=== PATIENT | female | born 1980 | race Caucasian/White ===

== ENCOUNTER 2017-04-12 14:32 | Emergency (ER) | payer OTHER ==
[~2017-04-12] VITALS: Ht 160 cm; Wt 74.8 kg
[~2017-04-12 14:32] MED LIST: GLIP10TA11 PO; Gemfibrozil PO; OMEP20CA10 PO
--- NOTE | 2017-04-12 14:55 | NUR ---
Pt states she lost her glucometer about a week ago and has not checked her blood sugar since then. Accucheck =194, reported to .
[2017-04-12] MEDS ORDERED: HYDROMORPHONE 1 MG/1 ML DISP.SYRIN IV ONE (15:00)
[2017-04-12] MEDS ORDERED: ONDANSETRON 4 MG/2 ML VIAL IV ONE (15:00)
[2017-04-12] MEDS ORDERED: IV NORMAL SALINE 1000 ML BAG IV ONE (15:00)
[2017-04-12] MEDS ORDERED: PANTOPRAZOLE SODIUM 40 MG VIAL IV ONE (15:00)
[2017-04-12] MEDS ORDERED: HYDROMORPHONE 1 MG/1 ML DISP.SYRIN ONE (15:04)
[2017-04-12] MEDS ORDERED: ONDANSETRON 4 MG/2 ML VIAL ONE (15:04)
[2017-04-12] MEDS ORDERED: PANTOPRAZOLE SODIUM 40 MG VIAL ONE (15:05)
[2017-04-12 15:12] LABS: BASOPHILS % (AUTO) 0.5 % (0.0-2.0); EOSINOPHILS # (AUTO) 0.2 K/uL (0.0-0.7); EOSINOPHILS % (AUTO) 1.6 % (0.0-7.0); HEMATOCRIT 41.1 % (37-47); HEMOGLOBIN 13.5 G/DL (12.0-16.0); LYMPHOCYTES # (AUTO) 2.4 K/UL (0.8-4.8); LYMPHOCYTES % (AUTO) 24.8 % (20.5-51.5); MEAN CORPUSCULAR HEMOGLOBIN 30.9 UUG (27.0-31.0); MEAN CORPUSCULAR HGB CONC 33 g/dL (32.0-37.0); MEAN CORPUSCULAR VOLUME 94.4 FL (81.0-99.0); MONOCYTES # (AUTO) 0.3 K/UL (0.1-1.30); MONOCYTES % (AUTO) 3.2 % (0.0-11.0); NEUTROPHILS % (AUTO) 69.9 % (38.5-71.5); PLATELET COUNT (AUTO) 300 K/UL (150-450); RED BLOOD CELL COUNT(AUTO) 4.36 MIL/UL (4.2-5.4); WHITE BLOOD COUNT (AUTO) 9.9 K/UL (4.0-11.2)
[2017-04-12 15:20] LABS: CREATININE 0.7 mg/dL (0.6-1.3); POTASSIUM 3.6 mmol/L (3.5-5.1)
[2017-04-12 15:26] LABS: BILIRUBIN,DIRECT 0.1 mg/dL (0.0-0.2); BILIRUBIN,TOTAL 0.2 mg/dL (0.2-1.0); TOTAL PROTEIN, SERUM 7.2 g/dL (6.4-8.2)
--- NOTE | 2017-04-12 15:35 | NUR ---
Patient is resting comfortably on gurney while using her personal electronic device, NAD, decreased abdominal pains expressed by patient.
[2017-04-12] MEDS ORDERED: MAG HYDROX/AL HYDROX/SIMETH 30 ML LIQUID UDC PO ONE (15:45)
[2017-04-12] MEDS ORDERED: DICYCLOMINE HCL 10 MG/5 ML UDC LIQ PO ONE (15:45)
[2017-04-12] MEDS ORDERED: DICYCLOMINE HCL 10 MG/5 ML UDC LIQ ONE (16:01)
[2017-04-12] MEDS ORDERED: MAG HYDROX/AL HYDROX/SIMETH 30 ML LIQUID UDC ONE (16:01)
--- NOTE | 2017-04-12 16:01 | NUR ---
IV removed. Catheter intact and site benign. Pressure and 4x4 gauze applied to site. No bleeding noted. Patient discharged to home in stable conditon. Written and verbal after care instructions given to patient. Patient verbalizes understanding of instructions.
== END 2017-04-12 16:03 | disposition home or self-care (01) ==
LOC: ER 14:32
DX: K52.9 Noninfective gastroenteritis and colitis, unspecified (principal); E11.9 Type 2 diabetes mellitus without complications; F10.20 Alcohol dependence, uncomplicated
CPT/HCPCS: 36415; 83690; 84703; 85025; A4663; C9113; J1170; J2405; J7030

== ENCOUNTER 2017-07-08 19:46 | Emergency (ER) | payer OTHER ==
[~2017-07-08] VITALS: Ht 160 cm; Wt 74.8 kg
--- NOTE | 2017-07-08 20:00 | NUR ---
PATIENT WALKED INTO ER C/O CP THAT STARTED ABOUT 30 MINS PRIOR TO ARRIVAL AND ABDOMINAL BLOATING FOR SEVERAL . PATIENT UPON ARRIVAL DENIES CP AND ABDOMINAL BLOATING 11/08
[2017-07-08 20:55] LABS: *BILIRUBIN,URIN NEGATIVE (NEGATIVE); *BLOOD, URINE NEGATIVE (NEGATIVE); *CLARITY,URINE CLEAR (CLEAR); *COLOR,URINE YELLOW (YELLOW); *KETONES,URINE 1+ (NEGATIVE); *PROTEIN,URINE NEGATIVE (NEGATIVE); LEUKOCYTE ESTERASE ,URINE NEGATIVE (NEGATIVE); NITRITE, URINE NEGATIVE (NEGATIVE); PH,URINE 6.5 (5.0-8.0)
[2017-07-08 20:55] LABS: BASOPHILS # (AUTO) 0.1 K/uL (0.0-8.0); BASOPHILS % (AUTO) 1.1 % (0.0-2.0); EOSINOPHILS # (AUTO) 0.2 K/uL (0.0-0.7); HEMATOCRIT 42.3 % (37-47); HEMOGLOBIN 14.3 G/DL (12.0-16.0); LYMPHOCYTES # (AUTO) 2.7 K/UL (0.8-4.8); LYMPHOCYTES % (AUTO) 34.5 % (20.5-51.5); MEAN CORPUSCULAR HEMOGLOBIN 32.2 UUG (27.0-31.0); MEAN CORPUSCULAR HGB CONC 34 g/dL (32.0-37.0); MEAN CORPUSCULAR VOLUME 94.9 FL (81.0-99.0); MONOCYTES # (AUTO) 0.6 K/UL (0.1-1.30); MONOCYTES % (AUTO) 7.1 % (0.0-11.0); NEUTROPHILS # (AUTO) 4.2 K/UL (1.8-8.9); NEUTROPHILS % (AUTO) 54.3 % (38.5-71.5); PLATELET COUNT (AUTO) 299 K/UL (150-450); RED BLOOD CELL COUNT(AUTO) 4.45 MIL/UL (4.2-5.4); WHITE BLOOD COUNT (AUTO) 7.8 K/UL (4.0-11.2)
[2017-07-08 20:59] LABS: UGLUCOSE 2+ (NEGATIVE)
[2017-07-08 21:02] LABS: CREATININE 0.7 mg/dL (0.6-1.3); POTASSIUM 3.6 mmol/L (3.5-5.1)
[2017-07-08 21:14] LABS: BILIRUBIN,DIRECT 0.1 mg/dL (0.0-0.2); BILIRUBIN,TOTAL 0.4 mg/dL (0.2-1.0); TOTAL PROTEIN, SERUM 6.9 g/dL (6.4-8.2)
[2017-07-08 21:33] LABS: BACTERIA,URINE FEW /HPF (NONE SEEN); RBC,URINE 0-3 /HPF (0-3); SQUAMOUS EPITHELIAL CELL,UR FEW /HPF (NONE SEEN); WBC,URINE 0-3 /HPF (0-3)
--- NOTE | 2017-07-08 22:00 | NUR ---
PATIENT STATES "I FELL BETTER. MY STOMACH PAIN ARE GONE."
--- NOTE | 2017-07-09 00:12 | NUR ---
Patient discharged to home in stable conditon. Written and verbal after care instructions given. Patient verbalizes understanding of instructions.
[2017-07-09 00:13] VITALS: BP 138/89
== END 2017-07-09 00:13 | disposition home or self-care (01) ==
LOC: ER 19:48
DX: R07.9 Chest pain, unspecified (principal)
CPT/HCPCS: 36415; 70030-TC; 71010; 84703; 85025; 85730; 93005; A4663

== ENCOUNTER 2017-08-25 15:38 | Emergency (ER) | payer OTHER ==
[~2017-08-25] VITALS: Ht 160 cm; Wt 74.8 kg
[2017-08-25 16:30] VITALS: BP 113/87
--- NOTE | 2017-08-25 16:30 | NUR ---
Patient discharged to home in stable conditon. Written and verbal after care instructions given. Patient verbalizes understanding of instructions.
== END 2017-08-25 16:31 | disposition home or self-care (01) ==
LOC: ER 15:42
DX: L60.0 Ingrowing nail (principal); E11.9 Type 2 diabetes mellitus without complications
CPT/HCPCS: 99283; A4663

== ENCOUNTER 2017-11-26 16:32 | Emergency (ER) | payer OTHER ==
--- NOTE | 2017-11-26 16:40 | NUR ---
PT WAS CALLED TO TRIAGE AREA, NO ANSWER.
--- NOTE | 2017-11-26 17:01 | NUR ---
PT WAS CALLED TO TRIAGE AREA, NO RESPONSE.
[2018-02-21] MEDS ORDERED: MULT-1045 PO (17:39)
[2018-02-21] MEDS ORDERED: CHLO25CA22 PO (17:39)
== END 2017-11-26 17:02 | disposition left against medical advice (07) ==
LOC: ER 16:34
DX: Z53.21 Procedure and treatment not carried out due to patient leaving prior to being seen by health care provider (principal)

== ENCOUNTER 2018-02-18 19:06 | Inpatient (IN) | payer OTHER ==
[~2018-02-18] VITALS: Ht 160 cm; Wt 67.4 kg
--- NOTE | 2018-02-18 19:28 | NUR ---
PT C/O "BURNING" BACK PAIN AND ABD PAIN X2 DAYS, W/ ASSOCIATED N/V. PER PT, SHE HASNT EATEN IN 2 DAYS, AND HASN'T BEEEN ABLE TO "KEEP ANYTHING DOWN." NO ACTIVE EMESIS SINCE PT ARRIVED IN ER. DENIES SOB. PT AMBULATORY, A&OX4.
--- NOTE | 2018-02-18 19:55 | NUR ---
DR TRUMAN WESTFALL MD AT BEDSIDE FOR MSE.
[2018-02-18] MEDS ORDERED: IV NORMAL SALINE 1000 ML BAG IV ONE (20:00)
[2018-02-18 20:20] LABS: *BILIRUBIN,URIN NEGATIVE (NEGATIVE); *BLOOD, URINE 1+ (NEGATIVE); *COLOR,URINE YELLOW (YELLOW); *KETONES,URINE 4+ (NEGATIVE); *PROTEIN,URINE 2+ (NEGATIVE); *UROBILINOGEN,URINE 0.2 E.U./dl (NORMAL); BASOPHILS % (AUTO) 0.4 % (0.0-2.0); EOSINOPHILS # (AUTO) 0.1 K/uL (0.0-0.7); EOSINOPHILS % (AUTO) 1.4 % (0.0-7.0); HEMATOCRIT 44.1 % (31.2-41.9); HEMOGLOBIN 15.4 g/dL (10.9-14.3); LEUKOCYTE ESTERASE ,URINE NEGATIVE (NEGATIVE); LYMPHOCYTES # (AUTO) 1.3 K/uL (20.0-40.0); LYMPHOCYTES % (AUTO) 19.6 % (20.5-51.5); MEAN CORPUSCULAR HEMOGLOBIN 34.3 uug (24.7-32.8); MEAN CORPUSCULAR HGB CONC 35 g/dL (32.3-35.6); MEAN CORPUSCULAR VOLUME 98.5 fL (75.5-95.3); MONOCYTES # (AUTO) 0.7 K/uL (2.0-10.0); MONOCYTES % (AUTO) 9.8 % (0.0-11.0); NEUTROPHILS # (AUTO) 4.6 K/uL (1.8-8.9); NEUTROPHILS % (AUTO) 68.8 % (38.5-71.5); NITRITE, URINE NEGATIVE (NEGATIVE); PH,URINE 6.5 (5.0-8.0); PLATELET COUNT (AUTO) 294 K/uL (179-408); RED BLOOD CELL COUNT(AUTO) 4.48 MIL/uL (3.63-4.92); WHITE BLOOD COUNT (AUTO) 6.7 K/uL (3.8-11.8)
--- NOTE | 2018-02-18 20:23 | NUR ---
RADIOLOGY AT PT BEDSIDE FOR XRAY.
[2018-02-18 20:30] LABS: CREATININE 0.8 mg/dL (0.6-1.3); POTASSIUM 3.1 mmol/L (3.5-5.1)
[2018-02-18 20:35] LABS: BILIRUBIN,DIRECT 0.3 mg/dL (0.0-0.2); BILIRUBIN,TOTAL 0.8 mg/dL (0.2-1.0); TOTAL PROTEIN, SERUM 8.5 g/dL (6.4-8.2)
[2018-02-18 20:45] LABS: LIPASE 1739 U/L (73-393)
[2018-02-18] MEDS ORDERED: KETOROLAC TROMETHAMINE 30 MG INJ IVP ONE (20:45)
[2018-02-18] MEDS ORDERED: METOCLOPRAMIDE HCL 10 MG/2 ML VIAL IV ONE (20:45)
[2018-02-18 20:52] LABS: *CLARITY,URINE HAZY (CLEAR); UGLUCOSE 2+ (NEGATIVE)
[2018-02-18] MEDS ORDERED: METF10004 PO (20:55)
[2018-02-18] MEDS ORDERED: KETOROLAC TROMETHAMINE 30 MG INJ ONE (20:56)
[2018-02-18] MEDS ORDERED: METOCLOPRAMIDE HCL 10 MG/2 ML VIAL ONE (20:56)
[2018-02-18 21:02] LABS: BACTERIA,URINE FEW /HPF (NONE SEEN); SQUAMOUS EPITHELIAL CELL,UR MANY /HPF (NONE SEEN)
--- NOTE | 2018-02-18 21:27 | NUR ---
PT TAKEN TO RADIOLOGY FOR CT. NO ACUTE DISTRESS NOTED AT THIS TIME.
--- NOTE | 2018-02-18 22:10 | NUR ---
DR LAUGHLIN SPEAKING WITH DR BALBUENA FOR PT ADMISSION.
--- NOTE | 2018-02-18 22:31 | NUR ---
REPORT GIVEN TO CONNER ROBERTS.
--- NOTE | 2018-02-18 22:32 | NUR ---
Received admission report from ER Nurse.
--- NOTE | 2018-02-18 22:35 | NUR ---
Pt. admitted to TELE, under care of Dr. HANDLEY Belongs List completed
[2018-02-18 23:07] VITALS: BP 144/87
[2018-02-18] MEDS ORDERED: BISACODYL 10 MG SUPP.RECT RC PRN (23:15)
[2018-02-18] MEDS ORDERED: ACETAMINOPHEN 650 MG SUPP.RECT RC PRN (23:15)
[2018-02-18] MEDS ORDERED: ENALAPRILAT DIHYDRATE INJ 2.5 MG in IV NORMAL SALINE 50 ML IV PRN (23:15)
[2018-02-18] MEDS ORDERED: LORAZEPAM 2 MG/1 ML VIAL IV PRN (23:15)
[2018-02-18] MEDS ORDERED: DEXTROSE 50% 50 ML DISP.SYRIN IV PRN (23:15)
--- NOTE | 2018-02-18 23:25 | NUR ---
Admitted patient with admitting DX: DKA, Pancreatitis. Routine admission care done. Plan of care initiated.
[2018-02-19] MEDS: BLOOD SUGAR DIAGNOSTIC 1 EACH STRIP VI SCH ×5 (00:18→23:03)
[2018-02-19] MEDS: INSULIN REGULAR, HUMAN 300 UNIT/3 ML VIAL SQ PRN ×5 (00:21→23:05)
[2018-02-19] MEDS: MORPHINE SULFATE 2 MG/1 ML DISP.SYRIN IV PRN ×5 (00:22→20:14)
[2018-02-19] MEDS: POTASSIUM CHLORIDE 20 MEQ in IV 1/2NS 1000 ML 1,000 ML IV PRN ×2 (00:37→11:46)
--- NOTE | 2018-02-19 03:32 | NUR ---
In the bathroom throwing up claiming feeling nauseous after Morphine administration. Notified
[2018-02-19 04:00] VITALS: BP 119/77
--- NOTE | 2018-02-19 04:11 | NUR ---
Obtained Elodia order from . Pt sleeping at th time. Will continue to monitor.
[2018-02-19] MEDS: ONDANSETRON 4 MG/2 ML VIAL IV PRN ×4 (04:38→20:13)
[2018-02-19] MEDS: PANTOPRAZOLE SODIUM 40 MG VIAL IV SCH (05:49)
--- NOTE | 2018-02-19 06:01 | NUR ---
Shift end report: Slept in between care. Medicated twice for pain with relief. No further complaint presented. BS checked with sliding scale coverage given. Denies any s/s of hyperglycemia. No significant event reported all night. Continue current plan of care.
[2018-02-19 06:53] LABS: CREATININE 0.6 mg/dL (0.6-1.3); MAGNESIUM 1.6 mg/dL (1.8-2.4); PHOSPHOROUS 1.4 mg/dL (2.5-4.9); TOTAL PROTEIN, SERUM 6.6 g/dL (6.4-8.2)
--- NOTE | 2018-02-19 07:35 | NUR ---
Sleeping, appears comfortable. IVF infusing. NPO maintained
[2018-02-19 08:08] LABS: BASOPHILS % (AUTO) 0.4 % (0.0-2.0); EOSINOPHILS # (AUTO) 0.2 K/uL (0.0-0.7); EOSINOPHILS % (AUTO) 2.4 % (0.0-7.0); LYMPHOCYTES # (AUTO) 1.2 K/uL (20.0-40.0); LYMPHOCYTES % (AUTO) 15.7 % (20.5-51.5); MEAN CORPUSCULAR HEMOGLOBIN 33.9 uug (24.7-32.8); MEAN CORPUSCULAR HGB CONC 34 g/dL (32.3-35.6); MEAN CORPUSCULAR VOLUME 99.7 fL (75.5-95.3); MONOCYTES % (AUTO) 13.2 % (0.0-11.0); NEUTROPHILS # (AUTO) 5.2 K/uL (1.8-8.9); NEUTROPHILS % (AUTO) 68.3 % (38.5-71.5); PLATELET COUNT (AUTO) 237 K/uL (179-408); RED BLOOD CELL COUNT(AUTO) 3.77 MIL/uL (3.63-4.92); WHITE BLOOD COUNT (AUTO) 7.7 K/uL (3.8-11.8)
[2018-02-19 08:12] LABS: HEMOGLOBIN 12.8 g/dL (10.9-14.3)
[2018-02-19 08:13] LABS: HEMATOCRIT 37.6 % (31.2-41.9)
[2018-02-19] MEDS: THIAMINE HCL INJ 100 MG in IV DEXTROSE 5% 50 ML IV SCH (08:30)
[2018-02-19] MEDS: FOLIC ACID 1 MG in IV DEXTROSE 5% 50 ML IV SCH (09:06)
--- NOTE | 2018-02-19 09:11 | NUR ---
Complaining of abdominal pain with nausea. Morphine and Zofran IV given as ordered. Resting after
[2018-02-19 11:36] VITALS: BP 116/74
--- NOTE | 2018-02-19 13:15 | NUR ---
With low magnesium, potassium, Phos. Magnesium, KPhos given as ordered
[2018-02-19] MEDS: MAGNESIUM SULFATE/D5W 100 ML IV SCH ×2 (13:18→14:56)
--- NOTE | 2018-02-19 13:20 | NUR ---
Vomiting. Zofran IV given
[2018-02-19 15:40] VITALS: BP 141/85
[2018-02-19] MEDS: POTASSIUM PHOSPHATE MM 5 MMOL in IV DEXTROSE 5% 100 ML IV SCH ×4 (16:13→22:06)
--- NOTE | 2018-02-19 16:20 | NUR ---
Complaining of abdominal pain. Morphine IV given as ordered
--- NOTE | 2018-02-19 18:44 | NUR ---
Resting. KPhos infusing, still for infusion of 2 bags of KPhos. Endorsed for further care
[2018-02-19 20:00] VITALS: BP 144/87
--- NOTE | 2018-02-19 20:00 | NUR ---
PT IN ROOM SITTING UP IN BED IN NO ACUTE DISTRESS. STATES GENERALIZED PAIN TO HER BACK 03/08. ONE EPISODE OF VOMITTING PRESENT. PT ABLE TO TAKE NEXT DOSE OF MORPHINE AND ZOFRAN. MAINTAINING IV K PHOS 2ND BAG AT THIS TIME. PT REMINDED OF NPO STATUS. CLINICAL NURSE LEADER SINUS RHYTHM AT THIS TIME. ABLE TO MAKE NEEDS KNOWN. WILL CONTINUE TO MONITOR. CALL LIGHT IS WITHIN REACH.
[2018-02-20] VITALS: BP 101/67
--- NOTE | 2018-02-20 01:00 | NUR ---
NO EPISODES OF HYPER/HYPOGLYCEMIA. MAINTAINING IV FLUIDS 1/2 NS WITH 20 KCL. PT ASLEEP. WILL CONTINUE TO MONITOR. SINUS RHYTHM NOTED ON HOSPITALITY AIDE. NO ACTIVE PAIN AT THIS TIME.
[2018-02-20] MEDS: POTASSIUM CHLORIDE 20 MEQ in IV 1/2NS 1000 ML 1,000 ML IV PRN ×2 (01:03→12:19)
[2018-02-20] MEDS: MORPHINE SULFATE 2 MG/1 ML DISP.SYRIN IV PRN ×4 (02:06→23:43)
[2018-02-20] MEDS: ONDANSETRON 4 MG/2 ML VIAL IV PRN ×2 (02:11→07:35)
[2018-02-20 04:00] VITALS: BP 100/67
--- NOTE | 2018-02-20 06:00 | NUR ---
PT IN ROOM ALERT AWAKE IN NO ACUTE DISTRESS. STATES HAVING UP TO 2 EPISODES OF VOMITTING OVERNIGHT. REPORTED MORPHINE AND ZOFRAN ABLE TO CONTROL PAIN AND NAUSEA. MAINTAINING IV FLUIDS OF 20 KCL WITH 1/2 NS. NO S/S OF HYPER/HYPOGLYCEMIA. REMINDED PT TO MAINTAIN NPO STATUS. WILL CONTINUE TO MONITOR. CALL LIGHT IS WITHIN REACH.
[2018-02-20] MEDS: PANTOPRAZOLE SODIUM 40 MG VIAL IV SCH (06:12)
[2018-02-20] MEDS: INSULIN REGULAR, HUMAN 300 UNIT/3 ML VIAL SQ PRN ×3 (06:15→17:36)
[2018-02-20] MEDS: BLOOD SUGAR DIAGNOSTIC 1 EACH STRIP VI SCH ×4 (06:16→23:55)
[2018-02-20 06:48] LABS: BASOPHILS % (AUTO) 0.6 % (0.0-2.0); EOSINOPHILS # (AUTO) 0.3 K/uL (0.0-0.7); EOSINOPHILS % (AUTO) 4.1 % (0.0-7.0); HEMATOCRIT 38.3 % (31.2-41.9); HEMOGLOBIN 13.1 g/dL (10.9-14.3); LYMPHOCYTES # (AUTO) 1.6 K/uL (20.0-40.0); LYMPHOCYTES % (AUTO) 23.3 % (20.5-51.5); MEAN CORPUSCULAR HEMOGLOBIN 34.2 uug (24.7-32.8); MEAN CORPUSCULAR HGB CONC 34 g/dL (32.3-35.6); MEAN CORPUSCULAR VOLUME 99.9 fL (75.5-95.3); MONOCYTES # (AUTO) 0.5 K/uL (2.0-10.0); MONOCYTES % (AUTO) 7.7 % (0.0-11.0); NEUTROPHILS # (AUTO) 4.5 K/uL (1.8-8.9); NEUTROPHILS % (AUTO) 64.3 % (38.5-71.5); PLATELET COUNT (AUTO) 235 K/uL (179-408); RED BLOOD CELL COUNT(AUTO) 3.83 MIL/uL (3.63-4.92)
[2018-02-20 07:02] LABS: BILIRUBIN,TOTAL 0.8 mg/dL (0.2-1.0); CREATININE 0.6 mg/dL (0.6-1.3); PHOSPHOROUS 1.7 mg/dL (2.5-4.9); TOTAL PROTEIN, SERUM 6.8 g/dL (6.4-8.2)
[2018-02-20] MEDS: THIAMINE HCL INJ 100 MG in IV DEXTROSE 5% 50 ML IV SCH (08:40)
[2018-02-20] MEDS: FOLIC ACID 1 MG in IV DEXTROSE 5% 50 ML IV SCH (09:24)
--- NOTE | 2018-02-20 10:40 | NUR ---
Dr. Luz Spence. into examine and speak to patient; full review of recent lab work and imaging with patient orders received see orders Hx.
[2018-02-20] MEDS ORDERED: POTASSIUM CHLORIDE 20 MEQ TAB.PRT.SR PO ONE (10:45)
[2018-02-20] MEDS ORDERED: MAGNESIUM HYDROXIDE 30 ML LIQUID UDC PO PRN ×2 (11:00→12:15)
[2018-02-20 11:31] VITALS: BP 124/78
[2018-02-20] MEDS: POTASSIUM PHOSPHATE MM 5 MMOL in IV DEXTROSE 5% 100 ML IV SCH ×6 (11:45→22:00)
[2018-02-20 15:34] VITALS: BP 124/93
[2018-02-20 21:09] VITALS: BP 126/84
[2018-02-21] MEDS: POTASSIUM PHOSPHATE MM 5 MMOL in IV DEXTROSE 5% 100 ML IV SCH (01:53)
[2018-02-21] MEDS: POTASSIUM CHLORIDE 20 MEQ in IV 1/2NS 1000 ML 1,000 ML IV PRN (04:54)
[2018-02-21] MEDS: MORPHINE SULFATE 2 MG/1 ML DISP.SYRIN IV PRN (04:54)
[2018-02-21] MEDS: PANTOPRAZOLE SODIUM 40 MG VIAL IV SCH (04:55)
[2018-02-21] MEDS: BLOOD SUGAR DIAGNOSTIC 1 EACH STRIP VI SCH ×3 (06:07→17:00)
[2018-02-21 06:10] LABS: BASOPHILS % (AUTO) 1.1 % (0.0-2.0); EOSINOPHILS # (AUTO) 0.2 K/uL (0.0-0.7); EOSINOPHILS % (AUTO) 5.7 % (0.0-7.0); HEMATOCRIT 40.3 % (31.2-41.9); HEMOGLOBIN 13.8 g/dL (10.9-14.3); LYMPHOCYTES # (AUTO) 1.7 K/uL (20.0-40.0); LYMPHOCYTES % (AUTO) 37.7 % (20.5-51.5); MEAN CORPUSCULAR HEMOGLOBIN 34.1 uug (24.7-32.8); MEAN CORPUSCULAR HGB CONC 34 g/dL (32.3-35.6); MEAN CORPUSCULAR VOLUME 99.4 fL (75.5-95.3); MONOCYTES # (AUTO) 0.3 K/uL (2.0-10.0); MONOCYTES % (AUTO) 7.6 % (0.0-11.0); NEUTROPHILS # (AUTO) 2.1 K/uL (1.8-8.9); NEUTROPHILS % (AUTO) 47.9 % (38.5-71.5); PLATELET COUNT (AUTO) 258 K/uL (179-408); RED BLOOD CELL COUNT(AUTO) 4.05 MIL/uL (3.63-4.92); WHITE BLOOD COUNT (AUTO) 4.4 K/uL (3.8-11.8)
[2018-02-21 06:18] LABS: BILIRUBIN,TOTAL 0.8 mg/dL (0.2-1.0); CREATININE 0.7 mg/dL (0.6-1.3); PHOSPHOROUS 1.9 mg/dL (2.5-4.9); POTASSIUM 3.2 mmol/L (3.5-5.1)
[2018-02-21 06:20] VITALS: BP 122/82
--- NOTE | 2018-02-21 08:00 | NUR ---
AWAKE ALERT COOPERATE WELL NO PAIN OR N/V EAT CLEAR LIQ KATHIE MOD AMT CONTINUE IVF RESTING QUIET IN BED WITH CALL LIGHT IN REACH
[2018-02-21] MEDS: INSULIN REGULAR, HUMAN 300 UNIT/3 ML VIAL SQ PRN ×3 (08:18→17:02)
[2018-02-21] MEDS: THIAMINE HCL INJ 100 MG in IV DEXTROSE 5% 50 ML IV SCH (08:21)
[2018-02-21] MEDS: FOLIC ACID 1 MG in IV DEXTROSE 5% 50 ML IV SCH (08:21)
[2018-02-21 11:33] VITALS: BP 121/83
--- NOTE | 2018-02-21 12:00 | NUR ---
ADVANCE DIET TO DM DIET /CONSIST CARBOHYDRATE CONTROL DIET KATHIE WELL NO N/V OR ABD PAIN AT THIS TIME
[2018-02-21] MEDS ORDERED: POTASSIUM CHLORIDE 20 MEQ TAB.PRT.SR PO ONE (14:45)
--- NOTE | 2018-02-21 15:00 | NUR ---
DR HANDLEY SEE PATIENT AND LAB RESULT AND ORDER TO GIVE K DUR AND NEUTRAL PO4 PO GIVEN ORDER D/C INSTRUCTION REGARDING NEED TO F/U WITH OWN PMD CONTINUE HOME MEDICINE AND EDUCATION PK GAVE ,VERBALIZES UNDERSTAND HL WAS D/C PRIOR D/C HOME TODAY
[2018-02-21] MEDS ORDERED: NEUTRA PHOS PACKET PO ONE (15:45)
[2018-02-21 16:03] VITALS: BP 125/84
[2018-02-21] MEDS ORDERED: MULT-1045 PO (17:39)
[2018-02-21] MEDS ORDERED: CHLO25CA22 PO (17:39)
--- NOTE | 2018-02-21 18:20 | NUR ---
D/C HOME WITH HER BELONGING CONDITION STABLE HOME MED VINSTRUCTION PRIOR D/C HOME TODAY ,UNDERSTAND AND SIGNS D/C SHEET
[2018-02-22] MEDS ORDERED: PANTOPRAZOLE SODIUM 40 MG TABLET.DR PO SCH (07:00)
[2018-02-22] MEDS ORDERED: THIAMINE HCL 100 MG TABLET PO SCH (09:00)
[2018-02-22] MEDS ORDERED: FOLIC ACID 1 MG TABLET PO SCH (09:00)
== END 2018-02-21 18:20 | disposition home or self-care (01) | DRG 282 ==
LOC: ER 19:08 → TELE 22:29 → MED 02-20 11:07
PROVIDERS: ADMIT Internal Medicine; ATTEND Internal Medicine
DX: K85.20 Alcohol induced acute pancreatitis without necrosis or infection (principal); E11.10 Type 2 diabetes mellitus with ketoacidosis without coma; E11.21 Type 2 diabetes mellitus with diabetic nephropathy; K70.10 Alcoholic hepatitis without ascites; N20.0 Calculus of kidney; E78.5 Hyperlipidemia, unspecified; K42.9 Umbilical hernia without obstruction or gangrene; Z91.19 Patient's noncompliance with other medical treatment and regimen; K59.00 Constipation, unspecified; D75.89 Other specified diseases of blood and blood-forming organs; E11.65 Type 2 diabetes mellitus with hyperglycemia; K76.0 Fatty (change of) liver, not elsewhere classified; Y90.3 Blood alcohol level of 60-79 mg/100 ml; Z79.84 Long term (current) use of oral hypoglycemic drugs; Z82.49 Family history of ischemic heart disease and other diseases of the circulatory system; Z81.1 Family history of alcohol abuse and dependence; Z83.3 Family history of diabetes mellitus; F10.239 Alcohol dependence with withdrawal, unspecified
CPT/HCPCS: 36415; 70030-TC; 71045; 83605; 83690; 83735; 84100; 84703; 85025; 85730; 87040; 87086; 93005; A4663; C9113; G0480; J1815; J1885; J2270; J2405; J2765; J3411; J3475; J3480; J3490; J7030; J7040; J7060

== ENCOUNTER 2018-02-22 13:50 | Emergency (ER) | payer OTHER ==
[~2018-02-22] VITALS: Ht 160 cm; Wt 68.0 kg
[~2018-02-22 13:50] MED LIST changes: +CHLO25CA22 PO; -Gemfibrozil PO; +METF10004 PO; +MULT-1045 PO
--- NOTE | 2018-02-22 14:02 | NUR ---
Patient eloped from facility. ER physician notified.
== END 2018-02-22 14:03 | disposition left against medical advice (07) ==
LOC: ER 13:50
DX: Z53.21 Procedure and treatment not carried out due to patient leaving prior to being seen by health care provider (principal)
CPT/HCPCS: A4663

== ENCOUNTER 2018-06-05 09:40 | Emergency (ER) | payer OTHER ==
[~2018-06-05] VITALS: Ht 160 cm; Wt 63.5 kg
--- NOTE | 2018-06-05 09:45 | NUR ---
at bedside to see and examine patient. blood sugar checked at this time and a reading of 75mmhg. obtained. at bedside and aware. Pt's boyfriend at bedside .
--- NOTE | 2018-06-05 09:48 | NUR ---
pt. moaning crying.
[2018-06-05] MEDS ORDERED: IV NORMAL SALINE 1000 ML BAG IV ONE (10:00)
--- NOTE | 2018-06-05 10:02 | NUR ---
pt. taken down for ct of the head.
[2018-06-05 10:09] LABS: BASOPHILS % (AUTO) 0.6 % (0.0-2.0); EOSINOPHILS % (AUTO) 1.1 % (0.0-7.0); HEMATOCRIT 39.9 % (31.2-41.9); HEMOGLOBIN 13.8 g/dL (10.9-14.3); LYMPHOCYTES # (AUTO) 1.3 K/uL (20.0-40.0); LYMPHOCYTES % (AUTO) 33.3 % (20.5-51.5); MEAN CORPUSCULAR HEMOGLOBIN 34.3 uug (24.7-32.8); MEAN CORPUSCULAR HGB CONC 35 g/dL (32.3-35.6); MEAN CORPUSCULAR VOLUME 99.3 fL (75.5-95.3); MONOCYTES # (AUTO) 0.3 K/uL (2.0-10.0); MONOCYTES % (AUTO) 8.5 % (0.0-11.0); NEUTROPHILS # (AUTO) 2.2 K/uL (1.8-8.9); NEUTROPHILS % (AUTO) 56.5 % (38.5-71.5); PLATELET COUNT (AUTO) 299 K/uL (179-408); RED BLOOD CELL COUNT(AUTO) 4.02 MIL/uL (3.63-4.92); WHITE BLOOD COUNT (AUTO) 3.9 K/uL (3.8-11.8)
[2018-06-05 10:14] LABS: CREATININE 0.6 mg/dL (0.6-1.3)
--- NOTE | 2018-06-05 10:16 | NUR ---
Patient back from Ct.
[2018-06-05 10:19] LABS: BILIRUBIN,DIRECT 0.3 mg/dL (0.0-0.2); BILIRUBIN,TOTAL 0.8 mg/dL (0.2-1.0); TOTAL PROTEIN, SERUM 7.5 g/dL (6.4-8.2)
--- NOTE | 2018-06-05 10:59 | NUR ---
at bedside updating pt. of test results.
--- NOTE | 2018-06-05 11:10 | NUR ---
DCD instructions and prescription given to pt. who verbalized understanding, boyfriend at bedside. Pt. left room ambulatory AAOX4.
== END 2018-06-05 11:20 | disposition home or self-care (01) ==
LOC: ER 09:40
DX: R42 Dizziness and giddiness (principal); E11.9 Type 2 diabetes mellitus without complications
CPT/HCPCS: 36415; 70450; 80048; 80076; 82962; 84484; 85025; 85730; 93005; 99285; A4663; J7030; 70030-TC

== ENCOUNTER 2018-07-05 19:46 | Emergency (ER) | payer OTHER ==
[~2018-07-05] VITALS: Ht 160 cm; Wt 64.9 kg
[~2018-07-05 19:46] MED LIST changes: +METF-442 PO; -METF10004 PO
[2018-07-05] MEDS ORDERED: IV NORMAL SALINE 1000 ML BAG IV ONE (20:30)
[2018-07-05] MEDS ORDERED: ONDANSETRON 4 MG/2 ML VIAL IV ONE (20:30)
[2018-07-05 20:32] LABS: EOSINOPHILS % (AUTO) 1.1 % (0.0-7.0); HEMATOCRIT 43.2 % (31.2-41.9); LYMPHOCYTES % (AUTO) 32.9 % (20.5-51.5); MEAN CORPUSCULAR HEMOGLOBIN 35.1 uug (24.7-32.8); MEAN CORPUSCULAR HGB CONC 35 g/dL (32.3-35.6); MEAN CORPUSCULAR VOLUME 100.9 fL (75.5-95.3); MONOCYTES % (AUTO) 7.1 % (0.0-11.0); NEUTROPHILS % (AUTO) 57.9 % (38.5-71.5); PLATELET COUNT (AUTO) 300 K/uL (179-408); RED BLOOD CELL COUNT(AUTO) 4.28 MIL/uL (3.63-4.92); WHITE BLOOD COUNT (AUTO) 5.9 K/uL (3.8-11.8)
[2018-07-05 20:33] LABS: BASOPHILS # (AUTO) 0.1 K/uL (0.0-8.0); EOSINOPHILS # (AUTO) 0.1 K/uL (0.0-0.7); MONOCYTES # (AUTO) 0.4 K/uL (2.0-10.0); NEUTROPHILS # (AUTO) 3.4 K/uL (1.8-8.9)
[2018-07-05 20:38] LABS: *URINE HCG, QUAL NEGATIVE (NEGATIVE)
[2018-07-05 20:46] LABS: CREATININE 0.8 mg/dL (0.6-1.3); POTASSIUM 3.3 mmol/L (3.5-5.1)
[2018-07-05 20:52] LABS: BILIRUBIN,DIRECT 0.2 mg/dL (0.0-0.2); BILIRUBIN,TOTAL 0.5 mg/dL (0.2-1.0); TOTAL PROTEIN, SERUM 8.1 g/dL (6.4-8.2)
--- NOTE | 2018-07-05 21:00 | NUR ---
PT SEEN BY FOR EVCARLOS
[2018-07-05] MEDS ORDERED: IV D5 1/2 NS 1000 ML 1,000 ML IV ONE (21:02)
[2018-07-05] MEDS ORDERED: ONDANSETRON 4 MG/2 ML VIAL ONE (21:06)
[2018-07-05] MEDS ORDERED: KETOROLAC TROMETHAMINE 30 MG INJ IVP ONE (21:15)
[2018-07-05] MEDS ORDERED: KETOROLAC TROMETHAMINE 30 MG INJ ONE (21:18)
--- NOTE | 2018-07-05 22:00 | NUR ---
PATIENT HAS NO C/O N/V. IV FLUIDS D5 1/2NS AT 200CC AT THIS TIME.
--- NOTE | 2018-07-05 22:55 | NUR ---
PT C/O ANXIETY. DR ENCARNACION NOTIFIED. NO INCREASED PAIN NOTED AT THIS TIME.
[2018-07-05] MEDS ORDERED: LORAZEPAM 2 MG/1 ML VIAL IV ONE (23:00)
[2018-07-05] MEDS ORDERED: LORAZEPAM 2 MG/1 ML VIAL ONE (23:00)
--- NOTE | 2018-07-06 00:40 | NUR ---
Patient discharged to home in stable conditon. Written and verbal after care instructions given. Patient verbalizes understanding of instructions. Pt's ex boyfriend will drive her home.
[2018-07-06 00:57] VITALS: BP 141/87
== END 2018-07-06 01:05 | disposition home or self-care (01) ==
LOC: ER 19:47
DX: K85.90 Acute pancreatitis without necrosis or infection, unspecified (principal); R11.10 Vomiting, unspecified; E11.9 Type 2 diabetes mellitus without complications; Z59.0 Homelessness
CPT/HCPCS: 36415; 83690; 84703; 85025; A4663; J1885; J2060; J2405; J3490; J7030

== ENCOUNTER 2018-11-02 17:33 | Inpatient (IN) | payer OTHER ==
[~2018-11-02] VITALS: Ht 160 cm; Wt 63.5 kg
[2018-11-02] MEDS ORDERED: PANTOPRAZOLE SODIUM 40 MG VIAL IV ONE (18:45)
[2018-11-02] MEDS ORDERED: HYDROMORPHONE 1 MG/1 ML DISP.SYRIN IV ONE (18:45)
[2018-11-02] MEDS ORDERED: IV NORMAL SALINE 1000 ML BAG IV ONE (18:45)
[2018-11-02] MEDS ORDERED: ONDANSETRON 4 MG/2 ML VIAL IV ONE ×2 (18:45→19:45)
[2018-11-02] MEDS ORDERED: ONDANSETRON 4 MG/2 ML VIAL ONE ×2 (18:56→20:01)
[2018-11-02] MEDS ORDERED: HYDROMORPHONE 1 MG/1 ML DISP.SYRIN ONE (18:56)
[2018-11-02] MEDS ORDERED: PANTOPRAZOLE SODIUM 40 MG VIAL ONE (18:56)
[2018-11-02 18:58] LABS: BASOPHILS % (AUTO) 0.4 % (0.0-2.0); EOSINOPHILS % (AUTO) 0.5 % (0.0-7.0); HEMATOCRIT 43.2 % (31.2-41.9); HEMOGLOBIN 14.4 g/dL (10.9-14.3); LYMPHOCYTES # (AUTO) 1.1 K/uL (20.0-40.0); LYMPHOCYTES % (AUTO) 14.2 % (20.5-51.5); MEAN CORPUSCULAR HEMOGLOBIN 32.8 uug (24.7-32.8); MEAN CORPUSCULAR HGB CONC 33 g/dL (32.3-35.6); MEAN CORPUSCULAR VOLUME 98.6 fL (75.5-95.3); MONOCYTES # (AUTO) 0.4 K/uL (2.0-10.0); MONOCYTES % (AUTO) 5.5 % (0.0-11.0); NEUTROPHILS % (AUTO) 79.4 % (38.5-71.5); PLATELET COUNT (AUTO) 257 K/uL (179-408); RED BLOOD CELL COUNT(AUTO) 4.38 MIL/uL (3.63-4.92); WHITE BLOOD COUNT (AUTO) 7.5 K/uL (3.8-11.8)
[2018-11-02 19:08] LABS: CARBON DIOXIDE 11 mmol/L (21-32); CHLORIDE 94 mmol/L (98-107); CREATININE 0.7 mg/dL (0.6-1.3); GLUCOSE 285 mg/dL (74-106); UREA NITROGEN, BLOOD 5 mg/dL (7-18)
[2018-11-02 19:10] LABS: POTASSIUM 2.7 mmol/L (3.5-5.1)
[2018-11-02 19:14] LABS: ALANINE AMINOTRANSFERASE 91 U/L (14-59); ALKALINE PHOSPHATASE 131 U/L (50-136); BILIRUBIN,DIRECT 0.3 mg/dL (0.0-0.2); BILIRUBIN,TOTAL 0.6 mg/dL (0.2-1.0); LIPASE 1189 U/L (73-393); TOTAL PROTEIN, SERUM 8.7 g/dL (6.4-8.2)
[2018-11-02] MEDS ORDERED: POTASSIUM CHLORIDE 20 MEQ TAB.PRT.SR PO ONE (19:15)
[2018-11-02] MEDS ORDERED: POTASSIUM CHLORIDE 20 MEQ TAB.PRT.SR ONE (19:23)
[2018-11-02 19:26] LABS: ASPARTATE AMINOTRANSFERASE 72 U/L (15-37)
[2018-11-02] MEDS ORDERED: DEXTROSE 50% 50 ML DISP.SYRIN IV PRN (20:45)
[2018-11-02] MEDS ORDERED: MORPHINE SULFATE 4 MG/1 ML DISP.SYRIN IV PRN (20:45)
[2018-11-02] MEDS ORDERED: ACETAMINOPHEN 650 MG SUPP.RECT RC PRN (20:45)
[2018-11-02 21:42] LABS: *BLOOD, URINE 2+ (NEGATIVE); *CLARITY,URINE SLIGHTLY CLOUDY (CLEAR); *COLOR,URINE YELLOW (YELLOW); *KETONES,URINE 4+ (NEGATIVE); *UROBILINOGEN,URINE 0.2 E.U./dl (NORMAL); LEUKOCYTE ESTERASE ,URINE NEGATIVE (NEGATIVE); NITRITE, URINE NEGATIVE (NEGATIVE); PH,URINE 5.5 (5.0-8.0)
[2018-11-02 21:43] LABS: *BILIRUBIN,URIN 1+ (NEGATIVE); UGLUCOSE 1+ (NEGATIVE)
[2018-11-02 21:56] LABS: BACTERIA,URINE FEW /HPF (NONE SEEN); SQUAMOUS EPITHELIAL CELL,UR FEW /HPF (NONE SEEN); WBC,URINE 0-3 /HPF (0-3)
[2018-11-02 21:59] LABS: YEAST,URINE RARE /HPF (NONE SEEN)
[2018-11-02 22:00] VITALS: BP 130/82
[2018-11-02] MEDS ORDERED: POTASSIUM CHLORIDE 20 MEQ in IV NS 1000 ML 1,000 ML IV PRN (22:00)
[2018-11-02] MEDS: ONDANSETRON 4 MG/2 ML VIAL IV PRN (22:56)
[2018-11-02] MEDS: BLOOD SUGAR DIAGNOSTIC 1 EACH STRIP VI SCH (23:11)
[2018-11-02] MEDS: LORAZEPAM 2 MG/1 ML VIAL IV SCH (23:12)
[2018-11-02] MEDS: INSULIN REGULAR, HUMAN 300 UNIT/3 ML VIAL SQ PRN (23:20)
[2018-11-03] MEDS: LORAZEPAM 2 MG/1 ML VIAL IV SCH ×6 (03:13→23:21)
[2018-11-03 04:00] VITALS: BP 119/80
[2018-11-03] MEDS: BLOOD SUGAR DIAGNOSTIC 1 EACH STRIP VI SCH ×4 (05:56→23:28)
[2018-11-03] MEDS: INSULIN REGULAR, HUMAN 300 UNIT/3 ML VIAL SQ PRN ×3 (05:57→23:29)
[2018-11-03] MEDS: ONDANSETRON 4 MG/2 ML VIAL IV PRN (05:58)
[2018-11-03 07:40] LABS: BASOPHILS % (AUTO) 0.3 % (0.0-2.0); EOSINOPHILS % (AUTO) 0.7 % (0.0-7.0); HEMATOCRIT 38.1 % (31.2-41.9); HEMOGLOBIN 12.7 g/dL (10.9-14.3); LYMPHOCYTES # (AUTO) 1.5 K/uL (20.0-40.0); MEAN CORPUSCULAR HEMOGLOBIN 32.8 uug (24.7-32.8); MEAN CORPUSCULAR HGB CONC 33 g/dL (32.3-35.6); MEAN CORPUSCULAR VOLUME 98.6 fL (75.5-95.3); MONOCYTES # (AUTO) 0.6 K/uL (2.0-10.0); MONOCYTES % (AUTO) 10.6 % (0.0-11.0); NEUTROPHILS # (AUTO) 3.7 K/uL (1.8-8.9); NEUTROPHILS % (AUTO) 62.4 % (38.5-71.5); PLATELET COUNT (AUTO) 210 K/uL (179-408); RED BLOOD CELL COUNT(AUTO) 3.87 MIL/uL (3.63-4.92); WHITE BLOOD COUNT (AUTO) 5.9 K/uL (3.8-11.8)
[2018-11-03 08:28] LABS: BILIRUBIN,TOTAL 0.8 mg/dL (0.2-1.0); CREATININE 0.8 mg/dL (0.6-1.3); MAGNESIUM 2.1 mg/dL (1.8-2.4); PHOSPHOROUS 1.4 mg/dL (2.5-4.9); TOTAL PROTEIN, SERUM 7.2 g/dL (6.4-8.2)
[2018-11-03 08:43] LABS: POTASSIUM 2.8 mmol/L (3.5-5.1)
[2018-11-03] MEDS: MULTIVITAMINS,THERAPEUTIC TABLET PO SCH (09:13)
[2018-11-03] MEDS: FOLIC ACID 1 MG TABLET PO SCH (09:13)
[2018-11-03] MEDS: PANTOPRAZOLE SODIUM 40 MG VIAL IV SCH (09:13)
[2018-11-03] MEDS: THIAMINE HCL 100 MG TABLET PO SCH (09:13)
[2018-11-03] MEDS: SODIUM BICARBONATE 8.4% 50 MEQ in IV D5 1/2 NS 1000 ML 1,000 ML IV PRN ×2 (11:43→21:57)
[2018-11-03] MEDS: POTASSIUM CHLORIDE 50 ML IV SCH ×4 (11:43→16:20)
[2018-11-03 11:48] VITALS: BP 116/74
[2018-11-03] MEDS ORDERED: NEUTRA PHOS PACKET PO ONE (15:30)
[2018-11-03 15:45] VITALS: BP 121/80
[2018-11-03 19:34] VITALS: BP 124/82
[2018-11-04 03:35] VITALS: BP 98/61
[2018-11-04] MEDS: LORAZEPAM 2 MG/1 ML VIAL IV SCH ×5 (04:00→20:12)
[2018-11-04] MEDS: BLOOD SUGAR DIAGNOSTIC 1 EACH STRIP VI SCH ×4 (05:24→20:20)
[2018-11-04] MEDS: INSULIN REGULAR, HUMAN 300 UNIT/3 ML VIAL SQ PRN ×3 (05:25→20:19)
[2018-11-04] MEDS: SODIUM BICARBONATE 8.4% 50 MEQ in IV D5 1/2 NS 1000 ML 1,000 ML IV PRN (06:48)
[2018-11-04 07:10] LABS: CREATININE 0.7 mg/dL (0.6-1.3)
[2018-11-04 07:25] LABS: PHOSPHOROUS 0.5 mg/dL (2.5-4.9); POTASSIUM 2.4 mmol/L (3.5-5.1)
[2018-11-04] MEDS: THIAMINE HCL 100 MG TABLET PO SCH (08:15)
[2018-11-04] MEDS: FOLIC ACID 1 MG TABLET PO SCH (08:15)
[2018-11-04] MEDS: MULTIVITAMINS,THERAPEUTIC TABLET PO SCH (08:15)
[2018-11-04] MEDS: PANTOPRAZOLE SODIUM 40 MG VIAL IV SCH (08:15)
[2018-11-04] MEDS: POTASSIUM PHOSPHATE MM 7.5 MMOL in IV DEXTROSE 5% 100 ML IV SCH ×2 (08:46→11:27)
[2018-11-04] MEDS ORDERED: POTASSIUM CHLORIDE 20 MEQ TAB.PRT.SR PO ONE (10:45)
[2018-11-04 11:27] VITALS: BP 102/69
[2018-11-04 15:31] VITALS: BP 100/60
[2018-11-04 19:30] VITALS: BP 113/80
[2018-11-04] MEDS ORDERED: DEXTROSE 50% 50 ML DISP.SYRIN IV PRN (20:00)
[2018-11-05] MEDS: LORAZEPAM 2 MG/1 ML VIAL IV SCH ×4 (00:12→13:06)
[2018-11-05] MEDS: SODIUM BICARBONATE 8.4% 50 MEQ in IV D5 1/2 NS 1000 ML 1,000 ML IV PRN ×2 (01:30→10:39)
[2018-11-05 03:50] VITALS: BP 93/59
[2018-11-05] MEDS: BLOOD SUGAR DIAGNOSTIC 1 EACH STRIP VI SCH ×2 (06:33→11:49)
[2018-11-05] MEDS ORDERED: PANTOPRAZOLE SODIUM 40 MG TABLET.DR PO SCH (07:00)
[2018-11-05] MEDS: INSULIN REGULAR, HUMAN 300 UNIT/3 ML VIAL SQ PRN ×2 (08:04→11:56)
[2018-11-05] MEDS: THIAMINE HCL 100 MG TABLET PO SCH (08:05)
[2018-11-05] MEDS: FOLIC ACID 1 MG TABLET PO SCH (08:05)
[2018-11-05] MEDS: MULTIVITAMINS,THERAPEUTIC TABLET PO SCH (08:05)
[2018-11-05] MEDS ORDERED: glipiZIDE 10 MG TABLET PO SCH (08:15)
[2018-11-05] MEDS ORDERED: METFORMIN HCL 500 MG TABLET PO SCH (08:15)
[2018-11-05 10:56] LABS: BASOPHILS % (AUTO) 0.5 % (0.0-2.0); EOSINOPHILS # (AUTO) 0.2 K/uL (0.0-0.7); EOSINOPHILS % (AUTO) 3.9 % (0.0-7.0); HEMATOCRIT 32.9 % (31.2-41.9); HEMOGLOBIN 11.2 g/dL (10.9-14.3); MEAN CORPUSCULAR HEMOGLOBIN 32.4 uug (24.7-32.8); MEAN CORPUSCULAR HGB CONC 34 g/dL (32.3-35.6); MEAN CORPUSCULAR VOLUME 95.1 fL (75.5-95.3); MONOCYTES # (AUTO) 0.4 K/uL (2.0-10.0); NEUTROPHILS # (AUTO) 2.4 K/uL (1.8-8.9); NEUTROPHILS % (AUTO) 61.6 % (38.5-71.5); PLATELET COUNT (AUTO) 193 K/uL (179-408); RED BLOOD CELL COUNT(AUTO) 3.46 MIL/uL (3.63-4.92); WHITE BLOOD COUNT (AUTO) 3.9 K/uL (3.8-11.8)
[2018-11-05 11:11] VITALS: BP 110/75
[2018-11-05 11:11] LABS: BILIRUBIN,TOTAL 0.4 mg/dL (0.2-1.0); CREATININE 0.6 mg/dL (0.6-1.3); TOTAL PROTEIN, SERUM 6.1 g/dL (6.4-8.2)
[2018-11-05 11:14] LABS: PHOSPHOROUS 0.9 mg/dL (2.5-4.9); POTASSIUM 2.1 mmol/L (3.5-5.1)
[2018-11-05] MEDS ORDERED: POTASSIUM CHLORIDE 20 MEQ TAB.PRT.SR PO ONE (11:45)
[2018-11-05] MEDS: POTASSIUM CHLORIDE 20 MEQ TAB.PRT.SR PO SCH ×2 (13:04→15:28)
[2018-11-05] MEDS: POTASSIUM PHOSPHATE MM 7.5 MMOL in IV DEXTROSE 5% 100 ML IV SCH ×2 (13:06→15:26)
[2018-11-05 15:19] VITALS: BP 95/60
== END 2018-11-05 17:00 | disposition left against medical advice (07) | DRG 280 ==
LOC: ER 17:33 → TELE 21:29 → MED 11-03 12:08
PROVIDERS: ADMIT Internal Medicine; ATTEND Internal Medicine
DX: K70.10 Alcoholic hepatitis without ascites (principal); K85.20 Alcohol induced acute pancreatitis without necrosis or infection; E11.21 Type 2 diabetes mellitus with diabetic nephropathy; E87.2 Acidosis; E11.65 Type 2 diabetes mellitus with hyperglycemia; K86.0 Alcohol-induced chronic pancreatitis; Z79.84 Long term (current) use of oral hypoglycemic drugs; F10.220 Alcohol dependence with intoxication, uncomplicated; F10.230 Alcohol dependence with withdrawal, uncomplicated; Y90.9 Presence of alcohol in blood, level not specified; E87.6 Hypokalemia; N20.0 Calculus of kidney; K76.0 Fatty (change of) liver, not elsewhere classified; K59.00 Constipation, unspecified; Z91.19 Patient's noncompliance with other medical treatment and regimen; D75.89 Other specified diseases of blood and blood-forming organs; Z59.0 Homelessness; E87.8 Other disorders of electrolyte and fluid balance, not elsewhere classified
CPT/HCPCS: 36415; 70030-TC; 71045; 83690; 83735; 84100; 85025; 85730; 87086; 93005; A4663; C9113; G0378; G0480; J1170; J1815; J2060; J2270; J2405; J3480; J3490; J7030; J7060

== ENCOUNTER 2018-11-16 17:39 | Inpatient (IN) | payer OTHER ==
[~2018-11-16] VITALS: Ht 160 cm; Wt 59.0 kg
[2018-11-16] MEDS ORDERED: ONDANSETRON 4 MG/2 ML VIAL ONE ×4 (17:56→21:18)
[2018-11-16] MEDS ORDERED: PANTOPRAZOLE SODIUM 40 MG VIAL ONE (17:56)
[2018-11-16] MEDS ORDERED: ONDANSETRON 4 MG/2 ML VIAL IV ONE ×2 (18:15→18:45)
[2018-11-16] MEDS ORDERED: PANTOPRAZOLE SODIUM 40 MG VIAL IV ONE (18:15)
[2018-11-16] MEDS ORDERED: IV NORMAL SALINE 1000 ML BAG IV ONE ×2 (18:15→18:45)
[2018-11-16 18:45] LABS: BASOPHILS # (AUTO) 0.1 K/uL (0.0-8.0); BASOPHILS % (AUTO) 0.6 % (0.0-2.0); EOSINOPHILS % (AUTO) 0.1 % (0.0-7.0); HEMATOCRIT 43.1 % (31.2-41.9); HEMOGLOBIN 14.3 g/dL (10.9-14.3); LYMPHOCYTES # (AUTO) 1.5 K/uL (20.0-40.0); LYMPHOCYTES % (AUTO) 9.1 % (20.5-51.5); MEAN CORPUSCULAR HGB CONC 33 g/dL (32.3-35.6); MEAN CORPUSCULAR VOLUME 99.2 fL (75.5-95.3); MONOCYTES # (AUTO) 0.6 K/uL (2.0-10.0); MONOCYTES % (AUTO) 3.8 % (0.0-11.0); NEUTROPHILS # (AUTO) 13.9 K/uL (1.8-8.9); NEUTROPHILS % (AUTO) 86.4 % (38.5-71.5); PLATELET COUNT (AUTO) 340 K/uL (179-408); RED BLOOD CELL COUNT(AUTO) 4.34 MIL/uL (3.63-4.92)
[2018-11-16] MEDS ORDERED: HYDROMORPHONE 1 MG/1 ML DISP.SYRIN IV ONE ×2 (18:45→21:15)
[2018-11-16] MEDS ORDERED: HYDROMORPHONE 2 MG/1 ML DISP.SYRIN ONE (18:47)
[2018-11-16 19:23] LABS: CHLORIDE 98 mmol/L (98-107); CREATININE 0.6 mg/dL (0.6-1.3); GLUCOSE 297 mg/dL (74-106); UREA NITROGEN, BLOOD 2 mg/dL (7-18)
[2018-11-16 19:25] LABS: CARBON DIOXIDE 9 mmol/L (21-32); POTASSIUM 2.5 mmol/L (3.5-5.1)
[2018-11-16 19:30] LABS: ALKALINE PHOSPHATASE 105 U/L (50-136); BILIRUBIN,DIRECT 0.1 mg/dL (0.0-0.2); BILIRUBIN,TOTAL 0.4 mg/dL (0.2-1.0); TOTAL PROTEIN, SERUM 7.6 g/dL (6.4-8.2)
[2018-11-16] MEDS ORDERED: POTASSIUM CHLORIDE 20 MEQ TAB.PRT.SR PO ONE (19:45)
[2018-11-16] MEDS ORDERED: METOCLOPRAMIDE HCL 10 MG/2 ML VIAL IV ONE (19:45)
[2018-11-16] MEDS ORDERED: METOCLOPRAMIDE HCL 10 MG/2 ML VIAL ONE (19:50)
[2018-11-16] MEDS ORDERED: POTASSIUM CHLORIDE 20 MEQ TAB.PRT.SR ONE (19:51)
[2018-11-16 19:55] LABS: LIPASE 7774 U/L (73-393)
--- NOTE | 2018-11-16 19:56 | NUR ---
Pt out of ER for CT.
--- NOTE | 2018-11-16 20:09 | NUR ---
Dr. Dumont on panel call with Dr. Zeb Hoffman. Patient accepted for admission to [facility] for diagnosis pancreatitis.
--- NOTE | 2018-11-16 20:09 | NUR ---
Patient back to ER from CT.
[2018-11-16 20:21] LABS: ALANINE AMINOTRANSFERASE 76 U/L (14-59)
--- NOTE | 2018-11-16 20:22 | NUR ---
Pt provided urine sample, sent to lab.
[2018-11-16 20:30] LABS: *BILIRUBIN,URIN NEGATIVE (NEGATIVE); *BLOOD, URINE 1+ (NEGATIVE); *CLARITY,URINE CLOUDY (CLEAR); *COLOR,URINE LIGHT YELLOW (YELLOW); *KETONES,URINE 4+ (NEGATIVE); *UROBILINOGEN,URINE 0.2 E.U./dl (NORMAL); LEUKOCYTE ESTERASE ,URINE TRACE (NEGATIVE); NITRITE, URINE NEGATIVE (NEGATIVE); PH,URINE 5.5 (5.0-8.0); UGLUCOSE 1+ (NEGATIVE)
[2018-11-16 20:31] LABS: ASPARTATE AMINOTRANSFERASE 42 U/L (15-37)
[2018-11-16 20:42] LABS: BACTERIA,URINE FEW /HPF (NONE SEEN); SQUAMOUS EPITHELIAL CELL,UR MANY /HPF (NONE SEEN); YEAST,URINE FEW /HPF (NONE SEEN)
[2018-11-16] MEDS ORDERED: ONDANSETRON IV *ER 4 MG/2 ML VIAL IV ONE (21:15)
[2018-11-16] MEDS ORDERED: HYDROMORPHONE 1 MG/1 ML DISP.SYRIN ONE (21:18)
--- NOTE | 2018-11-16 21:33 | NUR ---
Report given to Rebecca PRIETO Tele.
[2018-11-16 22:00] VITALS: BP 126/83
[2018-11-16] MEDS ORDERED: ACETAMINOPHEN 650 MG SUPP.RECT RC PRN (22:30)
[2018-11-16] MEDS ORDERED: ACETAMINOPHEN 325 MG TABLET PO PRN (22:30)
[2018-11-16] MEDS ORDERED: POTASSIUM CHLORIDE 20 MEQ in IV NS 1000 ML 1,000 ML IV PRN (23:00)
[2018-11-17] VITALS: BP 124/74
[2018-11-17] MEDS: MORPHINE SULFATE 4 MG/1 ML DISP.SYRIN IV PRN ×4 (01:02→17:04)
--- NOTE | 2018-11-17 03:25 | NUR ---
PT COMPLAINED OF RETURN OF PAIN, AND FEELING "ANXTY " , PT ALSO HAS BEEN HAVING ELEVATED HR, NOW SUSTAINING IN THE 130, DR ANDRADE WAS CALLED AND NOTIFIED, ATIVAN WAS ORDERED. WILL CONTINUE TO MONITOR.
[2018-11-17] MEDS: LORAZEPAM 2 MG/1 ML VIAL IV PRN ×3 (03:37→13:18)
[2018-11-17 04:00] VITALS: BP 126/79
--- NOTE | 2018-11-17 05:28 | NUR ---
PT SLEPT INTERMITTENTLY THROUGH THE NIGHT AND WAS EASILY AWOKEN, PT COMPLAINED OF PAIN, PAIN MEDICATION WAS GIVEN AND WAS EFFECTIVE, BUT DOES NOT LAST LONG. PT ALSO COMPLAINED OF FEELING "LIKE IM HAVING A PANIC ATTACK" PT WAS GIVEN ATIVAN AND WAS EFFECTIVE, PT ALSO HAD ELEVATED HEART RATE IN THE 130 FOR SOME TIME, AFTER THE ATIVAN HER HEART RATE IMPROVED BUT STILL GOES UP TO 120 NON SUSTAINING. ALL NEEDS MET, SAFETY MEASURES ARE IN PLACE, CALL LIGHT WITHIN REACH, BED ALARM IS ON.
--- NOTE | 2018-11-17 06:11 | NUR ---
pt stated that she drank some water from the sink, pt was educated that she she should not drink anything it would increase her pain, pt still refused to follow orders. will continue to monitor. Addendum: 11/17/18 at 0613 by MORENA CARDOZA RN Amended: Links added.
[2018-11-17 06:36] LABS: BASOPHILS % (AUTO) 0.3 % (0.0-2.0); HEMATOCRIT 45.9 % (31.2-41.9); HEMOGLOBIN 14.8 g/dL (10.9-14.3); LYMPHOCYTES % (AUTO) 5.6 % (20.5-51.5); MEAN CORPUSCULAR HEMOGLOBIN 32.6 uug (24.7-32.8); MEAN CORPUSCULAR HGB CONC 32 g/dL (32.3-35.6); MEAN CORPUSCULAR VOLUME 101.1 fL (75.5-95.3); MONOCYTES # (AUTO) 1.1 K/uL (2.0-10.0); MONOCYTES % (AUTO) 5.9 % (0.0-11.0); NEUTROPHILS % (AUTO) 88.2 % (38.5-71.5); PLATELET COUNT (AUTO) 320 K/uL (179-408); RED BLOOD CELL COUNT(AUTO) 4.54 MIL/uL (3.63-4.92); WHITE BLOOD COUNT (AUTO) 18.1 K/uL (3.8-11.8)
[2018-11-17 06:46] LABS: BILIRUBIN,TOTAL 0.6 mg/dL (0.2-1.0); CREATININE 0.8 mg/dL (0.6-1.3); MAGNESIUM 2.2 mg/dL (1.8-2.4); PHOSPHOROUS 1.4 mg/dL (2.5-4.9); TOTAL PROTEIN, SERUM 7.9 g/dL (6.4-8.2)
[2018-11-17] MEDS: ONDANSETRON 4 MG/2 ML VIAL IV PRN ×2 (07:06→14:38)
[2018-11-17] MEDS ORDERED: INSULIN REGULAR, HUMAN 300 UNIT/3 ML VIAL SQ PRN (07:30)
[2018-11-17] MEDS ORDERED: BLOOD SUGAR DIAGNOSTIC 1 EACH STRIP VI SCH (07:30)
[2018-11-17] MEDS ORDERED: DEXTROSE 50% 50 ML DISP.SYRIN IV PRN ×2 (07:30→08:30)
--- NOTE | 2018-11-17 07:35 | NUR ---
PT IN THE MORNING BECAME VERY ANXIOUS AND RESTLESS, DISORIENTED MOVING SIDE TO SIDE. PT WAS GIVEN ATIVAN WHICH WAS NOT VERY HELPFULL AT THIS TIME AND ZOFRAN WAS GIVEN FOR HER NAUSEA. SAFETY MEASURES ARE IN PLACE, PLAN OF CARE REPORTED TO HOMER RN
[2018-11-17 07:47] LABS: POTASSIUM 2.6 mmol/L (3.5-5.1)
[2018-11-17] MEDS ORDERED: FLUCONAZOLE 200 MG/NS 100ML IV 100 MG in PREMIXED 1 EACH IV SCH (08:00)
[2018-11-17] MEDS ORDERED: MULTIVITAMINS,THERAPEUTIC TABLET PO SCH (09:00)
[2018-11-17] MEDS ORDERED: FOLIC ACID 1 MG TABLET PO SCH (09:00)
[2018-11-17] MEDS ORDERED: PIPERACILLIN/TAZOBACTAM/D5W 3.375 G in PREMIXED 1 EACH IV SCH (09:00)
[2018-11-17] MEDS ORDERED: THIAMINE HCL 100 MG TABLET PO SCH (09:00)
[2018-11-17] MEDS: PANTOPRAZOLE SODIUM 40 MG VIAL IV SCH (09:03)
[2018-11-17] MEDS: IV NS 1000 ML 1,000 ML IV PRN ×2 (09:19→22:00)
[2018-11-17] MEDS: BLOOD SUGAR DIAGNOSTIC 1 EACH STRIP VI SCH ×4 (09:27→23:14)
[2018-11-17] MEDS: POTASSIUM CHLORIDE 50 ML IV SCH ×2 (09:29→10:03)
[2018-11-17] MEDS: INSULIN REGULAR, HUMAN 300 UNIT/3 ML VIAL SQ PRN ×4 (09:29→23:16)
[2018-11-17] MEDS: NEUTRA PHOS PACKET PO ONE ×2 (09:33→09:37)
[2018-11-17] MEDS: POTASSIUM PHOSPHATE MM 7.5 MMOL in IV DEXTROSE 5% 100 ML IV SCH ×2 (10:29→13:44)
[2018-11-17] MEDS ORDERED: FOLIC ACID 1 MG in IV DEXTROSE 5% 50 ML IV SCH ×2 (11:00→18:00)
[2018-11-17] MEDS ORDERED: MVI ADULT 10 ML VIAL=1 AMP 10 ML in IV NS 1000 ML 1,000 ML IV PRN (11:00)
[2018-11-17 12:00] VITALS: BP 146/69
[2018-11-17] MEDS ORDERED: THIAMINE HCL INJ 100 MG in IV DEXTROSE 5% 50 ML IV SCH (12:00)
[2018-11-17] MEDS: CHLORDIAZEPOXIDE HCL 25 MG CAPSULE PO SCH ×2 (12:30→17:19)
[2018-11-17 15:40] VITALS: BP 114/89
--- NOTE | 2018-11-17 18:40 | NUR ---
PATIENT RESTING AND CALM, WITH IV IN THE LEFT AC AND IV IN THE LEFT WITH BANANA BAG RUNNING AT 120ML/HR . BOTH SITE ARE INTACT AND PATENT. NO SOB NOTED. ON 1:1 SITTER , ON FALL NOTED AT THIS SHIFT.
--- NOTE | 2018-11-17 19:20 | NUR ---
Received patient sitting in the reclining chair. Asleep, arouse to verbal and tactile stimuli. Non-verbal, lethargic. In no acute distress. No sign or symptoms of pain or SOB noted. Sinus tach on tele at 120/min. IV site on left wrist and left AC intact and patent. 1:1 sitter on site. Hand mittens in place. Continue to monitor.
[2018-11-17 20:10] VITALS: BP 104/80
[2018-11-18] VITALS: BP 129/88
[2018-11-18] MEDS: LORAZEPAM 2 MG/1 ML VIAL IV PRN (03:24)
[2018-11-18] MEDS: BLOOD SUGAR DIAGNOSTIC 1 EACH STRIP VI SCH ×4 (05:49→20:33)
[2018-11-18] MEDS: INSULIN REGULAR, HUMAN 300 UNIT/3 ML VIAL SQ PRN ×4 (05:49→20:34)
--- NOTE | 2018-11-18 05:59 | NUR ---
No further anxiety/restlessness noted after given Lorazepam 0.5mg IV x1. Non-verbal, confused. In no acute distress. No sign or symptoms of pain or SOB noted. Sinus tach on tele at 119/min. 02 at 2LPM via NC in place. O2 sat at 99%. IV site on left wrist and left AC intact and patent. IVF infusing. 1:1 sitter on site. Hand mittens in place. Safety measure maintained.
[2018-11-18] MEDS: IV NS 1000 ML 1,000 ML IV PRN ×2 (06:20→22:42)
[2018-11-18] MEDS: MORPHINE SULFATE 4 MG/1 ML DISP.SYRIN IV PRN (06:24)
[2018-11-18 06:27] LABS: BASOPHILS % (AUTO) 0.4 % (0.0-2.0); EOSINOPHILS % (AUTO) 0.3 % (0.0-7.0); HEMATOCRIT 35.3 % (31.2-41.9); HEMOGLOBIN 12.1 g/dL (10.9-14.3); LYMPHOCYTES # (AUTO) 0.4 K/uL (20.0-40.0); LYMPHOCYTES % (AUTO) 4.5 % (20.5-51.5); MEAN CORPUSCULAR HEMOGLOBIN 33.4 uug (24.7-32.8); MEAN CORPUSCULAR HGB CONC 34 g/dL (32.3-35.6); MEAN CORPUSCULAR VOLUME 97.4 fL (75.5-95.3); MONOCYTES # (AUTO) 0.9 K/uL (2.0-10.0); MONOCYTES % (AUTO) 9.2 % (0.0-11.0); NEUTROPHILS # (AUTO) 8.6 K/uL (1.8-8.9); NEUTROPHILS % (AUTO) 85.6 % (38.5-71.5); PLATELET COUNT (AUTO) 195 K/uL (179-408); RED BLOOD CELL COUNT(AUTO) 3.62 MIL/uL (3.63-4.92)
[2018-11-18 06:57] LABS: CREATININE 2.1 mg/dL (0.6-1.3); MAGNESIUM 1.5 mg/dL (1.8-2.4)
[2018-11-18 06:59] LABS: PHOSPHOROUS 0.7 mg/dL (2.5-4.9); POTASSIUM 2.5 mmol/L (3.5-5.1)
[2018-11-18] MEDS ORDERED: NEUTRA PHOS PACKET PO ONE (07:45)
[2018-11-18] MEDS ORDERED: MAGNESIUM SULFATE 1 GM in IV DEXTROSE 5% 50 ML IV ONE (07:45)
[2018-11-18] MEDS: POTASSIUM CHLORIDE 50 ML IV SCH ×6 (08:22→13:57)
[2018-11-18] MEDS: PANTOPRAZOLE SODIUM 40 MG VIAL IV SCH (08:23)
[2018-11-18] MEDS: CHLORDIAZEPOXIDE HCL 25 MG CAPSULE PO SCH ×2 (08:23→17:17)
[2018-11-18] MEDS: FOLIC ACID 1 MG TABLET PO SCH (08:28)
[2018-11-18] MEDS: THIAMINE HCL 100 MG TABLET PO SCH (08:28)
[2018-11-18] MEDS: MULTIVITAMINS,THERAPEUTIC TABLET PO SCH (08:28)
[2018-11-18] MEDS: MAGNESIUM SULFATE/D5W 100 ML IV SCH ×2 (08:59→10:47)
--- NOTE | 2018-11-18 09:22 | NUR ---
replaced patients IV due to leakage.
[2018-11-18 11:05] VITALS: BP 140/93
[2018-11-18 15:48] VITALS: BP 139/74
--- NOTE | 2018-11-18 15:53 | NUR ---
patient cooperative with care and tolerating clear liquid diet. patient is ambulating to bathroom with staff as needed but gait is unsteady. sitter continues to be at bedside.
--- NOTE | 2018-11-18 18:59 | NUR ---
patient cooperative with care, mittens because the patient becomes confused and just pulls at lines without paying attention. sitter at bedside, circulation in arms checked frequently, patient tolerating clear liquids well.
--- NOTE | 2018-11-18 19:20 | NUR ---
Received patient lying in bed. Asleep, arouse to verbal and tactile stimuli. Alert to name only. In no acute distress. No signs or symptoms of pain or SOB. Sinus tach on tele at 113/min. IV site on left wrist and right AC intact and patent. IVF infusing. 1:1 sitter on site. Hand mittens in place. No anxiety noted at this time. Checked for circulation on both hands/wrist. Continue to monitor.
[2018-11-18 20:00] VITALS: BP 122/84
[2018-11-18] MEDS ORDERED: DEXTROSE 50% 50 ML DISP.SYRIN IV PRN (20:15)
[2018-11-19 00:28] VITALS: BP 100/76
[2018-11-19] MEDS: LORAZEPAM 2 MG/1 ML VIAL IV PRN ×2 (04:34→14:59)
[2018-11-19 04:40] VITALS: BP 105/67
[2018-11-19] MEDS: PANTOPRAZOLE SODIUM 40 MG TABLET.DR PO SCH (06:03)
--- NOTE | 2018-11-19 06:11 | NUR ---
AOx1, able to make some needs known. Sinus tach on tele at 106/min. IV site on left wrist and right AC intact and patent. IVF infusing. 1:1 sitter on site. Lorazepam 1mg iv given for anxiety/restlessness and effective. Needs assessed and attended to. Safety measure maintained.
[2018-11-19] MEDS: BLOOD SUGAR DIAGNOSTIC 1 EACH STRIP VI SCH ×4 (06:30→20:20)
[2018-11-19 06:40] LABS: BASOPHILS % (AUTO) 0.2 % (0.0-2.0); EOSINOPHILS # (AUTO) 0.3 K/uL (0.0-0.7); EOSINOPHILS % (AUTO) 2.7 % (0.0-7.0); HEMATOCRIT 30.2 % (31.2-41.9); HEMOGLOBIN 10.3 g/dL (10.9-14.3); LYMPHOCYTES % (AUTO) 9.5 % (20.5-51.5); MEAN CORPUSCULAR HEMOGLOBIN 33.3 uug (24.7-32.8); MEAN CORPUSCULAR HGB CONC 34 g/dL (32.3-35.6); MEAN CORPUSCULAR VOLUME 97.1 fL (75.5-95.3); MONOCYTES # (AUTO) 0.6 K/uL (2.0-10.0); MONOCYTES % (AUTO) 6.2 % (0.0-11.0); NEUTROPHILS # (AUTO) 8.3 K/uL (1.8-8.9); NEUTROPHILS % (AUTO) 81.4 % (38.5-71.5); PLATELET COUNT (AUTO) 147 K/uL (179-408); RED BLOOD CELL COUNT(AUTO) 3.11 MIL/uL (3.63-4.92); WHITE BLOOD COUNT (AUTO) 10.2 K/uL (3.8-11.8)
[2018-11-19 06:55] LABS: BILIRUBIN,TOTAL 0.4 mg/dL (0.2-1.0); CREATININE 2.8 mg/dL (0.6-1.3); PHOSPHOROUS 1.1 mg/dL (2.5-4.9); TOTAL PROTEIN, SERUM 5.4 g/dL (6.4-8.2)
[2018-11-19 06:58] LABS: POTASSIUM 2.8 mmol/L (3.5-5.1)
--- NOTE | 2018-11-19 06:58 | NUR ---
Call from Jameson/Joseluis with critical value for Potassium of 2.8 and CO2 of 2.9. Will inform day shift nurse to follow up with MD. Addendum: 11/19/18 at 0715 by CONSTANTINO BROWN RN CO2 of 9
[2018-11-19] MEDS ORDERED: NEUTRA PHOS PACKET PO ONE (07:45)
[2018-11-19 08:00] VITALS: BP 121/70
[2018-11-19] MEDS: POTASSIUM CHLORIDE 50 ML IV SCH ×4 (08:39→12:09)
[2018-11-19] MEDS: CHLORDIAZEPOXIDE HCL 25 MG CAPSULE PO SCH ×2 (08:40→16:25)
[2018-11-19] MEDS: FOLIC ACID 1 MG TABLET PO SCH (08:40)
[2018-11-19] MEDS: MULTIVITAMINS,THERAPEUTIC TABLET PO SCH (08:40)
[2018-11-19] MEDS: THIAMINE HCL 100 MG TABLET PO SCH (08:40)
[2018-11-19] MEDS: INSULIN REGULAR, HUMAN 300 UNIT/3 ML VIAL SQ PRN ×3 (08:49→16:41)
[2018-11-19] MEDS: IV NS 1000 ML 1,000 ML IV PRN (09:06)
[2018-11-19] MEDS: MORPHINE SULFATE 4 MG/1 ML DISP.SYRIN IV PRN (09:19)
[2018-11-19 10:54] VITALS: BP 116/72
[2018-11-19] MEDS ORDERED: DEXTROSE 50% 50 ML DISP.SYRIN IV PRN (12:00)
[2018-11-19 16:17] VITALS: BP 102/73
[2018-11-19 17:47] LABS: *BILIRUBIN,URIN NEGATIVE (NEGATIVE); *BLOOD, URINE Trace-lysed (NEGATIVE); *COLOR,URINE LIGHT YELLOW (YELLOW); *KETONES,URINE NEGATIVE (NEGATIVE); *UROBILINOGEN,URINE 0.2 E.U./dl (NORMAL); LEUKOCYTE ESTERASE ,URINE 2+ (NEGATIVE); NITRITE, URINE NEGATIVE (NEGATIVE); PH,URINE 5.5 (5.0-8.0); UGLUCOSE TRACE (NEGATIVE)
[2018-11-19 17:50] LABS: *CREATININE,URINE 18.8 mg/dL (30-125); *URINE TOTAL PROTEIN RANDOM 43.3 mg/dL (<150/24HR)
[2018-11-19 18:16] LABS: *CLARITY,URINE CLOUDY (CLEAR)
[2018-11-19 18:18] LABS: BACTERIA,URINE FEW /HPF (NONE SEEN); SQUAMOUS EPITHELIAL CELL,UR MANY /HPF (NONE SEEN); WBC,URINE 20-50 /HPF (0-3); YEAST,URINE MODERATE /HPF (NONE SEEN)
[2018-11-19 18:20] LABS: MUCUS,URINE FEW /LPF (0-FEW)
[2018-11-19] MEDS: CITRIC ACID/SODIUM CITRATE 30 ML SOLUTION PO SCH ×2 (18:50→20:16)
--- NOTE | 2018-11-19 18:58 | NUR ---
Patient has been tolerating meals, occasionally agitated and wanting to leave. Encouraged patient to wait and feel better before she left the hospital, patient agreed. patient currently in bed, sleeping, no distress noted at this time, sitter at bedside.
[2018-11-19] MEDS: SODIUM ACETATE IV PRN (19:20)
[2018-11-19] MEDS: D5W IV PRN (19:20)
--- NOTE | 2018-11-19 19:20 | NUR ---
Received patient lying in bed. Asleep, easily arouse to verbal and tactile stimuli. Alert to self only. In no acute distress. No signs or symptoms of pain or SOB. IV site on left wrist and right AC intact and patent. 1:1 sitter on site. No anxiety noted at this time. Continue to monitor.
[2018-11-19 19:30] VITALS: BP 113/77
[2018-11-19] MEDS: INSULIN REGULAR, HUMAN 300 UNITS/3 ML VIAL SQ PRN (20:21)
[2018-11-20 04:00] VITALS: BP 109/73
--- NOTE | 2018-11-20 04:30 | NUR ---
Noted right AC IV line pulled out and left wrist IV line leaking. Discontinue both and start new IV line on left wrist #22gauge.
[2018-11-20] MEDS: LORAZEPAM 2 MG/1 ML VIAL IV PRN ×2 (04:36→10:53)
[2018-11-20] MEDS: D5W IV PRN ×2 (05:38→22:31)
[2018-11-20] MEDS: SODIUM ACETATE IV PRN ×2 (05:38→22:31)
[2018-11-20] MEDS: PANTOPRAZOLE SODIUM 40 MG TABLET.DR PO SCH (06:12)
--- NOTE | 2018-11-20 06:29 | NUR ---
AOx1-2. In no acute distress. IV site on left wrist intact and patent. IVF infusing. 1:1 sitter on site. Lorazepam 1mg IV given for anxiety/restlessness and effective. Needs assessed and attended to. Safety measure maintained.
[2018-11-20] MEDS: BLOOD SUGAR DIAGNOSTIC 1 EACH STRIP VI SCH ×4 (06:30→21:13)
[2018-11-20 06:43] LABS: BASOPHILS % (AUTO) 0.3 % (0.0-2.0); EOSINOPHILS # (AUTO) 0.1 K/uL (0.0-0.7); EOSINOPHILS % (AUTO) 1.5 % (0.0-7.0); HEMOGLOBIN 10.6 g/dL (10.9-14.3); LYMPHOCYTES # (AUTO) 1.2 K/uL (20.0-40.0); LYMPHOCYTES % (AUTO) 12.2 % (20.5-51.5); MEAN CORPUSCULAR HEMOGLOBIN 33.4 uug (24.7-32.8); MEAN CORPUSCULAR HGB CONC 34 g/dL (32.3-35.6); MEAN CORPUSCULAR VOLUME 97.1 fL (75.5-95.3); MONOCYTES # (AUTO) 0.5 K/uL (2.0-10.0); MONOCYTES % (AUTO) 5.5 % (0.0-11.0); NEUTROPHILS % (AUTO) 80.5 % (38.5-71.5); PLATELET COUNT (AUTO) 158 K/uL (179-408); RED BLOOD CELL COUNT(AUTO) 3.19 MIL/uL (3.63-4.92); WHITE BLOOD COUNT (AUTO) 9.9 K/uL (3.8-11.8)
[2018-11-20 06:56] LABS: CREATININE 3.1 mg/dL (0.6-1.3); MAGNESIUM 1.6 mg/dL (1.8-2.4); PHOSPHOROUS 1.5 mg/dL (2.5-4.9); POTASSIUM 2.9 mmol/L (3.5-5.1)
--- NOTE | 2018-11-20 07:10 | NUR ---
TELEPHONE CALL FROM LAB/REIGN WITH CRITICAL LAB VALUE FOR BLOOD GLUCOSE OF 431. DAY SHIFT NURSE LESLEE MADE AWARE AND WILL FOLLOW UP WITH .
--- NOTE | 2018-11-20 07:20 | NUR ---
received report from machinist 2nd shift nurse, patient in bed asleep, no distress noted at this time, bed in low position, side rails up x2, bed alarm on, sitter at bedside.
[2018-11-20] MEDS: INSULIN REGULAR, HUMAN 300 UNIT/3 ML VIAL SQ PRN ×3 (08:06→17:25)
[2018-11-20] MEDS: THIAMINE HCL 100 MG TABLET PO SCH (08:07)
[2018-11-20] MEDS: CHLORDIAZEPOXIDE HCL 25 MG CAPSULE PO SCH (08:08)
[2018-11-20] MEDS: FOLIC ACID 1 MG TABLET PO SCH (08:08)
[2018-11-20] MEDS: MULTIVITAMINS,THERAPEUTIC TABLET PO SCH (08:08)
[2018-11-20] MEDS: CITRIC ACID/SODIUM CITRATE 30 ML SOLUTION PO SCH ×4 (08:20→21:09)
[2018-11-20] MEDS: MAGNESIUM SULFATE/D5W 100 ML IV SCH ×2 (08:21→09:52)
[2018-11-20] MEDS: POTASSIUM CHLORIDE 20 MEQ TAB.PRT.SR PO SCH ×2 (08:21→12:15)
[2018-11-20] MEDS ORDERED: FLUCONAZOLE 200 MG TABLET PO SCH (09:00)
[2018-11-20] MEDS ORDERED: CEFTRIAXONE 1 G in IV DEXTROSE 5% 50 ML IV SCH (09:00)
--- NOTE | 2018-11-20 09:10 | NUR ---
Patient persistently calling people telling them that she is discharged and wanting them to pick her up. Patient becoming agitated and trying to pull lines.
[2018-11-20] MEDS: NEUTRA PHOS PACKET PO SCH ×2 (09:14→17:20)
[2018-11-20] MEDS: GUAIFENESIN/DEXTROMETHORPHAN 5 ML UDC PO PRN (10:53)
[2018-11-20 11:08] VITALS: BP 110/82
[2018-11-20 11:11] LABS: A/G RATIO 1.1 (0.7-1.7); ALBUMIN 2.5 g/dL (2.9-4.4); ALPHA-1-GLOBULIN 0.3 g/dL (0.0-0.4); ALPHA-2-GLOBULIN 0.7 g/dL (0.4-1.0); BETA GLOBULIN 0.8 g/dL (0.7-1.3); GAMMA GLOBULIN 0.5 g/dL (0.4-1.8); GLOBULIN, TOTAL 2.3 g/dL (2.2-3.9); M-SPIKE 0.1 g/dL (Not Observed)
[2018-11-20] MEDS ORDERED: MAGNESIUM SULFATE/D5W 100 ML IV SCH (13:00)
[2018-11-20] MEDS: POTASSIUM PHOSPHATE MM 7.5 MMOL in IV DEXTROSE 5% 100 ML IV SCH ×2 (13:42→16:04)
[2018-11-20 15:14] VITALS: BP 108/79
--- NOTE | 2018-11-20 17:49 | NUR ---
Family has been visiting with patient throughout most of the day. patient resting and in no distress at this time. Bed in low position, side rails upx2, bed alarm on.
--- NOTE | 2018-11-20 19:30 | NUR ---
RECEIVED PATIENT IN BED AWAKE, NO SOB NO CHEST PAIN, NOTED, CONT 1;1 SITTER FOR SAFETY, RISK FOR FALL. ASSISTED WITH TOILETING, NO EPISODES OF ANXIETY AT THIS TIME. NO S/S OF HYPO/HYPERGYLCEMIA NOTED. CALL LIGHT WITHIN REACH.
[2018-11-20] MEDS: INSULIN REGULAR, HUMAN 300 UNITS/3 ML VIAL SQ PRN (21:21)
[2018-11-20 21:35] VITALS: BP 104/73
[2018-11-20] MEDS: MORPHINE SULFATE 4 MG/1 ML DISP.SYRIN IV PRN (22:05)
[2018-11-21] MEDS: LORAZEPAM 2 MG/1 ML VIAL IV PRN ×3 (04:08→20:45)
--- NOTE | 2018-11-21 05:04 | NUR ---
PATIENT SLEPT MOST OF THE NIGHT, CONT ON PAIN MANAGEMENT, PAIN ON LOWER BACK. PATIENT HAS EPISODES OF ANXIETY, TRIES TO ATTEND ALL NEEDS, KEPT CLEAN DRY, OFFER FOOD, AND TOILETING. CONT 1;1 SITTER, CONT TO MONITOR.
[2018-11-21] MEDS: PANTOPRAZOLE SODIUM 40 MG TABLET.DR PO SCH (06:20)
[2018-11-21] MEDS: BLOOD SUGAR DIAGNOSTIC 1 EACH STRIP VI SCH ×4 (06:26→20:34)
[2018-11-21] MEDS: MORPHINE SULFATE 4 MG/1 ML DISP.SYRIN IV PRN ×4 (06:40→23:33)
[2018-11-21 06:59] LABS: BASOPHILS % (AUTO) 0.5 % (0.0-2.0); EOSINOPHILS # (AUTO) 0.2 K/uL (0.0-0.7); EOSINOPHILS % (AUTO) 2.6 % (0.0-7.0); HEMATOCRIT 29.9 % (31.2-41.9); HEMOGLOBIN 10.2 g/dL (10.9-14.3); LYMPHOCYTES # (AUTO) 1.7 K/uL (20.0-40.0); MEAN CORPUSCULAR HEMOGLOBIN 32.9 uug (24.7-32.8); MEAN CORPUSCULAR HGB CONC 34 g/dL (32.3-35.6); MEAN CORPUSCULAR VOLUME 95.9 fL (75.5-95.3); MONOCYTES # (AUTO) 0.8 K/uL (2.0-10.0); MONOCYTES % (AUTO) 10.2 % (0.0-11.0); NEUTROPHILS # (AUTO) 5.2 K/uL (1.8-8.9); NEUTROPHILS % (AUTO) 65.7 % (38.5-71.5); PLATELET COUNT (AUTO) 166 K/uL (179-408); RED BLOOD CELL COUNT(AUTO) 3.11 MIL/uL (3.63-4.92); WHITE BLOOD COUNT (AUTO) 7.9 K/uL (3.8-11.8)
[2018-11-21 07:22] LABS: CREATININE 2.8 mg/dL (0.6-1.3); MAGNESIUM 1.8 mg/dL (1.8-2.4); PHOSPHOROUS 3.1 mg/dL (2.5-4.9); POTASSIUM 2.9 mmol/L (3.5-5.1)
[2018-11-21] MEDS ORDERED: POTASSIUM CHLORIDE 20 MEQ TAB.PRT.SR PO ONE ×2 (08:15→11:45)
[2018-11-21] MEDS: IV NS 1000 ML 1,000 ML IV SCH ×2 (08:34→22:05)
[2018-11-21] MEDS: FOLIC ACID 1 MG TABLET PO SCH (08:35)
[2018-11-21] MEDS: THIAMINE HCL 100 MG TABLET PO SCH (08:35)
[2018-11-21] MEDS: CHLORDIAZEPOXIDE HCL 25 MG CAPSULE PO SCH (08:35)
[2018-11-21] MEDS: MULTIVITAMINS,THERAPEUTIC TABLET PO SCH (08:35)
[2018-11-21] MEDS: CITRIC ACID/SODIUM CITRATE 30 ML SOLUTION PO SCH ×4 (08:36→20:35)
[2018-11-21] MEDS: INSULIN REGULAR, HUMAN 300 UNIT/3 ML VIAL SQ PRN ×4 (08:40→20:42)
[2018-11-21 10:44] VITALS: BP 102/73
[2018-11-21 15:34] VITALS: BP 107/74
--- NOTE | 2018-11-21 18:44 | NUR ---
Morphine and Ativan given for pt's comfort. Eating well. Blood sugars monitored. Ambulates with steady gait. sitter at bedside. pt more alert and oriented. will continue to monitor.
[2018-11-21 19:00] VITALS: BP 125/58
[2018-11-21 19:13] VITALS: BP 101/74
--- NOTE | 2018-11-21 19:30 | NUR ---
PATIENT AWAKE, CONT ON PAIN MANAGEMENT, NO S/S OF WITHDRAWAL NOTED, CONT TO MONITOR FOR ANXIETY. CONT ON 1;1 SITTER FOR SAFETY, FALL RISK. CONT TO MONITOR.
[2018-11-21] MEDS ORDERED: INSULIN GLARGINE,HUM 300 UNITS/3 ML CARTRIDGE SQ SCH (21:00)
[2018-11-22 04:00] VITALS: BP 113/83
[2018-11-22] MEDS: PANTOPRAZOLE SODIUM 40 MG TABLET.DR PO SCH (06:09)
[2018-11-22] MEDS: BLOOD SUGAR DIAGNOSTIC 1 EACH STRIP VI SCH ×2 (06:10→10:52)
--- NOTE | 2018-11-22 06:58 | NUR ---
PATIENT AWAKE, CONT ON PAIN MANAGEMENT OF ABDOMEN AND LOWER BACK, WITH EPISODE OF ANXIETY, MEDICATED ORDERED, CONT ON 1'1 SITTER FOR SAFETY. NO S/S OF ALCOHOL WITHRDRALS NOTED AT THIS TIME. CALL LIGHT WITHIN REACH.
[2018-11-22 07:13] LABS: BASOPHILS % (AUTO) 0.5 % (0.0-2.0); CREATININE 2.6 mg/dL (0.6-1.3); EOSINOPHILS # (AUTO) 0.2 K/uL (0.0-0.7); EOSINOPHILS % (AUTO) 3.8 % (0.0-7.0); HEMATOCRIT 29.8 % (31.2-41.9); HEMOGLOBIN 10.1 g/dL (10.9-14.3); LYMPHOCYTES % (AUTO) 31.6 % (20.5-51.5); MEAN CORPUSCULAR HGB CONC 34 g/dL (32.3-35.6); MEAN CORPUSCULAR VOLUME 97.4 fL (75.5-95.3); MONOCYTES # (AUTO) 1.2 K/uL (2.0-10.0); MONOCYTES % (AUTO) 18.7 % (0.0-11.0); NEUTROPHILS # (AUTO) 2.9 K/uL (1.8-8.9); NEUTROPHILS % (AUTO) 45.4 % (38.5-71.5); PLATELET COUNT (AUTO) 162 K/uL (179-408); RED BLOOD CELL COUNT(AUTO) 3.06 MIL/uL (3.63-4.92); WHITE BLOOD COUNT (AUTO) 6.3 K/uL (3.8-11.8)
[2018-11-22] MEDS: INSULIN REGULAR, HUMAN 300 UNIT/3 ML VIAL SQ PRN ×2 (07:17→11:03)
[2018-11-22] MEDS ORDERED: POTASSIUM CHLORIDE 20 MEQ TAB.PRT.SR PO ONE ×3 (08:00→12:30)
[2018-11-22] MEDS: MULTIVITAMINS,THERAPEUTIC TABLET PO SCH (08:03)
[2018-11-22] MEDS: CITRIC ACID/SODIUM CITRATE 30 ML SOLUTION PO SCH (08:03)
[2018-11-22] MEDS: FOLIC ACID 1 MG TABLET PO SCH (08:03)
[2018-11-22] MEDS: THIAMINE HCL 100 MG TABLET PO SCH (08:03)
[2018-11-22] MEDS: CHLORDIAZEPOXIDE HCL 25 MG CAPSULE PO SCH (08:03)
[2018-11-22] MEDS: GUAIFENESIN/DEXTROMETHORPHAN 5 ML UDC PO PRN (08:35)
[2018-11-22] MEDS: MORPHINE SULFATE 4 MG/1 ML DISP.SYRIN IV PRN (08:35)
[2018-11-22] MEDS ORDERED: FOLI1TAB16 PO (10:30)
[2018-11-22] MEDS ORDERED: THIA100T13 PO (10:30)
[2018-11-22 12:13] LABS: BAND % (MANUAL) 8 % (0-10); EOSINOPHILS % (MANUAL) 5 % (0-8); LYMPHOCYTES % (MANUAL) 30 % (20-40); METAMYELOCYTES % 1 % (0-1); MONOCYTES % (MANUAL) 12 % (2-10); NEUTROPHILS % (MANUAL) 44 % (42-75)
--- NOTE | 2018-11-22 13:09 | NUR ---
d/c orders received noted and carried out,d/c midline per md orders.d/c instruction and education given to the pt and her friend,pt left the facility via private car with her boyfriend in stable condition
== END 2018-11-22 13:10 | disposition home or self-care (01) | DRG 720 ==
LOC: ER 17:39 → TELE 21:38 → MED 11-19 14:40
PROVIDERS: ADMIT Internal Medicine; ATTEND Internal Medicine
PROC: 05HY33Z Insertion of Infusion Device into Upper Vein, Percutaneous Approach (ICD-10-PCS; principal; 2018-11-20)
DX: A41.9 Sepsis, unspecified organism (principal); K85.20 Alcohol induced acute pancreatitis without necrosis or infection; N17.0 Acute kidney failure with tubular necrosis; E87.2 Acidosis; E44.0 Moderate protein-calorie malnutrition; K86.0 Alcohol-induced chronic pancreatitis; E11.65 Type 2 diabetes mellitus with hyperglycemia; K76.0 Fatty (change of) liver, not elsewhere classified; K70.10 Alcoholic hepatitis without ascites; E87.6 Hypokalemia; F10.239 Alcohol dependence with withdrawal, unspecified; Z91.19 Patient's noncompliance with other medical treatment and regimen; N20.0 Calculus of kidney; Z79.84 Long term (current) use of oral hypoglycemic drugs; J98.11 Atelectasis; F41.9 Anxiety disorder, unspecified; E78.5 Hyperlipidemia, unspecified; E78.1 Pure hyperglyceridemia; Y90.6 Blood alcohol level of 120-199 mg/100 ml; Z87.442 Personal history of urinary calculi; B37.49 Other urogenital candidiasis; Z68.23 Body mass index [BMI] 23.0-23.9, adult
CPT/HCPCS: 36415; 36569; 71045; 83605; 83690; 83735; 83970; 84100; 84155; 84156; 84165; 84300; 85025; 87086; 87400; 87806; 93005; A4663; C9113; G0378; G0480; J0696; J1170; J1450; J1815; J2060; J2270; J2405; J2543; J2765; J3411; J3475; J3480; J3490; J7030; J7040; J7060; J7070

== ENCOUNTER 2019-01-28 14:21 | Inpatient (IN) | payer OTHER ==
[~2019-01-28] VITALS: Ht 160 cm; Wt 56.7 kg
[~2019-01-28 14:21] MED LIST changes: -CHLO25CA22 PO; +FOLI1TAB16 PO; +THIA100T13 PO
[2019-01-28] MEDS ORDERED: ONDANSETRON 4 MG/2 ML VIAL IV ONE (14:45)
[2019-01-28] MEDS ORDERED: HYDROMORPHONE 1 MG/1 ML DISP.SYRIN IV ONE (14:45)
[2019-01-28] MEDS ORDERED: IV NORMAL SALINE 1000 ML BAG IV ONE ×2 (14:45→15:30)
[2019-01-28 14:56] LABS: BASOPHILS % (AUTO) 0.3 % (0.0-2.0); EOSINOPHILS % (AUTO) 0.6 % (0.0-7.0); HEMATOCRIT 37.8 % (31.2-41.9); HEMOGLOBIN 12.4 g/dL (10.9-14.3); LYMPHOCYTES # (AUTO) 1.1 K/uL (20.0-40.0); MEAN CORPUSCULAR HEMOGLOBIN 33.4 uug (24.7-32.8); MEAN CORPUSCULAR HGB CONC 33 g/dL (32.3-35.6); MEAN CORPUSCULAR VOLUME 101.9 fL (75.5-95.3); MONOCYTES # (AUTO) 0.5 K/uL (2.0-10.0); NEUTROPHILS % (AUTO) 74.1 % (38.5-71.5); PLATELET COUNT (AUTO) 279 K/uL (179-408); RED BLOOD CELL COUNT(AUTO) 3.71 MIL/uL (3.63-4.92); WHITE BLOOD COUNT (AUTO) 6.7 K/uL (3.8-11.8)
[2019-01-28] MEDS ORDERED: HYDROMORPHONE 1 MG/1 ML DISP.SYRIN ONE (15:00)
[2019-01-28] MEDS ORDERED: ONDANSETRON 4 MG/2 ML VIAL ONE (15:00)
[2019-01-28 15:10] LABS: ALANINE AMINOTRANSFERASE 29 U/L (14-59); ALKALINE PHOSPHATASE 110 U/L (50-136); ASPARTATE AMINOTRANSFERASE 16 U/L (15-37); BILIRUBIN,DIRECT 0.2 mg/dL (0.0-0.2); BILIRUBIN,TOTAL 0.6 mg/dL (0.2-1.0); CARBON DIOXIDE 13 mmol/L (21-32); CHLORIDE 94 mmol/L (98-107); CREATININE 0.7 mg/dL (0.6-1.3); LIPASE 1183 U/L (73-393); POTASSIUM 3.5 mmol/L (3.5-5.1); TOTAL PROTEIN, SERUM 7.8 g/dL (6.4-8.2); UREA NITROGEN, BLOOD 8 mg/dL (7-18)
[2019-01-28 15:14] LABS: GLUCOSE 374 mg/dL (74-106)
[2019-01-28] MEDS ORDERED: INSULIN REGULAR, HUMAN 300 UNIT/3 ML VIAL ONE (15:30)
[2019-01-28] MEDS ORDERED: INSULIN REGULAR, HUMAN 300 UNIT/3 ML VIAL IV ONE (15:30)
--- NOTE | 2019-01-28 15:47 | NUR ---
Dr Dumont spoke with admitting panel Dr Hoffman
[2019-01-28 15:51] LABS: *BILIRUBIN,URIN 1+ (NEGATIVE); *BLOOD, URINE 3+ (NEGATIVE); *COLOR,URINE YELLOW (YELLOW); *KETONES,URINE 4+ (NEGATIVE); *UROBILINOGEN,URINE 0.2 E.U./dl (NORMAL); NITRITE, URINE NEGATIVE (NEGATIVE); PH,URINE 5.5 (5.0-8.0); UGLUCOSE 2+ (NEGATIVE)
[2019-01-28 16:07] LABS: *CLARITY,URINE HAZY (CLEAR); LEUKOCYTE ESTERASE ,URINE 1+ (NEGATIVE)
[2019-01-28 16:10] LABS: BACTERIA,URINE FEW /HPF (NONE SEEN); MUCUS,URINE MODERATE /LPF (0-FEW); SQUAMOUS EPITHELIAL CELL,UR MODERATE /HPF (NONE SEEN); WBC,URINE 50-80 /HPF (0-3)
[2019-01-28 16:38] VITALS: BP 120/91
[2019-01-28] MEDS ORDERED: ONDANSETRON 4 MG/2 ML VIAL IV PRN (17:00)
[2019-01-28] MEDS ORDERED: ACETAMINOPHEN 650 MG SUPP.RECT RC PRN (17:00)
[2019-01-28] MEDS ORDERED: MORPHINE SULFATE 2 MG/1 ML DISP.SYRIN IV PRN (17:00)
[2019-01-28 17:23] LABS: ETHANOL < 3 MG/DL (0-0)
[2019-01-28] MEDS: CEFTRIAXONE 1 G in IV DEXTROSE 5% 50 ML IV SCH (17:29)
[2019-01-28] MEDS: POTASSIUM CHLORIDE 20 MEQ in IV NS 1000 ML 1,000 ML IV PRN (17:29)
--- NOTE | 2019-01-28 19:30 | NUR ---
PATIENT ALERT ORIENTED NO SOB NO CHEST PAIN, COMPLAIN OF ABDOMINAL PAIN DUE PANCREATITIS, WILL MEDICATE FOR PAIN. CONT TO MONITOR.
[2019-01-28 20:09] VITALS: BP 120/76
--- NOTE | 2019-01-28 20:40 | NUR ---
DR BALBUENA MADE ROUNDS AND STATED THAT HE WANT TO INCREASE THE MORPHINE FOR PAIN, ORDERED TO GIVE ADDIDITONAL 2MG MORPHINE IV ONE TIME FOR PAIN NOW.
[2019-01-28] MEDS ORDERED: MORPHINE SULFATE 2 MG/1 ML DISP.SYRIN IV ONE (20:45)
[2019-01-28] MEDS: FAMOTIDINE. 20 MG/2 ML VIAL IV SCH (21:06)
[2019-01-28] MEDS: LORAZEPAM 2 MG/1 ML VIAL IV PRN (23:10)
[2019-01-29] MEDS: MORPHINE SULFATE 4 MG/1 ML DISP.SYRIN IV PRN ×5 (01:50→22:03)
[2019-01-29 04:00] VITALS: BP 120/81
[2019-01-29] MEDS: POTASSIUM CHLORIDE 20 MEQ in IV NS 1000 ML 1,000 ML IV PRN ×2 (04:23→20:06)
--- NOTE | 2019-01-29 05:44 | NUR ---
PATIENT AWAKE CONT ON PAIN MANAGEMENT OF ABDOMEN, AMBULATE TO BATHROOM FOR BLADDER ELIMINATIONS, WITH EPISODE OF ANXIETY, MEDICATED ORDERED. CONT TO MONITOR.
[2019-01-29 06:39] LABS: BASOPHILS % (AUTO) 0.3 % (0.0-2.0); EOSINOPHILS # (AUTO) 0.2 K/uL (0.0-0.7); EOSINOPHILS % (AUTO) 2.8 % (0.0-7.0); HEMATOCRIT 36.4 % (31.2-41.9); LYMPHOCYTES # (AUTO) 1.8 K/uL (20.0-40.0); LYMPHOCYTES % (AUTO) 25.8 % (20.5-51.5); MEAN CORPUSCULAR HEMOGLOBIN 33.9 uug (24.7-32.8); MEAN CORPUSCULAR HGB CONC 33 g/dL (32.3-35.6); MEAN CORPUSCULAR VOLUME 102.6 fL (75.5-95.3); MONOCYTES # (AUTO) 0.6 K/uL (2.0-10.0); NEUTROPHILS # (AUTO) 4.3 K/uL (1.8-8.9); NEUTROPHILS % (AUTO) 62.1 % (38.5-71.5); PLATELET COUNT (AUTO) 271 K/uL (179-408); RED BLOOD CELL COUNT(AUTO) 3.55 MIL/uL (3.63-4.92); WHITE BLOOD COUNT (AUTO) 6.9 K/uL (3.8-11.8)
[2019-01-29 06:56] LABS: BILIRUBIN,TOTAL 0.4 mg/dL (0.2-1.0); CREATININE 0.6 mg/dL (0.6-1.3); MAGNESIUM 1.4 mg/dL (1.8-2.4); PHOSPHOROUS 1.7 mg/dL (2.5-4.9); POTASSIUM 3.3 mmol/L (3.5-5.1); TOTAL PROTEIN, SERUM 6.7 g/dL (6.4-8.2)
[2019-01-29] MEDS: FAMOTIDINE. 20 MG/2 ML VIAL IV SCH ×2 (07:59→20:06)
[2019-01-29] MEDS ORDERED: PANTOPRAZOLE SODIUM 40 MG VIAL IV SCH (09:00)
[2019-01-29] MEDS ORDERED: MAGNESIUM OXIDE 400 MG TABLET PO ONE (11:00)
[2019-01-29 11:40] VITALS: BP 111/80
[2019-01-29] MEDS: POTASSIUM PHOSPHATE MM 7.5 MMOL in IV DEXTROSE 5% 100 ML IV SCH ×2 (11:45→13:33)
[2019-01-29 15:50] VITALS: BP 105/72
[2019-01-29] MEDS: CEFTRIAXONE 1 G in IV DEXTROSE 5% 50 ML IV SCH (16:15)
--- NOTE | 2019-01-29 19:40 | NUR ---
Received patient awake in bed, not in any form of distress. Not in pain. With IV access on the right antecubital vein, 20g to ongoing IV fluid with potassium 20meqs, infusing well. Will monitor for abdominal pain, nausea and vomiting. will ensure safety and comfort. Noise and lights subdued.
[2019-01-29 20:00] VITALS: BP 113/73
[2019-01-29] MEDS ORDERED: MAG HYDROX/AL HYDROX/SIMETH 30 ML LIQUID UDC PO PRN (21:00)
[2019-01-29] MEDS: LORAZEPAM 2 MG/1 ML VIAL IV PRN (21:43)
[2019-01-30] MEDS: MORPHINE SULFATE 4 MG/1 ML DISP.SYRIN IV PRN ×4 (04:14→22:02)
[2019-01-30 04:35] VITALS: BP 121/82
--- NOTE | 2019-01-30 05:58 | NUR ---
Patient slept intermittently throughout the shift. With complaints of andominal pain relieved with prn pain medications. Still with IV access on the right antecubital vein, 20g to ongoing IV fluid with potassium 20meqs, infusing well. Attended all needs. Ensured safety and comfort.
[2019-01-30 06:15] LABS: BASOPHILS % (AUTO) 0.3 % (0.0-2.0); EOSINOPHILS # (AUTO) 0.2 K/uL (0.0-0.7); EOSINOPHILS % (AUTO) 3.8 % (0.0-7.0); HEMATOCRIT 33.5 % (31.2-41.9); HEMOGLOBIN 11.2 g/dL (10.9-14.3); LYMPHOCYTES # (AUTO) 0.9 K/uL (20.0-40.0); LYMPHOCYTES % (AUTO) 21.2 % (20.5-51.5); MEAN CORPUSCULAR HEMOGLOBIN 33.6 uug (24.7-32.8); MEAN CORPUSCULAR HGB CONC 33 g/dL (32.3-35.6); MEAN CORPUSCULAR VOLUME 100.9 fL (75.5-95.3); MONOCYTES # (AUTO) 0.5 K/uL (2.0-10.0); MONOCYTES % (AUTO) 12.3 % (0.0-11.0); NEUTROPHILS # (AUTO) 2.7 K/uL (1.8-8.9); NEUTROPHILS % (AUTO) 62.4 % (38.5-71.5); PLATELET COUNT (AUTO) 248 K/uL (179-408); RED BLOOD CELL COUNT(AUTO) 3.32 MIL/uL (3.63-4.92); WHITE BLOOD COUNT (AUTO) 4.4 K/uL (3.8-11.8)
[2019-01-30 06:27] LABS: CREATININE 0.6 mg/dL (0.6-1.3); MAGNESIUM 1.5 mg/dL (1.8-2.4); PHOSPHOROUS 2.3 mg/dL (2.5-4.9); POTASSIUM 3.1 mmol/L (3.5-5.1)
[2019-01-30] MEDS: POTASSIUM CHLORIDE 20 MEQ in IV NS 1000 ML 1,000 ML IV PRN (06:46)
[2019-01-30] MEDS ORDERED: DEXTROSE 50% 50 ML DISP.SYRIN IV PRN (07:00)
[2019-01-30] MEDS ORDERED: INSULIN REGULAR, HUMAN 300 UNITS/3 ML VIAL SQ PRN (07:00)
--- NOTE | 2019-01-30 07:00 | NUR ---
Critical lab value of glucose 423mg/dl reported to Dr. Hoffman who ordered accucheck ACHS with moderate sliding scale to be started immediately - done. Accucheck resulted to 340mg/dl, covered with insulin as ordered. Events endorsed to morning shift nurse.
[2019-01-30] MEDS: BLOOD SUGAR DIAGNOSTIC 1 EACH STRIP VI SCH ×4 (07:31→21:55)
[2019-01-30] MEDS: INSULIN REGULAR, HUMAN 300 UNIT/3 ML VIAL SQ PRN ×3 (07:33→16:15)
--- NOTE | 2019-01-30 08:00 | NUR ---
AWAKE ALERT AND ORIENTED X3, STILL C/O ON AND OFF ABDOMINAL PAIN. CONTINUE WITH IVF, CLEAR LIQ DIET AND PAIN MANAGEMENT
[2019-01-30] MEDS: THIAMINE HCL 100 MG TABLET PO SCH (08:38)
[2019-01-30] MEDS: MULTIVITAMINS,THERAPEUTIC TABLET PO SCH (08:38)
[2019-01-30] MEDS: FAMOTIDINE. 20 MG/2 ML VIAL IV SCH (08:38)
[2019-01-30] MEDS: FOLIC ACID 1 MG TABLET PO SCH (08:38)
[2019-01-30 11:11] VITALS: BP 102/70
--- NOTE | 2019-01-30 11:45 | NUR ---
DR HANDLEY NOTIFIED OF BS 403 AND K, MG, PHOS ABNORMALITIES SAID WILL FOLLOW-UP PATIENT
[2019-01-30] MEDS ORDERED: MAGNESIUM OXIDE 400 MG TABLET PO ONE (12:45)
--- NOTE | 2019-01-30 12:57 | NUR ---
CONTINUE WITH PAIN MANAGEMENT ORDERED, DENIES NAUSEA AND VOMITING. TOLERATING CLEAR LIQUID DIET
[2019-01-30] MEDS: POTASSIUM PHOSPHATE MM 5 MMOL in IV DEXTROSE 5% 100 ML IV SCH ×4 (13:59→21:14)
[2019-01-30] MEDS: LORAZEPAM 2 MG/1 ML VIAL IV PRN ×2 (14:08→23:42)
[2019-01-30] MEDS: CEphaleXIN 500 MG CAPSULE PO SCH ×2 (15:05→21:29)
[2019-01-30 15:22] VITALS: BP 111/75
--- NOTE | 2019-01-30 18:15 | NUR ---
BLOOD SUGAR REMAINS ON THE HIGH SIDE MD AWARE. CONTINUE ON CLEAR LIQUID AND IVF AT 100 MLS/HR. NO NAUSEA AND VOMITING NOTED. CONTINUE WITH PAIN MANAGEMENT
--- NOTE | 2019-01-30 19:30 | NUR ---
received patient from morning shift. Patient is in bed, AOx4, cooperative. Patient was oriented to the room, call light within reach, bed alarm is on. comfort and safety provided.
--- NOTE | 2019-01-30 19:45 | NUR ---
PATIENT IS ASKING ABOUT DIET, DR BALBUENA IS ON THE FLOOR. ORDERED [facility] DIET.
[2019-01-30 20:00] VITALS: BP 110/78
[2019-01-30] MEDS: glipiZIDE 10 MG TABLET PO SCH (21:55)
[2019-01-30] MEDS: METFORMIN HCL 500 MG TABLET PO SCH (21:55)
--- NOTE | 2019-01-30 23:20 | NUR ---
patient is reporting anxiety , asking fo ativan.
--- NOTE | 2019-01-31 00:15 | NUR ---
following Ativan dose, patient is asleep. comfort and safety provided.
[2019-01-31] MEDS: POTASSIUM CHLORIDE 20 MEQ in IV NS 1000 ML 1,000 ML IV PRN (00:51)
[2019-01-31 04:48] VITALS: BP 98/61
[2019-01-31] MEDS: CEphaleXIN 500 MG CAPSULE PO SCH ×2 (05:53→13:27)
[2019-01-31 06:39] LABS: BASOPHILS % (AUTO) 0.5 % (0.0-2.0); EOSINOPHILS # (AUTO) 0.2 K/uL (0.0-0.7); EOSINOPHILS % (AUTO) 3.8 % (0.0-7.0); HEMATOCRIT 34.9 % (31.2-41.9); LYMPHOCYTES # (AUTO) 1.5 K/uL (20.0-40.0); LYMPHOCYTES % (AUTO) 32.7 % (20.5-51.5); MEAN CORPUSCULAR HEMOGLOBIN 34.1 uug (24.7-32.8); MEAN CORPUSCULAR HGB CONC 34 g/dL (32.3-35.6); MEAN CORPUSCULAR VOLUME 99.3 fL (75.5-95.3); MONOCYTES # (AUTO) 0.4 K/uL (2.0-10.0); NEUTROPHILS # (AUTO) 2.5 K/uL (1.8-8.9); PLATELET COUNT (AUTO) 266 K/uL (179-408); RED BLOOD CELL COUNT(AUTO) 3.51 MIL/uL (3.63-4.92); WHITE BLOOD COUNT (AUTO) 4.6 K/uL (3.8-11.8)
[2019-01-31] MEDS: glipiZIDE 10 MG TABLET PO SCH (06:53)
[2019-01-31] MEDS: BLOOD SUGAR DIAGNOSTIC 1 EACH STRIP VI SCH ×2 (06:59→12:10)
[2019-01-31] MEDS ORDERED: PANTOPRAZOLE SODIUM 40 MG TABLET.DR PO SCH (07:00)
--- NOTE | 2019-01-31 07:00 | NUR ---
patient slept well, no acute distress noted. comfort and safety provided.
--- NOTE | 2019-01-31 07:02 | NUR ---
RECEIVED PATIENT IN BED LAYING COMFORTABLY, NO ACUTE DISTRESS NOTED, NO C/O PAIN AT THIS TIME, PROVIDE SAFETY AT AT TIMES. IV INTACT AND PATENT .WILL CONTINUE TO MONITOR.
[2019-01-31 07:12] LABS: CARBON DIOXIDE 25 mmol/L (21-32); CREATININE 0.5 mg/dL (0.6-1.3); GLUCOSE 295 mg/dL (74-106); MAGNESIUM 1.6 mg/dL (1.8-2.4); PHOSPHOROUS 3.6 mg/dL (2.5-4.9); UREA NITROGEN, BLOOD 5 mg/dL (7-18)
[2019-01-31 07:19] LABS: CHLORIDE 102 mmol/L (98-107)
--- NOTE | 2019-01-31 07:30 | NUR ---
Received critical value form labs for potassium of 2.8 and relayed the MD with no new orders, continue to monitor patient, no c/o pain or discomfort , patient on ongoing fluids with normal saline with 20 clif potassium. will continue with care.
[2019-01-31 07:33] LABS: POTASSIUM 2.8 mmol/L (3.5-5.1)
[2019-01-31] MEDS: FOLIC ACID 1 MG TABLET PO SCH (08:30)
[2019-01-31] MEDS: MULTIVITAMINS,THERAPEUTIC TABLET PO SCH (08:30)
[2019-01-31] MEDS: THIAMINE HCL 100 MG TABLET PO SCH (08:30)
[2019-01-31] MEDS: METFORMIN HCL 500 MG TABLET PO SCH (08:30)
[2019-01-31] MEDS: MORPHINE SULFATE 4 MG/1 ML DISP.SYRIN IV PRN (08:41)
[2019-01-31] MEDS: INSULIN REGULAR, HUMAN 300 UNIT/3 ML VIAL SQ PRN ×2 (10:26→12:13)
[2019-01-31] MEDS ORDERED: MAGNESIUM OXIDE 400 MG TABLET PO ONE (10:45)
[2019-01-31] MEDS ORDERED: POTASSIUM CHLORIDE 20 MEQ TAB.PRT.SR PO ONE ×3 (10:45→15:00)
[2019-01-31 11:09] VITALS: BP 113/79
[2019-01-31] MEDS ORDERED: LEVO500T2 PO (12:40)
[2019-01-31] MEDS ORDERED: SERT25TA PO (12:40)
--- NOTE | 2019-01-31 13:30 | NUR ---
Received discharge order from MD to discharge patient to home. patient discharge with boyfriend, discharge instruction given to patient with prescribe medication given with instruction given. no c/o pain and no s/s of acute distress noted. belonging accounted and signed for. IV and ID band removed. patient in fair condition. question and concerns addressed.
== END 2019-01-31 13:25 | disposition home or self-care (01) | DRG 282 ==
LOC: ER 14:21 → MEDSURG3 16:13
PROVIDERS: ADMIT Internal Medicine; ATTEND Internal Medicine
DX: K85.20 Alcohol induced acute pancreatitis without necrosis or infection (principal); E11.21 Type 2 diabetes mellitus with diabetic nephropathy; E87.2 Acidosis; E11.65 Type 2 diabetes mellitus with hyperglycemia; K70.0 Alcoholic fatty liver; K86.0 Alcohol-induced chronic pancreatitis; Y90.0 Blood alcohol level of less than 20 mg/100 ml; Z79.84 Long term (current) use of oral hypoglycemic drugs; E87.1 Hypo-osmolality and hyponatremia; F10.230 Alcohol dependence with withdrawal, uncomplicated; N39.0 Urinary tract infection, site not specified; D75.89 Other specified diseases of blood and blood-forming organs; K82.4 Cholesterolosis of gallbladder; Z91.14 Patient's other noncompliance with medication regimen; F41.9 Anxiety disorder, unspecified; E87.6 Hypokalemia; Z87.442 Personal history of urinary calculi
CPT/HCPCS: 36415; 83690; 83735; 84100; 85025; 87077; 87086; 87400; A4663; G0378; G0480; J0696; J1170; J1815; J2060; J2270; J2405; J3480; J3490; J7030; J7060

== ENCOUNTER 2019-03-04 15:20 | Inpatient (IN) | payer OTHER ==
[~2019-03-04] VITALS: Ht 160 cm; Wt 61.2 kg
[~2019-03-04 15:20] MED LIST changes: -FOLI1TAB16 PO; +LEVO500T2 PO; +SERT25TA PO; -THIA100T13 PO
--- NOTE | 2019-03-04 15:34 | NUR ---
PT A/OX4, PRESENTS TO THE ER C/O ABD PAIN & N/V SINCE YESTERDAY. PT REPORTS ABD PAIN IS NON-PROVOKED, SHARP IN QUALITY, DOES NOT RADIATE, 9/10, CONSTANT. VS WNL. PT DENIES C/P, SOB, DIZZINESS, HEADACHE.
--- NOTE | 2019-03-04 15:54 | NUR ---
KHOI DICK AT BEDSIDE FOR MSE.
[2019-03-04] MEDS ORDERED: METOCLOPRAMIDE HCL 10 MG/2 ML VIAL IV ONE (16:00)
[2019-03-04] MEDS ORDERED: IV NORMAL SALINE 1000 ML BAG IV ONE (16:00)
[2019-03-04] MEDS ORDERED: KETOROLAC TROMETHAMINE 15 MG INJ IV ONE (16:00)
--- NOTE | 2019-03-04 16:05 | NUR ---
US TECH AT BEDSIDE.
[2019-03-04] MEDS ORDERED: METOCLOPRAMIDE HCL 10 MG/2 ML VIAL ONE (16:07)
[2019-03-04] MEDS ORDERED: KETOROLAC TROMETHAMINE 15 MG INJ ONE (16:07)
[2019-03-04 16:38] LABS: *BILIRUBIN,URIN 1+ (NEGATIVE); *BLOOD, URINE NEGATIVE (NEGATIVE); *CLARITY,URINE CLEAR (CLEAR); *COLOR,URINE YELLOW (YELLOW); *KETONES,URINE 4+ (NEGATIVE); *UROBILINOGEN,URINE 0.2 E.U./dl (NORMAL); LEUKOCYTE ESTERASE ,URINE NEGATIVE (NEGATIVE); NITRITE, URINE NEGATIVE (NEGATIVE); PH,URINE 5.5 (5.0-8.0); UGLUCOSE 2+ (NEGATIVE)
[2019-03-04 16:39] LABS: BASOPHILS % (AUTO) 0.4 % (0.0-2.0); EOSINOPHILS % (AUTO) 0.6 % (0.0-7.0); HEMATOCRIT 40.8 % (31.2-41.9); HEMOGLOBIN 13.7 g/dL (10.9-14.3); LYMPHOCYTES # (AUTO) 1.2 K/uL (20.0-40.0); LYMPHOCYTES % (AUTO) 17.2 % (20.5-51.5); MEAN CORPUSCULAR HEMOGLOBIN 33.4 uug (24.7-32.8); MEAN CORPUSCULAR HGB CONC 34 g/dL (32.3-35.6); MEAN CORPUSCULAR VOLUME 99.2 fL (75.5-95.3); MONOCYTES # (AUTO) 0.7 K/uL (2.0-10.0); MONOCYTES % (AUTO) 9.6 % (0.0-11.0); NEUTROPHILS # (AUTO) 4.9 K/uL (1.8-8.9); NEUTROPHILS % (AUTO) 72.2 % (38.5-71.5); PLATELET COUNT (AUTO) 278 K/uL (179-408); RED BLOOD CELL COUNT(AUTO) 4.11 MIL/uL (3.63-4.92); WHITE BLOOD COUNT (AUTO) 6.7 K/uL (3.8-11.8)
[2019-03-04 16:57] LABS: ALANINE AMINOTRANSFERASE 48 U/L (14-59); ALKALINE PHOSPHATASE 128 U/L (50-136); ASPARTATE AMINOTRANSFERASE 27 U/L (15-37); BILIRUBIN,DIRECT 0.1 mg/dL (0.0-0.2); BILIRUBIN,TOTAL 0.6 mg/dL (0.2-1.0); CARBON DIOXIDE 16 mmol/L (21-32); CHLORIDE 93 mmol/L (98-107); CREATININE 0.6 mg/dL (0.6-1.3); LIPASE 1176 U/L (73-393); TOTAL PROTEIN, SERUM 7.7 g/dL (6.4-8.2); UREA NITROGEN, BLOOD 8 mg/dL (7-18)
[2019-03-04 16:59] LABS: GLUCOSE 402 mg/dL (74-106)
--- NOTE | 2019-03-04 17:11 | NUR ---
PT TAKEN TO RADIOLOGY FOR CT SCAN.
[2019-03-04 17:13] LABS: BACTERIA,URINE FEW /HPF (NONE SEEN); SQUAMOUS EPITHELIAL CELL,UR MODERATE /HPF (NONE SEEN); WBC,URINE 0-3 /HPF (0-3)
[2019-03-04] MEDS ORDERED: INSULIN REGULAR, HUMAN 300 UNIT/3 ML VIAL ONE (17:39)
[2019-03-04] MEDS ORDERED: INSULIN REGULAR, HUMAN 300 UNIT/3 ML VIAL SQ ONE (17:45)
[2019-03-04] MEDS ORDERED: HYDROMORPHONE 1 MG/1 ML DISP.SYRIN IV ONE (18:15)
[2019-03-04] MEDS ORDERED: MAG HYDROX/AL HYDROX/SIMETH 30 ML LIQUID UDC PO ONE (18:15)
[2019-03-04] MEDS ORDERED: HYDROMORPHONE 1 MG/1 ML DISP.SYRIN ONE (18:17)
[2019-03-04] MEDS ORDERED: MAG HYDROX/AL HYDROX/SIMETH 30 ML LIQUID UDC ONE (18:17)
--- NOTE | 2019-03-04 18:26 | NUR ---
PAGED EPIC FOR PANEL CALL - AWAITING CALLBACK. ATTEMPT 1.
--- NOTE | 2019-03-04 18:39 | NUR ---
ER SPEAKING W/ DR. CANCHOLA RE PT'S ADMISSION.
--- NOTE | 2019-03-04 18:40 | NUR ---
ADMITTING REPORT GIVEN TO ADAL PRIETO.
--- NOTE | 2019-03-04 18:41 | NUR ---
Pt. admitted to M/S 324, under care of Dr. CANCHOLA. Belongs List completed
--- NOTE | 2019-03-04 19:04 | NUR ---
Received patient around 645pm in stable condition. MD Olmos notified. DX: Pancreatitis. VS 128/88 , OXY SAT 99% P85 T98.2'F. On Left AC G18 IV site. On pain management, not in distress. will continue monitor
[2019-03-04] MEDS ORDERED: DEXTROSE 50% 50 ML DISP.SYRIN IV PRN (19:15)
[2019-03-04] MEDS ORDERED: ONDANSETRON 4 MG/2 ML VIAL IV PRN (19:15)
[2019-03-04] MEDS: POTASSIUM CHLORIDE 50 ML IV SCH ×4 (19:15→22:15)
--- NOTE | 2019-03-04 19:30 | NUR ---
PATIENT DIAGNOSED WITH CHRONIC PANCREATITIS. A/O X4. NO SIGNS OF ACUTE DISTRESS. NO COMPLAINTS. NO PAIN. SALINE LOCK INTACT AND PATENT. BELONGING LIST COMPLETED. SAFETY MEASURE AND COMFORT MEASURE PROVIDED. WILL CONTINUE ADMISSIONS PROCESS.
[2019-03-04 20:19] VITALS: BP 145/102
[2019-03-04] MEDS: FAMOTIDINE. 20 MG/2 ML VIAL IV SCH (20:49)
[2019-03-04] MEDS: MORPHINE SULFATE 2 MG/1 ML DISP.SYRIN IV PRN (22:27)
--- NOTE | 2019-03-04 22:27 | NUR ---
C/O OF PAIN ADMINISTERED MORPHINE. TOLERATED WELL.
[2019-03-04] MEDS: IV NS 1000 ML 1,000 ML IV PRN (22:34)
[2019-03-05] MEDS: BLOOD SUGAR DIAGNOSTIC 1 EACH STRIP VI SCH ×4 (00:01→18:20)
[2019-03-05] MEDS: INSULIN REGULAR, HUMAN 300 UNIT/3 ML VIAL SQ PRN ×4 (00:05→17:14)
[2019-03-05] MEDS: MORPHINE SULFATE 2 MG/1 ML DISP.SYRIN IV PRN ×4 (01:28→14:44)
--- NOTE | 2019-03-05 01:28 | NUR ---
C/O OF PAIN. ADMINISTERED MORPHINE. TOLERATED WELL.
--- NOTE | 2019-03-05 02:00 | NUR ---
SPOKE WITH DR. FIDELIA HENDERSON PER PATIENT REQUEST AND C/O OF INCREASING PAIN. DR. HENDERSON DENIED REQUEST TO INCREASE DOSE AT THIS TIME.
--- NOTE | 2019-03-05 04:55 | NUR ---
c/o of pain. morphine administered. patient tolerated well.
[2019-03-05 05:27] VITALS: BP 145/100
[2019-03-05 06:31] LABS: BASOPHILS % (AUTO) 0.5 % (0.0-2.0); EOSINOPHILS % (AUTO) 0.6 % (0.0-7.0); HEMATOCRIT 38.1 % (31.2-41.9); HEMOGLOBIN 12.8 g/dL (10.9-14.3); LYMPHOCYTES # (AUTO) 1.2 K/uL (20.0-40.0); LYMPHOCYTES % (AUTO) 19.1 % (20.5-51.5); MEAN CORPUSCULAR HEMOGLOBIN 33.3 uug (24.7-32.8); MEAN CORPUSCULAR HGB CONC 34 g/dL (32.3-35.6); MEAN CORPUSCULAR VOLUME 99.4 fL (75.5-95.3); MONOCYTES # (AUTO) 0.7 K/uL (2.0-10.0); MONOCYTES % (AUTO) 10.5 % (0.0-11.0); NEUTROPHILS # (AUTO) 4.5 K/uL (1.8-8.9); NEUTROPHILS % (AUTO) 69.3 % (38.5-71.5); PLATELET COUNT (AUTO) 238 K/uL (179-408); RED BLOOD CELL COUNT(AUTO) 3.84 MIL/uL (3.63-4.92); WHITE BLOOD COUNT (AUTO) 6.5 K/uL (3.8-11.8)
[2019-03-05 06:35] LABS: ALANINE AMINOTRANSFERASE 38 U/L (14-59); ALKALINE PHOSPHATASE 107 U/L (50-136); ASPARTATE AMINOTRANSFERASE 21 U/L (15-37); CARBON DIOXIDE 19 mmol/L (21-32); CHLORIDE 98 mmol/L (98-107); CREATININE 0.4 mg/dL (0.6-1.3); GLUCOSE 244 mg/dL (74-106); MAGNESIUM 1.5 mg/dL (1.8-2.4); POTASSIUM 3.1 mmol/L (3.5-5.1); TOTAL PROTEIN, SERUM 6.8 g/dL (6.4-8.2); UREA NITROGEN, BLOOD 4 mg/dL (7-18)
[2019-03-05] MEDS: IV NS 1000 ML 1,000 ML IV PRN (06:48)
[2019-03-05 07:13] LABS: BILIRUBIN,TOTAL 0.4 mg/dL (0.2-1.0)
[2019-03-05 07:14] LABS: CHOLESTEROL 372 mg/dL (<200); HDL CHOLESTEROL 40 mg/dL (40-60); LIPASE 275 U/L (73-393); TRIGLYCERIDES 247 MG/DL (30-150)
--- NOTE | 2019-03-05 07:20 | NUR ---
RECEIVED PATIENT IN BED ASLEEP, BED IN LOWEST POSITION, SIDE RAIL UP X2, AND CALL LIGHT WITHIN REACH.
[2019-03-05 07:25] LABS: THYROID STIMULATING HORMONE 1.185 mIU/mL (0.358-3.740)
[2019-03-05] MEDS: FAMOTIDINE. 20 MG/2 ML VIAL IV SCH (08:32)
[2019-03-05] MEDS ORDERED: PANTOPRAZOLE SODIUM 40 MG VIAL IV SCH (09:00)
[2019-03-05 11:07] VITALS: BP 111/80
[2019-03-05] MEDS ORDERED: POTASSIUM CHLORIDE 20 MEQ TAB.PRT.SR PO ONE (14:15)
[2019-03-05] MEDS: MAGNESIUM SULFATE/D5W 100 ML IV SCH ×2 (14:52→16:03)
[2019-03-05 15:55] VITALS: BP 121/77
--- NOTE | 2019-03-05 16:07 | NUR ---
SS consultation requested. SW arrived to med/surg at 3:40pm. SW consulted on this case with GENET Blue and CONNER Robledo. SW then met with patient, who was in her assigned room, in bed, and receptive to meeting with this SW. Patient is a 38 year old female, who was living with her boyfriend at her boyfriend's sister house prior to this hospitalization. Patient is alert, oriented x 4. Patient stated that her boyfriend's sister has stated that they can no longer live with them. SW helped patient explore different options for where patient can live, and patient stated that there are no family or friends that they can currently reach out to for assistance. GENET Blue had already provided patient with the homeless resource packet, and SW reviewed this packet with the patient, focusing on the homeless shelters. Patient declined shelters. SW explored other options, such as motels, and patient stated that her boyfriend was on his way to the hospital, and that they would decide where to go once he gets here. SW once again discussed the option of homeless shelters, and offered to call shelters for the patient to see if any of them had beds available, but patient once again declined and stated "We will not be going to a fdc". Patient stated she receives food stamps. SW asked patient if there were any other resources that patient feels SW could provide her with information on, and patient stated that she did not have any other questions. SW informed patient that the hospital could provide her with a 1-day metro pass tap card that she can utilize for transportation, and patient was in agreement with this. SW informed GENET Blue and CONNER Robledo of above. GENET Blue stated that she has already requested a tap card from Personal Banking Assistant Cee. No further SS interventions needed at this time.
[2019-03-05] MEDS ORDERED: NEUTRA PHOS PACKET PO ONE (16:45)
--- NOTE | 2019-03-05 18:05 | NUR ---
WITH DISCHARGE ORDER SELF CARE. HOMELESSNESS REFERRED TO CASE MANAGEMENT AN OVEN TENDER. SEEN PATIENT AND RESOURCES PROVIDED. PATIENT SIGNED HOMELESS WAIVER AND TAP CARD PROVIDED FOR TRANSPORTATION. SALINE LOCK REMOVED, ID BAND REMOVED. D/C INSTRUCTIONS GIVEN, VERBALIZES UNDERSTANDING. WENT HOME PER AMBULATORY IN OWN CLOTHING, IN FAIR CONDITION, NOT IN DISTRESS, AFEBRILE, DENIES PAIN, TOLERATING DIET, SKIN INTACT.
[2019-03-05] MEDS ORDERED: FAMOTIDINE 20 MG TABLET PO SCH (21:00)
== END 2019-03-05 18:05 | disposition home or self-care (01) | DRG 282 ==
LOC: ER 15:20 → MEDSURG3 18:18
DX: K85.20 Alcohol induced acute pancreatitis without necrosis or infection (principal); C22.0 Liver cell carcinoma; E11.65 Type 2 diabetes mellitus with hyperglycemia; D18.03 Hemangioma of intra-abdominal structures; K21.9 Gastro-esophageal reflux disease without esophagitis; F10.20 Alcohol dependence, uncomplicated; K76.0 Fatty (change of) liver, not elsewhere classified; Z79.84 Long term (current) use of oral hypoglycemic drugs; K59.00 Constipation, unspecified; Z91.19 Patient's noncompliance with other medical treatment and regimen; N20.0 Calculus of kidney; F15.90 Other stimulant use, unspecified, uncomplicated; Y90.9 Presence of alcohol in blood, level not specified; K86.1 Other chronic pancreatitis; Z79.899 Other long term (current) drug therapy
CPT/HCPCS: 36415; 70030-TC; 71045; 83690; 83735; 84100; 84443; 85025; 85730; 87086; 93005; A4663; G0378; J1170; J1815; J1885; J2270; J2405; J2765; J3475; J3490; J7030; J7050

== ENCOUNTER 2019-11-10 02:16 | Inpatient (IN) | payer MEDICAID, OTHER ==
[~2019-11-10] VITALS: Ht 160 cm; Wt 53.2 kg
[2019-11-10] MEDS ORDERED: ONDANSETRON 4 MG/2 ML VIAL IV ONE (02:30)
[2019-11-10] MEDS ORDERED: HYDROMORPHONE 1 MG/1 ML DISP.SYRIN IV ONE (02:30)
[2019-11-10] MEDS ORDERED: IV NORMAL SALINE 1000 ML BAG IV ONE (02:30)
[2019-11-10 02:41] LABS: BASOPHILS % (AUTO) 0.4 % (0.0-2.0); EOSINOPHILS # (AUTO) 0.1 K/uL (0.0-0.7); EOSINOPHILS % (AUTO) 1.6 % (0.0-7.0); HEMATOCRIT 40.7 % (31.2-41.9); LYMPHOCYTES # (AUTO) 1.8 K/uL (20.0-40.0); LYMPHOCYTES % (AUTO) 29.8 % (20.5-51.5); MEAN CORPUSCULAR HEMOGLOBIN 34.5 uug (24.7-32.8); MEAN CORPUSCULAR HGB CONC 34 g/dL (32.3-35.6); MEAN CORPUSCULAR VOLUME 100.2 fL (75.5-95.3); MONOCYTES # (AUTO) 0.5 K/uL (2.0-10.0); MONOCYTES % (AUTO) 7.6 % (0.0-11.0); NEUTROPHILS # (AUTO) 3.7 K/uL (1.8-8.9); NEUTROPHILS % (AUTO) 60.6 % (38.5-71.5); PLATELET COUNT (AUTO) 331 K/uL (179-408); RED BLOOD CELL COUNT(AUTO) 4.06 MIL/uL (3.63-4.92); WHITE BLOOD COUNT (AUTO) 6.1 K/uL (3.8-11.8)
[2019-11-10] MEDS ORDERED: HYDROMORPHONE 2 MG/1 ML DISP.SYRIN ONE (02:42)
[2019-11-10] MEDS ORDERED: ONDANSETRON 4 MG/2 ML VIAL ONE (02:43)
[2019-11-10 02:45] LABS: CARBON DIOXIDE 21 mmol/L (21-32); CHLORIDE 91 mmol/L (98-107); POTASSIUM 3.3 mmol/L (3.5-5.1)
[2019-11-10 02:52] LABS: ALANINE AMINOTRANSFERASE 39 U/L (14-59); ALKALINE PHOSPHATASE 107 U/L (50-136); ASPARTATE AMINOTRANSFERASE 16 U/L (15-37); BILIRUBIN,DIRECT 0.2 mg/dL (0.0-0.2); BILIRUBIN,TOTAL 0.5 mg/dL (0.2-1.0); CREATININE 0.5 mg/dL (0.6-1.3); LIPASE 858 U/L (73-393); UREA NITROGEN, BLOOD 9 mg/dL (7-18)
[2019-11-10 02:55] LABS: GLUCOSE 376 mg/dL (74-106)
[2019-11-10 03:02] LABS: *BILIRUBIN,URIN NEGATIVE (NEGATIVE); *CLARITY,URINE SLIGHTLY CLOUDY (CLEAR); *COLOR,URINE YELLOW (YELLOW); *KETONES,URINE 3+ (NEGATIVE); LEUKOCYTE ESTERASE ,URINE NEGATIVE (NEGATIVE); NITRITE, URINE NEGATIVE (NEGATIVE)
[2019-11-10 03:03] LABS: *BLOOD, URINE TRACE (NEGATIVE); UGLUCOSE 2+ (NEGATIVE)
[2019-11-10 03:04] LABS: *URINE HCG, QUAL NEGATIVE (NEGATIVE)
[2019-11-10 03:07] LABS: BACTERIA,URINE FEW /HPF (NONE SEEN); SQUAMOUS EPITHELIAL CELL,UR FEW /HPF (NONE SEEN); WBC,URINE 50-80 /HPF (0-3)
[2019-11-10] MEDS ORDERED: INSULIN REGULAR, HUMAN 300 UNIT/3 ML VIAL IV ONE (03:15)
--- NOTE | 2019-11-10 03:22 | NUR ---
FAVIO ON THE PHONE WITH AMOR OK TO ADMIT TO TELE RM DX: PANCREATITIS
--- NOTE | 2019-11-10 03:24 | NUR ---
CALL FOR BED DONE
[2019-11-10] MEDS ORDERED: INSULIN REGULAR, HUMAN 300 UNIT/3 ML VIAL ONE (03:27)
[2019-11-10] MEDS ORDERED: MAGNESIUM HYDROXIDE 30 ML LIQUID UDC PO PRN (03:30)
[2019-11-10] MEDS ORDERED: DEXTROSE 50% 50 ML DISP.SYRIN IV PRN (03:30)
[2019-11-10] MEDS ORDERED: ONDANSETRON 4 MG/2 ML VIAL IV PRN (03:30)
[2019-11-10] MEDS ORDERED: HYDROCODONE/APAP 5-325MG TABLET PO PRN (03:30)
--- NOTE | 2019-11-10 04:19 | NUR ---
HAND OFF AND SBAR GIVEN TO CONSTANTINO PRIETO
--- NOTE | 2019-11-10 05:05 | NUR ---
Admitted a 39 years old female with Diagnosis of Hyperglycemia and Alcoholic Pancreatitis. Patient AAOx4. In no acute distress. Denies any pain or SOB. NSR on tele at 79/min. IV site on left AC intact and patent. NPO status. Routine admission care done. Plan of care initiated and safety measure initiated. Call collier within reached. Continue to monitor.
--- NOTE | 2019-11-10 05:18 | NUR ---
transported to floor acc by manual training teacher via mariah pt ambulatory w/ stable gait upon transfer fr lemus to bed
[2019-11-10] MEDS: POTASSIUM CHLORIDE 20 MEQ in IV NS 1000 ML 1,000 ML IV PRN ×2 (05:43→16:01)
[2019-11-10 05:53] VITALS: BP 149/99
--- NOTE | 2019-11-10 06:00 | NUR ---
Patient remains AAOx4. In no acute distress. Denies any pain or SOB. No vomiting episode since admission. NSR on tele at 80/min. IV site on left AC intact and patent. IVF infusing. NPO status. Needs attended to and met. Safety measure initiated and call collier within reached.
[2019-11-10] MEDS: PANTOPRAZOLE SODIUM 40 MG TABLET.DR PO SCH (06:06)
[2019-11-10 06:27] LABS: BASOPHILS % (AUTO) 0.5 % (0.0-2.0); EOSINOPHILS # (AUTO) 0.1 K/uL (0.0-0.7); EOSINOPHILS % (AUTO) 1.5 % (0.0-7.0); HEMATOCRIT 38.5 % (31.2-41.9); HEMOGLOBIN 13.3 g/dL (10.9-14.3); LYMPHOCYTES # (AUTO) 2.4 K/uL (20.0-40.0); LYMPHOCYTES % (AUTO) 35.5 % (20.5-51.5); MEAN CORPUSCULAR HEMOGLOBIN 34.9 uug (24.7-32.8); MEAN CORPUSCULAR HGB CONC 35 g/dL (32.3-35.6); MONOCYTES # (AUTO) 0.5 K/uL (2.0-10.0); MONOCYTES % (AUTO) 7.4 % (0.0-11.0); NEUTROPHILS # (AUTO) 3.8 K/uL (1.8-8.9); NEUTROPHILS % (AUTO) 55.1 % (38.5-71.5); PLATELET COUNT (AUTO) 334 K/uL (179-408); RED BLOOD CELL COUNT(AUTO) 3.81 MIL/uL (3.63-4.92); WHITE BLOOD COUNT (AUTO) 6.9 K/uL (3.8-11.8)
[2019-11-10] MEDS: BLOOD SUGAR DIAGNOSTIC 1 EACH STRIP VI SCH ×4 (06:30→20:03)
[2019-11-10 06:43] LABS: ALANINE AMINOTRANSFERASE 37 U/L (14-59); ALKALINE PHOSPHATASE 98 U/L (50-136); ASPARTATE AMINOTRANSFERASE 15 U/L (15-37); BILIRUBIN,TOTAL 0.5 mg/dL (0.2-1.0); CARBON DIOXIDE 21 mmol/L (21-32); CREATININE 0.4 mg/dL (0.6-1.3); GLUCOSE 296 mg/dL (74-106); LIPASE 503 U/L (73-393); MAGNESIUM 1.6 mg/dL (1.8-2.4); TOTAL PROTEIN, SERUM 6.5 g/dL (6.4-8.2); UREA NITROGEN, BLOOD 9 mg/dL (7-18)
[2019-11-10 07:39] LABS: CHLORIDE 94 mmol/L (98-107); POTASSIUM 3.3 mmol/L (3.5-5.1)
--- NOTE | 2019-11-10 08:00 | NUR ---
received awake,alert and oriented, denies of pain a this time, no nausea, no vomiting, tele SR, still npo, pt aware, explained plan of care-verbalized understanding, ambulateds to BR without problem, safety measures maintained, call light within reach
[2019-11-10] MEDS ORDERED: Medication Not On Formulary EA (Multivitamin (Multi-Vitamin Daily) 1 EACH) PO SCH (09:00)
[2019-11-10] MEDS: THIAMINE HCL 100 MG TABLET PO SCH (09:16)
[2019-11-10] MEDS: MULTIVITAMINS,THERAPEUTIC TABLET PO SCH (09:16)
[2019-11-10] MEDS: FOLIC ACID 1 MG TABLET PO SCH (09:16)
[2019-11-10] MEDS: INSULIN REGULAR, HUMAN 300 UNIT/3 ML VIAL SQ PRN ×4 (09:19→20:05)
[2019-11-10] MEDS: HYDROMORPHONE 1 MG/1 ML DISP.SYRIN IV PRN ×4 (09:41→22:12)
--- NOTE | 2019-11-10 10:00 | NUR ---
c/o pain on midback- medicated with Dilaudid 1mg for pain as ordered, will continue to monitor
[2019-11-10] MEDS: glipiZIDE 10 MG TABLET PO SCH ×2 (10:35→17:23)
--- NOTE | 2019-11-10 11:00 | NUR ---
pain relieved, ambulates to BR prn without any difficulty, steady gair, tolerated clear liquids- will order full liquids for lunch
[2019-11-10 11:21] VITALS: BP 119/91
[2019-11-10 15:52] VITALS: BP 132/88
[2019-11-10 16:19] LABS: PHOSPHOROUS 3.9 mg/dL (2.5-4.9)
[2019-11-10] MEDS: MAGNESIUM SULFATE/D5W 100 ML IV SCH ×2 (17:18→18:19)
--- NOTE | 2019-11-10 17:57 | NUR ---
tolerated liquids and now on soft diabetic diet, no nausea and vomiting, medicated x 2 this shift, CT abdomen/pelvis done in xray dept, call light within reach, no distress noted, all needs attended.
[2019-11-10] MEDS: METOCLOPRAMIDE HCL 10 MG/2 ML VIAL IV SCH (18:45)
--- NOTE | 2019-11-10 19:20 | NUR ---
Received patient sitting upright in bed eating her dinner. Patient AAOx2. In no acute distress. Denies any pain or SOB at this time. Appears comfortable. Reported no N/V since this morning. IV site on left AC intact and patent. IVF infusing. Safety measure initiated and call collier within reach.
[2019-11-10 20:38] VITALS: BP 128/84
[2019-11-10 23:49] VITALS: BP 121/71
[2019-11-11] MEDS: METOCLOPRAMIDE HCL 10 MG/2 ML VIAL IV SCH ×3 (00:14→11:44)
[2019-11-11] MEDS: HYDROMORPHONE 1 MG/1 ML DISP.SYRIN IV PRN ×2 (02:14→08:42)
--- NOTE | 2019-11-11 04:20 | NUR ---
Patient became anxious and complaining of SOB. Stating that she is not use to being secluded in a room, felt claustrophobic. Applied O2 at 2LPM via NC. O2 sat at 98%. Escorted patient to walk around the hallway x2. Able to calm patient down. Went back to bed. Complained of feeling gassy. Requested milk of magnesia. Will give per order. Continue to monitor.
[2019-11-11 04:27] VITALS: BP 126/83
--- NOTE | 2019-11-11 05:35 | NUR ---
Patient AAOx2. Calm and comfortable at this time. In no acute distress. Denies any pain. Denies any SOB. On O2 at 2LPM via NC in place. O2 sat remains 98%. NSR on tele at 78/min. Denies any N/V since this morning. IV site on left AC intact and patent. IVF infusing. Needs attended to and met. Safety measure maintained and call collier within reach.
[2019-11-11] MEDS: PANTOPRAZOLE SODIUM 40 MG TABLET.DR PO SCH (06:15)
[2019-11-11] MEDS: POTASSIUM CHLORIDE 20 MEQ in IV NS 1000 ML 1,000 ML IV PRN (06:16)
[2019-11-11 06:42] LABS: BASOPHILS % (AUTO) 0.3 % (0.0-2.0); EOSINOPHILS # (AUTO) 0.1 K/uL (0.0-0.7); HEMATOCRIT 36.3 % (31.2-41.9); HEMOGLOBIN 12.4 g/dL (10.9-14.3); LYMPHOCYTES # (AUTO) 1.5 K/uL (20.0-40.0); LYMPHOCYTES % (AUTO) 25.6 % (20.5-51.5); MEAN CORPUSCULAR HEMOGLOBIN 34.5 uug (24.7-32.8); MEAN CORPUSCULAR HGB CONC 34 g/dL (32.3-35.6); MEAN CORPUSCULAR VOLUME 101.1 fL (75.5-95.3); MONOCYTES # (AUTO) 0.5 K/uL (2.0-10.0); MONOCYTES % (AUTO) 8.3 % (0.0-11.0); NEUTROPHILS # (AUTO) 3.9 K/uL (1.8-8.9); NEUTROPHILS % (AUTO) 63.8 % (38.5-71.5); PLATELET COUNT (AUTO) 293 K/uL (179-408); RED BLOOD CELL COUNT(AUTO) 3.59 MIL/uL (3.63-4.92); WHITE BLOOD COUNT (AUTO) 6.1 K/uL (3.8-11.8)
[2019-11-11] MEDS: BLOOD SUGAR DIAGNOSTIC 1 EACH STRIP VI SCH ×2 (06:42→11:43)
[2019-11-11 06:55] LABS: CARBON DIOXIDE 26 mmol/L (21-32); CHLORIDE 99 mmol/L (98-107); CREATININE 0.3 mg/dL (0.6-1.3); MAGNESIUM 1.5 mg/dL (1.8-2.4); POTASSIUM 3.3 mmol/L (3.5-5.1); UREA NITROGEN, BLOOD 5 mg/dL (7-18)
[2019-11-11 07:59] LABS: GLUCOSE 317 mg/dL (74-106)
--- NOTE | 2019-11-11 08:03 | NUR ---
Awake, alert, oriented x 4, complaining of pain. Not in distress. IVF infusing
[2019-11-11] MEDS: glipiZIDE 10 MG TABLET PO SCH (08:41)
[2019-11-11] MEDS: MULTIVITAMINS,THERAPEUTIC TABLET PO SCH (08:41)
[2019-11-11] MEDS: FOLIC ACID 1 MG TABLET PO SCH (08:41)
[2019-11-11] MEDS: THIAMINE HCL 100 MG TABLET PO SCH (08:41)
[2019-11-11] MEDS: INSULIN REGULAR, HUMAN 300 UNIT/3 ML VIAL SQ PRN ×2 (08:44→11:46)
[2019-11-11] MEDS ORDERED: LORAZEPAM 1 MG TABLET PO PRN (09:15)
--- NOTE | 2019-11-11 10:46 | NUR ---
Sleeping at this time. Appears comfortable. Not in distress
[2019-11-11 11:04] VITALS: BP 130/85
--- NOTE | 2019-11-11 12:00 | NUR ---
Anxious and agitated. Ativan po given with relief after.
[2019-11-11] MEDS ORDERED: POTASSIUM CHLORIDE 20 MEQ TAB.PRT.SR PO ONE (12:30)
[2019-11-11] MEDS: MAGNESIUM SULFATE/D5W 100 ML IV SCH ×2 (13:18→14:24)
[2019-11-11 15:04] VITALS: BP 123/87
--- NOTE | 2019-11-11 16:23 | NUR ---
With discharge order, self care. Resources and fdc for homeless provided. Patient arranging for her transportation and care residence. Saline lock removed. Tele removed. DC instruction given to patient, verbalized understanding. Discharged per ambulatory in fair condition, not in distress, afebrile, in her own clothes, ID band removed.
== END 2019-11-11 16:25 | disposition home or self-care (01) | DRG 48 ==
LOC: ER 02:27 → TELE3 05:02
PROVIDERS: ADMIT Nurse Practitioner Acute Care; ATTEND Nurse Practitioner Acute Care
DX: E11.43 Type 2 diabetes mellitus with diabetic autonomic (poly)neuropathy (principal); K85.20 Alcohol induced acute pancreatitis without necrosis or infection; E11.65 Type 2 diabetes mellitus with hyperglycemia; E87.1 Hypo-osmolality and hyponatremia; K86.0 Alcohol-induced chronic pancreatitis; K86.1 Other chronic pancreatitis; K31.84 Gastroparesis; Z79.84 Long term (current) use of oral hypoglycemic drugs; Z59.0 Homelessness; Z83.3 Family history of diabetes mellitus; Z82.49 Family history of ischemic heart disease and other diseases of the circulatory system; E87.6 Hypokalemia; E86.1 Hypovolemia; K42.9 Umbilical hernia without obstruction or gangrene; N20.0 Calculus of kidney; F15.90 Other stimulant use, unspecified, uncomplicated; Z91.14 Patient's other noncompliance with medication regimen; F10.20 Alcohol dependence, uncomplicated; Y90.9 Presence of alcohol in blood, level not specified
CPT/HCPCS: 36415; 71045; 83605; 83690; 83735; 84100; 84703; 85025; 87077; 87086; 93005; A4663; G0378; J1170; J1815; J2405; J2765; J3475; J3480; J7030

== ENCOUNTER 2019-12-16 16:19 | Inpatient (IN) | payer MEDICAID ==
[~2019-12-16] VITALS: Ht 157.5 cm; Wt 48.5 kg
[2019-12-16] MEDS ORDERED: IBUPROFEN 600 MG TABLET PO ONE (16:45)
[2019-12-16] MEDS ORDERED: INSULIN REGULAR, HUMAN 300 UNIT/3 ML VIAL IV ONE (17:00)
[2019-12-16] MEDS ORDERED: IV NORMAL SALINE 1000 ML BAG IV ONE ×2 (17:00→17:30)
[2019-12-16] MEDS ORDERED: INSULIN REGULAR, HUMAN 300 UNIT/3 ML VIAL ONE (17:02)
[2019-12-16] MEDS ORDERED: KETOROLAC TROMETHAMINE 30 MG INJ ONE (17:02)
[2019-12-16 17:03] LABS: BASOPHILS % (AUTO) 0.4 % (0.0-2.0); EOSINOPHILS % (AUTO) 0.2 % (0.0-7.0); HEMATOCRIT 46.8 % (31.2-41.9); HEMOGLOBIN 15.9 g/dL (10.9-14.3); LYMPHOCYTES # (AUTO) 1.5 K/uL (20.0-40.0); LYMPHOCYTES % (AUTO) 14.4 % (20.5-51.5); MEAN CORPUSCULAR HEMOGLOBIN 34.1 uug (24.7-32.8); MEAN CORPUSCULAR HGB CONC 34 g/dL (32.3-35.6); MEAN CORPUSCULAR VOLUME 100.5 fL (75.5-95.3); MONOCYTES # (AUTO) 0.6 K/uL (2.0-10.0); MONOCYTES % (AUTO) 6.1 % (0.0-11.0); NEUTROPHILS # (AUTO) 8.3 K/uL (1.8-8.9); NEUTROPHILS % (AUTO) 78.9 % (38.5-71.5); PLATELET COUNT (AUTO) 401 K/uL (179-408); RED BLOOD CELL COUNT(AUTO) 4.66 MIL/uL (3.63-4.92); WHITE BLOOD COUNT (AUTO) 10.6 K/uL (3.8-11.8)
[2019-12-16 17:10] LABS: CREATININE 0.9 mg/dL (0.6-1.3)
[2019-12-16 17:15] LABS: POTASSIUM 2.6 mmol/L (3.5-5.1)
[2019-12-16] MEDS ORDERED: KETOROLAC TROMETHAMINE 30 MG INJ IVP ONE (17:15)
[2019-12-16] MEDS ORDERED: POTASSIUM CHLORIDE 50 ML ONE (17:23)
[2019-12-16] MEDS ORDERED: AMOXicillin 250 MG CAPSULE PO ONE (17:30)
[2019-12-16] MEDS ORDERED: INSULIN REGULAR, HUMAN 100 UNIT in IV NORMAL SALINE 99 ML IV PRN ×6 (17:30→20:45)
[2019-12-16] MEDS ORDERED: POTASSIUM CHLORIDE 50 ML IV SCH (17:30)
[2019-12-16 17:56] LABS: BILIRUBIN,DIRECT 0.2 mg/dL (0.0-0.2); BILIRUBIN,TOTAL 0.7 mg/dL (0.2-1.0); TOTAL PROTEIN, SERUM 8.3 g/dL (6.4-8.2)
[2019-12-16 18:14] LABS: ABG BASE EXCESS -19.1 mmol/L; ABG HCO3 5.6 mmol/L; ABG PCO2 13.6 mmHg (35.0-45.0); ABG PH 7.236 (7.350-7.450); ABG PO2 107.7 mmHg (75.0-100.0); ABG SITE LEFT RADIAL; ABG TOTAL HEMOGLOBIN 13.6 G/dL (12.0-16.0); MetHb 0.1 % (0.0-1.5); O2Hb 97.4 % (94.0-97.0); VENT MODE room air
[2019-12-16] MEDS ORDERED: AMOXicillin 250 MG CAPSULE ONE (18:27)
[2019-12-16] MEDS ORDERED: POTASSIUM CHLORIDE 100 ML ONE (18:36)
[2019-12-16] MEDS: POTASSIUM CHLORIDE 50 ML IV SCH ×3 (18:43→23:14)
[2019-12-16 19:06] VITALS: BP 119/77
[2019-12-16 20:00] VITALS: BP 115/82
[2019-12-16] MEDS ORDERED: ONDANSETRON 4 MG/2 ML VIAL IV PRN (20:30)
[2019-12-16] MEDS ORDERED: ACETAMINOPHEN 325 MG TABLET PO PRN (20:30)
[2019-12-16] MEDS: IV D5/ 0.9% NACL 1,000 ML IV SCH (20:39)
[2019-12-16 21:00] VITALS: BP 119/77
[2019-12-16] MEDS: DEXTROSE IV SCH (21:11)
[2019-12-16] MEDS: PIPERACILLIN IV SCH (21:11)
[2019-12-16] MEDS: TAZOBACTAM IV SCH (21:11)
[2019-12-16] MEDS: [UNRECOGNIZED DRUG - OTHER] IV SCH (21:11)
[2019-12-16 21:52] LABS: ABG BASE EXCESS -18.2 mmol/L; ABG HCO3 6.9 mmol/L; ABG PCO2 16.6 mmHg (35.0-45.0); ABG PH 7.235 (7.350-7.450); ABG PO2 108.6 mmHg (75.0-100.0); ABG SITE LEFT RADIAL; ABG TOTAL HEMOGLOBIN 13.4 G/dL (12.0-16.0); COHb 1.5 % (0.5-1.5); MetHb 0.1 % (0.0-1.5); O2Hb 96.8 % (94.0-97.0); VENT MODE ROOM AIR
[2019-12-16 21:59] LABS: CREATININE 0.6 mg/dL (0.6-1.3); MAGNESIUM 1.4 mg/dL (1.8-2.4)
[2019-12-16 22:00] VITALS: BP 126/84
[2019-12-16] MEDS ORDERED: PIPERACILLIN SODIUM/TAZOBACTAM 4.5 G in IV DEXTROSE 5% 50 ML IV SCH (22:00)
[2019-12-16] MEDS ORDERED: PIPERACILLIN/TAZOBACTAM/D5W 3.375 G in PREMIXED 1 EACH IV SCH (22:00)
[2019-12-16 22:08] LABS: POTASSIUM 2.3 mmol/L (3.5-5.1)
[2019-12-16 22:09] LABS: PHOSPHOROUS 0.9 mg/dL (2.5-4.9)
[2019-12-16] MEDS ORDERED: POTASSIUM PHOSPHATE MM 15 MMOL in IV NORMAL SALINE 250 ML IV SCH (22:30)
[2019-12-16 23:00] VITALS: BP 114/84
[2019-12-16] MEDS: MAGNESIUM SULFATE/D5W 100 ML IV SCH (23:14)
[2019-12-17] VITALS (19 sets, daily range): BP systolic 101–146; BP diastolic 58–98
[2019-12-17] MEDS: ACETAMINOPHEN 325 MG TABLET PO PRN ×4 (00:25→22:18)
[2019-12-17] MEDS: MAGNESIUM SULFATE/D5W 100 ML IV SCH (00:26)
[2019-12-17] MEDS: POTASSIUM CHLORIDE 50 ML IV SCH ×12 (00:26→22:51)
[2019-12-17] MEDS: NEUTRA PHOS PACKET PO SCH ×3 (01:10→08:50)
[2019-12-17 03:37] LABS: *BILIRUBIN,URIN 1+ (NEGATIVE); *BLOOD, URINE 1+ (NEGATIVE); *CLARITY,URINE CLEAR (CLEAR); *COLOR,URINE YELLOW (YELLOW); *KETONES,URINE 4+ (NEGATIVE); *UROBILINOGEN,URINE 0.2 E.U./dl (NORMAL); LEUKOCYTE ESTERASE ,URINE TRACE (NEGATIVE); NITRITE, URINE NEGATIVE (NEGATIVE); UGLUCOSE 2+ (NEGATIVE)
[2019-12-17 03:49] LABS: BACTERIA,URINE MODERATE /HPF (NONE SEEN); SQUAMOUS EPITHELIAL CELL,UR MODERATE /HPF (NONE SEEN)
[2019-12-17] MEDS: IV D5/ 0.9% NACL 1,000 ML IV SCH (04:33)
[2019-12-17] MEDS: [UNRECOGNIZED DRUG - OTHER] IV SCH ×3 (05:14→22:25)
[2019-12-17] MEDS: TAZOBACTAM IV SCH ×3 (05:14→22:25)
[2019-12-17] MEDS: DEXTROSE IV SCH ×3 (05:14→22:25)
[2019-12-17] MEDS: PIPERACILLIN IV SCH ×3 (05:14→22:25)
[2019-12-17 07:26] LABS: EOSINOPHILS # (AUTO) 0.1 K/uL (0.0-0.7); EOSINOPHILS % (AUTO) 1.6 % (0.0-7.0); LYMPHOCYTES # (AUTO) 1.6 K/uL (20.0-40.0)
[2019-12-17 07:34] LABS: BASOPHILS % (AUTO) 0.5 % (0.0-2.0); CREATININE 0.6 mg/dL (0.6-1.3); LYMPHOCYTES % (AUTO) 20.2 % (20.5-51.5); MEAN CORPUSCULAR HGB CONC 35 g/dL (32.3-35.6); MEAN CORPUSCULAR VOLUME 96.6 fL (75.5-95.3); MONOCYTES # (AUTO) 0.8 K/uL (2.0-10.0); MONOCYTES % (AUTO) 10.5 % (0.0-11.0); NEUTROPHILS # (AUTO) 5.5 K/uL (1.8-8.9); NEUTROPHILS % (AUTO) 67.2 % (38.5-71.5); PLATELET COUNT (AUTO) 327 K/uL (179-408); RED BLOOD CELL COUNT(AUTO) 3.91 MIL/uL (3.63-4.92); WHITE BLOOD COUNT (AUTO) 8.1 K/uL (3.8-11.8)
[2019-12-17 07:35] LABS: HEMATOCRIT 37.8 % (31.2-41.9); HEMOGLOBIN 13.3 g/dL (10.9-14.3); PHOSPHOROUS 0.8 mg/dL (2.5-4.9); POTASSIUM 2.3 mmol/L (3.5-5.1)
[2019-12-17 07:37] LABS: THYROID STIMULATING HORMONE 1.273 mIU/mL (0.358-3.740)
[2019-12-17] MEDS ORDERED: INSULIN REGULAR, HUMAN 300 UNITS/3 ML VIAL SQ PRN ×2 (08:30→19:00)
[2019-12-17] MEDS ORDERED: NORMAL SALINE IV SCH (08:30)
[2019-12-17] MEDS ORDERED: DEXTROSE 50% 50 ML DISP.SYRIN IV PRN ×2 (08:30→19:00)
[2019-12-17] MEDS ORDERED: POTASSIUM CHLORIDE 20 MEQ TAB.PRT.SR PO ONE ×2 (08:30→19:00)
[2019-12-17] MEDS ORDERED: POTASSIUM PHOSPHATE MM IV SCH (08:30)
[2019-12-17] MEDS: PANTOPRAZOLE SODIUM 40 MG VIAL IV SCH (08:50)
[2019-12-17] MEDS ORDERED: POTASSIUM PHOSPHATE MM 15 MMOL in IV NORMAL SALINE 250 ML IV SCH ×3 (09:30→14:30)
[2019-12-17] MEDS ORDERED: INSULIN GLARGINE,HUM 300 UNITS/3 ML CARTRIDGE SQ ONE (09:30)
[2019-12-17] MEDS: BLOOD SUGAR DIAGNOSTIC 1 EACH STRIP VI SCH ×4 (10:00→21:37)
[2019-12-17] MEDS: INSULIN REGULAR, HUMAN 300 UNIT/3 ML VIAL SQ PRN ×3 (10:04→17:19)
[2019-12-17 18:18] LABS: CREATININE 0.8 mg/dL (0.6-1.3)
[2019-12-17 18:23] LABS: POTASSIUM 2.7 mmol/L (3.5-5.1)
[2019-12-17] MEDS ORDERED: INSULIN REGULAR, HUMAN 300 UNIT/3 ML VIAL SQ PRN (19:00)
[2019-12-17] MEDS ORDERED: INSULIN GLARGINE,HUM 300 UNITS/3 ML CARTRIDGE SQ SCH (21:00)
[2019-12-18] MEDS: POTASSIUM CHLORIDE 50 ML IV SCH ×4 (00:08→13:30)
[2019-12-18 00:36] VITALS: BP 110/78
[2019-12-18] MEDS ORDERED: POTASSIUM CHLORIDE 50 ML IV SCH (01:15)
[2019-12-18 04:34] VITALS: BP 103/63
[2019-12-18] MEDS: PIPERACILLIN IV SCH (05:17)
[2019-12-18] MEDS: TAZOBACTAM IV SCH (05:17)
[2019-12-18] MEDS: DEXTROSE IV SCH (05:17)
[2019-12-18] MEDS: [UNRECOGNIZED DRUG - OTHER] IV SCH (05:17)
[2019-12-18 06:55] LABS: CARBON DIOXIDE 28 mmol/L (21-32); CHLORIDE 104 mmol/L (98-107); CREATININE 0.3 mg/dL (0.6-1.3); GLUCOSE 162 mg/dL (74-106); MAGNESIUM 1.9 mg/dL (1.8-2.4); UREA NITROGEN, BLOOD 3 mg/dL (7-18)
[2019-12-18 07:02] LABS: PHOSPHOROUS 0.6 mg/dL (2.5-4.9); POTASSIUM 2.4 mmol/L (3.5-5.1)
[2019-12-18] MEDS: BLOOD SUGAR DIAGNOSTIC 1 EACH STRIP VI SCH ×2 (07:30→11:30)
[2019-12-18] MEDS: PANTOPRAZOLE SODIUM 40 MG VIAL IV SCH (08:44)
[2019-12-18] MEDS: ACETAMINOPHEN 325 MG TABLET PO PRN (08:44)
[2019-12-18] MEDS ORDERED: POTASSIUM PHOSPHATE MM 7.5 MMOL in IV NORMAL SALINE 97.5 ML IV SCH (11:30)
[2019-12-18] MEDS ORDERED: POTASSIUM CHLORIDE 20 MEQ TAB.PRT.SR PO ONE (11:30)
[2019-12-18 11:34] VITALS: BP 100/60
[2019-12-19] MEDS ORDERED: PANTOPRAZOLE SODIUM 40 MG TABLET.DR PO SCH (07:00)
== END 2019-12-18 13:00 | disposition left against medical advice (07) | DRG 420 ==
LOC: ER 16:19 → CCU 18:45 → TELE3 12-17 18:04
DX: E11.10 Type 2 diabetes mellitus with ketoacidosis without coma (principal); E83.39 Other disorders of phosphorus metabolism; E11.65 Type 2 diabetes mellitus with hyperglycemia; K86.1 Other chronic pancreatitis; Z59.0 Homelessness; Z79.4 Long term (current) use of insulin; E87.6 Hypokalemia; H66.92 Otitis media, unspecified, left ear; T38.3X6A Underdosing of insulin and oral hypoglycemic [antidiabetic] drugs, initial encounter; Z91.120 Patient's intentional underdosing of medication regimen due to financial hardship; Y92.89 Other specified places as the place of occurrence of the external cause; Z91.19 Patient's noncompliance with other medical treatment and regimen; E83.42 Hypomagnesemia; F10.20 Alcohol dependence, uncomplicated; Z79.84 Long term (current) use of oral hypoglycemic drugs; Z79.899 Other long term (current) drug therapy
CPT/HCPCS: 36415; 36600; 70030-TC; 71045; 83690; 83735; 84100; 84443; 85025; 87040; 87086; 93005; A4663; C9113; G0378; J1815; J1885; J2543; J3475; J3480; J3490; J7030; J7042; J7050

== ENCOUNTER 2020-05-05 21:25 | Inpatient (IN) | payer MEDICAID ==
[~2020-05-05] VITALS: Ht 160 cm; Wt 40.8 kg
[2020-05-05] MEDS: POTASSIUM CHLORIDE 50 ML IV SCH ×2 (01:08→23:46)
[~2020-05-05 21:25] MED LIST changes: -GLIP10TA11 PO; +GLIP5TAB13 PO; +INSU100I26 SQ; -LEVO500T2 PO; -OMEP20CA10 PO; +OMEP20CA15 PO; -SERT25TA PO
[2020-05-05] MEDS ORDERED: IV NORMAL SALINE 1000 ML BAG IV ONE (21:45)
[2020-05-05] MEDS ORDERED: KETOROLAC TROMETHAMINE 30 MG INJ IVP ONE (22:00)
[2020-05-05] MEDS ORDERED: IV NS 1000 ML 1,000 ML IV ONE (22:15)
[2020-05-05 22:48] LABS: BASOPHILS % (AUTO) 0.3 % (0.0-2.0); EOSINOPHILS % (AUTO) 0.2 % (0.0-7.0); HEMATOCRIT 41.1 % (31.2-41.9); HEMOGLOBIN 14.1 g/dL (10.9-14.3); LYMPHOCYTES # (AUTO) 1.9 K/uL (20.0-40.0); LYMPHOCYTES % (AUTO) 20.2 % (20.5-51.5); MEAN CORPUSCULAR HEMOGLOBIN 34.8 uug (24.7-32.8); MEAN CORPUSCULAR HGB CONC 34 g/dL (32.3-35.6); MEAN CORPUSCULAR VOLUME 101.5 fL (75.5-95.3); MONOCYTES # (AUTO) 0.7 K/uL (2.0-10.0); MONOCYTES % (AUTO) 7.9 % (0.0-11.0); NEUTROPHILS # (AUTO) 6.6 K/uL (1.8-8.9); NEUTROPHILS % (AUTO) 71.4 % (38.5-71.5); PLATELET COUNT (AUTO) 315 K/uL (179-408); RED BLOOD CELL COUNT(AUTO) 4.05 MIL/uL (3.63-4.92); WHITE BLOOD COUNT (AUTO) 9.3 K/uL (3.8-11.8)
[2020-05-05 22:51] LABS: *BILIRUBIN,URIN NEGATIVE (NEGATIVE); *BLOOD, URINE NEGATIVE (NEGATIVE); *CLARITY,URINE CLEAR (CLEAR); *COLOR,URINE YELLOW (YELLOW); *KETONES,URINE 4+ (NEGATIVE); LEUKOCYTE ESTERASE ,URINE NEGATIVE (NEGATIVE); NITRITE, URINE NEGATIVE (NEGATIVE); PH,URINE 5.5 (5.0-8.0); UGLUCOSE 2+ (NEGATIVE)
[2020-05-05 23:00] LABS: ALANINE AMINOTRANSFERASE 54 U/L (14-59); ALKALINE PHOSPHATASE 101 U/L (50-136); ASPARTATE AMINOTRANSFERASE 45 U/L (15-37); BILIRUBIN,DIRECT 0.1 mg/dL (0.0-0.2); BILIRUBIN,TOTAL 0.4 mg/dL (0.2-1.0); CARBON DIOXIDE 17 mmol/L (21-32); CHLORIDE 95 mmol/L (98-107); CREATININE 0.6 mg/dL (0.6-1.3); POTASSIUM 3.1 mmol/L (3.5-5.1); TOTAL PROTEIN, SERUM 6.9 g/dL (6.4-8.2); UREA NITROGEN, BLOOD 11 mg/dL (7-18)
[2020-05-05 23:02] LABS: GLUCOSE 333 mg/dL (74-106)
[2020-05-05] MEDS ORDERED: POTASSIUM CHLORIDE 20 MEQ TAB.PRT.SR PO ONE (23:15)
[2020-05-05 23:17] LABS: LIPASE 3584 U/L (73-393)
[2020-05-05] MEDS: MAGNESIUM SULFATE/D5W 100 ML IV SCH (23:47)
[2020-05-06] VITALS (13 sets, daily range): BP systolic 113–149; BP diastolic 51–93
[2020-05-06] MEDS ORDERED: ONDANSETRON 4 MG/2 ML VIAL IV ONE
[2020-05-06] MEDS ORDERED: KETOROLAC TROMETHAMINE 30 MG INJ IVP ONE
[2020-05-06] MEDS ORDERED: MORPHINE SULFATE 2 MG/1 ML DISP.SYRIN IV ONE
[2020-05-06] MEDS ORDERED: KETOROLAC TROMETHAMINE 30 MG INJ ONE (00:03)
[2020-05-06] MEDS ORDERED: MORPHINE SULFATE 2 MG/1 ML DISP.SYRIN ONE (00:03)
--- NOTE | 2020-05-06 00:10 | NUR ---
DR Jones spoke Fab Clarke NP pulmonary physician for [facility].
--- NOTE | 2020-05-06 00:58 | NUR ---
Fab Clarke MAINTAINABILITY ENGINEER steam station supervisor for [employer] here to eval patient.
[2020-05-06] MEDS ORDERED: IV NS 1000 ML 1,000 ML IV PRN (01:08)
[2020-05-06] MEDS: MAGNESIUM SULFATE/D5W 100 ML IV SCH ×3 (01:09→14:39)
[2020-05-06] MEDS ORDERED: Z GUARD REMEDY PASTE 57 GM TUBE TOP PRN (01:15)
[2020-05-06] MEDS ORDERED: ONDANSETRON 4 MG/2 ML VIAL IV PRN (01:15)
[2020-05-06] MEDS ORDERED: ACETAMINOPHEN 325 MG TABLET PO PRN (01:15)
[2020-05-06] MEDS ORDERED: MAGNESIUM HYDROXIDE 30 ML LIQUID UDC PO PRN (01:15)
[2020-05-06] MEDS ORDERED: TEMAZEPAM 15 MG CAPSULE PO PRN (01:15)
[2020-05-06] MEDS: POTASSIUM CHLORIDE 50 ML IV SCH ×5 (02:16→23:30)
[2020-05-06] MEDS ORDERED: KETAMINE HCL 500 MG/10 ML INJ IV ONE (02:30)
--- NOTE | 2020-05-06 02:30 | NUR ---
Patient laying on gurny in room yelling for pain meds. Patient states back and abdominal pain are 9/10. Dr Jones made aware.
[2020-05-06] MEDS ORDERED: KETAMINE HCL 500 MG/10 ML INJ ONE (02:34)
[2020-05-06] MEDS ORDERED: LORAZEPAM 2 MG/1 ML VIAL IV ONE (03:15)
[2020-05-06 03:27] LABS: CARBON DIOXIDE 16 mmol/L (21-32); CHLORIDE 103 mmol/L (98-107); CREATININE 0.5 mg/dL (0.6-1.3); GLUCOSE 245 mg/dL (74-106); POTASSIUM 3.5 mmol/L (3.5-5.1); UREA NITROGEN, BLOOD 8 mg/dL (7-18)
[2020-05-06] MEDS ORDERED: NORMAL SALINE IV ONE ×3 (03:45)
[2020-05-06] MEDS ORDERED: POTASSIUM CHLORIDE IV ONE ×3 (03:45)
[2020-05-06] MEDS ORDERED: HUMAN IV ONE ×3 (03:45)
[2020-05-06] MEDS ORDERED: INSULIN REGULAR IV ONE ×3 (03:45)
[2020-05-06] MEDS ORDERED: POTASSIUM CHLORIDE 30 MEQ in IV D5 1/2 NS 1000 ML 1,000 ML IV ONE (03:45)
[2020-05-06 03:54] LABS: ABG HCO3 12.3 mmol/L; ABG PCO2 25.1 mmHg (35.0-45.0); ABG PH 7.308 (7.350-7.450); ABG PO2 103.2 mmHg (75.0-100.0); ABG SITE LEFT RADIAL; COHb 0.9 % (0.5-1.5); MetHb 0.3 % (0.0-1.5); O2Hb 96.4 % (94.0-97.0); VENT MODE Room Air
--- NOTE | 2020-05-06 04:00 | NUR ---
Patient asking for more pain medication. Demanding for PO fluid. Explain to patient that DR Jnoes has ordered her NPO.
--- NOTE | 2020-05-06 04:20 | NUR ---
DR Jones ordered to HOLD insulin drip at this time.
--- NOTE | 2020-05-06 04:22 | NUR ---
Patient transported to CCU in stable condition.
--- NOTE | 2020-05-06 04:22 | NUR ---
patient blood sugar is being check every 4 hours currently on moderate sliding scale of insulin drip and will tolerate and the scale and be able to stalbilize bs and be off insulun drip eventually Addendum: 05/06/20 at 0422 by KAYLYNN GIORDANO RN Amended: Links added.
--- NOTE | 2020-05-06 04:22 | NUR ---
IV Fluid of D5 1/2 NS with 20MEG KCL at 500ml/HR [id number] order by DR Jones will continue at CCU.
--- NOTE | 2020-05-06 04:23 | NUR ---
patient will be in acceptable level of pain Addendum: 05/06/20 at 0423 by KAYLYNN GIORDANO RN Amended: Links added.
--- NOTE | 2020-05-06 04:31 | NUR ---
, non compliant , unable to keep and comprehend orders falls asleep , with unsteady gait , refuses treatment
[2020-05-06] MEDS ORDERED: POTASSIUM CHLORIDE 20 MEQ in IV D5 1/2 NS 1000 ML 1,000 ML IV PRN (04:45)
--- NOTE | 2020-05-06 04:45 | NUR ---
Juan Luis FERNANDES , CALLED AND NOTIFIED OF PATIENT'S BEHAVIOR , RECEIVED ORDER JUST TO KEEP ICU FOR OBSERVATION
[2020-05-06 05:38] LABS: BASOPHILS % (AUTO) 0.4 % (0.0-2.0); EOSINOPHILS % (AUTO) 0.4 % (0.0-7.0); HEMATOCRIT 38.1 % (31.2-41.9); HEMOGLOBIN 13.1 g/dL (10.9-14.3); LYMPHOCYTES # (AUTO) 1.8 K/uL (20.0-40.0); LYMPHOCYTES % (AUTO) 19.4 % (20.5-51.5); MEAN CORPUSCULAR HEMOGLOBIN 35.5 uug (24.7-32.8); MEAN CORPUSCULAR HGB CONC 34 g/dL (32.3-35.6); MEAN CORPUSCULAR VOLUME 103.3 fL (75.5-95.3); MONOCYTES # (AUTO) 0.7 K/uL (2.0-10.0); MONOCYTES % (AUTO) 7.9 % (0.0-11.0); NEUTROPHILS # (AUTO) 6.5 K/uL (1.8-8.9); NEUTROPHILS % (AUTO) 71.9 % (38.5-71.5); PLATELET COUNT (AUTO) 281 K/uL (179-408); RED BLOOD CELL COUNT(AUTO) 3.69 MIL/uL (3.63-4.92); WHITE BLOOD COUNT (AUTO) 9.1 K/uL (3.8-11.8)
[2020-05-06 05:53] LABS: CARBON DIOXIDE 15 mmol/L (21-32); CHLORIDE 101 mmol/L (98-107); CHOLESTEROL 213 mg/dL (<200); CREATININE 0.5 mg/dL (0.6-1.3); GLUCOSE 236 mg/dL (74-106); HDL CHOLESTEROL 60 mg/dL (40-60); MAGNESIUM 1.7 mg/dL (1.8-2.4); PHOSPHOROUS 2.2 mg/dL (2.5-4.9); POTASSIUM 3.5 mmol/L (3.5-5.1); TRIGLYCERIDES 159 MG/DL (30-150); UREA NITROGEN, BLOOD 7 mg/dL (7-18)
[2020-05-06] MEDS ORDERED: INSULIN REGULAR, HUMAN 300 UNIT/3 ML VIAL SQ SCH (06:00)
--- NOTE | 2020-05-06 06:00 | NUR ---
UNABLE TO RUN IV FLUIDS , PATIENT KEEPS GETTING UP AND PULLING OUT , UNABLE TO GET VITAL SIGNS , REFUSED AND NON COMPLIANT
[2020-05-06] MEDS: MORPHINE SULFATE 2 MG/1 ML DISP.SYRIN IV PRN ×2 (06:12→20:45)
[2020-05-06 06:42] LABS: LIPASE 1859 U/L (73-393)
--- NOTE | 2020-05-06 06:56 | NUR ---
REFUSED MRSA SWAB , DROWSY BUT AROUSABLE, NON COMPLIANT , PULLING THINGS AND STANDING UP AND , 1: 1 SITTER HAS BEEN REQUESTED
[2020-05-06] MEDS ORDERED: DEXTROSE 50% 50 ML DISP.SYRIN IV PRN (07:15)
[2020-05-06] MEDS ORDERED: BLOOD SUGAR DIAGNOSTIC 1 EACH STRIP VI SCH ×2 (07:30→08:00)
--- NOTE | 2020-05-06 07:30 | NUR ---
Pt received awake and drowsy with monitor off. Attempted to reattach electrodes, but pt refused to have monitor on at this time. made aware.
[2020-05-06] MEDS: PANTOPRAZOLE SODIUM 40 MG VIAL IV SCH (08:37)
[2020-05-06] MEDS: INSULIN REGULAR, HUMAN 300 UNIT/3 ML VIAL SQ PRN (09:27)
[2020-05-06] MEDS ORDERED: INSULIN REGULAR, HUMAN 100 UNIT in IV NORMAL SALINE 99 ML IV PRN ×2 (10:30)
[2020-05-06 10:42] LABS: CARBON DIOXIDE 11 mmol/L (21-32); CHLORIDE 97 mmol/L (98-107); CREATININE 0.5 mg/dL (0.6-1.3); GLUCOSE 195 mg/dL (74-106); MAGNESIUM 1.5 mg/dL (1.8-2.4); POTASSIUM 3.6 mmol/L (3.5-5.1); UREA NITROGEN, BLOOD 5 mg/dL (7-18)
[2020-05-06] MEDS: BLOOD SUGAR DIAGNOSTIC 1 EACH STRIP VI SCH ×12 (10:51→22:39)
--- NOTE | 2020-05-06 10:58 | NUR ---
Insulin drip started per MD order and protocol.
--- NOTE | 2020-05-06 12:05 | NUR ---
Dr. Hernandez here to see pt. Full report given. New orders received.
[2020-05-06] MEDS ORDERED: MAGNESIUM SULFATE 1 GM in IV DEXTROSE 5% 100 ML IV SCH (13:00)
[2020-05-06 14:30] LABS: CARBON DIOXIDE 15 mmol/L (21-32); CHLORIDE 99 mmol/L (98-107); CREATININE 0.5 mg/dL (0.6-1.3); GLUCOSE 121 mg/dL (74-106); POTASSIUM 3.2 mmol/L (3.5-5.1); UREA NITROGEN, BLOOD 6 mg/dL (7-18)
[2020-05-06] MEDS ORDERED: SODIUM PHOSPHATE MM 15 MMOL in IV NORMAL SALINE 250 ML IV ONE (18:00)
[2020-05-06 18:35] LABS: CARBON DIOXIDE 18 mmol/L (21-32); CHLORIDE 100 mmol/L (98-107); CREATININE 0.5 mg/dL (0.6-1.3); GLUCOSE 107 mg/dL (74-106); POTASSIUM 2.9 mmol/L (3.5-5.1); UREA NITROGEN, BLOOD 5 mg/dL (7-18)
--- NOTE | 2020-05-06 18:52 | NUR ---
Spoke with Dr. Hernandez on the telephone and reported BMP results. New orders received and carried out.
[2020-05-06] MEDS: IV D5/ 0.9% NACL 1,000 ML IV PRN (19:04)
--- NOTE | 2020-05-06 19:11 | NUR ---
Telephone consent for CT angio Chest signed by the . alert and oriented during our conversation and is aware of the procedures to be done. Addendum: 05/06/20 at 1924 by EVELIO LEGGETT RN *mischarted wrong pt please disregard
[2020-05-06] MEDS ORDERED: INSULIN GLARGINE,HUM 300 UNITS/3 ML CARTRIDGE SQ SCH (21:00)
[2020-05-06] MEDS: INSULIN GLARGINE,HUM 300 UNITS/3 ML CARTRIDGE SQ SCH (21:08)
--- NOTE | 2020-05-06 22:15 | NUR ---
spoke with Dr. Sierra to clarify orders for insulin. Per Dr. Sierra Insulin drip to be stopped 1 hour after Lantus administered. Accucheck Q4Hr with Insulin regular on agressive sliding scale. He informed me that if the blood sugar increases above 250, to switch the IVF to 0.9%NS, but until then, patient is to remain on the D5 NS.
[2020-05-06] MEDS ORDERED: POTASSIUM CHLORIDE 50 ML IV SCH (23:00)
[2020-05-07] VITALS (14 sets, daily range): BP systolic 90–137; BP diastolic 47–82
[2020-05-07] MEDS: BLOOD SUGAR DIAGNOSTIC 1 EACH STRIP VI SCH ×7 (00:37→20:42)
[2020-05-07] MEDS: INSULIN REGULAR, HUMAN 300 UNIT/3 ML VIAL SQ PRN ×6 (00:39→20:40)
[2020-05-07] MEDS: MORPHINE SULFATE 2 MG/1 ML DISP.SYRIN IV PRN ×3 (03:19→19:37)
[2020-05-07] MEDS: IV D5/ 0.9% NACL 1,000 ML IV PRN (03:23)
[2020-05-07 05:26] LABS: BASOPHILS % (AUTO) 0.2 % (0.0-2.0); EOSINOPHILS # (AUTO) 0.1 K/uL (0.0-0.7); EOSINOPHILS % (AUTO) 1.6 % (0.0-7.0); HEMATOCRIT 35.8 % (31.2-41.9); HEMOGLOBIN 12.3 g/dL (10.9-14.3); LYMPHOCYTES # (AUTO) 1.3 K/uL (20.0-40.0); LYMPHOCYTES % (AUTO) 21.5 % (20.5-51.5); MEAN CORPUSCULAR HEMOGLOBIN 35.2 uug (24.7-32.8); MEAN CORPUSCULAR HGB CONC 35 g/dL (32.3-35.6); MEAN CORPUSCULAR VOLUME 102.2 fL (75.5-95.3); MONOCYTES # (AUTO) 0.8 K/uL (2.0-10.0); MONOCYTES % (AUTO) 13.5 % (0.0-11.0); NEUTROPHILS # (AUTO) 3.8 K/uL (1.8-8.9); NEUTROPHILS % (AUTO) 63.2 % (38.5-71.5); PLATELET COUNT (AUTO) 230 K/uL (179-408)
[2020-05-07 05:28] LABS: CARBON DIOXIDE 21 mmol/L (21-32); CHLORIDE 104 mmol/L (98-107); CREATININE 0.5 mg/dL (0.6-1.3); GLUCOSE 149 mg/dL (74-106); LIPASE 263 U/L (73-393); MAGNESIUM 1.8 mg/dL (1.8-2.4); PHOSPHOROUS 2.1 mg/dL (2.5-4.9); POTASSIUM 3.3 mmol/L (3.5-5.1); UREA NITROGEN, BLOOD 6 mg/dL (7-18)
[2020-05-07] MEDS: PANTOPRAZOLE SODIUM 40 MG VIAL IV SCH (07:46)
--- NOTE | 2020-05-07 09:02 | NUR ---
Spoke with Dr. Hernandez on the telephone. okay to downgrade pt to med/surg status.
--- NOTE | 2020-05-07 09:09 | NUR ---
Full telephone SBAR report given to BORIS Culp.
--- NOTE | 2020-05-07 09:20 | NUR ---
Pt left the unit and transferred to 310 med/surg via wheelchair with GAS COLLECTION SYSTEM OPERATOR. Pt stable and nad noted upon leaving the unit.
--- NOTE | 2020-05-07 09:32 | NUR ---
PT RECFEIVED FROM CCU VIA WHEELCHAIR IN STABLE CONDITION
[2020-05-07] MEDS ORDERED: POTASSIUM CHLORIDE 20 MEQ TAB.PRT.SR PO ONE (12:00)
[2020-05-07] MEDS: glipiZIDE 5 MG TABLET PO SCH (16:33)
[2020-05-07] MEDS ORDERED: NEUTRA PHOS PACKET PO ONE (17:00)
[2020-05-07] MEDS: METFORMIN HCL 500 MG TABLET PO SCH (17:13)
--- NOTE | 2020-05-07 20:00 | NUR ---
Received patient awake and alert. Patient shows no signs or symptoms of distress at this time. Vital signs stable Pt complains of having 9/10 back pain at this time. PRN pain medication given. Bed set to lowest position. Call light within reach. Side rails X2 are up. Will continue to monitor patient.
[2020-05-07] MEDS: INSULIN GLARGINE,HUM 300 UNITS/3 ML CARTRIDGE SQ SCH (20:41)
[2020-05-08] MEDS: MORPHINE SULFATE 2 MG/1 ML DISP.SYRIN IV PRN ×3 (03:09→11:57)
[2020-05-08 06:08] VITALS: BP 109/76
--- NOTE | 2020-05-08 06:27 | NUR ---
Patient shows no signs or symptoms of distress at this time. This AM blood sugar is 198. Vital signs stable. Will endorse patient to day shift nurse in stable condition.
[2020-05-08] MEDS: BLOOD SUGAR DIAGNOSTIC 1 EACH STRIP VI SCH ×2 (06:30→11:33)
[2020-05-08 06:44] LABS: CARBON DIOXIDE 27 mmol/L (21-32); CHLORIDE 104 mmol/L (98-107); CREATININE 0.4 mg/dL (0.6-1.3); GLUCOSE 197 mg/dL (74-106); UREA NITROGEN, BLOOD 6 mg/dL (7-18)
[2020-05-08] MEDS: METFORMIN HCL 500 MG TABLET PO SCH (08:49)
[2020-05-08] MEDS: glipiZIDE 5 MG TABLET PO SCH (08:49)
[2020-05-08] MEDS: PANTOPRAZOLE SODIUM 40 MG VIAL IV SCH (08:50)
[2020-05-08] MEDS ORDERED: Medication Not On Formulary EA (Omeprazole 20 MG) PO SCH (09:00)
[2020-05-08] MEDS ORDERED: MULTIVITAMINS,THERAPEUTIC TABLET PO SCH (09:00)
--- NOTE | 2020-05-08 09:00 | NUR ---
Patient awake, alert, oriented x 4, not in distress, on room air. Due medications administered and tolerated well. Assisted with her needs. Call light and frequently used items placed within patient's reach. Safety measures maintained.
--- NOTE | 2020-05-08 10:00 | NUR ---
French Professor consultation: SW received a consultation request due to patient being marked as homeless. Per patient's medical records (case management notes), patient is not homeless. She lives at home with her boyfriend. Patient's address is listed in the case management note. No SS consultation is required at this time.
[2020-05-08] MEDS ORDERED: POTASSIUM CHLORIDE 20 MEQ TAB.PRT.SR PO ONE (11:00)
[2020-05-08] MEDS: INSULIN REGULAR, HUMAN 300 UNIT/3 ML VIAL SQ PRN (11:39)
[2020-05-08 11:49] VITALS: BP 106/69
--- NOTE | 2020-05-08 14:30 | NUR ---
Discharge instructions provided to the patient with verbalized understanding. Discharge papers signed by and given to the patient. Patient remains alert, oriented x 4, not in any distress. She denies any pain or discomfort at this time. Needs attended to promptly. All belongings well accounted for and brought with the patient. Assisted patient safely to the lobby via wheelchair by ENGINEER GEOPHYS[employer]ORAT[employer]. Patient discharged to home picked up by Romeo Wilburn her ex-boyfriend via private car.
== END 2020-05-08 14:40 | disposition home or self-care (01) | DRG 282 ==
LOC: ER 21:25 → CCU 05-06 04:16 → MEDSURG3 05-07 09:30
PROVIDERS: ADMIT Nurse Practitioner Acute Care; ATTEND Internal Medicine
DX: K85.20 Alcohol induced acute pancreatitis without necrosis or infection (principal); E11.10 Type 2 diabetes mellitus with ketoacidosis without coma; E87.1 Hypo-osmolality and hyponatremia; E87.6 Hypokalemia; Z59.0 Homelessness; E86.1 Hypovolemia; K86.1 Other chronic pancreatitis; Z79.4 Long term (current) use of insulin; Z91.14 Patient's other noncompliance with medication regimen; F19.10 Other psychoactive substance abuse, uncomplicated; F15.10 Other stimulant abuse, uncomplicated; F12.10 Cannabis abuse, uncomplicated; F14.10 Cocaine abuse, uncomplicated; F10.229 Alcohol dependence with intoxication, unspecified; Y90.6 Blood alcohol level of 120-199 mg/100 ml
CPT/HCPCS: 36415; 36600; 70030-TC; 71045; 83605; 83690; 83735; 84100; 85025; 93005; A4663; C9113; G0378; G0480; J1815; J1885; J2060; J2270; J2405; J3475; J3480; J3490; J7030; J7042; J7050; J7060

== ENCOUNTER 2020-06-05 12:37 | Inpatient (IN) | payer MEDICAID ==
[~2020-06-05] VITALS: Ht 160 cm; Wt 47.6 kg
[~2020-06-05 12:37] MED LIST changes: +POTASSIUM PHOSPHATE MM 7.5 MMOL in IV NORMAL SALINE 97.5 ML IV ONE
--- NOTE | 2020-06-05 12:46 | NUR ---
PT IS IN ROOM #2A. DR MARIN EVALUATED THE PT.
[2020-06-05] MEDS ORDERED: MAG HYDROX/AL HYDROX/SIMETH 30 ML LIQUID UDC PO ONE (13:00)
[2020-06-05] MEDS ORDERED: LORAZEPAM 0.5 MG TABLET PO ONE (13:00)
[2020-06-05] MEDS ORDERED: ASPIRIN 81 MG TAB.CHEW PO ONE (13:00)
[2020-06-05] MEDS ORDERED: LORAZEPAM 1 MG TABLET ONE (13:05)
[2020-06-05] MEDS ORDERED: MAG HYDROX/AL HYDROX/SIMETH 30 ML LIQUID UDC ONE (13:06)
[2020-06-05] MEDS ORDERED: ASPIRIN 81 MG TAB.CHEW ONE (13:06)
[2020-06-05 13:15] LABS: BASOPHILS % (AUTO) 0.3 % (0.0-2.0); EOSINOPHILS % (AUTO) 0.7 % (0.0-7.0); HEMATOCRIT 43.5 % (31.2-41.9); HEMOGLOBIN 14.7 g/dL (10.9-14.3); LYMPHOCYTES # (AUTO) 1.7 K/uL (20.0-40.0); LYMPHOCYTES % (AUTO) 36.5 % (20.5-51.5); MEAN CORPUSCULAR HGB CONC 34 g/dL (32.3-35.6); MEAN CORPUSCULAR VOLUME 103.1 fL (75.5-95.3); MONOCYTES # (AUTO) 0.4 K/uL (2.0-10.0); MONOCYTES % (AUTO) 8.3 % (0.0-11.0); NEUTROPHILS # (AUTO) 2.5 K/uL (1.8-8.9); NEUTROPHILS % (AUTO) 54.2 % (38.5-71.5); PLATELET COUNT (AUTO) 288 K/uL (179-408); RED BLOOD CELL COUNT(AUTO) 4.22 MIL/uL (3.63-4.92); WHITE BLOOD COUNT (AUTO) 4.7 K/uL (3.8-11.8)
[2020-06-05 13:25] LABS: *BILIRUBIN,URIN NEGATIVE (NEGATIVE); *BLOOD, URINE NEGATIVE (NEGATIVE); *CLARITY,URINE SLIGHTLY CLOUDY (CLEAR); *COLOR,URINE YELLOW (YELLOW); *KETONES,URINE 4+ (NEGATIVE); *UROBILINOGEN,URINE 0.2 E.U./dl (NORMAL); LEUKOCYTE ESTERASE ,URINE NEGATIVE (NEGATIVE); NITRITE, URINE NEGATIVE (NEGATIVE); PH,URINE 5.5 (5.0-8.0)
[2020-06-05 13:26] LABS: UGLUCOSE 2+ (NEGATIVE)
[2020-06-05 13:27] LABS: CREATININE 0.7 mg/dL (0.6-1.3); POTASSIUM 3.2 mmol/L (3.5-5.1)
[2020-06-05 13:28] LABS: *URINE HCG, QUAL NEG (NEGATIVE)
[2020-06-05 13:33] LABS: BILIRUBIN,DIRECT 0.2 mg/dL (0.0-0.2); BILIRUBIN,TOTAL 0.4 mg/dL (0.2-1.0); TOTAL PROTEIN, SERUM 7.2 g/dL (6.4-8.2)
[2020-06-05] MEDS ORDERED: INSULIN NPH 1,000 UNITS/10 ML VIAL SQ ONE (14:00)
[2020-06-05] MEDS ORDERED: INSULIN REGULAR, HUMAN 300 UNIT/3 ML VIAL SQ ONE (14:00)
[2020-06-05] MEDS ORDERED: INSULIN REGULAR, HUMAN 300 UNIT/3 ML VIAL ONE (14:09)
[2020-06-05] MEDS ORDERED: IV NS + KCL 40 MEQ 1000 ML BAG 1,000 ML IV STA (14:23)
[2020-06-05] MEDS ORDERED: POTASSIUM BICARBONATE/CIT AC 25 MEQ TABLET.EFF PO ONE (14:30)
[2020-06-05] MEDS ORDERED: POTASSIUM CHLORIDE 50 ML IV SCH (14:30)
[2020-06-05] MEDS ORDERED: MAGNESIUM SULFATE/D5W 100 ML ONE ×2 (14:40→17:03)
[2020-06-05] MEDS ORDERED: POTASSIUM BICARBONATE/CIT AC 25 MEQ TABLET.EFF ONE (14:40)
[2020-06-05] MEDS ORDERED: MORPHINE SULFATE 4 MG/1 ML DISP.SYRIN ONE (14:43)
[2020-06-05] MEDS ORDERED: INSULIN REGULAR, HUMAN 100 UNITS in IV NORMAL SALINE 100 ML IV ONE ×4 (14:45→15:15)
[2020-06-05] MEDS ORDERED: IV NORMAL SALINE 1000 ML BAG IV ONE (14:45)
[2020-06-05] MEDS ORDERED: MORPHINE SULFATE 4 MG/1 ML DISP.SYRIN IV ONE (14:45)
[2020-06-05] MEDS ORDERED: POTASSIUM CHLORIDE 10 MEQ in IV NS 1000 ML 1,000 ML IV STA (14:50)
[2020-06-05] MEDS ORDERED: IV NS + KCL 40 MEQ 1000 ML BAG IV ONE (15:00)
[2020-06-05] MEDS ORDERED: POTASSIUM CHLORIDE 50 ML ONE (15:03)
[2020-06-05] MEDS: MAGNESIUM SULFATE/D5W 100 ML IV SCH ×2 (15:08→15:23)
[2020-06-05] MEDS ORDERED: IV NS 1000 ML 1,000 ML IV PRN ×2 (15:15→18:58)
[2020-06-05 15:33] LABS: *AMPHETAMINE, URINE POSITIVE (NEGATIVE); *BARBITURATE, URINE NEGATIVE (NEGATIVE); *CANNABINOID, URINE POSITIVE (NEGATIVE); *COCCAINE, URINE NEGATIVE (NEGATIVE); *OPIATE, URINE NEGATIVE (NEGATIVE); *PHENCYCLIDINE SCREEN,URINE NEGATIVE (NEGATIVE)
--- NOTE | 2020-06-05 15:42 | NUR ---
DUE TO PATIENT'S CLINICAL STATUS, UNABLE TO GET MORE ACCURATE INFO ON CURRENT MEDICATIONS.
[2020-06-05] MEDS ORDERED: KETOROLAC TROMETHAMINE 15 MG INJ ONE (15:54)
[2020-06-05] MEDS ORDERED: KETOROLAC TROMETHAMINE 15 MG INJ IVP ONE (16:00)
[2020-06-05] MEDS ORDERED: LORAZEPAM 2 MG/1 ML VIAL IV PRN (16:15)
[2020-06-05] MEDS ORDERED: ONDANSETRON 4 MG/2 ML VIAL IV PRN (16:15)
[2020-06-05] MEDS ORDERED: ACETAMINOPHEN 650 MG SUPP.RECT RC PRN (16:15)
[2020-06-05 16:20] LABS: BACTERIA,URINE NONE SEEN /HPF (NONE SEEN); RBC,URINE 0-3 /HPF (0-3); SQUAMOUS EPITHELIAL CELL,UR FEW /HPF (NONE SEEN); WBC,URINE 0-3 /HPF (0-3)
[2020-06-05 16:56] LABS: CARBON DIOXIDE 20 mmol/L (21-32); CHLORIDE 97 mmol/L (98-107); CREATININE 0.5 mg/dL (0.6-1.3); GLUCOSE 239 mg/dL (74-106); POTASSIUM 4.3 mmol/L (3.5-5.1); UREA NITROGEN, BLOOD 8 mg/dL (7-18)
[2020-06-05 17:01] LABS: MAGNESIUM 2.2 mg/dL (1.8-2.4); PHOSPHOROUS 2.8 mg/dL (2.5-4.9)
[2020-06-05] MEDS ORDERED: IV D5/ 0.9% NACL 1,000 ML IV PRN (17:16)
[2020-06-05] MEDS ORDERED: VANCOMYCIN IV 1,500 MG in IV DEXTROSE 5% 500 ML IV ONE (17:30)
[2020-06-05] MEDS ORDERED: CEFTRIAXONE 1 G in IV DEXTROSE 5% 50 ML IV ONE (17:30)
--- NOTE | 2020-06-05 17:30 | NUR ---
report was given to campus recruiting intern. pt was transferdd to room ccu room #3.
--- NOTE | 2020-06-05 18:30 | NUR ---
ADMIT PT FROM ER VIA MEAGHAN. VERY ANXIOUS AND RESTLESS. INSULIN DRIP AT 3.98UNITS/HR IN PROGRESS. BS 197.
[2020-06-05] MEDS ORDERED: INSULIN REGULAR, HUMAN 100 UNIT in IV NORMAL SALINE 99 ML IV PRN ×2 (19:00)
--- NOTE | 2020-06-05 19:00 | NUR ---
CALLED UP JOSE PITTMAN FOR ORDERS.
--- NOTE | 2020-06-05 19:10 | NUR ---
Received patient in bes sleeping but easily awoken. A/o x3. This patient is a 40 year old female that came to the unit from the ER with a diagnosis of Diabetic Ketoacidosis and Pancreatitis. Patient is currently on an insulin drip. running at 4.28 units/hr. Insulin titration order is to multiply the blood sugar by 2, then divide by 100 for the new drip rate. Order to call MD if the blood sugar falls below 150. Patient is well known to me with a history of stays in the ICU for this same medical issue. Patient is homeless with a history of ETOH and drug abuse. She is currently resting well and is cooperative, though has been restless in the past and when she first got to the hospital. Patient was medicated in the ER with Toradol, morphine, and Ativan, which accounts for her current lethargy. Peripheral IV in the left AC, Left and right forearm. All peripheral IVs 20 gauge and patent. vital signs stable with HR in the 90s, and BP in 110s/70s. Patient is on room air with saturation 99-100%.
[2020-06-05 19:34] VITALS: BP 117/79
[2020-06-05 20:00] VITALS: BP 118/82
[2020-06-05 21:00] VITALS: BP 118/87
[2020-06-05 21:06] LABS: CREATININE 0.6 mg/dL (0.6-1.3); POTASSIUM 4.1 mmol/L (3.5-5.1)
[2020-06-05 21:09] LABS: MAGNESIUM 2.2 mg/dL (1.8-2.4); PHOSPHOROUS 1.6 mg/dL (2.5-4.9)
[2020-06-05] MEDS: THIAMINE HCL INJ 100 MG in IV DEXTROSE 5% 50 ML IV SCH (21:26)
--- NOTE | 2020-06-05 21:40 | NUR ---
Called Dr. Matthews and informed her that the patient's blood sugar was 146, and informing her as per the order. She decided to discontinue the insulin drip, and ordered Accucheck q4h with insulin regular on sliding scale. Insulin drip discontinued as ordered.
[2020-06-05] MEDS ORDERED: DEXTROSE 50% 50 ML DISP.SYRIN IV PRN (21:45)
[2020-06-05] MEDS ORDERED: POTASSIUM PHOSPHATE MM 7.5 MMOL in IV NORMAL SALINE 97.5 ML IV ONE (21:45)
[2020-06-05 22:00] VITALS: BP 120/84
[2020-06-05] MEDS: IV D5/ 0.9% NACL 1,000 ML IV PRN (22:41)
[2020-06-05 23:00] VITALS: BP 118/85
[2020-06-05] MEDS ORDERED: SODIUM PHOSPHATE MM 7.5 MMOL in IV NORMAL SALINE 100 ML IV STA (23:31)
[2020-06-05] MEDS ORDERED: SODIUM PHOSPHATE MM 15 MMOL in IV NORMAL SALINE 250 ML IV ONE (23:45)
[2020-06-06] VITALS (25 sets, daily range): BP systolic 94–156; BP diastolic 56–101
--- NOTE | 2020-06-06 | NUR ---
Care assumed. Patient sleeping; easily arouses to name. NAD noted. Accu qyllf=552; sliding scale coverage given.
[2020-06-06] MEDS: BLOOD SUGAR DIAGNOSTIC 1 EACH STRIP VI SCH ×6 (00:04→21:25)
[2020-06-06] MEDS: INSULIN REGULAR, HUMAN 300 UNIT/3 ML VIAL SQ PRN ×5 (00:06→16:28)
[2020-06-06 01:35] LABS: CARBON DIOXIDE 21 mmol/L (21-32); CHLORIDE 100 mmol/L (98-107); CREATININE 0.5 mg/dL (0.6-1.3); GLUCOSE 215 mg/dL (74-106); POTASSIUM 3.5 mmol/L (3.5-5.1); UREA NITROGEN, BLOOD 10 mg/dL (7-18)
[2020-06-06 01:39] LABS: MAGNESIUM 1.8 mg/dL (1.8-2.4); PHOSPHOROUS 2.3 mg/dL (2.5-4.9)
--- NOTE | 2020-06-06 04:30 | NUR ---
Awake, voided per bedpan without problems; able to do eryn care by herself. VS stable. Am labs drawn by [facility]. Patient cooperative.
[2020-06-06 04:57] LABS: BASOPHILS % (AUTO) 0.2 % (0.0-2.0); EOSINOPHILS # (AUTO) 0.1 K/uL (0.0-0.7); EOSINOPHILS % (AUTO) 0.8 % (0.0-7.0); HEMOGLOBIN 12.9 g/dL (10.9-14.3); LYMPHOCYTES # (AUTO) 1.7 K/uL (20.0-40.0); LYMPHOCYTES % (AUTO) 26.1 % (20.5-51.5); MEAN CORPUSCULAR HEMOGLOBIN 34.9 uug (24.7-32.8); MEAN CORPUSCULAR HGB CONC 34 g/dL (32.3-35.6); MEAN CORPUSCULAR VOLUME 102.6 fL (75.5-95.3); MONOCYTES # (AUTO) 0.8 K/uL (2.0-10.0); MONOCYTES % (AUTO) 12.6 % (0.0-11.0); NEUTROPHILS # (AUTO) 3.9 K/uL (1.8-8.9); NEUTROPHILS % (AUTO) 60.3 % (38.5-71.5); PLATELET COUNT (AUTO) 229 K/uL (179-408); WHITE BLOOD COUNT (AUTO) 6.4 K/uL (3.8-11.8)
[2020-06-06 05:11] LABS: BILIRUBIN,TOTAL 0.5 mg/dL (0.2-1.0); CREATININE 0.6 mg/dL (0.6-1.3); MAGNESIUM 1.8 mg/dL (1.8-2.4); PHOSPHOROUS 2.5 mg/dL (2.5-4.9); POTASSIUM 3.7 mmol/L (3.5-5.1); TOTAL PROTEIN, SERUM 5.5 g/dL (6.4-8.2)
[2020-06-06 05:19] LABS: THYROID STIMULATING HORMONE 1.067 mIU/mL (0.358-3.740)
--- NOTE | 2020-06-06 06:15 | NUR ---
Continue to sleep; easily arouses to name. VS stable.
[2020-06-06] MEDS: IV D5/ 0.9% NACL 1,000 ML IV PRN ×2 (06:33→14:27)
--- NOTE | 2020-06-06 07:45 | NUR ---
Received pt. sleeping, easily arousable. vitals stable, no c/of pain will continue with care plan.
[2020-06-06] MEDS ORDERED: PANTOPRAZOLE SODIUM 40 MG VIAL IV SCH (09:00)
[2020-06-06] MEDS ORDERED: DEXTROSE 50% 50 ML DISP.SYRIN IV PRN (11:30)
[2020-06-06] MEDS ORDERED: INSULIN REGULAR, HUMAN 300 UNITS/3 ML VIAL SQ PRN (11:30)
[2020-06-06] MEDS ORDERED: FOLIC ACID 1 MG in IV DEXTROSE 5% 50 ML IV SCH (14:00)
[2020-06-06] MEDS: HYDROCODONE/APAP 5-325MG TABLET PO PRN ×2 (14:01→22:40)
--- NOTE | 2020-06-06 15:10 | NUR ---
Boiling House Oiler Consultation: 2:58pm: This SW received a SS consultation. Reason for consultation is homelessness. SW attempted to meet with the patient in her hospital room, but patient was asleep. SW called out patient's name 3 times, but was unsuccessful in waking the patient up. SW will attempt to meet with the patient at a later time. CONNER Daniel informed.
[2020-06-06] MEDS: CHLORDIAZEPOXIDE HCL 25 MG CAPSULE PO PRN (18:37)
--- NOTE | 2020-06-06 19:10 | NUR ---
Received patient in bed sleeping but easily awoken. A/o x3. Peripheral IV in the left AC, Left and right forearm. All peripheral IVs 20 gauge and patent. vital signs stable with HR in the 80s, and BP in 110s/70s. Patient is on room air with saturation 99-100%. Patient remains on D5 0.9% NS @125/hr.
[2020-06-06] MEDS: THIAMINE HCL INJ 100 MG in IV DEXTROSE 5% 50 ML IV SCH (20:00)
[2020-06-06] MEDS ORDERED: INSULIN GLARGINE,HUM 300 UNITS/3 ML CARTRIDGE SQ SCH (21:00)
--- NOTE | 2020-06-06 22:30 | NUR ---
Conferred with Dr. Hoffman regarding this patient's need to remain in ICU status given stable condition. He agreed and gave the order to downgrade to telemetry/CAMACHO. Transfer order put in and transfer processed. Third floor charge nurse made aware and awaiting room.
[2020-06-07] VITALS: BP 118/85
[2020-06-07] MEDS: IV D5/ 0.9% NACL 1,000 ML IV PRN (00:01)
--- NOTE | 2020-06-07 00:50 | NUR ---
Patient transferred to third floor telemetry room 325. Report given to CONNER Olmos. Patient remains stable. All medications and belongings transferred with the patient.
[2020-06-07 01:16] VITALS: BP 110/78
[2020-06-07] MEDS: CHLORDIAZEPOXIDE HCL 25 MG CAPSULE PO PRN ×2 (01:49→08:59)
[2020-06-07 04:43] VITALS: BP 103/71
[2020-06-07] MEDS: HYDROCODONE/APAP 5-325MG TABLET PO PRN ×2 (05:37→12:00)
[2020-06-07] MEDS: BLOOD SUGAR DIAGNOSTIC 1 EACH STRIP VI SCH ×2 (06:51→10:49)
--- NOTE | 2020-06-07 06:57 | NUR ---
Pt slept throughout the night, AOx4. On RA with no SOB or distress noted at this time. IV on right FA running D5NS. Complained of pain, pain management done. Call light and phone within reach.
[2020-06-07 07:05] LABS: CREATININE 0.6 mg/dL (0.6-1.3)
[2020-06-07 07:06] LABS: BASOPHILS % (AUTO) 0.3 % (0.0-2.0); EOSINOPHILS # (AUTO) 0.1 K/uL (0.0-0.7); HEMATOCRIT 37.5 % (31.2-41.9); HEMOGLOBIN 12.7 g/dL (10.9-14.3); LYMPHOCYTES # (AUTO) 1.5 K/uL (20.0-40.0); LYMPHOCYTES % (AUTO) 38.9 % (20.5-51.5); MEAN CORPUSCULAR HEMOGLOBIN 35.1 uug (24.7-32.8); MEAN CORPUSCULAR HGB CONC 34 g/dL (32.3-35.6); MEAN CORPUSCULAR VOLUME 104.1 fL (75.5-95.3); MONOCYTES # (AUTO) 0.4 K/uL (2.0-10.0); MONOCYTES % (AUTO) 9.6 % (0.0-11.0); NEUTROPHILS % (AUTO) 49.2 % (38.5-71.5); PLATELET COUNT (AUTO) 205 K/uL (179-408); RED BLOOD CELL COUNT(AUTO) 3.61 MIL/uL (3.63-4.92)
[2020-06-07] MEDS: INSULIN REGULAR, HUMAN 300 UNIT/3 ML VIAL SQ PRN ×2 (07:26→11:07)
[2020-06-07] MEDS ORDERED: POTASSIUM CHLORIDE 20 MEQ TAB.PRT.SR PO ONE ×2 (09:00→13:00)
[2020-06-07] MEDS ORDERED: PANTOPRAZOLE SODIUM 40 MG TABLET.DR PO SCH (09:00)
--- NOTE | 2020-06-07 10:37 | NUR ---
Chemist Consultation: 10:23am: SW attempted to meet with this patient again this morning (first attempt was on 06/06). Patient was asleep in her hospital bed. SW knocked on the door and called patient's name, but patient did not wake up. SW attempted to call patient's name 3 more times, but patient was not arousable. SW met with patient's nurse Charline, who stated that patient had just taken Librium and was asleep. SW will try to meet with patient later today. SW informed patient's treating physician, Satnam Clarke of above.
[2020-06-07 11:57] VITALS: BP 112/78
--- NOTE | 2020-06-07 12:15 | NUR ---
Ceiling Insulation Blower Consultation 11:20am: SW returned to patient's room to attempt to meet with the patient. Patient was awake, and receptive to meeting with this SW. Patient is alert,and oriented x 4. Patient is a 40 year old female, admitted to the hospital for pancreatitis/FEDERICO. Patient updated her phone number that was listed on her face sheet, stating that her cell phone number is [phone]. Patient reports that she has been homeless for the past 2 years, and was previously living in the streets. Patient states that for the last 6 months, she has been living in a van with her boyfriend (Vin Andino [phone]). Patient is independent with her ADL's. Patient has presumptive Medical, and reports that she receives about $200/month in Food [place]. SW discussed additional forms of support from DPSS, including GR, and patient stated that although she does not receive GR at this time, she plans to apply for it after she is discharged from the hospital. Patient reported being unemployed. Patient maintained appropriate eye contact with this SW during the interview. Appearance was fair, affect and behavior were appropriate. Patient's speech, thought process, and thought content were clear and appropriate. Patient reported daily use of alcohol, stating that she drinks 1 bottle of whiskey a day. Patient did not report drug use to this SW, stating "alcohol is the main one". Patient reported not receiving any treatment for her substance abuse, however was receptive to resources on outpatient treatment. No SI or HI reported. SW explored patient's needs for homeless community resources, and patient was receptive to receiving the homeless resource packet, however refused usp placement and stated that she will be returning to her previous living arrangement which is living with her boyfriend in a van. SW provided the homeless resource packet to the patient, which includes the following resources: a list of year round shelters [facility] [address], ; [facility] [address] [facility], ; and [facility] [address] [facility], [phone], along with resources for places to go for food, showers, substance abuse treatment, mental health services, community medical clinics, and pharmacies. These include the following: the [facility] homeless directory which provides a list of places that individuals can go to throughout the week for hot meals, sack lunches, food pantries, and showers; a list of mental health clinics: [facility] [address] [place] [address], ; [facility] [address] [place] [address], ; [facility] [address] [place] [address], ; a list of medical clinics: [facility] [address] [facility] [address], [place]. [place], ; [facility] [address] [facility], [address] [place] [address]; [facility] [address] [facility] [place] [address], ; and a list of substance abuse programs: [facility] Substance Abuse Self-helpline ; [facility] ; [facility] ; [facility] ; [facility] ; [facility] [phone]; [facility] [phone]; locations of pharmacies. Patient will be discharged to self today. Per CONNER Olivier, patient will be contacting her boyfriend to pick her up from the hospital. The homeless patient waiver form was completed and patient signed the form. CONNER Olivier to file the form in patient's chart. No further SS interventions needed at this time.
--- NOTE | 2020-06-07 13:39 | NUR ---
dc orders received noted and carried out,dc heplock per md orders,dc instruction and education given to the pt .pt said she will follow up with her pcp ,pt left the facility with her boyfriend in stable condition
[2020-06-07] MEDS ORDERED: THIAMINE HCL 100 MG TABLET PO SCH (20:00)
[2020-06-17] MEDS ORDERED: FOLIC ACID 1 MG TABLET PO SCH (12:00)
== END 2020-06-07 13:30 | disposition home or self-care (01) | DRG 282 ==
LOC: ER 12:39 → CCU 17:32 → TELE3 06-07 00:59 → MEDSURG3 06-07 11:13
PROVIDERS: ADMIT Registered Nurse; ATTEND Nurse Practitioner Acute Care
DX: K85.20 Alcohol induced acute pancreatitis without necrosis or infection (principal); E11.10 Type 2 diabetes mellitus with ketoacidosis without coma; Z79.4 Long term (current) use of insulin; Y90.6 Blood alcohol level of 120-199 mg/100 ml; E86.0 Dehydration; F41.0 Panic disorder [episodic paroxysmal anxiety]; K21.9 Gastro-esophageal reflux disease without esophagitis; E43 Unspecified severe protein-calorie malnutrition; Z59.0 Homelessness; Z68.1 Body mass index [BMI] 19.9 or less, adult; E44.1 Mild protein-calorie malnutrition; E87.6 Hypokalemia; G92 Toxic encephalopathy; R64 Cachexia; Z91.19 Patient's noncompliance with other medical treatment and regimen; R74.0 Nonspecific elevation of levels of transaminase and lactic acid dehydrogenase [LDH]; E88.09 Other disorders of plasma-protein metabolism, not elsewhere classified; F15.129 Other stimulant abuse with intoxication, unspecified; K86.0 Alcohol-induced chronic pancreatitis; F17.210 Nicotine dependence, cigarettes, uncomplicated; Z71.6 Tobacco abuse counseling; Z79.84 Long term (current) use of oral hypoglycemic drugs; K29.20 Alcoholic gastritis without bleeding; R07.89 Other chest pain; N17.0 Acute kidney failure with tubular necrosis; F10.229 Alcohol dependence with intoxication, unspecified
CPT/HCPCS: 36415; 70030-TC; 71045; 80307; 83690; 83735; 84100; 84443; 84703; 85025; 93005; A4663; C9113; G0378; G0480; J1815; J1885; J2060; J2270; J3411; J3475; J3480; J3490; J7030; J7042; J7050; J7060

== ENCOUNTER 2020-07-10 12:17 | Inpatient (IN) | payer MEDICAID ==
[~2020-07-10] VITALS: Ht 160 cm; Wt 52.2 kg
[~2020-07-10 12:17] MED LIST changes: -POTASSIUM PHOSPHATE MM 7.5 MMOL in IV NORMAL SALINE 97.5 ML IV ONE
[2020-07-10] MEDS ORDERED: IV NORMAL SALINE 1000 ML BAG IV ONE (12:45)
[2020-07-10] MEDS ORDERED: PANTOPRAZOLE SODIUM 40 MG VIAL IV ONE (12:45)
[2020-07-10] MEDS ORDERED: ONDANSETRON 4 MG/2 ML VIAL IV ONE ×2 (12:45→13:30)
[2020-07-10] MEDS ORDERED: MORPHINE SULFATE 2 MG/1 ML DISP.SYRIN IV ONE (12:45)
--- NOTE | 2020-07-10 12:50 | NUR ---
PT REPORTS SHE IS CURRENTLY NOT TAKING ANY MEDICATIONS BY CHOICE.
[2020-07-10] MEDS ORDERED: ONDANSETRON 4 MG/2 ML VIAL ONE ×2 (12:59→13:25)
[2020-07-10] MEDS ORDERED: MORPHINE SULFATE 2 MG/1 ML DISP.SYRIN ONE (12:59)
[2020-07-10] MEDS ORDERED: PANTOPRAZOLE SODIUM 40 MG VIAL ONE (12:59)
[2020-07-10 13:00] LABS: BASOPHILS % (AUTO) 0.6 % (0.0-2.0); EOSINOPHILS % (AUTO) 0.1 % (0.0-7.0); HEMATOCRIT 43.1 % (31.2-41.9); HEMOGLOBIN 14.7 g/dL (10.9-14.3); LYMPHOCYTES # (AUTO) 1.5 K/uL (20.0-40.0); LYMPHOCYTES % (AUTO) 21.6 % (20.5-51.5); MEAN CORPUSCULAR HEMOGLOBIN 35.8 uug (24.7-32.8); MEAN CORPUSCULAR HGB CONC 34 g/dL (32.3-35.6); MEAN CORPUSCULAR VOLUME 104.9 fL (75.5-95.3); MONOCYTES # (AUTO) 0.3 K/uL (2.0-10.0); NEUTROPHILS # (AUTO) 5.1 K/uL (1.8-8.9); NEUTROPHILS % (AUTO) 73.7 % (38.5-71.5); PLATELET COUNT (AUTO) 300 K/uL (179-408)
[2020-07-10 13:27] LABS: BILIRUBIN,DIRECT 0.2 mg/dL (0.0-0.2); BILIRUBIN,TOTAL 0.4 mg/dL (0.2-1.0); CREATININE 0.6 mg/dL (0.6-1.3)
[2020-07-10 13:29] LABS: POTASSIUM 3.1 mmol/L (3.5-5.1)
[2020-07-10 13:30] LABS: LIPASE 1953 U/L (73-393)
[2020-07-10] MEDS ORDERED: MORPHINE SULFATE 4 MG/1 ML DISP.SYRIN ONE ×2 (13:44→15:51)
[2020-07-10] MEDS ORDERED: MORPHINE SULFATE 4 MG/1 ML DISP.SYRIN IV ONE ×2 (13:45→16:00)
[2020-07-10] MEDS: POTASSIUM CHLORIDE 50 ML IV SCH ×2 (13:48→14:23)
[2020-07-10] MEDS ORDERED: SWABABLE VALVE TRANSFER SET EA MC ONE (13:50)
[2020-07-10] MEDS ORDERED: POTASSIUM CHLORIDE 100 ML ONE (13:50)
[2020-07-10] MEDS ORDERED: IOHEXOL 300MG/ML 100 ML INFUS..BTL ONE (13:50)
[2020-07-10] MEDS ORDERED: IV NORMAL SALINE 250 ML IV ONE (13:50)
--- NOTE | 2020-07-10 14:00 | NUR ---
Pt signed consent for CTA, placed in the chart.
[2020-07-10 14:03] LABS: ABG BASE EXCESS -20.9 mmol/L; ABG HCO3 6.5 mmol/L; ABG PCO2 20.3 mmHg (35.0-45.0); ABG PH 7.124 (7.350-7.450); ABG PO2 114.8 mmHg (75.0-100.0); ABG SITE RIGHT RADIAL; ABG TOTAL HEMOGLOBIN 12.9 G/dL (12.0-16.0); COHb 0.6 % (0.5-1.5); MetHb 0.3 % (0.0-1.5); O2Hb 96.6 % (94.0-97.0); VENT MODE Room Air
--- NOTE | 2020-07-10 14:06 | NUR ---
Pt out of Er for CT.
--- NOTE | 2020-07-10 14:22 | NUR ---
Pt back from CT, denies N/V and abd pain.
[2020-07-10] MEDS ORDERED: diphenhydrAMINE 50 MG/1 ML VIAL IV ONE (14:45)
[2020-07-10] MEDS ORDERED: METOCLOPRAMIDE HCL 10 MG/2 ML VIAL IV ONE (14:45)
[2020-07-10] MEDS ORDERED: diphenhydrAMINE 50 MG/1 ML VIAL ONE (14:48)
[2020-07-10] MEDS ORDERED: METOCLOPRAMIDE HCL 10 MG/2 ML VIAL ONE (14:48)
[2020-07-10] MEDS ORDERED: PIPERACILLIN SODIUM/TAZOBACTAM 3.375 G in IV DEXTROSE 5% 50 ML IV ONE (15:00)
[2020-07-10] MEDS ORDERED: PIPERACILLIN/TAZOBACTAM/D5W 50 ML IV ONE (15:03)
--- NOTE | 2020-07-10 16:23 | NUR ---
Patient is resting comfortably in bed with eyes closed, NAD noted at this time.
[2020-07-10 17:30] VITALS: BP 120/83
[2020-07-10] MEDS ORDERED: ACETAMINOPHEN 650 MG SUPP.RECT RC PRN (17:30)
[2020-07-10] MEDS: POTASSIUM CHLORIDE 20 MEQ in IV 1/2NS 1000 ML 1,000 ML IV PRN (17:57)
[2020-07-10] MEDS: ONDANSETRON 4 MG/2 ML VIAL IV PRN (18:50)
[2020-07-10] MEDS ORDERED: DEXTROSE 50% 50 ML DISP.SYRIN IV PRN (19:00)
--- NOTE | 2020-07-10 19:15 | NUR ---
Received patient in bed A/O x4. Patient is well known to me with a history of recurring pancreatitis and DKA. Patient complaint of N/V on admission, medicated with Zofran which appears to be effective as she reports no nausea. Patient asked for oral care supplies which i provided and assisted with oral care. Right AC and Left AC 20g peripheral IV. 1/2 NS + 20Kcl running at 120mL/hr. no other complaints at this time. Patient appears calm and stable.
[2020-07-10] MEDS: LORAZEPAM 2 MG/1 ML VIAL IV PRN (19:42)
[2020-07-10 20:00] VITALS: BP 128/80
--- NOTE | 2020-07-10 20:30 | NUR ---
Dr. Hoffman in the unit to assess patient. Report given. No new orders at this time.
[2020-07-10] MEDS: INSULIN GLARGINE,HUM 300 UNITS/3 ML CARTRIDGE SQ SCH (20:38)
[2020-07-10] MEDS: HYDROMORPHONE 1 MG/1 ML DISP.SYRIN IV PRN (22:25)
[2020-07-11] VITALS: BP 132/96
[2020-07-11] MEDS: BLOOD SUGAR DIAGNOSTIC 1 EACH STRIP VI SCH ×5 (00:04→17:44)
[2020-07-11] MEDS: INSULIN REGULAR, HUMAN 300 UNIT/3 ML VIAL SQ PRN ×2 (00:05→12:13)
[2020-07-11] MEDS: POTASSIUM CHLORIDE 20 MEQ in IV 1/2NS 1000 ML 1,000 ML IV PRN ×2 (02:30→10:22)
[2020-07-11] MEDS: LORAZEPAM 2 MG/1 ML VIAL IV PRN ×2 (03:34→17:39)
[2020-07-11 04:00] VITALS: BP 125/88
[2020-07-11 07:02] LABS: BASOPHILS % (AUTO) 0.3 % (0.0-2.0); BILIRUBIN,TOTAL 0.6 mg/dL (0.2-1.0); CREATININE 0.7 mg/dL (0.6-1.3); EOSINOPHILS % (AUTO) 0.4 % (0.0-7.0); HEMATOCRIT 40.7 % (31.2-41.9); HEMOGLOBIN 13.8 g/dL (10.9-14.3); LYMPHOCYTES # (AUTO) 1.4 K/uL (20.0-40.0); LYMPHOCYTES % (AUTO) 17.6 % (20.5-51.5); MAGNESIUM 1.6 mg/dL (1.8-2.4); MEAN CORPUSCULAR HEMOGLOBIN 35.2 uug (24.7-32.8); MEAN CORPUSCULAR HGB CONC 34 g/dL (32.3-35.6); MEAN CORPUSCULAR VOLUME 104.3 fL (75.5-95.3); MONOCYTES % (AUTO) 13.6 % (0.0-11.0); NEUTROPHILS # (AUTO) 5.3 K/uL (1.8-8.9); NEUTROPHILS % (AUTO) 68.1 % (38.5-71.5); PHOSPHOROUS 1.1 mg/dL (2.5-4.9); PLATELET COUNT (AUTO) 242 K/uL (179-408); TOTAL PROTEIN, SERUM 6.8 g/dL (6.4-8.2); WHITE BLOOD COUNT (AUTO) 7.7 K/uL (3.8-11.8)
[2020-07-11 07:03] LABS: POTASSIUM 2.8 mmol/L (3.5-5.1)
[2020-07-11 07:04] LABS: THYROID STIMULATING HORMONE 1.098 mIU/mL (0.358-3.740)
[2020-07-11 07:30] VITALS: BP 107/75
--- NOTE | 2020-07-11 08:10 | NUR ---
PATIENT BS=11, PATIENT AWAKE ALERT AND ORIENTED, SKIN WARM AND DRY, GRATED CHEESE MAKER MADE AWARE WITH ORDER TO GIVE D50, REPLACED POTASSIUM
[2020-07-11] MEDS: PANTOPRAZOLE SODIUM 40 MG VIAL IV SCH (08:14)
--- NOTE | 2020-07-11 08:25 | NUR ---
RECEIVED PATIENT ASLEEP IN BED, BUT EASILY AROUSABLE. ALERT AND ORIENTED X 4. VSS. IV ON RIGHT AC 20G AND LEFT AC 20G, FLUSHED AND PATENT. PER PM NURSE, 0600 BG CHECK AT 69. RECHECKED THIS MORNING AT 0800, BG AT 11. PATIENT IS ASYMPTOMATIC, ABLE TO AMBULATE TO BATHROOM. DENIES NAUSEA, PAIN AND DIZZINESS. NO S/S OF DISTRESS OR SOB. . CALLED LAB FOR STAT GLUCOSE CHECK. WILL CONTINUE TO MONITOR. Addendum: 07/11/20 at 0833 by PHAM NORRIS RN GIOVANY PITTMAN MADE AWARE
[2020-07-11] MEDS ORDERED: POTASSIUM PHOSPHATE MM 15 MMOL in IV NORMAL SALINE 250 ML IV ONE (08:45)
[2020-07-11] MEDS: POTASSIUM PHOSPHATE MM 7.5 MMOL in IV NORMAL SALINE 97.5 ML IV SCH ×2 (09:39→13:07)
--- NOTE | 2020-07-11 09:40 | NUR ---
RECHECKED BLOOD GLUCOSE = 200. PATIENT AWAKE, ALERT AND ORIENTED. NO S/S OF DISTRESS. DENIES NAUSEA OR DIZZINESS.
[2020-07-11] MEDS: MAGNESIUM SULFATE/D5W 100 ML IV SCH ×2 (10:22→11:48)
--- NOTE | 2020-07-11 11:00 | NUR ---
SEEN BY TOYA ADAIR FOR FOLLOW-UP SEE NOTES. SAID TO CONTINUE CAMACHO MONITORING FOR NOW UNTIL BLOOD SUGAR IS WITHIN THE RANGE
[2020-07-11] MEDS ORDERED: CALCIUM GLUCONATE IV 1 GM in IV NORMAL SALINE 100 ML IV ONE (11:30)
[2020-07-11 11:35] VITALS: BP 110/74
[2020-07-11] MEDS: THIAMINE HCL INJ 100 MG in IV DEXTROSE 5% 50 ML IV SCH (11:47)
[2020-07-11] MEDS: POTASSIUM CHLORIDE 50 ML IV SCH ×4 (14:03→17:40)
[2020-07-11] MEDS: HYDROMORPHONE 1 MG/1 ML DISP.SYRIN IV PRN (15:33)
[2020-07-11 16:00] VITALS: BP 112/79
[2020-07-11] MEDS: ONDANSETRON 4 MG/2 ML VIAL IV PRN (17:39)
--- NOTE | 2020-07-11 17:50 | NUR ---
CONTINUE WITH CAMACHO MONITORING, SR/ST ON MONITOR. VOMITED X1 LARGE AMOUNT OF FOOD PREVIOUSLY TAKEN. WILL CONTINUE TO MONITOR
[2020-07-11] MEDS ORDERED: DEXTROSE 50% 50 ML DISP.SYRIN IV PRN (18:00)
[2020-07-11] MEDS ORDERED: INSULIN REGULAR, HUMAN 300 UNIT/3 ML VIAL SQ PRN (18:00)
--- NOTE | 2020-07-11 19:35 | NUR ---
Received report from AM nurse. Patient is resting and asleep. No signs of pain or distress. Will continue to monitor and assess.
[2020-07-11 20:18] VITALS: BP 106/75
--- NOTE | 2020-07-11 20:31 | NUR ---
Head to toe assessment completed. Patients heart sounds, lung sounds, bowel sounds all normal. Neuro checks normal. No complaints of pain. Patients pulses were also checked due to prolonged emesis and pulse was found to be at 85. Will continue to monitor.
[2020-07-11] MEDS: INSULIN GLARGINE,HUM 300 UNITS/3 ML CARTRIDGE SQ SCH (20:49)
--- NOTE | 2020-07-11 22:27 | NUR ---
Pt made comfortable in bed. VSS. No pain or distress. Call light within reach, bed alarm on, will continue to monitor.
[2020-07-12] MEDS: BLOOD SUGAR DIAGNOSTIC 1 EACH STRIP VI SCH ×7 (00:13→21:15)
[2020-07-12] MEDS: LORAZEPAM 2 MG/1 ML VIAL IV PRN ×3 (00:24→23:45)
[2020-07-12] MEDS: HYDROMORPHONE 1 MG/1 ML DISP.SYRIN IV PRN ×3 (00:24→21:00)
[2020-07-12 00:46] VITALS: BP 99/73
[2020-07-12] MEDS: POTASSIUM CHLORIDE 20 MEQ in IV 1/2NS 1000 ML 1,000 ML IV PRN ×2 (02:28→10:29)
--- NOTE | 2020-07-12 04:17 | NUR ---
Patient is asleep in bed. VSS. Fluids infusing. Patient is still being kept NPO. No signs of pain, no distress, and patient is comfortable. Bed alarm on, bed in lowest position, call light on. Will continue to monitor.
[2020-07-12 04:56] VITALS: BP 101/77
[2020-07-12] MEDS ORDERED: INSULIN REGULAR, HUMAN 300 UNITS/3 ML VIAL SQ PRN (05:15)
[2020-07-12] MEDS ORDERED: DEXTROSE 50% 50 ML DISP.SYRIN IV PRN (05:15)
--- NOTE | 2020-07-12 06:17 | NUR ---
Pt slept through the night. VSS. No signs of pain, no nausea or vomiting, no distress, and patient is afebrile. Patients diet plan has been updated per protocol. Call light within reach, IV patent, bed at lowest position, bed alarm on. Will endorse to oncoming nurse.
[2020-07-12 06:48] LABS: CARBON DIOXIDE 21 mmol/L (21-32); CHLORIDE 106 mmol/L (98-107); CREATININE 0.4 mg/dL (0.6-1.3); GLUCOSE 89 mg/dL (74-106); LIPASE 85 U/L (73-393); MAGNESIUM 1.9 mg/dL (1.8-2.4); PHOSPHOROUS 1.6 mg/dL (2.5-4.9); POTASSIUM 2.9 mmol/L (3.5-5.1); UREA NITROGEN, BLOOD 8 mg/dL (7-18)
[2020-07-12] MEDS: INSULIN REGULAR, HUMAN 300 UNIT/3 ML VIAL SQ PRN ×2 (07:38→16:42)
[2020-07-12] MEDS: PANTOPRAZOLE SODIUM 40 MG VIAL IV SCH (08:03)
--- NOTE | 2020-07-12 08:30 | NUR ---
RECEIVED PATIENT ASLEEP IN BED, EASILY AROUSABLE BY NAME. ORIENTED X 4. ON RA, SATURATION WNL. SR ON MONITOR. ABLE TO AMBULATE TO BATHROOM. IV ON LEFT AC 20 G AND RIGHT AC 20 G, FLUSHED AND PATENT. UPGRADE DIET TO CLEAR LIQUID. DENIES NAUSEA AT THIS TIME. WILL CONTINUE TO MONITOR.
[2020-07-12 08:33] VITALS: BP 91/60
[2020-07-12] MEDS: POTASSIUM CHLORIDE 50 ML IV SCH ×6 (10:29→15:44)
[2020-07-12] MEDS: POTASSIUM PHOSPHATE MM 7.5 MMOL in IV NORMAL SALINE 97.5 ML IV SCH ×2 (10:55→13:28)
[2020-07-12 15:48] VITALS: BP 107/71
[2020-07-12] MEDS: THIAMINE HCL INJ 100 MG in IV DEXTROSE 5% 50 ML IV SCH (16:08)
[2020-07-12 20:00] VITALS: BP 102/61
[2020-07-12 20:06] VITALS: BP 108/80
--- NOTE | 2020-07-12 20:18 | NUR ---
Received patient asleep in bed. VSS. No signs of distress or pain. Call light within reach, bed at lowest position, bed alarm on. Will continue to monitor.
[2020-07-12] MEDS: INSULIN GLARGINE,HUM 300 UNITS/3 ML CARTRIDGE SQ SCH (20:57)
--- NOTE | 2020-07-12 23:15 | NUR ---
Pt awake and fully orientated. head to toe assessment complete with no abnormalities discovered. Pt complained of abdominal pain and was given PRN medication. Reassessed and patient said that the pain has been resolved. Call light within reach, bed at lowest position, IV patent, bed alarm on. Will continue to monitor.
[2020-07-13] MEDS: POTASSIUM CHLORIDE 20 MEQ in IV 1/2NS 1000 ML 1,000 ML IV PRN (01:52)
[2020-07-13] MEDS: HYDROMORPHONE 1 MG/1 ML DISP.SYRIN IV PRN ×2 (02:53→06:16)
[2020-07-13 04:14] VITALS: BP 102/64
[2020-07-13] MEDS: LORAZEPAM 2 MG/1 ML VIAL IV PRN (06:15)
[2020-07-13] MEDS: BLOOD SUGAR DIAGNOSTIC 1 EACH STRIP VI SCH ×2 (06:31→10:42)
[2020-07-13 07:06] LABS: ALANINE AMINOTRANSFERASE 77 U/L (14-59); ALKALINE PHOSPHATASE 85 U/L (50-136); ASPARTATE AMINOTRANSFERASE 141 U/L (15-37); BILIRUBIN,TOTAL 0.3 mg/dL (0.2-1.0); CARBON DIOXIDE 22 mmol/L (21-32); CHLORIDE 102 mmol/L (98-107); CREATININE 0.3 mg/dL (0.6-1.3); GLUCOSE 266 mg/dL (74-106); MAGNESIUM 1.7 mg/dL (1.8-2.4); PHOSPHOROUS 3.4 mg/dL (2.5-4.9); POTASSIUM 3.4 mmol/L (3.5-5.1); TOTAL PROTEIN, SERUM 5.3 g/dL (6.4-8.2); UREA NITROGEN, BLOOD 4 mg/dL (7-18)
[2020-07-13] MEDS: INSULIN REGULAR, HUMAN 300 UNIT/3 ML VIAL SQ PRN ×2 (07:23→11:15)
[2020-07-13 07:45] VITALS: BP 92/59
--- NOTE | 2020-07-13 07:53 | NUR ---
Received report from pm nurse. Patient is resting and asleep. No signs of pain or distress. Will continue to monitor call light with in reach
[2020-07-13] MEDS: PANTOPRAZOLE SODIUM 40 MG VIAL IV SCH (08:19)
[2020-07-13] MEDS ORDERED: CALCIUM CARB/VITAMIN D 600-400 MG TABLET PO SCH (09:00)
[2020-07-13] MEDS ORDERED: THIAMINE HCL 100 MG TABLET PO SCH (10:00)
[2020-07-13] MEDS ORDERED: POTASSIUM CHLORIDE 20 MEQ TAB.PRT.SR PO ONE (10:00)
[2020-07-13] MEDS: MAGNESIUM SULFATE/D5W 100 ML IV SCH ×2 (10:18→10:37)
[2020-07-13 11:47] VITALS: BP 96/68
[2020-07-13] MEDS ORDERED: CALC-11 PO (11:51)
[2020-07-13] MEDS ORDERED: GLIP5TAB13 PO (11:53)
[2020-07-13] MEDS ORDERED: METF-442 PO (11:53)
[2020-07-13] MEDS ORDERED: OMEP20CA15 PO (11:53)
--- NOTE | 2020-07-13 15:07 | NUR ---
[place]yer Consultation: 1:15pm: This rn social work met with the patient today to complete a social services assistant consultation. Reason for consultation is homelessness. This patient is known to this rn social work from previous admission. Patient is a 40 year old female, alert, oriented x 4. Patient was lying down in bed with the blankets over her head when SW entered the patient's room, however patient removed her blankets, greeted this SW and was receptive to meeting with this SW. During previous SS assessment, patient had reported that patient lives in a van with her boyfriend. Patient stated that her living situation continues to be the same. Patient remains independent with her ADL's. Patient has [employer] insurance. SW explored patient's psychosocial needs, and patient stated that her monthly food stamps benefits were recently suspended because she didn't turn in her renewal form on time. SW asked the patient if she knew the location of the closest [facility] office in order to turn in the required paperwork, and patient stated that she did not. SW provided patient with the address and phone number to the closest [facility] office: [address] [place] [address], . Patient thanked SW for this information and stated she would be turning the form in once she is discharged from the hospital. SW then explored patient's needs for homeless community resources, and patient stated that she still has the homeless resource packet that this SW had provided her during her last admission, and that she has used the resources for meals and food pantries. SW asked the patient if she needed additional resources, and patient stated that she did not. Patient was cooperative with this SW, engaged in dialogue. Patient's affect and behavior were WNL. Patient's appearance and hygiene were fair. Patient's speech was clear, thought process and thought content were appropriate. No SI or HI. No hallucinations or delusions. Patient denied use of drugs and cigarettes. Patient reported that she continues to drink 1/2 to 1 bottle of whiskey a day. Patient stated that she was getting discharged from the hospital today, which SW confirmed with patient's nurse Charline. Patient stated that she was waiting for her boyfriend to pick her up from the hospital. Patient thanked SW for her time and support. Patient signed the Homeless Patient Waiver form. SW filed the form in the patient's chart. No further SS interventions needed at this time.
--- NOTE | 2020-07-13 15:16 | NUR ---
dc orders received noted and carried out,dc instruction and education given to the pt,zan walker per md orders,pt left the facility via private car in stable condition
[2020-07-14] MEDS ORDERED: PANTOPRAZOLE SODIUM 40 MG TABLET.DR PO SCH (07:00)
== END 2020-07-13 15:21 | disposition home or self-care (01) | DRG 282 ==
LOC: ER 12:17 → DOU3 16:38 → TELE-TD3 17:15 → TELE3 07-12 13:16
PROVIDERS: ADMIT Internal Medicine; ATTEND Nurse Practitioner Acute Care
DX: K85.20 Alcohol induced acute pancreatitis without necrosis or infection (principal); E11.65 Type 2 diabetes mellitus with hyperglycemia; Z79.4 Long term (current) use of insulin; Z59.0 Homelessness; E87.6 Hypokalemia; D75.89 Other specified diseases of blood and blood-forming organs; E83.39 Other disorders of phosphorus metabolism; E83.42 Hypomagnesemia; E83.51 Hypocalcemia; E86.0 Dehydration; Z87.442 Personal history of urinary calculi; Z91.19 Patient's noncompliance with other medical treatment and regimen; R74.01 Elevation of levels of liver transaminase levels; F41.9 Anxiety disorder, unspecified; F10.239 Alcohol dependence with withdrawal, unspecified; Y90.9 Presence of alcohol in blood, level not specified; E11.10 Type 2 diabetes mellitus with ketoacidosis without coma; K76.0 Fatty (change of) liver, not elsewhere classified
CPT/HCPCS: 36415; 36600; 70030-TC; 71045; 71275; 83550; 83690; 83735; 84100; 84443; 85025; 85730; 93005; A4663; C9113; G0378; J0610; J1170; J1200; J1815; J2060; J2270; J2405; J2543; J2765; J3411; J3475; J3480; J3490; J7030; J7050; J7060; Q9967

== ENCOUNTER 2020-09-06 15:54 | Inpatient (IN) | payer MEDICAID, OTHER ==
[~2020-09-06] VITALS: Ht 160 cm; Wt 40.8 kg
[~2020-09-06 15:54] MED LIST changes: +CALC-11 PO
[2020-09-06] MEDS ORDERED: ONDANSETRON 4 MG/2 ML VIAL IV ONE (16:30)
[2020-09-06] MEDS ORDERED: IV NORMAL SALINE 1000 ML BAG IV ONE ×2 (16:30→16:45)
[2020-09-06] MEDS ORDERED: POTA20TA29 PO (16:37)
[2020-09-06] MEDS ORDERED: KETOROLAC TROMETHAMINE 15 MG INJ ONE (16:44)
[2020-09-06] MEDS ORDERED: KETOROLAC TROMETHAMINE 15 MG INJ IVP ONE (16:45)
[2020-09-06] MEDS ORDERED: ONDANSETRON 4 MG/2 ML VIAL ONE (16:45)
[2020-09-06 16:47] LABS: BASOPHILS % (AUTO) 0.3 % (0.0-2.0); HEMATOCRIT 39.2 % (31.2-41.9); HEMOGLOBIN 12.7 g/dL (10.9-14.3); LYMPHOCYTES # (AUTO) 0.5 K/uL (20.0-40.0); MEAN CORPUSCULAR HGB CONC 33 g/dL (32.3-35.6); MEAN CORPUSCULAR VOLUME 104.7 fL (75.5-95.3); MONOCYTES # (AUTO) 2.3 K/uL (2.0-10.0); NEUTROPHILS # (AUTO) 14.8 K/uL (1.8-8.9); NEUTROPHILS % (AUTO) 83.7 % (38.5-71.5); PLATELET COUNT (AUTO) 250 K/uL (179-408); RED BLOOD CELL COUNT(AUTO) 3.75 MIL/uL (3.63-4.92); WHITE BLOOD COUNT (AUTO) 17.6 K/uL (3.8-11.8)
--- NOTE | 2020-09-06 16:53 | NUR ---
PATIENT HERE FOR C/O ABDOMINAL PAIN. STATES SHE IS AN ALCOHOLIC AND HASNT HAD A DRINK SINCE LAST NIGHT. ACCUCECK WAS OVER 400, DR DEL VALLE NOTIFIED RIGHT AWAY. PATIENT IS ON A MONITOR. IV PLACED, FLUIDS RUNNING ORDERED. PATIENT IS AWAKE, ALERT, ORIENTED X4. COVID SWAB DONE AND SENT TO LAB
[2020-09-06 16:57] LABS: ETHANOL < 3 MG/DL (0-0)
[2020-09-06 16:59] LABS: BILIRUBIN,DIRECT 0.2 mg/dL (0.0-0.2); BILIRUBIN,TOTAL 0.5 mg/dL (0.2-1.0); CREATININE 0.9 mg/dL (0.6-1.3); POTASSIUM 3.1 mmol/L (3.5-5.1); TOTAL PROTEIN, SERUM 7.6 g/dL (6.4-8.2)
[2020-09-06 17:15] LABS: MAGNESIUM 1.9 mg/dL (1.8-2.4)
[2020-09-06] MEDS ORDERED: POTASSIUM CHLORIDE 20 MEQ TAB.PRT.SR PO ONE (17:15)
[2020-09-06 17:16] LABS: ACETAMINOPHEN < 2.0 ug/mL (10-30)
[2020-09-06] MEDS ORDERED: IV NORMAL SALINE 250 ML IV ONE (17:20)
[2020-09-06] MEDS ORDERED: IOHEXOL 300MG/ML 100 ML INFUS..BTL ONE (17:20)
[2020-09-06] MEDS ORDERED: SWABABLE VALVE TRANSFER SET EA MC ONE (17:20)
[2020-09-06] MEDS ORDERED: SODIUM BICARBONATE 8.4% 50 MEQ/50 ML VIAL IV ONE (17:30)
[2020-09-06] MEDS ORDERED: INSULIN REGULAR, HUMAN 100 UNITS in IV NORMAL SALINE 100 ML IV ONE ×2 (17:30)
[2020-09-06] MEDS ORDERED: POTASSIUM PHOSPHATE MM 15 MMOL in IV NORMAL SALINE 250 ML IV ONE (17:30)
[2020-09-06] MEDS ORDERED: POTASSIUM CHLORIDE 20 MEQ TAB.PRT.SR ONE (17:34)
[2020-09-06] MEDS ORDERED: SODIUM BICARBONATE 8.4% 50 MEQ/50 ML DISP.SYRIN IV ONE ×2 (17:35→17:38)
[2020-09-06] MEDS ORDERED: INSULIN REGULAR, HUMAN 100 UNIT in IV NORMAL SALINE 99 ML IV PRN ×2 (18:15)
[2020-09-06] MEDS ORDERED: IV NS 1000 ML 1,000 ML IV PRN (18:15)
[2020-09-06] MEDS ORDERED: ACETAMINOPHEN 325 MG TABLET PO PRN (18:15)
[2020-09-06] MEDS ORDERED: MAGNESIUM HYDROXIDE 30 ML LIQUID UDC PO PRN (18:15)
[2020-09-06] MEDS ORDERED: ONDANSETRON 4 MG/2 ML VIAL IV PRN (18:15)
[2020-09-06 18:26] LABS: *BILIRUBIN,URIN 1+ (NEGATIVE); *BLOOD, URINE 3+ (NEGATIVE); *CLARITY,URINE CLOUDY (CLEAR); *COLOR,URINE LIGHT YELLOW (YELLOW); *KETONES,URINE 4+ (NEGATIVE); *UROBILINOGEN,URINE 0.2 E.U./dl (NORMAL); LEUKOCYTE ESTERASE ,URINE NEGATIVE (NEGATIVE); NITRITE, URINE NEGATIVE (NEGATIVE); UGLUCOSE 2+ (NEGATIVE)
[2020-09-06 18:28] LABS: *URINE HCG, QUAL NEG (NEGATIVE)
--- NOTE | 2020-09-06 19:24 | NUR ---
Hand off report given to Zulema PRIETO in ICU. Denver PRIETO from ER will go with patient to CT before kamilah to ICU. Patient is awake and alert with no new complaints
--- NOTE | 2020-09-06 19:30 | NUR ---
received report from stan , regarding patient's diagnosis and medications given and history
[2020-09-06 20:00] VITALS: BP 103/73
--- NOTE | 2020-09-06 20:15 | NUR ---
received patient awake oriented , able to follow command , iv of d5 ns at 200 ml running , k phos at 42.5 running ,iv intact , continent
[2020-09-06 20:17] LABS: CREATININE 0.7 mg/dL (0.6-1.3)
[2020-09-06 20:24] LABS: POTASSIUM 2.2 mmol/L (3.5-5.1)
[2020-09-06] MEDS: MORPHINE SULFATE 2 MG/1 ML DISP.SYRIN IV PRN (20:24)
[2020-09-06 20:53] LABS: BACTERIA,URINE FEW /HPF (NONE SEEN); SQUAMOUS EPITHELIAL CELL,UR FEW /HPF (NONE SEEN); WBC,URINE 0-3 /HPF (0-3)
[2020-09-06 21:00] VITALS: BP 89/58
--- NOTE | 2020-09-06 21:00 | NUR ---
hero garcia is called for potasium level waiting for orders
[2020-09-06 22:00] VITALS: BP 86/58
[2020-09-06 23:00] VITALS: BP 103/70
--- NOTE | 2020-09-06 23:47 | NUR ---
no seizure , withdrawal symptoms noted
[2020-09-07] VITALS (17 sets, daily range): BP systolic 76–123; BP diastolic 52–94
[2020-09-07] MEDS: CEFTRIAXONE 1 G in IV DEXTROSE 5% 50 ML IV SCH ×2 (00:42→21:33)
[2020-09-07] MEDS ORDERED: CEFTRIAXONE /D5W 50ML IVPB **ER PYXIS IV ONE (00:42)
[2020-09-07 00:50] LABS: CREATININE 0.7 mg/dL (0.6-1.3)
[2020-09-07] MEDS: HYDROCODONE/APAP 5-325MG TABLET PO PRN ×3 (00:59→14:29)
[2020-09-07 01:00] LABS: POTASSIUM 2.4 mmol/L (3.5-5.1)
[2020-09-07] MEDS: POTASSIUM CHLORIDE 50 ML IV SCH ×8 (01:15→10:11)
[2020-09-07] MEDS: IV D5/ 0.9% NACL 1,000 ML IV PRN ×3 (02:05→11:51)
[2020-09-07] MEDS: MORPHINE SULFATE 2 MG/1 ML DISP.SYRIN IV PRN ×3 (04:21→23:21)
[2020-09-07 05:24] LABS: BASOPHILS % (AUTO) 0.1 % (0.0-2.0); EOSINOPHILS % (AUTO) 0.1 % (0.0-7.0); HEMATOCRIT 32.2 % (31.2-41.9); HEMOGLOBIN 11.2 g/dL (10.9-14.3); LYMPHOCYTES # (AUTO) 0.9 K/uL (20.0-40.0); LYMPHOCYTES % (AUTO) 6.5 % (20.5-51.5); MEAN CORPUSCULAR HEMOGLOBIN 35.2 uug (24.7-32.8); MEAN CORPUSCULAR HGB CONC 35 g/dL (32.3-35.6); MEAN CORPUSCULAR VOLUME 101.2 fL (75.5-95.3); MONOCYTES # (AUTO) 2.6 K/uL (2.0-10.0); MONOCYTES % (AUTO) 18.2 % (0.0-11.0); NEUTROPHILS # (AUTO) 10.6 K/uL (1.8-8.9); NEUTROPHILS % (AUTO) 75.1 % (38.5-71.5); PLATELET COUNT (AUTO) 195 K/uL (179-408); RED BLOOD CELL COUNT(AUTO) 3.18 MIL/uL (3.63-4.92); WHITE BLOOD COUNT (AUTO) 14.2 K/uL (3.8-11.8)
[2020-09-07 05:46] LABS: CREATININE 0.6 mg/dL (0.6-1.3); MAGNESIUM 1.3 mg/dL (1.8-2.4)
[2020-09-07 05:50] LABS: POTASSIUM 2.7 mmol/L (3.5-5.1)
[2020-09-07 05:56] LABS: LYMPHOCYTES % (MANUAL) 3 % (20-40); MONOCYTES % (MANUAL) 10 % (2-10); NEUTROPHILS % (MANUAL) 87 % (42-75)
--- NOTE | 2020-09-07 06:18 | NUR ---
zoë notified of lab values and insulin results , received orders
[2020-09-07] MEDS ORDERED: DEXTROSE 50% 50 ML DISP.SYRIN IV PRN (06:30)
--- NOTE | 2020-09-07 06:30 | NUR ---
patient is awake oriented , denies pain , insulin drip has been discontinued per chely camp order , changed to moderate sliding scale q 4 h fs . d5 ns at 200 ml still running , continent
[2020-09-07] MEDS: MAGNESIUM SULFATE/D5W 100 ML IV SCH ×4 (07:33→10:39)
--- NOTE | 2020-09-07 07:43 | NUR ---
Received patient in bed, awake and verbally responsive, On Room Air sat 98%. No signs of distress noted. Afebrile. [place] 5325mg 1 tablet given as ordered for c/o generalized body pain. kept comfortable. Will continue to monitor.
[2020-09-07] MEDS: BLOOD SUGAR DIAGNOSTIC 1 EACH STRIP VI SCH ×4 (08:02→20:41)
[2020-09-07] MEDS: INSULIN REGULAR, HUMAN 300 UNIT/3 ML VIAL SQ PRN ×4 (08:14→20:43)
[2020-09-07 08:22] LABS: ABG BASE EXCESS -18.6 mmol/L; ABG PCO2 13.9 mmHg (35.0-45.0); ABG PO2 118.3 mmHg (75.0-100.0); ABG SITE RIGHT RADIAL; COHb 1.1 % (0.5-1.5); MetHb 0.1 % (0.0-1.5); O2Hb 97.4 % (94.0-97.0); VENT MODE Room Air
[2020-09-07] MEDS: PANTOPRAZOLE SODIUM 40 MG TABLET.DR PO SCH (08:48)
[2020-09-07] MEDS: MULTIVITAMINS,THERAPEUTIC TABLET PO SCH (08:48)
--- NOTE | 2020-09-07 10:00 | NUR ---
Annemarie made aware of trending Low Blood Pressure, with Order of NS bolus x 1
[2020-09-07] MEDS ORDERED: IV NS 1000 ML 1,000 ML IV ONE ×2 (10:30→11:30)
--- NOTE | 2020-09-07 11:20 | NUR ---
Seen by Dr. Bishop with New Orders received
[2020-09-07] MEDS ORDERED: POTASSIUM PHOSPHATE MM 15 MMOL in IV NORMAL SALINE 250 ML IV ONE (11:30)
[2020-09-07] MEDS: POTASSIUM PHOSPHATE MM 7.5 MMOL in IV NORMAL SALINE 97.5 ML IV SCH ×2 (11:43→14:43)
--- NOTE | 2020-09-07 12:15 | NUR ---
Seen by Annemarie PITTMAN with New Orders received.
[2020-09-07] MEDS: IV NS 1000 ML 1,000 ML IV PRN ×3 (12:18→22:00)
[2020-09-07 15:09] LABS: MAGNESIUM 2.4 mg/dL (1.8-2.4)
[2020-09-07 15:11] LABS: PHOSPHOROUS 0.9 mg/dL (2.5-4.9); POTASSIUM 2.6 mmol/L (3.5-5.1)
--- NOTE | 2020-09-07 15:19 | NUR ---
relayed Critical result Potassium 2.6, phos 0.9 to hero Lomas with Order to repeat labs at 8PM.
--- NOTE | 2020-09-07 15:34 | NUR ---
Received a new Order from Annemarie, KCL 40meq x 1.
[2020-09-07] MEDS ORDERED: POTASSIUM CHLORIDE 20 MEQ TAB.PRT.SR PO ONE (16:00)
[2020-09-07] MEDS: LORAZEPAM 1 MG TABLET PO PRN (16:26)
--- NOTE | 2020-09-07 17:44 | NUR ---
patient will transfer to tele-TD room 302.
--- NOTE | 2020-09-07 18:44 | NUR ---
Patient in bed, awake, alert and verbally responsive. On Room Air, sat 98%. No SOB. Pain medication given as ordered. Potassium 2.7 replaced with KCL 40 meq IV, magnesium 1.3 replaced with 4G IV, Recent Potassium is 2.6, KCL 40meq PO given and will check labs at 8PM. All due medications given as ordered. Will endorse to Oncoming Nurse.
--- NOTE | 2020-09-07 20:00 | NUR ---
ASLEEP, VITAL SIGNS STABLE,PHOSPHORUS .9 DR HASTINGS NOTIFIED.NO ORDERS WERE MADE RESTING COMFORTABLY.
[2020-09-07 20:27] LABS: POTASSIUM 2.9 mmol/L (3.5-5.1)
[2020-09-07 20:29] LABS: PHOSPHOROUS 0.9 mg/dL (2.5-4.9)
[2020-09-08] VITALS (8 sets, daily range): BP systolic 87–108; BP diastolic 53–76
[2020-09-08] MEDS: BLOOD SUGAR DIAGNOSTIC 1 EACH STRIP VI SCH ×5 (00:37→21:25)
[2020-09-08] MEDS: INSULIN REGULAR, HUMAN 300 UNIT/3 ML VIAL SQ PRN ×4 (00:39→12:19)
[2020-09-08] MEDS: HYDROCODONE/APAP 5-325MG TABLET PO PRN ×4 (01:36→21:43)
[2020-09-08] MEDS: IV NS 1000 ML 1,000 ML IV PRN ×3 (03:15→16:21)
--- NOTE | 2020-09-08 04:00 | NUR ---
BLLOD PRESSURE LOW 88/46.INDUSTRIAL DIAMOND POLISHER KOJO NOTIFIED, ORDERED BOLUS OF NORMAL SALINE AND K PHOSPHATE.WAITING FOR THE PHARMACY TO MAKE IT.
[2020-09-08] MEDS ORDERED: IV NS 1000 ML 1,000 ML IV ONE (05:45)
[2020-09-08 07:00] LABS: BASOPHILS % (AUTO) 0.1 % (0.0-2.0); EOSINOPHILS % (AUTO) 0.3 % (0.0-7.0); HEMATOCRIT 30.7 % (31.2-41.9); HEMOGLOBIN 10.5 g/dL (10.9-14.3); LYMPHOCYTES % (AUTO) 7.8 % (20.5-51.5); MEAN CORPUSCULAR HEMOGLOBIN 34.6 uug (24.7-32.8); MEAN CORPUSCULAR HGB CONC 34 g/dL (32.3-35.6); MEAN CORPUSCULAR VOLUME 101.4 fL (75.5-95.3); MONOCYTES # (AUTO) 1.7 K/uL (2.0-10.0); MONOCYTES % (AUTO) 13.5 % (0.0-11.0); NEUTROPHILS % (AUTO) 78.3 % (38.5-71.5); PLATELET COUNT (AUTO) 145 K/uL (179-408); RED BLOOD CELL COUNT(AUTO) 3.02 MIL/uL (3.63-4.92); WHITE BLOOD COUNT (AUTO) 12.8 K/uL (3.8-11.8)
[2020-09-08] MEDS ORDERED: POTASSIUM PHOSPHATE MM 7.5 MMOL in IV NORMAL SALINE 97.5 ML IV ONE (07:00)
[2020-09-08 07:03] LABS: CARBON DIOXIDE 18 mmol/L (21-32); CHLORIDE 104 mmol/L (98-107); CREATININE 0.4 mg/dL (0.6-1.3); GLUCOSE 240 mg/dL (74-106); MAGNESIUM 1.7 mg/dL (1.8-2.4); PHOSPHOROUS 1.3 mg/dL (2.5-4.9); UREA NITROGEN, BLOOD 2 mg/dL (7-18)
[2020-09-08 07:24] LABS: POTASSIUM 2.6 mmol/L (3.5-5.1)
--- NOTE | 2020-09-08 08:00 | NUR ---
Awake, alert, oriented x 4. IVF infusing. Kphos infusing.
[2020-09-08] MEDS: MULTIVITAMINS,THERAPEUTIC TABLET PO SCH (09:23)
[2020-09-08] MEDS: PANTOPRAZOLE SODIUM 40 MG TABLET.DR PO SCH (09:23)
[2020-09-08] MEDS ORDERED: POTASSIUM CHLORIDE 20 MEQ TAB.PRT.SR PO ONE (09:45)
[2020-09-08] MEDS: POTASSIUM CHLORIDE 50 ML IV SCH ×5 (09:58→14:14)
--- NOTE | 2020-09-08 10:00 | NUR ---
K 2.6; Potassium po and IV given as ordered.
[2020-09-08] MEDS: MAGNESIUM SULFATE/D5W 100 ML IV SCH ×2 (10:25→12:10)
[2020-09-08] MEDS ORDERED: SODIUM PHOSPHATE MM 15 MMOL in IV NORMAL SALINE 250 ML IV ONE (11:00)
[2020-09-08] MEDS: GLUCERNA SHAKE VANILLA 237 ML CAN PO SCH ×2 (13:00→17:39)
--- NOTE | 2020-09-08 14:00 | NUR ---
Midline nurse placed on right AC, patent, intact
[2020-09-08] MEDS ORDERED: DEXTROSE 50% 50 ML DISP.SYRIN IV PRN (17:45)
--- NOTE | 2020-09-08 18:30 | NUR ---
Blood glucose monitored, Insulin sliding scale given as ordered. Transferred to Tele.
[2020-09-08] MEDS: METFORMIN HCL 500 MG TABLET PO SCH (18:35)
[2020-09-08] MEDS: CEFTRIAXONE 1 G in IV DEXTROSE 5% 50 ML IV SCH (21:25)
[2020-09-08] MEDS: INSULIN REGULAR, HUMAN 300 UNITS/3 ML VIAL SQ PRN (21:29)
[2020-09-09] MEDS: IV NS 1000 ML 1,000 ML IV PRN ×2 (00:07→06:36)
[2020-09-09 00:57] VITALS: BP 94/66
[2020-09-09] MEDS: LORAZEPAM 1 MG TABLET PO PRN ×3 (01:27→21:33)
[2020-09-09] MEDS: HYDROCODONE/APAP 5-325MG TABLET PO PRN ×4 (02:16→20:13)
--- NOTE | 2020-09-09 04:51 | NUR ---
PATIENT IN BED, INTERMITTENTLY ASLEEP. ABLE TO MAKE NEEDS KNOWN. RECEIVED DUE MEDICATIONS, TOLERATED WELL. WITH COMPLAINTS OF PAIN AT LOWER BACK. RECEIVED NORCO ORDERED AND WITH PAIN RELIEF. ALL NEEDS ATTENDED AND ANTICIPATED. WILL CONTINUE TO MONITOR PATIENT.
[2020-09-09 05:22] VITALS: BP 99/57
[2020-09-09] MEDS: BLOOD SUGAR DIAGNOSTIC 1 EACH STRIP VI SCH ×4 (06:53→20:21)
[2020-09-09 07:21] LABS: CARBON DIOXIDE 22 mmol/L (21-32); CHLORIDE 103 mmol/L (98-107); CREATININE 0.4 mg/dL (0.6-1.3); GLUCOSE 238 mg/dL (74-106); MAGNESIUM 1.7 mg/dL (1.8-2.4); PHOSPHOROUS 1.6 mg/dL (2.5-4.9); UREA NITROGEN, BLOOD 3 mg/dL (7-18)
--- NOTE | 2020-09-09 07:30 | NUR ---
Awake, alert, oriented x 3, IVF infusing. Not in distress
[2020-09-09 07:41] LABS: POTASSIUM 2.5 mmol/L (3.5-5.1)
[2020-09-09 07:49] LABS: BASOPHILS % (AUTO) 0.1 % (0.0-2.0); EOSINOPHILS % (AUTO) 0.1 % (0.0-7.0); HEMATOCRIT 28.6 % (31.2-41.9); HEMOGLOBIN 9.9 g/dL (10.9-14.3); LYMPHOCYTES # (AUTO) 0.7 K/uL (20.0-40.0); LYMPHOCYTES % (AUTO) 6.1 % (20.5-51.5); MEAN CORPUSCULAR HEMOGLOBIN 35.3 uug (24.7-32.8); MEAN CORPUSCULAR HGB CONC 35 g/dL (32.3-35.6); MEAN CORPUSCULAR VOLUME 101.5 fL (75.5-95.3); MONOCYTES # (AUTO) 1.4 K/uL (2.0-10.0); MONOCYTES % (AUTO) 12.6 % (0.0-11.0); NEUTROPHILS # (AUTO) 8.9 K/uL (1.8-8.9); NEUTROPHILS % (AUTO) 81.1 % (38.5-71.5); PLATELET COUNT (AUTO) 170 K/uL (179-408); RED BLOOD CELL COUNT(AUTO) 2.82 MIL/uL (3.63-4.92)
[2020-09-09] MEDS: PANTOPRAZOLE SODIUM 40 MG TABLET.DR PO SCH (08:45)
[2020-09-09] MEDS: METFORMIN HCL 500 MG TABLET PO SCH ×2 (08:45→17:24)
[2020-09-09] MEDS: GLUCERNA SHAKE VANILLA 237 ML CAN PO SCH ×3 (08:46→17:21)
[2020-09-09] MEDS: MULTIVITAMINS,THERAPEUTIC TABLET PO SCH (08:46)
[2020-09-09] MEDS: INSULIN REGULAR, HUMAN 300 UNITS/3 ML VIAL SQ PRN ×2 (08:48→20:23)
[2020-09-09] MEDS ORDERED: MAGNESIUM SULFATE/D5W 100 ML IV SCH (09:30)
[2020-09-09] MEDS ORDERED: POTASSIUM PHOSPHATE MM 7.5 MMOL in IV NORMAL SALINE 97.5 ML IV ONE (10:00)
[2020-09-09] MEDS: POTASSIUM CHLORIDE 50 ML IV SCH ×6 (10:11→15:49)
--- NOTE | 2020-09-09 10:15 | NUR ---
Mg 1.7; Phos 1.6; K 2.5; Potassium IV, Mg IV, KCL IV given as ordered.
[2020-09-09] MEDS: INSULIN REGULAR, HUMAN 300 UNIT/3 ML VIAL SQ PRN (11:50)
[2020-09-09 12:10] VITALS: BP 91/53
--- NOTE | 2020-09-09 13:00 | NUR ---
With fair appetite; Diabetic diet education given
[2020-09-09 16:06] LABS: *CHLORIDE RNDM,URINE 100 mmol/L (100-250); *POTASSIUM RNDM,URINE 12 mmol/L (25-125)
[2020-09-09 16:07] VITALS: BP 95/65
--- NOTE | 2020-09-09 17:25 | NUR ---
Patient feeling "edgy", Ativan po given.
--- NOTE | 2020-09-09 18:07 | NUR ---
Calm, resting comfortably. Afebrile
[2020-09-09] MEDS: POTASSIUM CHLORIDE 20 MEQ in IV NS 1000 ML 1,000 ML IV PRN ×2 (18:11→23:42)
[2020-09-09 18:32] LABS: PHOSPHOROUS 2.3 mg/dL (2.5-4.9); POTASSIUM 3.6 mmol/L (3.5-5.1)
--- NOTE | 2020-09-09 20:00 | NUR ---
Received patient resting in bed. AAOx3. No s/s of acute distress noted. Pt on RA denies SOB. Pt c/o pain, will administer medication per orders. threat monitoring analyst in place and IV fluids infusing per orders. Safety measures in place.
[2020-09-09 20:26] VITALS: BP 108/73
[2020-09-09] MEDS: CEFTRIAXONE 1 G in IV DEXTROSE 5% 50 ML IV SCH (21:33)
[2020-09-10] VITALS: BP 99/67
[2020-09-10] MEDS: HYDROCODONE/APAP 5-325MG TABLET PO PRN ×4 (02:03→22:20)
[2020-09-10 05:24] VITALS: BP 92/55
[2020-09-10] MEDS: POTASSIUM CHLORIDE 20 MEQ in IV NS 1000 ML 1,000 ML IV PRN ×2 (05:52→11:49)
[2020-09-10] MEDS: BLOOD SUGAR DIAGNOSTIC 1 EACH STRIP VI SCH ×4 (06:32→20:21)
[2020-09-10 07:09] LABS: CARBON DIOXIDE 22 mmol/L (21-32); CHLORIDE 100 mmol/L (98-107); CREATININE 0.4 mg/dL (0.6-1.3); GLUCOSE 223 mg/dL (74-106); MAGNESIUM 1.9 mg/dL (1.8-2.4); PHOSPHOROUS 2.5 mg/dL (2.5-4.9); UREA NITROGEN, BLOOD 5 mg/dL (7-18)
[2020-09-10 07:27] LABS: BASOPHILS % (AUTO) 0.3 % (0.0-2.0); EOSINOPHILS % (AUTO) 0.4 % (0.0-7.0); HEMATOCRIT 28.5 % (31.2-41.9); HEMOGLOBIN 9.7 g/dL (10.9-14.3); LYMPHOCYTES # (AUTO) 1.6 K/uL (20.0-40.0); LYMPHOCYTES % (AUTO) 17.1 % (20.5-51.5); MEAN CORPUSCULAR HEMOGLOBIN 35.1 uug (24.7-32.8); MEAN CORPUSCULAR HGB CONC 34 g/dL (32.3-35.6); MEAN CORPUSCULAR VOLUME 102.8 fL (75.5-95.3); MONOCYTES # (AUTO) 1.8 K/uL (2.0-10.0); MONOCYTES % (AUTO) 19.5 % (0.0-11.0); NEUTROPHILS # (AUTO) 5.8 K/uL (1.8-8.9); NEUTROPHILS % (AUTO) 62.7 % (38.5-71.5); PLATELET COUNT (AUTO) 205 K/uL (179-408); RED BLOOD CELL COUNT(AUTO) 2.77 MIL/uL (3.63-4.92); WHITE BLOOD COUNT (AUTO) 9.2 K/uL (3.8-11.8)
[2020-09-10] MEDS: INSULIN REGULAR, HUMAN 300 UNIT/3 ML VIAL SQ PRN ×3 (07:55→17:01)
[2020-09-10] MEDS: METFORMIN HCL 500 MG TABLET PO SCH ×2 (07:55→17:22)
[2020-09-10] MEDS: PANTOPRAZOLE SODIUM 40 MG TABLET.DR PO SCH (08:57)
[2020-09-10] MEDS: GLUCERNA SHAKE VANILLA 237 ML CAN PO SCH ×3 (08:57→17:23)
[2020-09-10] MEDS: MULTIVITAMINS,THERAPEUTIC TABLET PO SCH (08:57)
[2020-09-10 11:05] VITALS: BP 103/70
[2020-09-10 12:00] VITALS: BP 107/78
[2020-09-10] MEDS: LORAZEPAM 1 MG TABLET PO PRN ×2 (15:31→20:23)
[2020-09-10 16:00] VITALS: BP_SYST 135; BP_SYST 94; BP_DIAS 65; BP_DIAS 74
[2020-09-10 18:07] LABS: BAND % (MANUAL) 1 % (0-10); EOSINOPHILS % (MANUAL) 1 % (0-8); LYMPHOCYTES % (MANUAL) 17 % (20-40); MONOCYTES % (MANUAL) 17 % (2-10); NEUTROPHILS % (MANUAL) 64 % (42-75)
[2020-09-10] MEDS: INSULIN REGULAR, HUMAN 300 UNITS/3 ML VIAL SQ PRN (20:23)
[2020-09-10 21:08] VITALS: BP 104/77
[2020-09-10] MEDS: CEFTRIAXONE 1 G in IV DEXTROSE 5% 50 ML IV SCH (22:20)
[2020-09-11] MEDS: POTASSIUM CHLORIDE 20 MEQ in IV NS 1000 ML 1,000 ML IV PRN ×2
[2020-09-11] MEDS: HYDROCODONE/APAP 5-325MG TABLET PO PRN ×2 (04:14→11:49)
[2020-09-11 05:50] VITALS: BP 99/68
[2020-09-11] MEDS: LORAZEPAM 1 MG TABLET PO PRN ×2 (06:07→10:35)
--- NOTE | 2020-09-11 06:54 | NUR ---
Pt slept well. NO s/s of acute distress noted. Pt denies SOB and CP. C/o feeling anxious, administered ativan per order. Pt stated "I am going home in the morning". Compliant with medications. Safety measures in place. Will endorse to oncoming staff.
[2020-09-11] MEDS: BLOOD SUGAR DIAGNOSTIC 1 EACH STRIP VI SCH ×2 (08:15→11:43)
[2020-09-11] MEDS: INSULIN REGULAR, HUMAN 300 UNIT/3 ML VIAL SQ PRN ×2 (08:16→11:49)
[2020-09-11] MEDS: METFORMIN HCL 500 MG TABLET PO SCH (08:17)
[2020-09-11] MEDS: MULTIVITAMINS,THERAPEUTIC TABLET PO SCH (08:17)
[2020-09-11] MEDS: PANTOPRAZOLE SODIUM 40 MG TABLET.DR PO SCH (08:17)
[2020-09-11] MEDS: GLUCERNA SHAKE VANILLA 237 ML CAN PO SCH ×2 (08:18→13:00)
[2020-09-11] MEDS ORDERED: PIPERACILLIN SODIUM/TAZOBACTAM 3.375 G in IV DEXTROSE 5% 50 ML IV SCH ×2 (08:30→10:00)
[2020-09-11 08:53] LABS: CARBON DIOXIDE 26 mmol/L (21-32); CHLORIDE 96 mmol/L (98-107); CREATININE 0.5 mg/dL (0.6-1.3); GLUCOSE 269 mg/dL (74-106); MAGNESIUM 1.3 mg/dL (1.8-2.4); PHOSPHOROUS 3.2 mg/dL (2.5-4.9); POTASSIUM 3.9 mmol/L (3.5-5.1); UREA NITROGEN, BLOOD 5 mg/dL (7-18); URIC ACID 0.8 mg/dL (2.6-6.0)
[2020-09-11 08:55] LABS: BASOPHILS % (AUTO) 0.3 % (0.0-2.0); EOSINOPHILS % (AUTO) 0.4 % (0.0-7.0); HEMATOCRIT 30.3 % (31.2-41.9); HEMOGLOBIN 10.2 g/dL (10.9-14.3); LYMPHOCYTES # (AUTO) 1.4 K/uL (20.0-40.0); LYMPHOCYTES % (AUTO) 12.9 % (20.5-51.5); MEAN CORPUSCULAR HEMOGLOBIN 34.6 uug (24.7-32.8); MEAN CORPUSCULAR HGB CONC 34 g/dL (32.3-35.6); MEAN CORPUSCULAR VOLUME 102.6 fL (75.5-95.3); MONOCYTES # (AUTO) 1.9 K/uL (2.0-10.0); MONOCYTES % (AUTO) 16.6 % (0.0-11.0); NEUTROPHILS # (AUTO) 7.8 K/uL (1.8-8.9); NEUTROPHILS % (AUTO) 69.8 % (38.5-71.5); PLATELET COUNT (AUTO) 311 K/uL (179-408); RED BLOOD CELL COUNT(AUTO) 2.96 MIL/uL (3.63-4.92); WHITE BLOOD COUNT (AUTO) 11.2 K/uL (3.8-11.8)
[2020-09-11] MEDS ORDERED: MIDODRINE HCL 5 MG TABLET PO SCH (09:00)
[2020-09-11] MEDS ORDERED: HYDR-4384 PO (11:21)
[2020-09-11] MEDS ORDERED: POTA-10 PO (11:21)
[2020-09-11] MEDS ORDERED: MIDO5TAB5 PO (11:21)
[2020-09-11] MEDS ORDERED: LEVO500T90 PO (11:21)
[2020-09-11 11:47] LABS: IRON, SERUM 15 ug/dL (50-175)
[2020-09-11 11:55] LABS: NEUTROPHILS % (MANUAL) 0 % (42-75)
[2020-09-11 11:57] VITALS: BP 100/66
[2020-09-11] MEDS ORDERED: MAGNESIUM OXIDE 400 MG TABLET PO ONE (12:00)
[2020-09-11 12:13] LABS: FERRITIN 153 ng/mL (8-252)
--- NOTE | 2020-09-11 12:23 | NUR ---
MAGNESSIUM LEVEL IS 1.3 SADIE POSADAS AWARE WITH NEW ORDERS AND NOTED PATIENT IS FOR DISCHARGE TODAY AND SHE STATED THAT HE EX BOY FRIEND WILL BE ABLE TO PICK HER UP THIS AFTERNOON
--- NOTE | 2020-09-11 14:00 | NUR ---
PATIENT DISCHARGED PICKED UP BY HER EX BOY FRIEND IN SATISFACTORY CONDITION WITH ALL OF HER DISCHARGE INSTRUCTIONS PRESCRIPTIONS AND ALL HER PERSONAL BELONGINGS INSTRUCTED ON TAKING MIDORINE,LEVAQUINE AND BLOOD SUGAR MEDS AND SHE EXPRESSED UNDERSTANDING.
== END 2020-09-11 14:00 | disposition home or self-care (01) | DRG 720 ==
LOC: ER 15:54 → CCU 19:29 → TELE-TD3 09-07 18:09 → TELE3 09-08 18:50 → MEDSURG3 09-10 12:50
PROVIDERS: ADMIT Nurse Practitioner Acute Care; ATTEND Nurse Practitioner Acute Care
PROC: B546ZZA Ultrasonography of Right Subclavian Vein, Guidance (ICD-10-PCS; principal; 2020-09-08)
PROC: 05H533Z Insertion of Infusion Device into Right Subclavian Vein, Percutaneous Approach (ICD-10-PCS; principal; 2020-09-08)
DX: A41.9 Sepsis, unspecified organism (principal); E11.10 Type 2 diabetes mellitus with ketoacidosis without coma; N12 Tubulo-interstitial nephritis, not specified as acute or chronic; Z79.4 Long term (current) use of insulin; E87.6 Hypokalemia; E87.1 Hypo-osmolality and hyponatremia; G93.41 Metabolic encephalopathy; Z59.0 Homelessness; E43 Unspecified severe protein-calorie malnutrition; Z68.1 Body mass index [BMI] 19.9 or less, adult; E83.39 Other disorders of phosphorus metabolism; F17.210 Nicotine dependence, cigarettes, uncomplicated; E83.42 Hypomagnesemia; Z91.19 Patient's noncompliance with other medical treatment and regimen; D72.829 Elevated white blood cell count, unspecified; R03.1 Nonspecific low blood-pressure reading; Y90.0 Blood alcohol level of less than 20 mg/100 ml; D53.9 Nutritional anemia, unspecified; F10.139 Alcohol abuse with withdrawal, unspecified; Z79.84 Long term (current) use of oral hypoglycemic drugs
CPT/HCPCS: 36415; 36600; 70030-TC; 71045; 83550; 83690; 83735; 84100; 84132; 84133; 84300; 84443; 84550; 84703; 85025; 87040; 93005; A4663; G0378; G0480; J0696; J1815; J1885; J2270; J2405; J2543; J3475; J3480; J3490; J7030; J7040; J7050; J7060; Q9967

== ENCOUNTER 2020-11-09 09:57 | Inpatient (IN) | payer OTHER ==
[~2020-11-09] VITALS: Ht 160 cm; Wt 44.9 kg
[~2020-11-09 09:57] MED LIST changes: -CALC-11 PO; +HYDR-4384 PO; +LEVO500T90 PO; +MIDO5TAB5 PO; +POTA-10 PO; +POTA20TA29 PO
--- NOTE | 2020-11-09 10:10 | NUR ---
Dr Ordoñez at the bedside for MSE.
[2020-11-09] MEDS ORDERED: CHLORDIAZEPOXIDE HCL 25 MG CAPSULE PO ONE (10:15)
[2020-11-09] MEDS ORDERED: ONDANSETRON 4 MG/2 ML VIAL IV ONE (10:15)
[2020-11-09] MEDS ORDERED: IV NORMAL SALINE 1000 ML BAG IV ONE ×2 (10:15→11:15)
[2020-11-09] MEDS ORDERED: ONDANSETRON 4 MG/2 ML VIAL ONE (10:23)
[2020-11-09] MEDS ORDERED: CHLORDIAZEPOXIDE HCL 25 MG CAPSULE ONE (10:23)
[2020-11-09 10:25] LABS: BASOPHILS % (AUTO) 0.3 % (0.0-2.0); EOSINOPHILS % (AUTO) 0.1 % (0.0-7.0); HEMATOCRIT 37.2 % (31.2-41.9); HEMOGLOBIN 12.6 g/dL (10.9-14.3); LYMPHOCYTES # (AUTO) 0.7 K/uL (20.0-40.0); LYMPHOCYTES % (AUTO) 13.9 % (20.5-51.5); MEAN CORPUSCULAR HGB CONC 34 g/dL (32.3-35.6); MEAN CORPUSCULAR VOLUME 100.8 fL (75.5-95.3); MONOCYTES # (AUTO) 0.3 K/uL (2.0-10.0); NEUTROPHILS # (AUTO) 4.1 K/uL (1.8-8.9); NEUTROPHILS % (AUTO) 80.7 % (38.5-71.5); PLATELET COUNT (AUTO) 208 K/uL (179-408); RED BLOOD CELL COUNT(AUTO) 3.69 MIL/uL (3.63-4.92); WHITE BLOOD COUNT (AUTO) 5.1 K/uL (3.8-11.8)
--- NOTE | 2020-11-09 10:34 | NUR ---
Pt denies nausea at this time, able to take PO med and fluid.
[2020-11-09 10:36] LABS: CARBON DIOXIDE 21 mmol/L (21-32); CHLORIDE 93 mmol/L (98-107); CREATININE 0.5 mg/dL (0.6-1.3); GLUCOSE 284 mg/dL (74-106); POTASSIUM 3.9 mmol/L (3.5-5.1); UREA NITROGEN, BLOOD 15 mg/dL (7-18)
--- NOTE | 2020-11-09 10:50 | NUR ---
Ptc/o acid reflex, notified and med given per order.
[2020-11-09 10:51] LABS: ALANINE AMINOTRANSFERASE 163 U/L (14-59); ALKALINE PHOSPHATASE 142 U/L (50-136); ASPARTATE AMINOTRANSFERASE 232 U/L (15-37); BILIRUBIN,DIRECT 0.3 mg/dL (0.0-0.2); BILIRUBIN,TOTAL 0.7 mg/dL (0.2-1.0); LIPASE 174 U/L (73-393); TOTAL PROTEIN, SERUM 7.8 g/dL (6.4-8.2)
[2020-11-09] MEDS ORDERED: FAMOTIDINE 20 MG TABLET ONE (10:56)
[2020-11-09] MEDS ORDERED: FAMOTIDINE 20 MG TABLET PO ONE (11:00)
--- NOTE | 2020-11-09 11:10 | NUR ---
Pt c/o back pain 12/06, made aware and medicated per order.
[2020-11-09] MEDS ORDERED: KETOROLAC TROMETHAMINE 15 MG INJ ONE (11:13)
[2020-11-09] MEDS ORDERED: KETOROLAC TROMETHAMINE 15 MG INJ IVP ONE (11:15)
--- NOTE | 2020-11-09 11:34 | NUR ---
Pt states her heart burn is better. No c/o nausea.
[2020-11-09 11:45] LABS: *BILIRUBIN,URIN NEGATIVE (NEGATIVE); *BLOOD, URINE NEGATIVE (NEGATIVE); *CLARITY,URINE CLEAR (CLEAR); *COLOR,URINE YELLOW (YELLOW); *KETONES,URINE 3+ (NEGATIVE); *UROBILINOGEN,URINE 0.2 E.U./dl (NORMAL); LEUKOCYTE ESTERASE ,URINE NEGATIVE (NEGATIVE); NITRITE, URINE NEGATIVE (NEGATIVE); UGLUCOSE 2+ (NEGATIVE)
--- NOTE | 2020-11-09 12:23 | NUR ---
DR Ordoñez spoke to admitting MD(Yasmin), for pt to be admitted to Tele.
--- NOTE | 2020-11-09 12:40 | NUR ---
Patient is resting comfortably in bed with eyes closed, NAD noted.
--- NOTE | 2020-11-09 13:25 | NUR ---
Received this admission from ER per mariah, 40 yo female with the diagnosis of alcohol withdrawal, pancreatitis, hyperglycemia. Transferred to bed comfortably. Routine admission care rendered. Placed on tele SR. Awake, alert, oriented x 4, generalized weakness. Saline lock LFA
--- NOTE | 2020-11-09 13:30 | NUR ---
Pt trans to room 302, NAD noted.
[2020-11-09 14:06] VITALS: BP 139/81
[2020-11-09] MEDS ORDERED: ACETAMINOPHEN 325 MG TABLET PO PRN (15:30)
[2020-11-09] MEDS ORDERED: ONDANSETRON 4 MG/2 ML VIAL IV PRN (15:30)
[2020-11-09] MEDS ORDERED: DEXTROSE 50% 50 ML DISP.SYRIN IV PRN (15:30)
[2020-11-09 15:41] LABS: BACTERIA,URINE MODERATE /HPF (NONE SEEN); RBC,URINE 0-3 /HPF (0-3); SQUAMOUS EPITHELIAL CELL,UR FEW /HPF (NONE SEEN); WBC,URINE 0-3 /HPF (0-3)
[2020-11-09 16:00] VITALS: BP 123/77
[2020-11-09] MEDS: IV 1/2NS 1000 ML 1,000 ML IV PRN (16:51)
[2020-11-09] MEDS: MORPHINE SULFATE 2 MG/1 ML DISP.SYRIN IV PRN ×2 (16:52→21:16)
[2020-11-09] MEDS: BLOOD SUGAR DIAGNOSTIC 1 EACH STRIP VI SCH ×2 (17:00→21:12)
--- NOTE | 2020-11-09 17:00 | NUR ---
IVF started. Complained of generalized pain, relieved with Morphine
[2020-11-09] MEDS: glipiZIDE 5 MG TABLET PO SCH (17:36)
[2020-11-09] MEDS: INSULIN REGULAR, HUMAN 300 UNIT/3 ML VIAL SQ PRN ×2 (17:37→21:14)
--- NOTE | 2020-11-09 18:00 | NUR ---
On clear liquid diet, tolerated. IVF infusing. Resting comfortably
[2020-11-09 20:00] VITALS: BP 132/94
[2020-11-10] VITALS: BP_SYST 124; BP_SYST 126; BP_DIAS 64; BP_DIAS 84
[2020-11-10] MEDS: LORAZEPAM 2 MG/1 ML VIAL IV PRN ×2 (00:53→22:12)
--- NOTE | 2020-11-10 02:00 | NUR ---
Received pt resting comfortably in bed. C/o 8/10 pain in lower extremities, administered morphine, effective. Sinus rhythm on the monitor. Pt on clear liquid. VVS. Heplock 20G right forearm intact and patent running 1/2 NS @80ml/hr. Administered Ativan PRN. Pt slept well throughout the night. No acute distress noted. Will continue to monitor.
[2020-11-10 04:00] VITALS: BP 109/67
[2020-11-10] MEDS: IV 1/2NS 1000 ML 1,000 ML IV PRN ×2 (05:33→22:08)
[2020-11-10] MEDS: PANTOPRAZOLE SODIUM 40 MG TABLET.DR PO SCH (06:30)
[2020-11-10] MEDS: BLOOD SUGAR DIAGNOSTIC 1 EACH STRIP VI SCH ×4 (06:42→20:33)
[2020-11-10] MEDS: INSULIN REGULAR, HUMAN 300 UNIT/3 ML VIAL SQ PRN ×4 (07:34→20:34)
[2020-11-10 07:36] LABS: ALANINE AMINOTRANSFERASE 101 U/L (14-59); ALKALINE PHOSPHATASE 120 U/L (50-136); ASPARTATE AMINOTRANSFERASE 116 U/L (15-37); BILIRUBIN,TOTAL 0.6 mg/dL (0.2-1.0); CARBON DIOXIDE 20 mmol/L (21-32); CHLORIDE 96 mmol/L (98-107); CREATININE 0.4 mg/dL (0.6-1.3); GLUCOSE 189 mg/dL (74-106); MAGNESIUM 1.3 mg/dL (1.8-2.4); PHOSPHOROUS 2.1 mg/dL (2.5-4.9); POTASSIUM 3.6 mmol/L (3.5-5.1); TOTAL PROTEIN, SERUM 6.6 g/dL (6.4-8.2); UREA NITROGEN, BLOOD 9 mg/dL (7-18)
[2020-11-10 07:45] LABS: BASOPHILS % (AUTO) 0.8 % (0.0-2.0); EOSINOPHILS # (AUTO) 0.2 K/uL (0.0-0.7); EOSINOPHILS % (AUTO) 4.2 % (0.0-7.0); HEMATOCRIT 38.6 % (31.2-41.9); HEMOGLOBIN 12.8 g/dL (10.9-14.3); LYMPHOCYTES # (AUTO) 1.6 K/uL (20.0-40.0); LYMPHOCYTES % (AUTO) 36.5 % (20.5-51.5); MEAN CORPUSCULAR HGB CONC 33 g/dL (32.3-35.6); MEAN CORPUSCULAR VOLUME 102.2 fL (75.5-95.3); MONOCYTES # (AUTO) 0.6 K/uL (2.0-10.0); MONOCYTES % (AUTO) 12.7 % (0.0-11.0); NEUTROPHILS % (AUTO) 45.8 % (38.5-71.5); PLATELET COUNT (AUTO) 166 K/uL (179-408); RED BLOOD CELL COUNT(AUTO) 3.78 MIL/uL (3.63-4.92); WHITE BLOOD COUNT (AUTO) 4.3 K/uL (3.8-11.8)
[2020-11-10] MEDS: glipiZIDE 5 MG TABLET PO SCH ×2 (08:12→16:01)
[2020-11-10] MEDS: MULTIVITAMINS,THERAPEUTIC TABLET PO SCH (08:12)
[2020-11-10] MEDS: FOLIC ACID 1 MG TABLET PO SCH (08:12)
[2020-11-10] MEDS: THIAMINE HCL 100 MG TABLET PO SCH (08:12)
[2020-11-10] MEDS: MAGNESIUM SULFATE/D5W 100 ML IV SCH ×4 (09:49→13:25)
--- NOTE | 2020-11-10 10:42 | NUR ---
Consulting Practice Manager Note: This SW met with the patient this morning. Patient was in her assigned hospital bed, with her eyes closed. Patient awakened when SW called her name, however patient quickly closed her eyes again. SW attempted to complete assessment, but patient did not engaged. SW attempted to engaged patient in dialogue, but patient asked SW if SW can come back later because patient was feeling groggy. SW to follow-up with patient at a later time.
[2020-11-10 12:00] VITALS: BP 106/70
[2020-11-10] MEDS: MORPHINE SULFATE 2 MG/1 ML DISP.SYRIN IV PRN ×2 (14:48→20:04)
[2020-11-10] MEDS ORDERED: NEUTRA PHOS PACKET PO ONE (15:15)
--- NOTE | 2020-11-10 15:24 | NUR ---
2:00pm: This neonatal social worker followed up with the patient to complete a socially responsible investment adviser consultation. Reason for consultation is alcohol abuse. This patient is known to this neonatal social worker from previous admissions. Patient is a 40 year old female, alert, oriented x 4. Patient was lying down in bed when SW entered the patient's room. Patient was awake and receptive to meeting with this SW. Patient reports that she came to the hospital yesterday after having severe alcohol withdrawal symptoms, including shakes, nausea, and vomiting. Patient has a long standing history of alcohol abuse, drinking to 1 bottle a day. Patient reports that she drank liter of Valentin Obrien about 2 days prior to current hospitalization. Patient denies use of any other drugs. Patient denies use of cigarettes. Patient reports not receiving any substance abuse treatment in the past, and this SW generated a discussion to explore patients thoughts about treatment at this time. Patient stated that she was not sure yet if she wanted to go to a substance abuse treatment program. SW offered resources for substance abuse treatment programs, and patient was receptive to receiving resources. Patient is current living with roommates at [address] [place] [address]. During previous admissions, patients contact center professional was her boyfriend Vin Andino, but patient stated that she is no longer in a relationship with him and therefore he is not her contact center professional any longer. Patient stated that her contact center professional is Romeo Wilburn, , who is listed on patients facesheet. SW explored patients needs for any other supportive services, and patient expressed not needing any other resources at this time. Discharge plans were discussed, and patient stated that she would be returning home after this hospitalization. Patient was cooperative with this SW, responded appropriately to all questions. Patient's affect was flat; behavior was WNL. Patient's appearance and hygiene were fair. Patient's speech was clear, thought process and thought content were appropriate. No SI or HI. No hallucinations or delusions. SW provided the following substance abuse treatment program resources to the patient, and filed a copy of the resources in patients chart: [facility] [address] [facility] [place] [address] [facility] [address] [place] [address] [place] [address] [place], [place] [phone] [facility] [address] [place] [address] Alcoholics Anonymous -[facility] information and meeting and schedules [email or web address]-intergroup.org [facility])-[facility] : Outpatient treatment, residential treatment, recovery support for youth and adults Principal Law Clerk will continue to remain available to the patient, as needed.
[2020-11-10 16:00] VITALS: BP 107/76
[2020-11-10 20:17] VITALS: BP 120/87
--- NOTE | 2020-11-10 20:44 | NUR ---
pt blood sugar is 409 made aware new orders received extra 10 unit Humulin R given per md orders
[2020-11-11 00:56] VITALS: BP 105/75
[2020-11-11 05:33] VITALS: BP 96/69
[2020-11-11] MEDS: PANTOPRAZOLE SODIUM 40 MG TABLET.DR PO SCH (06:01)
[2020-11-11] MEDS: BLOOD SUGAR DIAGNOSTIC 1 EACH STRIP VI SCH ×4 (06:02→20:32)
[2020-11-11 07:16] LABS: BASOPHILS % (AUTO) 0.2 % (0.0-2.0); EOSINOPHILS # (AUTO) 0.1 K/uL (0.0-0.7); EOSINOPHILS % (AUTO) 2.5 % (0.0-7.0); HEMATOCRIT 37.2 % (31.2-41.9); HEMOGLOBIN 12.4 g/dL (10.9-14.3); LYMPHOCYTES # (AUTO) 1.2 K/uL (20.0-40.0); LYMPHOCYTES % (AUTO) 28.7 % (20.5-51.5); MEAN CORPUSCULAR HEMOGLOBIN 34.2 uug (24.7-32.8); MEAN CORPUSCULAR HGB CONC 33 g/dL (32.3-35.6); MEAN CORPUSCULAR VOLUME 102.6 fL (75.5-95.3); MONOCYTES # (AUTO) 0.3 K/uL (2.0-10.0); NEUTROPHILS # (AUTO) 2.5 K/uL (1.8-8.9); NEUTROPHILS % (AUTO) 61.6 % (38.5-71.5); PLATELET COUNT (AUTO) 154 K/uL (179-408); RED BLOOD CELL COUNT(AUTO) 3.63 MIL/uL (3.63-4.92); WHITE BLOOD COUNT (AUTO) 4.1 K/uL (3.8-11.8)
[2020-11-11 07:29] LABS: ALANINE AMINOTRANSFERASE 103 U/L (14-59); ALKALINE PHOSPHATASE 111 U/L (50-136); ASPARTATE AMINOTRANSFERASE 226 U/L (15-37); BILIRUBIN,TOTAL 0.4 mg/dL (0.2-1.0); CARBON DIOXIDE 26 mmol/L (21-32); CHLORIDE 101 mmol/L (98-107); CREATININE 0.5 mg/dL (0.6-1.3); GLUCOSE 219 mg/dL (74-106); MAGNESIUM 1.8 mg/dL (1.8-2.4); POTASSIUM 3.3 mmol/L (3.5-5.1); TOTAL PROTEIN, SERUM 6.2 g/dL (6.4-8.2); URIC ACID 1.2 mg/dL (2.6-6.0)
[2020-11-11 07:40] LABS: THYROID STIMULATING HORMONE 2.051 mIU/mL (0.358-3.740)
[2020-11-11 07:52] LABS: UREA NITROGEN, BLOOD 7 mg/dL (7-18)
[2020-11-11] MEDS: INSULIN REGULAR, HUMAN 300 UNIT/3 ML VIAL SQ PRN ×4 (08:18→20:34)
--- NOTE | 2020-11-11 09:00 | NUR ---
PATIENT AI AWAKE ALERT AND ORIENTED REMAIN ON IVF OF 1/2 NS AT 80 ML/HR WITH NO S/S OF INFILTERATION ON SITE NO S/S OF HYPO/HYPERGLYCEMIC REACTIONS AT THIS TIME TELE IS SR-ST MADE COMFORTABLE.CALL LIGHTS AND PERSONAL BELONGINGS ARE WITHIN EASY REACH WILL CONTINUE TO OBSERVE
[2020-11-11] MEDS: FOLIC ACID 1 MG TABLET PO SCH (09:07)
[2020-11-11] MEDS: glipiZIDE 5 MG TABLET PO SCH ×2 (09:07→16:55)
[2020-11-11] MEDS: THIAMINE HCL 100 MG TABLET PO SCH (09:08)
[2020-11-11] MEDS: MULTIVITAMINS,THERAPEUTIC TABLET PO SCH (09:08)
[2020-11-11] MEDS ORDERED: POTASSIUM CHLORIDE 20 MEQ TAB.PRT.SR PO SCH (10:15)
[2020-11-11] MEDS: IV 1/2NS 1000 ML 1,000 ML IV PRN (11:30)
[2020-11-11 11:37] VITALS: BP 114/80
[2020-11-11] MEDS: MORPHINE SULFATE 2 MG/1 ML DISP.SYRIN IV PRN ×2 (11:38→20:32)
[2020-11-11] MEDS: METFORMIN HCL 500 MG TABLET PO SCH ×2 (12:38→17:05)
--- NOTE | 2020-11-11 15:15 | NUR ---
DR HANDLEY HERE TO SEE PATIENT STATED TO START HER ON CCHO DIET AND NOTED.
--- NOTE | 2020-11-11 15:30 | NUR ---
TOLERATED HER CCHO DIET ORDERED WITH NO ABDOMINAL PAIN NAUSEA OR VOMITING NOT IN DISTRESS AT THIS TIME.
[2020-11-11] MEDS: LORAZEPAM 2 MG/1 ML VIAL IV PRN ×2 (15:49→21:56)
[2020-11-11 16:00] VITALS: BP 121/82
[2020-11-11] MEDS: IV NS 1000 ML 1,000 ML IV PRN (19:05)
[2020-11-11 20:46] VITALS: BP 108/80
[2020-11-12 00:20] VITALS: BP 110/71
[2020-11-12] MEDS: MORPHINE SULFATE 2 MG/1 ML DISP.SYRIN IV PRN ×2 (00:39→04:16)
[2020-11-12] MEDS: IV NS 1000 ML 1,000 ML IV PRN (04:16)
[2020-11-12 04:20] VITALS: BP 123/89
[2020-11-12] MEDS: PANTOPRAZOLE SODIUM 40 MG TABLET.DR PO SCH (06:11)
[2020-11-12] MEDS: BLOOD SUGAR DIAGNOSTIC 1 EACH STRIP VI SCH (06:24)
--- NOTE | 2020-11-12 06:26 | NUR ---
Patient rested well in between care; c/o pain and medicated with Morphine; pt requested for Ativan for sleep; needs attended; accucheck as charted and covered last night; safety maintained; continue to monitor; continue plan of care.
[2020-11-12 07:05] LABS: CARBON DIOXIDE 24 mmol/L (21-32); CHLORIDE 100 mmol/L (98-107); CREATININE 0.4 mg/dL (0.6-1.3); POTASSIUM 3.3 mmol/L (3.5-5.1); UREA NITROGEN, BLOOD 7 mg/dL (7-18)
[2020-11-12 07:37] LABS: GLUCOSE 339 mg/dL (74-106)
[2020-11-12] MEDS: INSULIN REGULAR, HUMAN 300 UNIT/3 ML VIAL SQ PRN (07:48)
[2020-11-12] MEDS: METFORMIN HCL 500 MG TABLET PO SCH (08:12)
[2020-11-12] MEDS: THIAMINE HCL 100 MG TABLET PO SCH (08:12)
[2020-11-12] MEDS: glipiZIDE 5 MG TABLET PO SCH (08:12)
[2020-11-12] MEDS: MULTIVITAMINS,THERAPEUTIC TABLET PO SCH (08:12)
[2020-11-12] MEDS: FOLIC ACID 1 MG TABLET PO SCH (08:12)
[2020-11-12] MEDS ORDERED: POTASSIUM CHLORIDE 20 MEQ TAB.PRT.SR PO ONE (08:30)
[2020-11-12] MEDS: LORAZEPAM 2 MG/1 ML VIAL IV PRN (09:00)
--- NOTE | 2020-11-12 10:55 | NUR ---
PATIENT CALLED MY ATTENTION AND STATED THAT SHE WANTS TO GO HOME BECAUSE SHE WANTS TO GO AND WASH HER BLANKETS AND BEDSHEETS ENCOURAGED HER TO WAIT FOR DR HANDLEY TO MAKE ROUNDS AND MOST LIKELY WILL DISCHARGE HER BUT SHE STATED UNABLE TO WAIT TILL HE GETS HERE WANTS TO LEAVE NOW.CALLED DR HANDLEY AND LEFT HIM A MESSAGE.
[2020-11-12 11:00] VITALS: BP 115/77
--- NOTE | 2020-11-12 11:10 | NUR ---
DR HANDLEY RETURNED CALL AND STATED THAT IF THE PATIENT WAS NOT WILLING TO WAIT FOR HIM THEN SHE CAN GO AMA PATIENT NOTIFIED AND SHE STATED WANTS TO LEAVE AMA.
--- NOTE | 2020-11-12 11:15 | NUR ---
PATIENT SIGNED THE AMA FORM AND HER HEP LOCK TELEMETRY AND WRIST BAND REMOVED AT THIS TIME
--- NOTE | 2020-11-12 11:20 | NUR ---
PATIENT STATED READY TO LEAVE AT THIS TIME SO I ESCORTED HER TO THE FRONT OF THE HOSPITAL SO SHE WENT EAST BOUND STATED THAT HER BOY FRIEND WILL PICK HER UP.
== END 2020-11-12 11:20 | disposition left against medical advice (07) | DRG 770 ==
LOC: ER 09:59 → TELE3 13:11
PROVIDERS: ADMIT Internal Medicine; ATTEND Internal Medicine
DX: F10.239 Alcohol dependence with withdrawal, unspecified (principal); E11.10 Type 2 diabetes mellitus with ketoacidosis without coma; E11.65 Type 2 diabetes mellitus with hyperglycemia; E87.2 Acidosis; E86.1 Hypovolemia; E87.1 Hypo-osmolality and hyponatremia; F17.210 Nicotine dependence, cigarettes, uncomplicated; E87.6 Hypokalemia; I51.9 Heart disease, unspecified; K76.0 Fatty (change of) liver, not elsewhere classified; K86.1 Other chronic pancreatitis; R62.7 Adult failure to thrive; Z87.442 Personal history of urinary calculi; Z79.84 Long term (current) use of oral hypoglycemic drugs; D18.03 Hemangioma of intra-abdominal structures; D75.89 Other specified diseases of blood and blood-forming organs; Z68.1 Body mass index [BMI] 19.9 or less, adult; Y90.9 Presence of alcohol in blood, level not specified; Z20.822 Contact with and (suspected) exposure to COVID-19; E44.1 Mild protein-calorie malnutrition
CPT/HCPCS: 36415; 70030-TC; 76700; 83605; 83690; 83735; 84100; 84300; 84443; 84550; 85025; 85730; 87086; 93005; A4663; G0378; J1815; J1885; J2060; J2270; J2405; J3475; J3490; J7030

== ENCOUNTER 2021-01-02 07:43 | Emergency (ER) | payer OTHER ==
[~2021-01-02] VITALS: Ht 160 cm; Wt 58.1 kg
[~2021-01-02 07:43] MED LIST changes: -LEVO500T90 PO; -POTA-10 PO
--- NOTE | 2021-01-02 08:01 | NUR ---
bs= md Benito notified.
--- NOTE | 2021-01-02 08:39 | NUR ---
gagandeep lawrence provided for pt.
--- NOTE | 2021-01-02 08:50 | NUR ---
Patient discharged to home in stable condition. Written and verbal after care instructions given. Patient verbalizes understanding of instructions. Stressed follow up or return to ER for worsening s/s.pt walks in steady gait. pt is calling boy friend to come and pick pt.
[2021-01-02 09:10] VITALS: BP 141/88
== END 2021-01-02 09:10 | disposition home or self-care (01) ==
LOC: ER 07:44
DX: F10.188 Alcohol abuse with other alcohol-induced disorder (principal); G62.1 Alcoholic polyneuropathy; F10.129 Alcohol abuse with intoxication, unspecified; E11.42 Type 2 diabetes mellitus with diabetic polyneuropathy; E11.65 Type 2 diabetes mellitus with hyperglycemia; Z79.4 Long term (current) use of insulin; Z87.19 Personal history of other diseases of the digestive system; Z87.09 Personal history of other diseases of the respiratory system
CPT/HCPCS: A4663

== ENCOUNTER 2021-01-10 17:32 | Emergency (ER) | payer OTHER ==
[~2021-01-10] VITALS: Ht 160 cm; Wt 49.9 kg
[2021-01-10] MEDS ORDERED: CHLORDIAZEPOXIDE HCL 25 MG CAPSULE PO ONE (17:45)
[2021-01-10] MEDS ORDERED: FOLIC ACID 5 MG/ML VIAL IV ONE ×2 (17:45→17:52)
[2021-01-10] MEDS ORDERED: THIAMINE HCL 100 MG TABLET PO ONE (17:45)
[2021-01-10] MEDS ORDERED: IV NORMAL SALINE 1000 ML BAG IV ONE (17:45)
[2021-01-10] MEDS ORDERED: CHLORDIAZEPOXIDE HCL 25 MG CAPSULE ONE (17:51)
[2021-01-10] MEDS ORDERED: THIAMINE HCL 100 MG TABLET ONE (17:51)
[2021-01-10 18:24] LABS: BASOPHILS % (AUTO) 0.6 % (0.0-2.0); EOSINOPHILS % (AUTO) 0.4 % (0.0-7.0); HEMOGLOBIN 10.8 g/dL (10.9-14.3); LYMPHOCYTES # (AUTO) 1.8 K/uL (20.0-40.0); LYMPHOCYTES % (AUTO) 44.1 % (20.5-51.5); MEAN CORPUSCULAR HEMOGLOBIN 32.7 uug (24.7-32.8); MEAN CORPUSCULAR HGB CONC 34 g/dL (32.3-35.6); MONOCYTES # (AUTO) 0.1 K/uL (2.0-10.0); MONOCYTES % (AUTO) 3.2 % (0.0-11.0); NEUTROPHILS # (AUTO) 2.1 K/uL (1.8-8.9); NEUTROPHILS % (AUTO) 51.7 % (38.5-71.5); PLATELET COUNT (AUTO) 382 K/uL (179-408); WHITE BLOOD COUNT (AUTO) 4.1 K/uL (3.8-11.8)
[2021-01-10 18:26] LABS: CARBON DIOXIDE 18 mmol/L (21-32); CHLORIDE 97 mmol/L (98-107); CREATININE 0.6 mg/dL (0.6-1.3); GLUCOSE 286 mg/dL (74-106); POTASSIUM 3.2 mmol/L (3.5-5.1); UREA NITROGEN, BLOOD 13 mg/dL (7-18)
[2021-01-10 18:32] LABS: ALANINE AMINOTRANSFERASE 27 U/L (14-59); ALKALINE PHOSPHATASE 92 U/L (50-136); ASPARTATE AMINOTRANSFERASE 20 U/L (15-37); BILIRUBIN,DIRECT 0.2 mg/dL (0.0-0.2); BILIRUBIN,TOTAL 0.4 mg/dL (0.2-1.0); LIPASE 48 U/L (73-393); TOTAL PROTEIN, SERUM 6.9 g/dL (6.4-8.2)
[2021-01-10 18:39] LABS: ETHANOL 285 MG/DL (0-0)
[2021-01-10] MEDS ORDERED: IV 0.9% SODIUM CHLORID+ 20 KCL 1,000 ML IV ONE (18:45)
[2021-01-10] MEDS ORDERED: POTASSIUM CHLORIDE 20 MEQ TAB.PRT.SR PO ONE (18:45)
[2021-01-10 18:47] LABS: MAGNESIUM 1.4 mg/dL (1.8-2.4); PHOSPHOROUS 3.4 mg/dL (2.5-4.9)
[2021-01-10] MEDS ORDERED: POTASSIUM CHLORIDE 20 MEQ TAB.PRT.SR ONE (18:51)
[2021-01-10] MEDS ORDERED: MAGNESIUM SULFATE/D5W 100 ML ONE (18:52)
[2021-01-10] MEDS: MAGNESIUM SULFATE/D5W 100 ML IV SCH ×2 (18:55→20:05)
[2021-01-10] MEDS ORDERED: LORAZEPAM 2 MG/1 ML VIAL IV ONE ×2 (19:00→20:00)
[2021-01-10] MEDS ORDERED: LORAZEPAM 2 MG/1 ML VIAL ONE ×2 (19:16→20:10)
--- NOTE | 2021-01-10 19:47 | NUR ---
Called CHRISTY spoke with Rupert harris 75-90min.
--- NOTE | 2021-01-10 20:24 | NUR ---
Called ND shai, spoke with Wan nursing shelving supervisor for report.
--- NOTE | 2021-01-10 20:55 | NUR ---
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
== END 2021-01-10 21:04 | disposition short-term general hospital (02) ==
LOC: ER 17:32
DX: E11.10 Type 2 diabetes mellitus with ketoacidosis without coma (principal); Z79.4 Long term (current) use of insulin; F10.239 Alcohol dependence with withdrawal, unspecified; F10.229 Alcohol dependence with intoxication, unspecified; Y90.7 Blood alcohol level of 200-239 mg/100 ml; E11.40 Type 2 diabetes mellitus with diabetic neuropathy, unspecified; Z87.09 Personal history of other diseases of the respiratory system; F17.210 Nicotine dependence, cigarettes, uncomplicated; E87.6 Hypokalemia; E83.42 Hypomagnesemia; F41.9 Anxiety disorder, unspecified; Z87.19 Personal history of other diseases of the digestive system; Z79.899 Other long term (current) drug therapy; Z91.14 Patient's other noncompliance with medication regimen; Z20.822 Contact with and (suspected) exposure to COVID-19
CPT/HCPCS: 36415; 83690; 83735; 84100; 85025; A4663; G0480; J2060; J3475; J3490

== ENCOUNTER 2021-02-03 08:31 | Inpatient (IN) | payer OTHER ==
[~2021-02-03] VITALS: Ht 160 cm; Wt 40.8 kg
[2021-02-03] MEDS ORDERED: IV NORMAL SALINE 1000 ML BAG IV ONE (08:45)
[2021-02-03] MEDS ORDERED: ONDANSETRON 4 MG/2 ML VIAL IV ONE (08:45)
--- NOTE | 2021-02-03 09:06 | NUR ---
Patient wants something for her "heartburn" and to help her sleep, MD notified, pending orders@this time.
[2021-02-03 09:08] LABS: CREATININE 0.7 mg/dL (0.6-1.3); POTASSIUM 3.2 mmol/L (3.5-5.1)
[2021-02-03 09:11] LABS: BASOPHILS % (AUTO) 0.3 % (0.0-2.0); EOSINOPHILS % (AUTO) 0.1 % (0.0-7.0); HEMATOCRIT 40.3 % (31.2-41.9); HEMOGLOBIN 13.2 g/dL (10.9-14.3); LYMPHOCYTES # (AUTO) 1.3 K/uL (20.0-40.0); LYMPHOCYTES % (AUTO) 18.1 % (20.5-51.5); MEAN CORPUSCULAR HEMOGLOBIN 32.1 uug (24.7-32.8); MEAN CORPUSCULAR HGB CONC 33 g/dL (32.3-35.6); MEAN CORPUSCULAR VOLUME 97.8 fL (75.5-95.3); MONOCYTES # (AUTO) 0.3 K/uL (2.0-10.0); MONOCYTES % (AUTO) 3.7 % (0.0-11.0); NEUTROPHILS # (AUTO) 5.8 K/uL (1.8-8.9); NEUTROPHILS % (AUTO) 77.8 % (38.5-71.5); PLATELET COUNT (AUTO) 219 K/uL (179-408); RED BLOOD CELL COUNT(AUTO) 4.13 MIL/uL (3.63-4.92); WHITE BLOOD COUNT (AUTO) 7.4 K/uL (3.8-11.8)
[2021-02-03 09:15] LABS: BILIRUBIN,DIRECT 0.4 mg/dL (0.0-0.2); BILIRUBIN,TOTAL 0.6 mg/dL (0.2-1.0)
[2021-02-03] MEDS ORDERED: FAMOTIDINE. 20 MG/2 ML VIAL IV ONE ×2 (09:15→09:25)
--- NOTE | 2021-02-03 09:17 | NUR ---
Patient is resting comfortably on gurney with eyes closed, IV fluids infusing well, comfort & safety measures maintained. Extra warm blankets on & emesis bag within reach.
[2021-02-03 09:19] LABS: ABG BASE EXCESS -8.2 mmol/L; ABG HCO3 15.8 mmol/L; ABG PCO2 28.7 mmHg (35.0-45.0); ABG PO2 90.6 mmHg (75.0-100.0); ABG SITE RIGHT RADIAL; ABG TOTAL HEMOGLOBIN 13.3 G/dL (12.0-16.0); MetHb 0.2 % (0.0-1.5); O2Hb 94.5 % (94.0-97.0); VENT MODE ROOM AIR
[2021-02-03] MEDS: MAGNESIUM SULFATE/D5W 100 ML IV SCH ×2 (09:54→10:56)
[2021-02-03] MEDS: POTASSIUM CHLORIDE 50 ML IV SCH ×3 (09:54→12:08)
--- NOTE | 2021-02-03 10:23 | NUR ---
Patient had one soft brown stool of small amount. Noris-anal care done.
[2021-02-03] MEDS ORDERED: THIAMINE HCL 200 MG/2 ML VIAL IV ONE (10:45)
[2021-02-03] MEDS ORDERED: IV LACTATED RINGERS SOLUTION 1,000 ML IV PRN (10:45)
[2021-02-03] MEDS ORDERED: FOLIC ACID 5 MG/ML VIAL IV ONE (10:45)
[2021-02-03] MEDS ORDERED: MAGNESIUM SULFATE/D5W 100 ML IV SCH (10:45)
--- NOTE | 2021-02-03 10:54 | NUR ---
Pharmacy staff Néstor was called to compound "banana IV bag to run at 250ml per hour" for this patient. Individual IV meds orders for IVP of folic acid, IVP of B1 thiamine, IV fluid drip:1000ml LR & IV drip magnesium were not given.
[2021-02-03 10:59] LABS: ETHANOL 337 MG/DL (0-0)
--- NOTE | 2021-02-03 11:01 | NUR ---
Patient had second BM on her bed. Patient said; "I can not feel it when I need to move m BM." Noris-anal care done.
[2021-02-03] MEDS ORDERED: LACTATED RINGERS IV ONE (11:30)
[2021-02-03] MEDS ORDERED: THIAMINE HCL IV ONE (11:30)
[2021-02-03] MEDS ORDERED: FOLIC ACID IV ONE (11:30)
--- NOTE | 2021-02-03 11:30 | NUR ---
Pharmacy compounded IV "banana bag" was started in 3rd floor with IV pump. Primary telemetry nurse Esmer notified.
[2021-02-03 11:40] LABS: *BILIRUBIN,URIN 1+ (NEGATIVE); *CLARITY,URINE CLOUDY (CLEAR); *COLOR,URINE YELLOW (YELLOW); *KETONES,URINE 3+ (NEGATIVE); LEUKOCYTE ESTERASE ,URINE NEGATIVE (NEGATIVE); NITRITE, URINE NEGATIVE (NEGATIVE); UGLUCOSE NEGATIVE (NEGATIVE)
[2021-02-03 11:42] LABS: *BLOOD, URINE TRACE (NEGATIVE)
[2021-02-03 11:44] LABS: RBC,URINE 0-3 /HPF (0-3); SQUAMOUS EPITHELIAL CELL,UR MANY /HPF (NONE SEEN)
[2021-02-03 11:45] LABS: BACTERIA,URINE MANY /HPF (NONE SEEN); WBC,URINE 20-50 /HPF (0-3)
[2021-02-03] MEDS ORDERED: DEXTROSE 50% 50 ML DISP.SYRIN IV PRN (11:45)
[2021-02-03 11:49] LABS: MUCUS,URINE FEW /LPF (0-FEW)
[2021-02-03 11:53] LABS: *URINE HCG, QUAL NEGATIVE (NEGATIVE)
[2021-02-03 12:00] VITALS: BP 115/79
[2021-02-03] MEDS: LORAZEPAM 2 MG/1 ML VIAL IV PRN ×2 (12:08→20:07)
--- NOTE | 2021-02-03 14:07 | NUR ---
covid rapid negative per the lab. lactic acid 2.8 md notified
[2021-02-03] MEDS: CEFTRIAXONE 1 G in IV DEXTROSE 5% 50 ML IV SCH (14:34)
--- NOTE | 2021-02-03 14:54 | NUR ---
arrived via gurney, alert, oriented, and ambulatory, projectile vomitting , nothing but clear emesis. last alcohol consumption , prior to ED visit, this is one of the many visits, starting , then 01/02 and , for the same problem. Suggested to stop alcohol, proposed to quit smoking, " that 's a no no" K+ 3.2, got replaced with 20meq K ivpb, on admission to the floor. Medicated with ATIVAN 1mg, and Zofran ivp at 12noon, now resting. will start on Clear Liquid diet when vomitting subsided.
[2021-02-03] MEDS: POTASSIUM CHLORIDE 20 MEQ in IV NS 1000 ML 1,000 ML IV PRN (15:37)
[2021-02-03] MEDS: BLOOD SUGAR DIAGNOSTIC 1 EACH STRIP VI SCH ×2 (16:00→20:47)
[2021-02-03] MEDS: glipiZIDE 5 MG TABLET PO SCH (16:03)
[2021-02-03] MEDS: INSULIN REGULAR, HUMAN 300 UNIT/3 ML VIAL SQ PRN ×2 (16:05→20:49)
[2021-02-03 16:42] VITALS: BP 116/85
--- NOTE | 2021-02-03 18:41 | NUR ---
tolerated clear liquid well, no further vomitting noted. Continues with ivf for now.
--- NOTE | 2021-02-03 19:20 | NUR ---
Received pt in bed, A&Ox4, verbally responsive, able to make needs known. Pt just vomited, verbalizing she suddenly felt nauseous. Assisted pt for comfort, changed beddings and pt gown. Oral care done. Positioned comfortably in bed. Informed pt she will be getting medication for nausea/vomiting. Pt verbalized understanding. No signs of respiratory distress. Sinus tachy on tele at 111/min. Denies any chest pain. IVF infusing well. Safety measures initiated, call light within reach, will continue to monitor.
[2021-02-03] MEDS: ONDANSETRON 4 MG/2 ML VIAL IV PRN ×2 (19:29→23:55)
[2021-02-03 20:09] VITALS: BP 105/78
[2021-02-03] MEDS: FAMOTIDINE. 20 MG/2 ML VIAL IV SCH (20:41)
[2021-02-04 00:03] VITALS: BP 114/81
[2021-02-04] MEDS: METOCLOPRAMIDE HCL 10 MG/2 ML VIAL IV PRN ×3 (01:19→18:22)
[2021-02-04 04:09] VITALS: BP 107/75
[2021-02-04] MEDS: POTASSIUM CHLORIDE 20 MEQ in IV NS 1000 ML 1,000 ML IV PRN (05:58)
[2021-02-04] MEDS: LORAZEPAM 2 MG/1 ML VIAL IV PRN ×2 (06:10→20:10)
--- NOTE | 2021-02-04 06:35 | NUR ---
Pt slept intermittently, had episodes of nausea and vomiting. Medications administered as needed and tolerated well. Oral care provided as needed. IVF infusing well. No respiratory distress noted the whole shift. all needs attended.
[2021-02-04] MEDS: BLOOD SUGAR DIAGNOSTIC 1 EACH STRIP VI SCH ×4 (06:47→21:04)
[2021-02-04] MEDS: ONDANSETRON 4 MG/2 ML VIAL IV PRN ×3 (06:49→20:10)
--- NOTE | 2021-02-04 06:58 | NUR ---
Sinus tachy on tele at 105/min.
[2021-02-04 07:22] LABS: BASOPHILS % (AUTO) 0.6 % (0.0-2.0); EOSINOPHILS % (AUTO) 0.3 % (0.0-7.0); LYMPHOCYTES % (AUTO) 15.2 % (20.5-51.5); MEAN CORPUSCULAR HEMOGLOBIN 32.9 uug (24.7-32.8); MEAN CORPUSCULAR HGB CONC 34 g/dL (32.3-35.6); MEAN CORPUSCULAR VOLUME 97.5 fL (75.5-95.3); MONOCYTES # (AUTO) 0.5 K/uL (2.0-10.0); MONOCYTES % (AUTO) 7.1 % (0.0-11.0); NEUTROPHILS # (AUTO) 5.3 K/uL (1.8-8.9); NEUTROPHILS % (AUTO) 76.8 % (38.5-71.5); RED BLOOD CELL COUNT(AUTO) 3.18 MIL/uL (3.63-4.92); WHITE BLOOD COUNT (AUTO) 6.8 K/uL (3.8-11.8)
--- NOTE | 2021-02-04 07:25 | NUR ---
Received sleeping in bed but arousable when called her name. Breathing even and non labored. No distress. LAC iv site intact and patent hydration tolerated. No nausea or vomiting noted. Patient is comfortable. Bed is low and locked. Safety measures maintained. Call light in reach. Will continue to monitor.
[2021-02-04 07:40] LABS: ALANINE AMINOTRANSFERASE 48 U/L (14-59); ALKALINE PHOSPHATASE 77 U/L (50-136); ASPARTATE AMINOTRANSFERASE 100 U/L (15-37); CARBON DIOXIDE 17 mmol/L (21-32); CHLORIDE 98 mmol/L (98-107); CREATININE 0.5 mg/dL (0.6-1.3); GLUCOSE 110 mg/dL (74-106); PHOSPHOROUS 1.2 mg/dL (2.5-4.9); TOTAL PROTEIN, SERUM 5.5 g/dL (6.4-8.2); UREA NITROGEN, BLOOD 7 mg/dL (7-18)
[2021-02-04 08:01] LABS: MAGNESIUM 1.2 mg/dL (1.8-2.4)
[2021-02-04 08:04] LABS: HEMOGLOBIN 10.5 g/dL (10.9-14.3); PLATELET COUNT (AUTO) 146 K/uL (179-408)
[2021-02-04] MEDS: glipiZIDE 5 MG TABLET PO SCH ×2 (08:20→17:25)
[2021-02-04] MEDS: FOLIC ACID 1 MG TABLET PO SCH (08:20)
[2021-02-04] MEDS: MULTIVITAMINS,THERAPEUTIC TABLET PO SCH (08:20)
[2021-02-04] MEDS: FAMOTIDINE. 20 MG/2 ML VIAL IV SCH (08:20)
[2021-02-04] MEDS: THIAMINE HCL 100 MG TABLET PO SCH (08:20)
[2021-02-04] MEDS: INSULIN REGULAR, HUMAN 300 UNIT/3 ML VIAL SQ PRN ×3 (08:21→21:06)
[2021-02-04] MEDS: POTASSIUM BICARBONATE/CIT AC 25 MEQ TABLET.EFF PO SCH ×3 (08:22→09:28)
--- NOTE | 2021-02-04 08:30 | NUR ---
Relayed critical lab result to Dr. Zeb harrell at this time.
[2021-02-04] MEDS: MORPHINE SULFATE 2 MG/1 ML DISP.SYRIN IV PRN ×3 (09:25→23:37)
[2021-02-04] MEDS ORDERED: POTASSIUM CHLORIDE 20 MEQ TAB.PRT.SR PO SCH (09:45)
[2021-02-04] MEDS ORDERED: POTASSIUM PHOSPHATE MM 15 MMOL in IV NORMAL SALINE 250 ML IV ONE (10:30)
[2021-02-04] MEDS: MAGNESIUM SULFATE/D5W 100 ML IV SCH ×4 (10:31→13:39)
--- NOTE | 2021-02-04 10:48 | NUR ---
Patient given Kdur 30meq but unable to tolerate and vomited right after. Klyte given earlier but patient also unable to tolerate the first dose. Attempted to give another dose but patient refused saying she doesnt like it. Pharmacy aware.
[2021-02-04] MEDS: POTASSIUM PHOSPHATE MM 7.5 MMOL in IV NORMAL SALINE 97.5 ML IV SCH ×2 (11:55→14:59)
[2021-02-04 12:00] VITALS: BP 109/55
[2021-02-04] MEDS: CEFTRIAXONE 1 G in IV DEXTROSE 5% 50 ML IV SCH (14:50)
[2021-02-04 16:00] VITALS: BP 97/68
[2021-02-04] MEDS ORDERED: ESCI10TA PO (17:35)
--- NOTE | 2021-02-04 19:05 | NUR ---
Received pt in bed, A&Ox4, verbally responsive, resting well. Pt remains , verbalizing she still feels nauseous. Assisted pt for comfort. Positioned comfortably in bed. Patient has peripheral IVs 22g in the right forearm and an 18g in the left AC. IVF running to the 18g in the left AC and TKO in the right forearm. No SOB or signs of distress.
--- NOTE | 2021-02-04 19:21 | NUR ---
ALERT AND ORIENTED. NO RESPIRATORY DISTRESS NOTED. IV REGLAN GIVEN AND VERBALIZED RELIEF. PATIENT REPORTED NO NAUSEA OR VOMITING AFTER DINNER. IV HYDRATION ONGOING TOLERATED. NEEDS ATTENDED. KEPT COMFORTABLE. ENDORSED ACCORDINGLY.
[2021-02-04 20:09] VITALS: BP 111/77
[2021-02-04] MEDS: FAMOTIDINE 20 MG TABLET PO SCH (20:23)
[2021-02-05 00:03] VITALS: BP 100/71
[2021-02-05] MEDS: POTASSIUM CHLORIDE 20 MEQ in IV NS 1000 ML 1,000 ML IV PRN ×2 (01:16→18:07)
[2021-02-05] MEDS: METOCLOPRAMIDE HCL 10 MG/2 ML VIAL IV PRN ×2 (02:04→11:07)
[2021-02-05] MEDS: LORAZEPAM 2 MG/1 ML VIAL IV PRN ×2 (02:04→15:48)
[2021-02-05 04:06] VITALS: BP 101/71
--- NOTE | 2021-02-05 04:50 | NUR ---
Was alerted to the patient's room by the IV pump beeping. patient told me her IV in her left arm is bleeding. The catheter in the left AC had been pulled out. A new 18g peripheral IV was started in the right AC, one try, great return, patient tolerated well. IVF restarted in this location.
[2021-02-05 06:30] LABS: BASOPHILS % (AUTO) 0.4 % (0.0-2.0); EOSINOPHILS # (AUTO) 0.1 K/uL (0.0-0.7); EOSINOPHILS % (AUTO) 2.1 % (0.0-7.0); HEMATOCRIT 29.1 % (31.2-41.9); HEMOGLOBIN 9.7 g/dL (10.9-14.3); LYMPHOCYTES # (AUTO) 1.5 K/uL (20.0-40.0); MEAN CORPUSCULAR HEMOGLOBIN 32.6 uug (24.7-32.8); MEAN CORPUSCULAR HGB CONC 33 g/dL (32.3-35.6); MONOCYTES # (AUTO) 0.3 K/uL (2.0-10.0); MONOCYTES % (AUTO) 4.5 % (0.0-11.0); NEUTROPHILS # (AUTO) 4.7 K/uL (1.8-8.9); PLATELET COUNT (AUTO) 110 K/uL (179-408); RED BLOOD CELL COUNT(AUTO) 2.97 MIL/uL (3.63-4.92); WHITE BLOOD COUNT (AUTO) 6.7 K/uL (3.8-11.8)
[2021-02-05 06:59] LABS: ALANINE AMINOTRANSFERASE 39 U/L (14-59); ALKALINE PHOSPHATASE 71 U/L (50-136); ASPARTATE AMINOTRANSFERASE 56 U/L (15-37); BILIRUBIN,TOTAL 0.6 mg/dL (0.2-1.0); CARBON DIOXIDE 21 mmol/L (21-32); CHLORIDE 102 mmol/L (98-107); CREATININE 0.4 mg/dL (0.6-1.3); GLUCOSE 109 mg/dL (74-106); MAGNESIUM 1.8 mg/dL (1.8-2.4); PHOSPHOROUS 1.6 mg/dL (2.5-4.9); POTASSIUM 3.2 mmol/L (3.5-5.1); TOTAL PROTEIN, SERUM 5.2 g/dL (6.4-8.2); UREA NITROGEN, BLOOD 3 mg/dL (7-18)
[2021-02-05] MEDS: BLOOD SUGAR DIAGNOSTIC 1 EACH STRIP VI SCH ×3 (07:05→16:38)
--- NOTE | 2021-02-05 07:31 | NUR ---
Received asleep but easily arousable. No respiratory distress. No facial grimacing. Iv sites on rfa intact and patent, hydration ongoing and tolerated. Bed is low and locked. Safety measures maintained. Kept comfortable. Call light in reach. Will continue to monitor.
--- NOTE | 2021-02-05 07:45 | NUR ---
Received pt Axox4. IV sites intact and patent hydration ongoing and tolerated. Pt verbally expressed that she is ready to go home and wants to leave tonight. Encouraged her to stay an extra night, but stated unable to wait and wants to leave now Safety measures maintained. Kept comfortable. Addendum: 02/05/21 at 2027 by MITCH WHITT RN RN wrong time 1944
[2021-02-05] MEDS: glipiZIDE 5 MG TABLET PO SCH ×2 (08:54→16:43)
[2021-02-05] MEDS: MULTIVITAMINS,THERAPEUTIC TABLET PO SCH (08:54)
[2021-02-05] MEDS: THIAMINE HCL 100 MG TABLET PO SCH (08:54)
[2021-02-05] MEDS: FAMOTIDINE 20 MG TABLET PO SCH (08:54)
[2021-02-05] MEDS: POTASSIUM BICARBONATE/CIT AC 25 MEQ TABLET.EFF PO SCH (08:54)
[2021-02-05] MEDS: FOLIC ACID 1 MG TABLET PO SCH (08:54)
[2021-02-05] MEDS ORDERED: POTASSIUM PHOSPHATE MM 15 MMOL in IV NORMAL SALINE 250 ML IV ONE (10:45)
[2021-02-05] MEDS: POTASSIUM PHOSPHATE MM 7.5 MMOL in IV NORMAL SALINE 97.5 ML IV SCH ×2 (11:08→14:23)
[2021-02-05] MEDS: INSULIN REGULAR, HUMAN 300 UNIT/3 ML VIAL SQ PRN ×2 (11:55→16:39)
[2021-02-05 12:00] VITALS: BP 115/66
[2021-02-05] MEDS: CEFTRIAXONE 1 G in IV DEXTROSE 5% 50 ML IV SCH (14:07)
[2021-02-05] MEDS: MORPHINE SULFATE 2 MG/1 ML DISP.SYRIN IV PRN (14:23)
--- NOTE | 2021-02-05 15:53 | NUR ---
Dr. Carrington with new order for regular diet per patient's request noted and carried out. Patient aware.
[2021-02-05 16:00] VITALS: BP 110/79
[2021-02-05] MEDS ORDERED: MORPHINE SULFATE 2 MG/1 ML DISP.SYRIN IV ONE (17:30)
--- NOTE | 2021-02-05 19:28 | NUR ---
Alert and oriented able to make needs known. No nausea or vomiting throughout the shift. Able to tolerate dinner. IV sites intact and patent hydration ongoing and tolerated. Safety measures maintained. Kept comfortable. Call light within reach. Endorsed accordingly.
--- NOTE | 2021-02-05 19:45 | NUR ---
Received pt Axox4. IV sites intact and patent hydration ongoing and tolerated. Pt verbally expressed that she is ready to go home and wants to leave tonight. Encouraged her to stay an extra night, but stated unable to wait and wants to leave now Safety measures maintained. Kept comfortable.
--- NOTE | 2021-02-05 20:22 | NUR ---
Patient signed AMA form, and peripheral IVs 22g in the right forearm and an 18g in the left AC removed. ID band removed at this time. No SOB or acute distress noted. VSS Notified Dr. Carrington . Patient discharged to home in stable condition. Escorted her to the front of the hospital via wheelchair. Picked up by her boyfriend. Written and verbal after care instructions given. Patient verbalizes understanding of instructions. Stressed follow up or return to ER for worsening s/s.pt walks in steady gait.
[2021-02-05 20:25] VITALS: BP 117/82
== END 2021-02-05 20:20 | disposition left against medical advice (07) | DRG 241 ==
LOC: ER 08:31 → TELE3 10:54 → MEDSURG3 02-05 10:00
PROVIDERS: ADMIT Internal Medicine; ATTEND Internal Medicine
DX: K29.20 Alcoholic gastritis without bleeding (principal); E11.10 Type 2 diabetes mellitus with ketoacidosis without coma; E44.0 Moderate protein-calorie malnutrition; K70.10 Alcoholic hepatitis without ascites; K86.0 Alcohol-induced chronic pancreatitis; F10.239 Alcohol dependence with withdrawal, unspecified; Y90.8 Blood alcohol level of 240 mg/100 ml or more; Z20.822 Contact with and (suspected) exposure to COVID-19; R62.7 Adult failure to thrive; N39.0 Urinary tract infection, site not specified; Z87.442 Personal history of urinary calculi; Z79.84 Long term (current) use of oral hypoglycemic drugs; F10.229 Alcohol dependence with intoxication, unspecified; B96.20 Unspecified Escherichia coli [E. coli] as the cause of diseases classified elsewhere; E87.6 Hypokalemia; D75.89 Other specified diseases of blood and blood-forming organs; Z91.19 Patient's noncompliance with other medical treatment and regimen; Z68.1 Body mass index [BMI] 19.9 or less, adult
CPT/HCPCS: 36415; 36600; 71045; 83605; 83690; 83735; 84100; 84703; 85025; 87077; 87086; A4663; G0378; G0480; J0696; J1815; J2060; J2270; J2405; J2765; J3411; J3475; J3480; J3490; J7030; J7050; J7060; J7120

== ENCOUNTER 2021-03-12 14:44 | Emergency (ER) | payer OTHER ==
[~2021-03-12] VITALS: Ht 160 cm; Wt 40.8 kg
[~2021-03-12 14:44] MED LIST changes: +ESCI10TA PO
--- NOTE | 2021-03-12 14:57 | NUR ---
Dr Loving at the bedside for MSE.
[2021-03-12] MEDS ORDERED: IV NORMAL SALINE 1000 ML BAG IV ONE (15:00)
[2021-03-12 15:20] LABS: HEMATOCRIT 32.1 % (31.2-41.9); MEAN CORPUSCULAR HEMOGLOBIN 32.1 uug (24.7-32.8); MEAN CORPUSCULAR VOLUME 97.9 fL (75.5-95.3); PLATELET COUNT (AUTO) 160 K/uL (179-408)
[2021-03-12 15:30] LABS: CARBON DIOXIDE 22 mmol/L (21-32); CHLORIDE 104 mmol/L (98-107); CREATININE 0.5 mg/dL (0.6-1.3); GLUCOSE 295 mg/dL (74-106); POTASSIUM 3.4 mmol/L (3.5-5.1); UREA NITROGEN, BLOOD 14 mg/dL (7-18)
[2021-03-12 15:35] LABS: ALANINE AMINOTRANSFERASE 40 U/L (14-59); ALKALINE PHOSPHATASE 179 U/L (50-136); ASPARTATE AMINOTRANSFERASE 124 U/L (15-37); BILIRUBIN,DIRECT 0.3 mg/dL (0.0-0.2); BILIRUBIN,TOTAL 0.4 mg/dL (0.2-1.0); LIPASE 67 U/L (73-393); TOTAL PROTEIN, SERUM 5.6 g/dL (6.4-8.2)
[2021-03-12 15:43] LABS: THYROID STIMULATING HORMONE 1.173 mIU/mL (0.358-3.740)
[2021-03-12 16:00] LABS: BASOPHILS % (MANUAL) 1 % (0-2); EOSINOPHILS % (MANUAL) 1 % (0-8); LYMPHOCYTES % (MANUAL) 34 % (20-40); MONOCYTES % (MANUAL) 5 % (2-10); NEUTROPHILS % (MANUAL) 59 % (42-75)
--- NOTE | 2021-03-12 16:16 | NUR ---
Patient is resting comfortably in bed with eyes closed, NAD noted.
--- NOTE | 2021-03-12 16:44 | NUR ---
Noted pt soiled herself, refused to get out of bed to clean self/use bathroom.
--- NOTE | 2021-03-12 17:55 | NUR ---
Dinner tray offered, pt declined.
--- NOTE | 2021-03-12 19:15 | NUR ---
Recieved report from CONNER Chu
--- NOTE | 2021-03-12 19:30 | NUR ---
Pt. Resting in bed. Offered to help clean soiled pt, pt. refused.
--- NOTE | 2021-03-12 20:00 | NUR ---
Pt. provided soap, water and towels to clean herself and new clothes. Pt. cleaned herself and is resting in bed. Vss. Will continue to monitor.
[2021-03-12 20:42] LABS: ABG BASE EXCESS -3.5 mmol/L; ABG HCO3 21.3 mmol/L; ABG PCO2 37.5 mmHg (35.0-45.0); ABG PH 7.373 (7.350-7.450); ABG PO2 99.5 mmHg (75.0-100.0); ABG SITE RIGHT RADIAL; ABG TOTAL HEMOGLOBIN 10.6 G/dL (12.0-16.0); COHb 1.1 % (0.5-1.5); MetHb 0.1 % (0.0-1.5); O2Hb 95.4 % (94.0-97.0); VENT MODE room air
--- NOTE | 2021-03-12 23:37 | NUR ---
COVID negative per [employer] Cornelius
[2021-03-13] MEDS ORDERED: CHLORDIAZEPOXIDE HCL 25 MG CAPSULE PO ONE (05:00)
[2021-03-13] MEDS ORDERED: ONDANSETRON ODT 4 MG TAB.RAPDIS SL ONE (05:15)
[2021-03-13] MEDS ORDERED: ONDANSETRON ODT 4 MG TAB.RAPDIS ONE (05:19)
[2021-03-13] MEDS ORDERED: INSU100V7 SQ (05:22)
[2021-03-13] MEDS ORDERED: ONDA4TAB11 PO (05:22)
--- NOTE | 2021-03-13 05:40 | NUR ---
IV removed. Catheter intact and site benign. Pressure and 4x4 gauze applied to site. No bleeding noted.
--- NOTE | 2021-03-13 05:42 | NUR ---
Patient discharged to home in stable condition. Written and verbal after care instructions given. Patient verbalizes understanding of instructions. Stressed follow up or return to ER for worsening s/s. Pt. picked up by boyfriend. Vss. All belongings w/ pt.
[2021-03-13 08:29] VITALS: BP 118/40
[2021-04-02] MEDS ORDERED: THIA100T13 PO (12:24)
[2021-04-02] MEDS ORDERED: FOLI1TAB94 PO (12:24)
== END 2021-03-13 05:42 | disposition home or self-care (01) ==
LOC: ER 14:44
DX: E11.65 Type 2 diabetes mellitus with hyperglycemia (principal); Z79.4 Long term (current) use of insulin; E11.40 Type 2 diabetes mellitus with diabetic neuropathy, unspecified; Z91.14 Patient's other noncompliance with medication regimen; F10.229 Alcohol dependence with intoxication, unspecified; Y90.8 Blood alcohol level of 240 mg/100 ml or more; K29.70 Gastritis, unspecified, without bleeding; Z79.899 Other long term (current) drug therapy; R94.31 Abnormal electrocardiogram [ECG] [EKG]; Z20.822 Contact with and (suspected) exposure to COVID-19; D72.819 Decreased white blood cell count, unspecified; D69.6 Thrombocytopenia, unspecified; R11.2 Nausea with vomiting, unspecified
CPT/HCPCS: 36415; 36600; 70030-TC; 71045; 83690; 84443; 85025; 85730; 93005; A4663; G0480; J7030; Q0162

== ENCOUNTER 2021-03-30 06:47 | Inpatient (IN) | payer OTHER ==
[~2021-03-30] VITALS: Ht 160 cm; Wt 36.8 kg
[~2021-03-30 06:47] MED LIST changes: +INSU100V7 SQ; +ONDA4TAB11 PO
[2021-03-30] MEDS ORDERED: FAMOTIDINE. 20 MG/2 ML VIAL IV ONE ×2 (07:00→07:20)
[2021-03-30] MEDS ORDERED: ONDANSETRON 4 MG/2 ML VIAL IV ONE (07:00)
[2021-03-30] MEDS ORDERED: IV NORMAL SALINE 1000 ML BAG IV ONE (07:00)
[2021-03-30] MEDS ORDERED: FOLIC ACID 5 MG/ML VIAL IV ONE ×2 (07:15→07:28)
[2021-03-30] MEDS ORDERED: THIAMINE HCL 200 MG/2 ML VIAL IV ONE (07:15)
[2021-03-30] MEDS ORDERED: ONDANSETRON 4 MG/2 ML VIAL ONE (07:20)
[2021-03-30 07:26] LABS: CARBON DIOXIDE 23 mmol/L (21-32); CHLORIDE 97 mmol/L (98-107); CREATININE 0.6 mg/dL (0.6-1.3); GLUCOSE 160 mg/dL (74-106); POTASSIUM 3.6 mmol/L (3.5-5.1); UREA NITROGEN, BLOOD 22 mg/dL (7-18)
[2021-03-30] MEDS ORDERED: THIAMINE HCL 200 MG/2 ML VIAL ONE (07:28)
[2021-03-30] MEDS ORDERED: MAGNESIUM SULFATE/D5W 100 ML ONE ×2 (07:28→07:48)
[2021-03-30 07:31] LABS: HEMATOCRIT 29.4 % (31.2-41.9); MEAN CORPUSCULAR HEMOGLOBIN 32.8 uug (24.7-32.8); MEAN CORPUSCULAR VOLUME 99.8 fL (75.5-95.3); PLATELET COUNT (AUTO) 99 K/uL (179-408)
[2021-03-30 07:31] LABS: ALANINE AMINOTRANSFERASE 76 U/L (14-59); ALKALINE PHOSPHATASE 247 U/L (50-136); ASPARTATE AMINOTRANSFERASE 331 U/L (15-37); BILIRUBIN,DIRECT 1.7 mg/dL (0.0-0.2); BILIRUBIN,TOTAL 2.3 mg/dL (0.2-1.0); LIPASE 31 U/L (73-393); TOTAL PROTEIN, SERUM 6.2 g/dL (6.4-8.2)
[2021-03-30] MEDS: MAGNESIUM SULFATE/D5W 100 ML IV SCH ×2 (07:38→08:41)
--- NOTE | 2021-03-30 07:40 | NUR ---
pt ambulated to bathroom with unsteady gait, needs assisstance, FALL RISK.
[2021-03-30] MEDS ORDERED: LORAZEPAM 2 MG/1 ML VIAL IV ONE (07:45)
[2021-03-30] MEDS ORDERED: IV D5/ 0.9% NACL 1,000 ML IV ONE (08:00)
[2021-03-30] MEDS ORDERED: IV D5W-0.9% NS 1000 ML BAG IV ONE (08:00)
[2021-03-30] MEDS ORDERED: LORAZEPAM 2 MG/1 ML VIAL ONE (08:02)
--- NOTE | 2021-03-30 08:12 | NUR ---
PT RESTING, NO SIGN OF DISTRESS AT THIS TIME.
--- NOTE | 2021-03-30 08:59 | NUR ---
RT at bedside to obtain ABG at this time.
[2021-03-30 09:08] LABS: ABG BASE EXCESS -1.8 mmol/L; ABG PCO2 38.9 mmHg (35.0-45.0); ABG PH 7.389 (7.350-7.450); ABG PO2 94.1 mmHg (75.0-100.0); ABG SITE LEFT RADIAL; ABG TOTAL HEMOGLOBIN 10.5 G/dL (12.0-16.0); COHb 1.1 % (0.5-1.5); MetHb 0.3 % (0.0-1.5); O2Hb 94.8 % (94.0-97.0); VENT MODE ROOM AIR
[2021-03-30 10:00] LABS: CARBON DIOXIDE 25 mmol/L (21-32); CHLORIDE 101 mmol/L (98-107); CREATININE 0.5 mg/dL (0.6-1.3); GLUCOSE 225 mg/dL (74-106); POTASSIUM 3.6 mmol/L (3.5-5.1); UREA NITROGEN, BLOOD 19 mg/dL (7-18)
--- NOTE | 2021-03-30 10:09 | NUR ---
Turned covid nasal swab specimen into lab at this time.
[2021-03-30] MEDS ORDERED: ONDANSETRON 4 MG/2 ML VIAL IV PRN ×2 (10:15→10:30)
[2021-03-30] MEDS ORDERED: MAGNESIUM HYDROXIDE 30 ML LIQUID UDC PO PRN ×2 (10:15→10:30)
[2021-03-30] MEDS ORDERED: IV D5W-0.45% NS +20 KCL 1,000 ML IV PRN (10:15)
[2021-03-30] MEDS ORDERED: Z GUARD REMEDY PASTE 57 GM TUBE TOP PRN ×2 (10:15→10:30)
[2021-03-30] MEDS ORDERED: DEXTROSE 50% 50 ML DISP.SYRIN IV PRN ×2 (10:15→10:30)
[2021-03-30] MEDS ORDERED: ESCITALOPRAM OXALATE 10 MG TABLET PO SCH (10:15)
[2021-03-30] MEDS ORDERED: FOLIC ACID 1 MG in IV DEXTROSE 5% 50 ML IV SCH (10:15)
[2021-03-30] MEDS ORDERED: MIDODRINE HCL 5 MG TABLET PO PRN ×2 (10:15→10:30)
[2021-03-30] MEDS ORDERED: ACETAMINOPHEN 325 MG TABLET PO PRN ×2 (10:15→10:30)
[2021-03-30] MEDS ORDERED: ONDANSETRON ODT 4 MG TAB.RAPDIS SL PRN ×2 (10:15→10:30)
[2021-03-30] MEDS ORDERED: LORAZEPAM 2 MG/1 ML VIAL IV PRN (10:15)
[2021-03-30] MEDS ORDERED: THIAMINE HCL INJ 100 MG in IV DEXTROSE 5% 50 ML IV SCH ×2 (10:15→14:00)
[2021-03-30] MEDS ORDERED: HYDROCODONE/APAP 5-325MG TABLET PO PRN (10:15)
[2021-03-30] MEDS ORDERED: INSULIN REGULAR, HUMAN 300 UNIT/3 ML VIAL SQ PRN (10:15)
[2021-03-30] MEDS ORDERED: BLOOD SUGAR DIAGNOSTIC 1 EACH STRIP VI SCH (12:00)
[2021-03-30 13:55] LABS: EOSINOPHILS % (MANUAL) 1 % (0-8); LYMPHOCYTES % (MANUAL) 42 % (20-40); MONOCYTES % (MANUAL) 6 % (2-10); NEUTROPHILS % (MANUAL) 51 % (42-75)
--- NOTE | 2021-03-30 14:00 | NUR ---
pt brought up from ER via gurney, pt in bed resting, pt has emesis bag next to bedside as well as trash can. pt a/ox4, on room air, no signs of distress, no reports of pain at this time. pt NPO, continent, IV on the left hand 20g, accucheck q6hr. bed low and locked, call light within reach, will continue to monitor.
[2021-03-30 14:20] VITALS: BP 121/83
[2021-03-30] MEDS ORDERED: glipiZIDE 5 MG TABLET PO SCH (17:00)
[2021-03-30] MEDS: LORAZEPAM 2 MG/1 ML VIAL IV PRN ×2 (17:14→23:41)
[2021-03-30] MEDS: glipiZIDE 5 MG TABLET PO SCH (17:39)
[2021-03-30] MEDS: METFORMIN HCL 500 MG TABLET PO SCH (17:39)
[2021-03-30] MEDS: BLOOD SUGAR DIAGNOSTIC 1 EACH STRIP VI SCH ×2 (17:52→22:05)
[2021-03-30] MEDS: IV D5W-0.45% NS +20 KCL 1,000 ML IV PRN (17:57)
[2021-03-30] MEDS: INSULIN REGULAR, HUMAN 300 UNIT/3 ML VIAL SQ PRN (18:06)
--- NOTE | 2021-03-30 19:03 | NUR ---
pt resting in bed, report given to oncoming nurse. pt a/ox4. on tele monitor, SNR, pt on room air, no signs of distress, no reports of pain at this time. all medications given as ordered, call light within reach, bed low and locked,.
--- NOTE | 2021-03-30 19:20 | NUR ---
Received pt in bed, sleeping but easily arousable, denies any pain or discomfort, nausea or vomiting. No s/s of respiratory distress. NSR on tele at 87/min. IVF infusing well. Pt on NPO status. Safety measures initiated, call light within reach, will continue to monitor.
[2021-03-30 20:30] VITALS: BP 102/75
[2021-03-30] MEDS: INSULIN GLARGINE,HUM 300 UNITS/3 ML CARTRIDGE SQ SCH (21:00)
[2021-03-30] MEDS ORDERED: INSULIN GLARGINE,HUM 300 UNITS/3 ML CARTRIDGE SQ SCH (21:00)
[2021-03-31 00:05] VITALS: BP 99/69
[2021-03-31 00:10] VITALS: BP 99/69
--- NOTE | 2021-03-31 00:10 | NUR ---
Pt's blood sugar is 54 at 2100. Dextrose 50% 50 ml administered as ordered. Rechecked after 30mins, BS is 203. Pt's BS drops fast even without insulin coverage. Latest blood sugar is 172. will continue to monitor for now.
[2021-03-31 04:30] VITALS: BP 103/72
[2021-03-31] MEDS: BLOOD SUGAR DIAGNOSTIC 1 EACH STRIP VI SCH ×4 (06:46→20:24)
--- NOTE | 2021-03-31 07:04 | NUR ---
No significant change in condition noted. Latest BS is 177. No signs of acute distress. Safety measures maintained at all times. All needs attended and met. Still NPO status.
[2021-03-31] MEDS: INSULIN REGULAR, HUMAN 300 UNIT/3 ML VIAL SQ PRN ×3 (07:37→20:21)
--- NOTE | 2021-03-31 07:38 | NUR ---
Insulin coverage administered and tolerated well by pt.
[2021-03-31] MEDS: IV D5W-0.45% NS +20 KCL 1,000 ML IV PRN ×2 (08:07→22:33)
[2021-03-31] MEDS: glipiZIDE 5 MG TABLET PO SCH ×2 (08:18→16:48)
[2021-03-31] MEDS: MULTIVITAMINS,THERAPEUTIC TABLET PO SCH (08:18)
[2021-03-31] MEDS: ESCITALOPRAM OXALATE 10 MG TABLET PO SCH (08:19)
[2021-03-31] MEDS: PANTOPRAZOLE SODIUM 40 MG VIAL IV SCH (08:19)
[2021-03-31] MEDS: POTASSIUM BICARBONATE/CIT AC 25 MEQ TABLET.EFF PO SCH (08:19)
[2021-03-31] MEDS: METFORMIN HCL 500 MG TABLET PO SCH ×3 (08:19→16:48)
[2021-03-31] MEDS ORDERED: PANTOPRAZOLE SODIUM 40 MG VIAL IV SCH (09:00)
[2021-03-31] MEDS ORDERED: Medication Not On Formulary EA (Multivitamin (Multi-Vitamin Daily) 1 EACH) PO SCH (09:00)
[2021-03-31] MEDS ORDERED: Medication Not On Formulary EA (Omeprazole 20 MG) PO SCH (09:00)
[2021-03-31] MEDS ORDERED: MULTIVITAMINS,THERAPEUTIC TABLET PO SCH (09:00)
--- NOTE | 2021-03-31 09:15 | NUR ---
PATIENT IS NOTHING BY MOUTH SO METFORMIN HELD PATIENT IA ALERT AND ORIENTED DENIES PAIN OR DISCOMFORTS AT THIS TIME NO N/V AT THIS TIME REMAIN ON IVF ORDERED WITH SITE INTACT CALL LIGHTS AND PERSONAL BELONGINGS ARE WITHIN EASY REACH WILL CONTINUE TO OBSERVE.
[2021-03-31 09:54] LABS: HEMATOCRIT 29.5 % (31.2-41.9); MEAN CORPUSCULAR HEMOGLOBIN 33.4 uug (24.7-32.8); MEAN CORPUSCULAR VOLUME 98.8 fL (75.5-95.3); PLATELET COUNT (AUTO) 85 K/uL (179-408)
[2021-03-31 10:05] LABS: CREATININE 0.7 mg/dL (0.6-1.3); POTASSIUM 3.8 mmol/L (3.5-5.1)
[2021-03-31 10:17] LABS: BILIRUBIN,TOTAL 1.7 mg/dL (0.2-1.0); MAGNESIUM 1.6 mg/dL (1.8-2.4); TOTAL PROTEIN, SERUM 5.1 g/dL (6.4-8.2)
[2021-03-31 10:19] LABS: THYROID STIMULATING HORMONE 3.295 mIU/mL (0.358-3.740)
[2021-03-31] MEDS: LORAZEPAM 2 MG/1 ML VIAL IV PRN ×2 (11:08→19:49)
--- NOTE | 2021-03-31 11:10 | NUR ---
MEDICATED WITH ATIVAN PATIENT STATED FEELS ANXIETY MADE COMFORTABLE REMAIN ON IVF ORDERED WITH NO S/S OF INFILTERATION ON SITE WAS SEEN BY JOSE WITH OKAY FOR PATIENT TO EAT ORDERED.
[2021-03-31 12:27] VITALS: BP 100/69
[2021-03-31] MEDS: THIAMINE HCL INJ 100 MG in IV DEXTROSE 5% 50 ML IV SCH (14:02)
[2021-03-31] MEDS: FOLIC ACID 1 MG in IV DEXTROSE 5% 50 ML IV SCH (14:32)
[2021-03-31] MEDS ORDERED: NEUTRA PHOS PACKET PO ONE (15:15)
[2021-03-31 16:00] VITALS: BP 103/68
[2021-03-31] MEDS ORDERED: MAGNESIUM OXIDE 400 MG TABLET PO ONE (17:30)
--- NOTE | 2021-03-31 18:00 | NUR ---
PHOA LEVAL IS 1.0 AND MAG IS 1.6 WITH NEW REPLACEMENT ORDERS AND GIVEN ORDERED.
[2021-03-31] MEDS ORDERED: DEXTROSE 50% 50 ML DISP.SYRIN IV PRN (19:00)
--- NOTE | 2021-03-31 19:30 | NUR ---
Received pt in bed, awake and verbally responsive. No episodes of nausea or vomiting reported. No s/s of respiratory distress. IVF infusing well. Discussed plan of care with the pt. Pt verbalized understanding. Safety measures initiated, call light within reach.
[2021-03-31 20:00] VITALS: BP 95/69
[2021-03-31] MEDS: INSULIN GLARGINE,HUM 300 UNITS/3 ML CARTRIDGE SQ SCH (20:22)
[2021-03-31] MEDS: HYDROCODONE/APAP 5-325MG TABLET PO PRN (22:34)
[2021-04-01] VITALS: BP 100/64
[2021-04-01 04:00] VITALS: BP 96/68
[2021-04-01 06:36] LABS: HEMATOCRIT 27.7 % (31.2-41.9); MEAN CORPUSCULAR HEMOGLOBIN 33.1 uug (24.7-32.8); MEAN CORPUSCULAR VOLUME 98.8 fL (75.5-95.3); PLATELET COUNT (AUTO) 80 K/uL (179-408)
[2021-04-01] MEDS: BLOOD SUGAR DIAGNOSTIC 1 EACH STRIP VI SCH ×4 (06:44→20:40)
[2021-04-01 07:00] LABS: CARBON DIOXIDE 25 mmol/L (21-32); CHLORIDE 103 mmol/L (98-107); CREATININE 0.4 mg/dL (0.6-1.3); GLUCOSE 167 mg/dL (74-106); MAGNESIUM 1.5 mg/dL (1.8-2.4); POTASSIUM 4.3 mmol/L (3.5-5.1); UREA NITROGEN, BLOOD 7 mg/dL (7-18)
--- NOTE | 2021-04-01 07:02 | NUR ---
No episodes of nausea or vomiting the whole night, no signs of acute distress. Tolerated due and PRN medications. IVF infusing well. Safety measures maintained at all times, all needs attended to and met. Latest BS is 160. will endorse to incoming nurse.
[2021-04-01 07:08] LABS: PHOSPHOROUS 0.9 mg/dL (2.5-4.9)
--- NOTE | 2021-04-01 07:15 | NUR ---
Received a call from Lab staff, Margot regarding critical lab value of Phosphorus -0.9. Notified Dr. Deedee Matthews, no new orders received. Endorsed to day shift nurse.
[2021-04-01] MEDS ORDERED: POTASSIUM PHOSPHATE MM 15 MMOL in IV NORMAL SALINE 250 ML IV ONE (07:30)
[2021-04-01] MEDS: POTASSIUM PHOSPHATE MM 7.5 MMOL in IV NORMAL SALINE 97.5 ML IV SCH ×2 (08:02→11:10)
[2021-04-01] MEDS: POTASSIUM BICARBONATE/CIT AC 25 MEQ TABLET.EFF PO SCH (08:02)
[2021-04-01] MEDS: INSULIN REGULAR, HUMAN 300 UNIT/3 ML VIAL SQ PRN ×2 (08:05→16:51)
--- NOTE | 2021-04-01 08:10 | NUR ---
MAGNESSIUM LEVEL IS 1.5 AND PHOS IS 0.9 WITH NEW ORDERS FROM JOSE VARMA ORDERED.
[2021-04-01] MEDS: glipiZIDE 5 MG TABLET PO SCH ×2 (08:19→17:13)
[2021-04-01] MEDS: METFORMIN HCL 500 MG TABLET PO SCH ×2 (08:19→17:13)
[2021-04-01] MEDS: ESCITALOPRAM OXALATE 10 MG TABLET PO SCH (08:19)
[2021-04-01] MEDS: MULTIVITAMINS,THERAPEUTIC TABLET PO SCH (08:19)
[2021-04-01] MEDS: PANTOPRAZOLE SODIUM 40 MG VIAL IV SCH (08:20)
[2021-04-01] MEDS: LORAZEPAM 2 MG/1 ML VIAL IV PRN ×2 (11:17→20:43)
--- NOTE | 2021-04-01 11:49 | NUR ---
K PHOS IN PROGRESS ORDERED AT THIS TIME WITH NO ADVERSE OR ALLERGIC REACTIONS AT THIS TIME
[2021-04-01 12:00] VITALS: BP 95/63
[2021-04-01 12:37] LABS: EOSINOPHILS % (MANUAL) 2 % (0-8); LYMPHOCYTES % (MANUAL) 55 % (20-40); MONOCYTES % (MANUAL) 3 % (2-10); NEUTROPHILS % (MANUAL) 40 % (42-75)
[2021-04-01] MEDS: THIAMINE HCL INJ 100 MG in IV DEXTROSE 5% 50 ML IV SCH (14:18)
[2021-04-01] MEDS: FOLIC ACID 1 MG in IV DEXTROSE 5% 50 ML IV SCH (15:02)
[2021-04-01] MEDS: MAGNESIUM SULFATE/D5W 100 ML IV SCH ×2 (15:58→17:13)
[2021-04-01 16:00] VITALS: BP 97/66
--- NOTE | 2021-04-01 18:15 | NUR ---
TOLERATED ALL ORDERED KPHOS AND MAGNESSIUM ORDERED WITH NO ADVERSE EFFECTS NO DISTRESS NO TREMORS AT THIS TIME WILL CONTINUE TO OBSERVE.
--- NOTE | 2021-04-01 19:20 | NUR ---
Received pt in bed, A&Ox4, verbally responsive, able to make needs known. Denies nausea or vomiting, no reported pain or discomfort. No s/s of respiratory distress. NSR on tele at 78/min. IVF infusing well on L forearm. Side rails up, bed locked and in low position. Bed alarm on. Call light within reach.
[2021-04-01 20:00] VITALS: BP 96/67
[2021-04-01] MEDS: INSULIN GLARGINE,HUM 300 UNITS/3 ML CARTRIDGE SQ SCH (20:42)
[2021-04-01] MEDS: IV D5W-0.45% NS +20 KCL 1,000 ML IV PRN (21:09)
[2021-04-01] MEDS: HYDROCODONE/APAP 5-325MG TABLET PO PRN (22:31)
[2021-04-02 00:06] VITALS: BP 90/59
[2021-04-02] MEDS: LORAZEPAM 2 MG/1 ML VIAL IV PRN ×2 (01:08→09:51)
[2021-04-02 04:06] VITALS: BP 98/71
--- NOTE | 2021-04-02 06:17 | NUR ---
Pt slept intermittently through the night, no signs of distress. Administered due medications and tolerated well. No significant change in condition noted. Safety measures maintained at all times. All needs attended to and met.
[2021-04-02 06:47] LABS: HEMATOCRIT 30.2 % (31.2-41.9); MEAN CORPUSCULAR HEMOGLOBIN 33.3 uug (24.7-32.8); PLATELET COUNT (AUTO) 108 K/uL (179-408)
[2021-04-02] MEDS: BLOOD SUGAR DIAGNOSTIC 1 EACH STRIP VI SCH ×2 (06:49→11:40)
[2021-04-02 06:54] LABS: CREATININE 0.6 mg/dL (0.6-1.3); MAGNESIUM 1.7 mg/dL (1.8-2.4); PHOSPHOROUS 2.1 mg/dL (2.5-4.9); POTASSIUM 5.1 mmol/L (3.5-5.1)
[2021-04-02] MEDS ORDERED: PANTOPRAZOLE SODIUM 40 MG TABLET.DR PO SCH (07:00)
--- NOTE | 2021-04-02 07:26 | NUR ---
RECEIVED ASLEEP BUT EASILY AROUSABLE. IN NO ACUTE DISTRESS. IV INTACT AND HYDRATION TOLERATED. DENIES PAIN OR SOB. PATIENT IS COMFORTABLE. WILL CONTINUE TO MONITOR.
[2021-04-02] MEDS: INSULIN REGULAR, HUMAN 300 UNIT/3 ML VIAL SQ PRN ×2 (07:59→11:52)
[2021-04-02] MEDS ORDERED: NEUTRA PHOS PACKET PO ONE (08:00)
[2021-04-02] MEDS ORDERED: MAGNESIUM SULFATE/D5W 100 ML IV SCH (08:00)
--- NOTE | 2021-04-02 08:52 | NUR ---
SEEN BY TOYA VARMA.
[2021-04-02] MEDS ORDERED: THIAMINE HCL 100 MG TABLET PO SCH (09:00)
[2021-04-02] MEDS ORDERED: FOLIC ACID 1 MG TABLET PO SCH (09:00)
[2021-04-02] MEDS: METFORMIN HCL 500 MG TABLET PO SCH (09:05)
[2021-04-02] MEDS: MULTIVITAMINS,THERAPEUTIC TABLET PO SCH (09:05)
[2021-04-02] MEDS: ESCITALOPRAM OXALATE 10 MG TABLET PO SCH (09:05)
[2021-04-02] MEDS: glipiZIDE 5 MG TABLET PO SCH (09:05)
[2021-04-02] MEDS: POTASSIUM BICARBONATE/CIT AC 25 MEQ TABLET.EFF PO SCH (09:51)
[2021-04-02 11:57] VITALS: BP 95/61
[2021-04-02] MEDS ORDERED: THIA100T13 PO (12:24)
[2021-04-02] MEDS ORDERED: FOLI1TAB94 PO (12:24)
--- NOTE | 2021-04-02 14:24 | NUR ---
Patient discharged to home in stable condition. Alert, oriented x4 no acute distress. Denies pain or sob. Stated she feels better and wants to go home. Discharged instructions relayed, and she verbalized understanding. Teachings done on dc medications and she nodded said ok will go to pharmacy on the way home. Belongings are in good condition verified by patient. Removed IV access minimal bleeding noted. Picked up by her boyfriend in private car in stable condition.
[2021-04-02] MEDS ORDERED: INSULIN GLARGINE,HUM 300 UNITS/3 ML CARTRIDGE SQ SCH (21:00)
[2021-04-03] MEDS ORDERED: POTASSIUM CHLORIDE 20 MEQ TAB.PRT.SR PO SCH (09:00)
== END 2021-04-02 14:20 | disposition home or self-care (01) | DRG 775 ==
LOC: ER 06:50 → TELE3 13:01
PROVIDERS: ADMIT Registered Nurse; ATTEND Registered Nurse
DX: F10.221 Alcohol dependence with intoxication delirium (principal); E44.1 Mild protein-calorie malnutrition; E87.2 Acidosis; E11.9 Type 2 diabetes mellitus without complications; Y90.6 Blood alcohol level of 120-199 mg/100 ml; E86.0 Dehydration; Z91.19 Patient's noncompliance with other medical treatment and regimen; E88.09 Other disorders of plasma-protein metabolism, not elsewhere classified; Z68.1 Body mass index [BMI] 19.9 or less, adult; Z79.84 Long term (current) use of oral hypoglycemic drugs; F10.231 Alcohol dependence with withdrawal delirium; Z20.822 Contact with and (suspected) exposure to COVID-19
CPT/HCPCS: 36415; 36600; 70030-TC; 83605; 83690; 83735; 84100; 84443; 85025; 93005; A4663; C9113; G0378; G0480; J1815; J2060; J2405; J3411; J3475; J3490; J7030; J7042; J7060

== ENCOUNTER 2021-04-15 00:05 | Emergency (ER) | payer OTHER ==
[~2021-04-15] VITALS: Ht 160 cm; Wt 36.3 kg
[~2021-04-15 00:05] MED LIST changes: +FOLI1TAB94 PO; -HYDR-4384 PO; +THIA100T13 PO
--- NOTE | 2021-04-15 00:25 | NUR ---
chemistry technologist at bedside to draw labs on patient.
[2021-04-15 00:38] LABS: HEMATOCRIT 31.3 % (31.2-41.9); MEAN CORPUSCULAR HEMOGLOBIN 34.3 uug (24.7-32.8); MEAN CORPUSCULAR VOLUME 101.2 fL (75.5-95.3); PLATELET COUNT (AUTO) 275 K/uL (179-408)
[2021-04-15 00:51] LABS: ALANINE AMINOTRANSFERASE 63 U/L (14-59); ALKALINE PHOSPHATASE 231 U/L (50-136); ASPARTATE AMINOTRANSFERASE 135 U/L (15-37); BILIRUBIN,DIRECT 0.5 mg/dL (0.0-0.2); BILIRUBIN,TOTAL 0.7 mg/dL (0.2-1.0); CARBON DIOXIDE 24 mmol/L (21-32); CHLORIDE 103 mmol/L (98-107); CREATININE 0.4 mg/dL (0.6-1.3); GLUCOSE 190 mg/dL (74-106); POTASSIUM 3.6 mmol/L (3.5-5.1); TOTAL PROTEIN, SERUM 5.9 g/dL (6.4-8.2); UREA NITROGEN, BLOOD 8 mg/dL (7-18)
[2021-04-15 00:59] LABS: THYROID STIMULATING HORMONE 3.005 mIU/mL (0.358-3.740)
[2021-04-15 01:02] LABS: ACETAMINOPHEN < 2.0 ug/mL (10-30)
[2021-04-15 01:12] LABS: ETHANOL 447 MG/DL (0-0)
--- NOTE | 2021-04-15 01:15 | NUR ---
Cornelius from Lab reported ELYSE for pt is 0.45%. Relayed information to Dr. Vivar.
--- NOTE | 2021-04-15 01:30 | NUR ---
Patient is resting comfortably in bed with eyes closed, no acute distress noted.
[2021-04-15 01:32] LABS: *BILIRUBIN,URIN NEGATIVE (NEGATIVE); *BLOOD, URINE TRACE (NEGATIVE); *CLARITY,URINE CLOUDY (CLEAR); *COLOR,URINE YELLOW (YELLOW); *KETONES,URINE 1+ (NEGATIVE); *UROBILINOGEN,URINE 0.2 E.U./dl (NORMAL); LEUKOCYTE ESTERASE ,URINE 2+ (NEGATIVE); NITRITE, URINE POSITIVE (NEGATIVE); UGLUCOSE NEGATIVE (NEGATIVE)
[2021-04-15 01:33] LABS: *URINE HCG, QUAL NEGATIVE (NEGATIVE); BACTERIA,URINE MANY /HPF (NONE SEEN); SQUAMOUS EPITHELIAL CELL,UR FEW /HPF (NONE SEEN); WBC,URINE TNTC /HPF (0-3)
[2021-04-15 01:35] LABS: *AMPHETAMINE, URINE NEGATIVE (NEGATIVE); *CANNABINOID, URINE NEGATIVE (NEGATIVE); *COCCAINE, URINE NEGATIVE (NEGATIVE); *OPIATE, URINE NEGATIVE (NEGATIVE); *PHENCYCLIDINE SCREEN,URINE NEGATIVE (NEGATIVE)
[2021-04-15] MEDS ORDERED: CEFTRIAXONE 1 G VIAL IM ONE (02:00)
[2021-04-15] MEDS ORDERED: NITROFURANTOIN/NITROFURAN MAC 100 MG CAPSULE PO ONE ×2 (02:00→02:09)
[2021-04-15] MEDS ORDERED: LIDOCAINE HCL 2% 20 ML VIAL ONE (02:09)
[2021-04-15] MEDS ORDERED: CEFTRIAXONE 1 G VIAL ONE (02:09)
--- NOTE | 2021-04-15 02:20 | NUR ---
Patient given food and drink for nourishment.
--- NOTE | 2021-04-15 02:48 | NUR ---
Spoke with intake for [facility]; No open beds, CONNER Tom states patient will be put on waiting list until tomorrow. Requested paperwork to be faxed over to [phone]. Will fax paperwork over once COVID-Antigen test has resulted.
[2021-04-15] MEDS ORDERED: NITR100C11 PO (02:54)
--- NOTE | 2021-04-15 03:17 | NUR ---
Patient provided information for potential voluntary psychiatric intake for [facility]: [id number] [facility] [place], [place] [address]
[2021-04-15 03:28] VITALS: BP 106/72
--- NOTE | 2021-04-15 03:28 | NUR ---
Patient discharged to home with her roommate Romeo Wilburn in stable condition. Written and verbal after care instructions given. Patient verbalizes understanding of instructions. Stressed follow up or return to ER for worsening s/s. Patient was wheelchaired to Romeo Wilburn' private vehicle and assisted to the car-seat, V/S stable, all personal belongings with patient.
--- NOTE | 2021-04-15 03:38 | NUR ---
Paperwork faxed over to [facility] for patient to be placed on waiting list for voluntary psych admission; faxed over to [phone].
[2021-05-08] MEDS ORDERED: NITR100C6 PO (08:47)
== END 2021-04-15 04:00 | disposition home or self-care (01) ==
LOC: ER 00:07
DX: F41.9 Anxiety disorder, unspecified (principal); F10.229 Alcohol dependence with intoxication, unspecified; Y90.8 Blood alcohol level of 240 mg/100 ml or more; N30.90 Cystitis, unspecified without hematuria; D53.9 Nutritional anemia, unspecified; R94.31 Abnormal electrocardiogram [ECG] [EKG]; E11.9 Type 2 diabetes mellitus without complications; Z79.4 Long term (current) use of insulin; G47.9 Sleep disorder, unspecified; Z20.822 Contact with and (suspected) exposure to COVID-19
CPT/HCPCS: 36415; 84443; 84703; 85025; 87077; 87086; 93005; A4663; G0480; J0696; J3490

== ENCOUNTER 2021-05-05 19:41 | Inpatient (IN) | payer OTHER ==
[~2021-05-05] VITALS: Ht 160 cm; Wt 40.8 kg
[2021-05-05] MEDS: MAGNESIUM SULFATE/D5W 100 ML IV SCH ×2 (00:54→22:32)
[~2021-05-05 19:41] MED LIST changes: +NITR100C11 PO
[2021-05-05] MEDS ORDERED: IV NS 1000 ML 1,000 ML IV ONE ×2 (20:00→23:45)
[2021-05-05] MEDS ORDERED: PROCHLORPERAZINE EDISYLATE 10 MG/2 ML VIAL IV ONE (20:00)
[2021-05-05 20:15] LABS: HEMATOCRIT 31.9 % (31.2-41.9); MEAN CORPUSCULAR HEMOGLOBIN 34.4 uug (24.7-32.8); MEAN CORPUSCULAR VOLUME 103.7 fL (75.5-95.3); PLATELET COUNT (AUTO) 251 K/uL (179-408)
[2021-05-05 20:20] LABS: CARBON DIOXIDE 23 mmol/L (21-32); CHLORIDE 97 mmol/L (98-107); CREATININE 0.5 mg/dL (0.6-1.3); GLUCOSE 107 mg/dL (74-106); UREA NITROGEN, BLOOD 9 mg/dL (7-18)
[2021-05-05] MEDS ORDERED: PROCHLORPERAZINE EDISYLATE 10 MG/2 ML VIAL ONE (20:20)
[2021-05-05 20:21] LABS: ETHANOL < 3 MG/DL (0-0)
[2021-05-05 20:23] LABS: POTASSIUM 2.6 mmol/L (3.5-5.1)
[2021-05-05 20:25] LABS: ALANINE AMINOTRANSFERASE 51 U/L (14-59); ALKALINE PHOSPHATASE 382 U/L (50-136); ASPARTATE AMINOTRANSFERASE 168 U/L (15-37); BILIRUBIN,DIRECT 0.7 mg/dL (0.0-0.2); BILIRUBIN,TOTAL 1.5 mg/dL (0.2-1.0); TOTAL PROTEIN, SERUM 6.6 g/dL (6.4-8.2)
--- NOTE | 2021-05-05 20:25 | NUR ---
Patient c/o epigastric burning pain, radiating to her back. EKG performed. MD Iraheta notified and given EKG reading.
[2021-05-05] MEDS ORDERED: THIAMINE HCL 200 MG/2 ML VIAL IV ONE (20:30)
--- NOTE | 2021-05-05 20:30 | NUR ---
Requested for urine from patient. Patient states she will try again later, unable to provide urine right now at this time.
[2021-05-05] MEDS ORDERED: THIAMINE HCL 200 MG/2 ML VIAL ONE (20:44)
[2021-05-05] MEDS ORDERED: POTASSIUM CHLORIDE 200 ML ONE (20:44)
[2021-05-05] MEDS: POTASSIUM CHLORIDE 50 ML IV SCH ×3 (20:45→21:58)
[2021-05-05] MEDS ORDERED: CHLORDIAZEPOXIDE HCL 25 MG CAPSULE PO ONE (21:30)
[2021-05-05] MEDS ORDERED: LORAZEPAM 2 MG/1 ML VIAL IV ONE (21:30)
[2021-05-05] MEDS ORDERED: MAG HYDROX/AL HYDROX/SIMETH 30 ML LIQUID UDC ONE (21:40)
[2021-05-05] MEDS ORDERED: MAG HYDROX/AL HYDROX/SIMETH 30 ML LIQUID UDC PO ONE (21:45)
[2021-05-05] MEDS ORDERED: POTASSIUM BICARBONATE/CIT AC 25 MEQ TABLET.EFF PO ONE (22:00)
--- NOTE | 2021-05-05 22:02 | NUR ---
Epic panel call placed, pending call back from Dr. Auguste.
[2021-05-05] MEDS ORDERED: LORAZEPAM 2 MG/1 ML VIAL ONE (22:14)
[2021-05-05] MEDS ORDERED: MAGNESIUM SULFATE/D5W 300 ML ONE (22:16)
[2021-05-05] MEDS ORDERED: POTASSIUM BICARBONATE/CIT AC 25 MEQ TABLET.EFF ONE (22:16)
--- NOTE | 2021-05-05 22:20 | NUR ---
Dr. Iraheta on panel call with Dr. Auguste.
--- NOTE | 2021-05-05 22:40 | NUR ---
Patient unable to complete drinking K-[employer]te beverage. She only drank half of the amount I gave her.
[2021-05-05] MEDS ORDERED: CHLORDIAZEPOXIDE HCL 25 MG CAPSULE ONE (22:44)
[2021-05-05] MEDS ORDERED: MAGNESIUM HYDROXIDE 30 ML LIQUID UDC PO PRN (23:15)
[2021-05-05] MEDS ORDERED: Z GUARD REMEDY PASTE 57 GM TUBE TOP PRN (23:15)
[2021-05-05] MEDS ORDERED: ACETAMINOPHEN 325 MG TABLET PO PRN (23:15)
[2021-05-05] MEDS ORDERED: LORAZEPAM 2 MG/1 ML VIAL IV PRN (23:15)
[2021-05-05] MEDS ORDERED: ONDANSETRON 4 MG/2 ML VIAL IV PRN (23:15)
[2021-05-06] MEDS: MAGNESIUM SULFATE/D5W 100 ML IV SCH
--- NOTE | 2021-05-06 00:30 | NUR ---
Disregard IV times for KCL 10 MEQ solution on eMAR. Unable to chart correct times. Correct times are as follows 1st ba (start); 2129 (end) 2nd ba (start); 2229 (end) 3rd ba (start); 233 (end) 4th ba (start); 0030 (end) Addendum: 05/06/21 at 0325 by BFRANICEVI All infused via 20g L AC
--- NOTE | 2021-05-06 00:32 | NUR ---
Patient is assigned to room 311, telemetry. However the patient isn't able to be sent up the 3rd floor at this time per RN [employer] Solution Architect.
--- NOTE | 2021-05-06 01:00 | NUR ---
Patient c/o of heartMD Myrtle mcdermott notified. Verbal orders for Maalox 30mL given.
[2021-05-06] MEDS ORDERED: MAG HYDROX/AL HYDROX/SIMETH 30 ML LIQUID UDC PO STA (01:03)
[2021-05-06] MEDS ORDERED: MAG HYDROX/AL HYDROX/SIMETH 30 ML LIQUID UDC ONE (01:13)
--- NOTE | 2021-05-06 02:05 | NUR ---
Disregard Magnesium 3gm 300mL charting on eMar corrected times are as follows: 1st bag administered 05/05/21 22:32; reassessed 23:50 2nd bag administered 05/06/21 00:00; reassessed 01:00 3rd bag administered 05/06/21 01:00; reassessed 02:05 All infused via 20g L AC
--- NOTE | 2021-05-06 02:10 | NUR ---
Patient unable to urinate, MD Iraheta notified. Verbal orders given for in-and-out straight catheter.
--- NOTE | 2021-05-06 02:10 | NUR ---
Report given to CONNER Victor.
--- NOTE | 2021-05-06 02:30 | NUR ---
Pt. admitted to 311, under care of Dr. Chris White Belongs List completed
[2021-05-06] MEDS ORDERED: IV NS 1000 ML 1,000 ML IV ONE (02:45)
[2021-05-06 03:12] VITALS: BP 110/77
[2021-05-06 03:31] LABS: *BILIRUBIN,URIN NEGATIVE (NEGATIVE); *BLOOD, URINE NEGATIVE (NEGATIVE); *COLOR,URINE YELLOW (YELLOW); *KETONES,URINE 4+ (NEGATIVE); *UROBILINOGEN,URINE 0.2 E.U./dl (NORMAL); LEUKOCYTE ESTERASE ,URINE NEGATIVE (NEGATIVE); NITRITE, URINE POSITIVE (NEGATIVE); PH,URINE 6.5 (5.0-8.0); UGLUCOSE NEGATIVE (NEGATIVE)
[2021-05-06 03:32] LABS: *CLARITY,URINE HAZY (CLEAR)
--- NOTE | 2021-05-06 03:33 | NUR ---
Pt arrived in telemetry unit at 0250 via gurney from ER. AAO x4. On room air. No acute distress noted. Denies pain/ discomfort. Pt selective of questions to answers during admission assessment. VS WNL. Noted pt to have a wound on the bridge of nose, picture taken. Pt stated she fell at home due to heavy drinking. Pt stated that her last alcohol intake was 3 days ago. Pertinent assessment done. Pt had straight cath when she came, which was removed here on admission with 600 cc output. Safety measures maintained. Call light within reach. Will continue to monitor.
[2021-05-06 03:36] LABS: RBC,URINE 0-3 /HPF (0-3)
[2021-05-06 03:37] LABS: BACTERIA,URINE MANY /HPF (NONE SEEN); SQUAMOUS EPITHELIAL CELL,UR FEW /HPF (NONE SEEN)
[2021-05-06] MEDS ORDERED: CEFTRIAXONE 500 MG in IV DEXTROSE 5% 50 ML IV SCH (03:45)
[2021-05-06 04:39] VITALS: BP 109/79
[2021-05-06] MEDS ORDERED: CEFTRIAXONE 500 MG VIAL ONE (06:00)
[2021-05-06 06:26] LABS: HEMATOCRIT 27.9 % (31.2-41.9); MEAN CORPUSCULAR HEMOGLOBIN 34.4 uug (24.7-32.8); MEAN CORPUSCULAR VOLUME 104.4 fL (75.5-95.3); PLATELET COUNT (AUTO) 203 K/uL (179-408)
[2021-05-06] MEDS: PANTOPRAZOLE SODIUM 40 MG TABLET.DR PO SCH (06:44)
[2021-05-06 07:02] LABS: CARBON DIOXIDE 20 mmol/L (21-32); CHLORIDE 102 mmol/L (98-107); CHOLESTEROL 152 mg/dL (<200); CREATININE 0.5 mg/dL (0.6-1.3); GLUCOSE 121 mg/dL (74-106); HDL CHOLESTEROL 84 mg/dL (40-60); MAGNESIUM 2.3 mg/dL (1.8-2.4); TRIGLYCERIDES 70 MG/DL (30-150); UREA NITROGEN, BLOOD 6 mg/dL (7-18)
[2021-05-06 07:54] LABS: THYROID STIMULATING HORMONE 3.244 mIU/mL (0.358-3.740)
[2021-05-06] MEDS ORDERED: CHLORDIAZEPOXIDE HCL 5 MG CAPSULE PO SCH (09:00)
[2021-05-06] MEDS ORDERED: CHLORDIAZEPOXIDE HCL 25 MG CAPSULE PO SCH ×2 (09:00→21:00)
[2021-05-06] MEDS ORDERED: POTASSIUM CHLORIDE 20 MEQ TAB.PRT.SR PO ONE ×2 (09:30→12:00)
[2021-05-06] MEDS ORDERED: MAG HYDROX/AL HYDROX/SIMETH 30 ML LIQUID UDC PO PRN (10:00)
--- NOTE | 2021-05-06 10:00 | NUR ---
Patient complained of heartburn, informed Dr. Auguste and MD ordered Maalox 30ml QID PRN. Patient remains alert, oriented x 4, not in any form of distress, on room air. Assisted with her needs promptly. Call light and frequently used items placed within reach.
[2021-05-06] MEDS ORDERED: INSULIN REGULAR, HUMAN 300 UNITS/3 ML VIAL SQ PRN (11:30)
[2021-05-06] MEDS ORDERED: DEXTROSE 50% 50 ML DISP.SYRIN IV PRN (11:30)
[2021-05-06] MEDS: BLOOD SUGAR DIAGNOSTIC 1 EACH STRIP VI SCH ×3 (11:51→20:59)
[2021-05-06 12:00] VITALS: BP 115/81
[2021-05-06] MEDS: LORAZEPAM 1 MG TABLET PO SCH ×3 (12:48→23:08)
[2021-05-06] MEDS ORDERED: MIDODRINE HCL 5 MG TABLET PO PRN (13:00)
[2021-05-06] MEDS: INSULIN REGULAR, HUMAN 300 UNIT/3 ML VIAL SQ PRN ×2 (13:05→21:06)
[2021-05-06] MEDS ORDERED: NEUTRA PHOS PACKET PO ONE (15:30)
[2021-05-06 15:51] VITALS: BP 98/66
[2021-05-06 20:12] VITALS: BP 112/79
[2021-05-07 00:03] VITALS: BP 108/73
[2021-05-07 04:12] VITALS: BP 100/74
[2021-05-07] MEDS: CEFTRIAXONE 1 G in IV DEXTROSE 5% 50 ML IV SCH (05:13)
[2021-05-07] MEDS ORDERED: CEFTRIAXONE 500 MG in IV DEXTROSE 5% 50 ML IV SCH (06:00)
[2021-05-07] MEDS: LORAZEPAM 1 MG TABLET PO SCH (06:15)
[2021-05-07] MEDS: PANTOPRAZOLE SODIUM 40 MG TABLET.DR PO SCH (06:15)
[2021-05-07] MEDS: BLOOD SUGAR DIAGNOSTIC 1 EACH STRIP VI SCH ×4 (06:17→21:33)
[2021-05-07 07:02] LABS: BILIRUBIN,DIRECT 0.6 mg/dL (0.0-0.2); CREATININE 0.6 mg/dL (0.6-1.3); MAGNESIUM 1.5 mg/dL (1.8-2.4); PHOSPHOROUS 1.3 mg/dL (2.5-4.9); POTASSIUM 4.1 mmol/L (3.5-5.1); TOTAL PROTEIN, SERUM 5.1 g/dL (6.4-8.2)
[2021-05-07 07:05] LABS: HEMATOCRIT 25.8 % (31.2-41.9); MEAN CORPUSCULAR HEMOGLOBIN 34.3 uug (24.7-32.8); MEAN CORPUSCULAR VOLUME 104.2 fL (75.5-95.3); PLATELET COUNT (AUTO) 162 K/uL (179-408)
[2021-05-07] MEDS: INSULIN REGULAR, HUMAN 300 UNIT/3 ML VIAL SQ PRN ×3 (07:32→16:50)
[2021-05-07] MEDS ORDERED: FOLIC ACID/VITAMIN B COMP W-C TABLET PO SCH (09:00)
[2021-05-07] MEDS ORDERED: [UNRECOGNIZED DRUG - OTHER] PO SCH (09:00)
[2021-05-07] MEDS ORDERED: Medication Not On Formulary EA (Omeprazole 20 MG) PO SCH (09:00)
[2021-05-07] MEDS ORDERED: Medication Not On Formulary EA (Multivitamin (Multi-Vitamin Daily) 1 EACH) PO SCH (09:00)
[2021-05-07] MEDS: FOLIC ACID 1 MG TABLET PO SCH (09:01)
[2021-05-07] MEDS: MULTIVITAMINS,THERAPEUTIC TABLET PO SCH (09:01)
[2021-05-07] MEDS: THIAMINE HCL 100 MG TABLET PO SCH (09:01)
[2021-05-07] MEDS: POTASSIUM CHLORIDE 20 MEQ TAB.PRT.SR PO SCH (09:01)
[2021-05-07] MEDS: MAGNESIUM SULFATE/D5W 100 ML IV SCH ×2 (09:39→10:41)
[2021-05-07] MEDS ORDERED: LOPERAMIDE HCL 2 MG CAPSULE PO PRN (09:45)
[2021-05-07 11:53] VITALS: BP 93/62
[2021-05-07] MEDS: LORAZEPAM 1 MG TABLET PO PRN ×2 (12:37→21:37)
[2021-05-07 15:54] VITALS: BP 101/71
[2021-05-07] MEDS ORDERED: NEUTRA PHOS PACKET PO ONE (16:15)
--- NOTE | 2021-05-07 19:00 | NUR ---
RECD PT IN BED,APPEARS SLEEPING, NO ACUTE DISTRESS NOTED.SAFETY AND PRECAUTIONARY MEASURES IMPLEMENTED, FREQUENT MONITORING DONE.ON TELE SINUS 89.
[2021-05-07 20:09] VITALS: BP 90/65
--- NOTE | 2021-05-07 21:45 | NUR ---
IV SITE PATENT AND INTACT ON LEFT AC, NO DIABETIC CRISIS NOTED, HS BLOOD SUGAR WAS 104. NEEDS ATTENDED TO.
[2021-05-08 00:09] VITALS: BP 100/67
--- NOTE | 2021-05-08 00:37 | NUR ---
KEPT WARM AND COMFORTABLE.CALL LITE W/I REACH.
[2021-05-08 04:06] VITALS: BP 103/68
[2021-05-08 06:09] LABS: HEMATOCRIT 27.7 % (31.2-41.9); MEAN CORPUSCULAR HEMOGLOBIN 34.2 uug (24.7-32.8); MEAN CORPUSCULAR VOLUME 105.3 fL (75.5-95.3); PLATELET COUNT (AUTO) 159 K/uL (179-408)
[2021-05-08] MEDS: PANTOPRAZOLE SODIUM 40 MG TABLET.DR PO SCH (06:13)
[2021-05-08] MEDS: CEFTRIAXONE 1 G in IV DEXTROSE 5% 50 ML IV SCH (06:14)
[2021-05-08] MEDS: BLOOD SUGAR DIAGNOSTIC 1 EACH STRIP VI SCH ×2 (06:28→10:51)
[2021-05-08 06:30] LABS: CREATININE 0.6 mg/dL (0.6-1.3); MAGNESIUM 1.5 mg/dL (1.8-2.4); PHOSPHOROUS 1.9 mg/dL (2.5-4.9); POTASSIUM 3.9 mmol/L (3.5-5.1)
[2021-05-08] MEDS: INSULIN REGULAR, HUMAN 300 UNIT/3 ML VIAL SQ PRN ×2 (07:42→11:48)
[2021-05-08] MEDS: POTASSIUM CHLORIDE 20 MEQ TAB.PRT.SR PO SCH (08:00)
[2021-05-08] MEDS: THIAMINE HCL 100 MG TABLET PO SCH (08:00)
[2021-05-08] MEDS: FOLIC ACID 1 MG TABLET PO SCH (08:00)
[2021-05-08] MEDS: MULTIVITAMINS,THERAPEUTIC TABLET PO SCH (08:00)
[2021-05-08] MEDS ORDERED: NITR100C6 PO (08:47)
[2021-05-08] MEDS ORDERED: DEXTROSE 5% IV ONE (09:30)
[2021-05-08] MEDS ORDERED: MAGNESIUM SULFATE IV ONE (09:30)
[2021-05-08] MEDS: MAGNESIUM SULFATE/D5W 100 ML IV SCH ×3 (09:40→12:16)
[2021-05-08] MEDS ORDERED: SODIUM PHOSPHATE MM 15 MMOL in IV NORMAL SALINE 250 ML IV ONE (10:00)
[2021-05-08] MEDS: LORAZEPAM 1 MG TABLET PO PRN (10:12)
[2021-05-08 10:46] VITALS: BP 90/57
--- NOTE | 2021-05-08 14:51 | NUR ---
dc orders received noted and carried out dc instruction and education given to the pt dc heplock per md orders,pt left the facility via walking from the hospital in stable condition in proper clothes
== END 2021-05-08 14:40 | disposition home or self-care (01) | DRG 425 ==
LOC: ER 19:41 → TELE3 05-06 02:19
PROVIDERS: ADMIT Family Medicine; ATTEND Student in an Organized Health Care Education/Training Program
DX: E87.6 Hypokalemia (principal); E44.1 Mild protein-calorie malnutrition; E83.39 Other disorders of phosphorus metabolism; E83.42 Hypomagnesemia; N39.0 Urinary tract infection, site not specified; E11.9 Type 2 diabetes mellitus without complications; B96.89 Other specified bacterial agents as the cause of diseases classified elsewhere; D63.8 Anemia in other chronic diseases classified elsewhere; F10.239 Alcohol dependence with withdrawal, unspecified; Z79.4 Long term (current) use of insulin; Y90.0 Blood alcohol level of less than 20 mg/100 ml; E87.1 Hypo-osmolality and hyponatremia; Z20.822 Contact with and (suspected) exposure to COVID-19
CPT/HCPCS: 36415; 82747; 83735; 84100; 84443; 85014; 85025; 85730; 87077; 87086; 93005; A4663; C1758; G0378; G0480; J0696; J0780; J1815; J2060; J3411; J3475; J3480; J3490; J7030; J7040; J7050; J7060

== ENCOUNTER 2021-05-27 13:54 | Inpatient (IN) | payer OTHER ==
[~2021-05-27] VITALS: Ht 160 cm; Wt 40.8 kg
[~2021-05-27 13:54] MED LIST changes: -ESCI10TA PO; -FOLI1TAB94 PO; -GLIP5TAB13 PO; -METF-442 PO; -NITR100C11 PO; +NITR100C6 PO
--- NOTE | 2021-05-27 14:00 | NUR ---
Dr Livingston at the bedside for MSE.
[2021-05-27] MEDS ORDERED: IV NORMAL SALINE 1000 ML BAG IV ONE (14:15)
[2021-05-27] MEDS ORDERED: ONDANSETRON 4 MG/2 ML VIAL IV ONE (14:15)
[2021-05-27] MEDS ORDERED: FAMOTIDINE. 20 MG/2 ML VIAL IV ONE ×2 (14:15→14:26)
[2021-05-27 14:19] LABS: HEMATOCRIT 34.1 % (31.2-41.9); MEAN CORPUSCULAR VOLUME 101.7 fL (75.5-95.3); PLATELET COUNT (AUTO) 228 K/uL (179-408)
[2021-05-27] MEDS ORDERED: DEXTROSE 50% 50 ML DISP.SYRIN ONE (14:23)
[2021-05-27] MEDS ORDERED: ONDANSETRON 4 MG/2 ML VIAL ONE (14:26)
[2021-05-27] MEDS ORDERED: DEXTROSE 50% 50 ML DISP.SYRIN IV ONE ×2 (14:30)
[2021-05-27 14:39] LABS: MAGNESIUM 1.4 mg/dL (1.8-2.4)
[2021-05-27 14:45] LABS: ALANINE AMINOTRANSFERASE 74 U/L (14-59); ALKALINE PHOSPHATASE 277 U/L (50-136); ASPARTATE AMINOTRANSFERASE 205 U/L (15-37); BILIRUBIN,DIRECT 0.4 mg/dL (0.0-0.2); BILIRUBIN,TOTAL 0.6 mg/dL (0.2-1.0); CARBON DIOXIDE 23 mmol/L (21-32); CHLORIDE 106 mmol/L (98-107); CREATININE 0.5 mg/dL (0.6-1.3); LIPASE 33 U/L (73-393); POTASSIUM 2.9 mmol/L (3.5-5.1); TOTAL PROTEIN, SERUM 6.8 g/dL (6.4-8.2); UREA NITROGEN, BLOOD 12 mg/dL (7-18)
[2021-05-27 14:49] LABS: GLUCOSE 24 mg/dL (74-106)
[2021-05-27] MEDS ORDERED: POTASSIUM CHLORIDE 20 MEQ TAB.PRT.SR PO ONE (15:00)
[2021-05-27] MEDS ORDERED: MAGNESIUM OXIDE 400 MG TABLET PO ONE (15:00)
--- NOTE | 2021-05-27 15:15 | NUR ---
C/O nausea, Reglan 10 mg slow IVP per Md order, given.
[2021-05-27] MEDS ORDERED: MAGNESIUM OXIDE 400 MG TABLET ONE (15:24)
[2021-05-27] MEDS ORDERED: POTASSIUM CHLORIDE 20 MEQ TAB.PRT.SR ONE (15:24)
[2021-05-27] MEDS ORDERED: METOCLOPRAMIDE HCL 10 MG/2 ML VIAL ONE (15:28)
[2021-05-27] MEDS ORDERED: METOCLOPRAMIDE HCL 10 MG/2 ML VIAL IV ONE (15:30)
[2021-05-27] MEDS ORDERED: LORAZEPAM 2 MG/1 ML VIAL IV ONE (17:00)
--- NOTE | 2021-05-27 17:00 | NUR ---
Pt c/o being anxious and 'jittery", ER made aware, order received.
[2021-05-27] MEDS ORDERED: LORAZEPAM 2 MG/1 ML VIAL ONE (17:10)
[2021-05-27] MEDS ORDERED: Z GUARD REMEDY PASTE 57 GM TUBE TOP PRN (17:30)
[2021-05-27] MEDS ORDERED: DEXTROSE 50% 50 ML DISP.SYRIN IV PRN (17:30)
[2021-05-27] MEDS ORDERED: MAGNESIUM HYDROXIDE 30 ML LIQUID UDC PO PRN (17:30)
[2021-05-27] MEDS ORDERED: LORAZEPAM 2 MG/1 ML VIAL IV PRN (17:30)
[2021-05-27] MEDS ORDERED: ACETAMINOPHEN 325 MG TABLET PO PRN (17:30)
[2021-05-27] MEDS ORDERED: ONDANSETRON 4 MG/2 ML VIAL IV PRN (17:30)
[2021-05-27] MEDS ORDERED: ENOXAPARIN SODIUM 40 MG/0.4 ML DISP.SYRIN SQ SCH ×2 (17:30→20:41)
--- NOTE | 2021-05-27 17:50 | NUR ---
Dinner tray provided, pt ate w/ good appetite.
--- NOTE | 2021-05-27 18:21 | NUR ---
Patient is resting comfortably in bed with eyes closed, NAD noted at this time.
[2021-05-27] MEDS ORDERED: THIAMINE HCL 100 MG TABLET PO ONE (19:15)
[2021-05-27] MEDS ORDERED: MAGNESIUM SULFATE 2 GM in IV DEXTROSE 5% 100 ML IV ONE (19:15)
[2021-05-27] MEDS ORDERED: MAGNESIUM SULFATE/D5W 200 ML ONE (19:32)
[2021-05-27] MEDS ORDERED: THIAMINE HCL 100 MG TABLET ONE (19:38)
[2021-05-27] MEDS ORDERED: CHOLECALCIFEROL 1,000 UNIT TABLET ONE (19:38)
[2021-05-27] MEDS: CHOLECALCIFEROL 1,000 UNIT TABLET PO SCH (19:43)
[2021-05-27] MEDS: BLOOD SUGAR DIAGNOSTIC 1 EACH STRIP VI SCH ×2 (19:44→23:09)
--- NOTE | 2021-05-27 20:01 | NUR ---
Gave report to CONNER Olivier.
--- NOTE | 2021-05-27 21:00 | NUR ---
41 year old female received from er via wheel chair to room 321 for hypoglycemia .pt is axox4.vs are stable call light with in reach md notified for the admission orders
[2021-05-27 21:40] VITALS: BP 111/70
[2021-05-27] MEDS: IV NS 1000 ML 1,000 ML IV PRN (21:55)
[2021-05-28] MEDS: BLOOD SUGAR DIAGNOSTIC 1 EACH STRIP VI SCH ×6 (03:17→21:11)
[2021-05-28 04:24] VITALS: BP 109/73
[2021-05-28 06:25] LABS: HEMATOCRIT 26.6 % (31.2-41.9); MEAN CORPUSCULAR HEMOGLOBIN 34.5 uug (24.7-32.8); MEAN CORPUSCULAR VOLUME 101.7 fL (75.5-95.3); PLATELET COUNT (AUTO) 132 K/uL (179-408)
[2021-05-28 06:46] LABS: CARBON DIOXIDE 27 mmol/L (21-32); CHLORIDE 103 mmol/L (98-107); CHOLESTEROL 159 mg/dL (<200); CREATININE 0.5 mg/dL (0.6-1.3); GLUCOSE 237 mg/dL (74-106); HDL CHOLESTEROL 65 mg/dL (40-60); MAGNESIUM 1.7 mg/dL (1.8-2.4); PHOSPHOROUS 3.6 mg/dL (2.5-4.9); POTASSIUM 4.1 mmol/L (3.5-5.1); TRIGLYCERIDES 115 MG/DL (30-150); UREA NITROGEN, BLOOD 8 mg/dL (7-18)
[2021-05-28] MEDS: CHOLECALCIFEROL 1,000 UNIT TABLET PO SCH (08:00)
[2021-05-28] MEDS: IV NS 1000 ML 1,000 ML IV PRN ×2 (08:01→21:15)
--- NOTE | 2021-05-28 09:15 | NUR ---
PATIENT IS ALERT ORIENTED AND VERBALLY RESPONSIVE NOTIFIED ME THAT SHE HAS 5 TIMES DIARRHEA LAST NITJudi VENTURA NOTIFIED WITH ORDER TO SEND STOOL FOR C DIFF AND NOTED PATIENT PLACED ON BLEACH ISOLATION AND PATIENT EDUCATED ON NEED FOR ISOLATION.REMAIN ON NS AT 100ML/HR WITH NO S/S OF INFILTERATION ON SITE CALL LIGHTS AND PERSONAL BELONGINGS ARE WITHIN EASY REACH AT THIS TIME WILL CONTINUE TO OBSERVE.
[2021-05-28] MEDS: MAGNESIUM SULFATE/D5W 100 ML IV SCH ×2 (11:50→12:27)
--- NOTE | 2021-05-28 11:59 | NUR ---
DR BALBUENA HERE SEEN PATIENT NOTIFIED HIM THAT HER BLOOD SUGAR IS 303 WITH NEW ORDERS TO START MILD SLIDING SCALE AND NOTED.
[2021-05-28 12:00] VITALS: BP 109/73
[2021-05-28] MEDS ORDERED: DEXTROSE 50% 50 ML DISP.SYRIN IV PRN (12:00)
--- NOTE | 2021-05-28 12:07 | NUR ---
BLOOD SUGAR FOR 1200 NOT DONE BLOOD SUGAR WAS JUST DONE FEW MINUTES AGO PENDING COVERAGE.PER SLIDING SCALE
[2021-05-28] MEDS: INSULIN REGULAR, HUMAN 300 UNIT/3 ML VIAL SQ PRN (12:24)
--- NOTE | 2021-05-28 13:00 | NUR ---
IV SITE ON HER RIGHT AC IS VERY POSITIONAL AND KEEPS BEEPING REPLACED WITH GAUGE 20 TO HER LEFT WRIST AREA TOLERATED WELL FLUSHED PER PROTOCOL.
--- NOTE | 2021-05-28 13:41 | NUR ---
MAGNESIUM LEVEL IS 1.7 WITH ORDER FOR 2 GRAMS OF MAGNESIUM REPLACEMENTS GIVEN ORDERED
[2021-05-28] MEDS ORDERED: FOLI1TAB94 PO (13:45)
[2021-05-28 16:44] VITALS: BP 98/70
--- NOTE | 2021-05-28 17:03 | NUR ---
BLOOD SUGAR CHECKED ORDERED AND ITS 43 PATIENT IS ALERT AND ORIENTED STATED SHE DID NOT BELIEVE ITS CORRECT WANTED ME TO RECHECK IT AND I DID AND ITS 64 AT THIS TIME SKIN IS WARM AND DRY AND SHE IS ASSYMPTOMATIC 120 ML ORANGE JUICE GIVEN AND PATIENT TOLERATED WELL WILL CONTINUE TO OBSERVE DINNER ALSO GIVEN SHE IS CURRENTLY ON C DIFF PRECAUTION PENDING THE RESULT OF THE C DIFF ORDERED DENIES HAVING FUTHER DIARRHEA WILL CONTINUE TO OBSERVE.
[2021-05-28] MEDS: MORPHINE SULFATE 2 MG/1 ML DISP.SYRIN IV PRN ×2 (17:05→21:13)
--- NOTE | 2021-05-28 17:05 | NUR ---
MEDICATED WITH MORPHINE FOR C/O ABDOMINAL PAIN ORDERED WILL OBSERVE IVF REMAINS IN PROGRESS ORDERED WITH NO S/S OF INFILTERATION AT THIS TIME.
[2021-05-28] MEDS: LORAZEPAM 2 MG/1 ML VIAL IV PRN ×2 (19:45→23:35)
[2021-05-28 20:53] VITALS: BP 117/88
[2021-05-28] MEDS: ENOXAPARIN SODIUM 40 MG/0.4 ML DISP.SYRIN SQ SCH (21:10)
--- NOTE | 2021-05-28 21:15 | NUR ---
Pt's blood sugar is 247; pt refused insulin coverage.
[2021-05-29 00:17] VITALS: BP 122/90
[2021-05-29] MEDS: MORPHINE SULFATE 2 MG/1 ML DISP.SYRIN IV PRN ×3 (01:28→17:14)
--- NOTE | 2021-05-29 01:30 | NUR ---
0128h prn morphine 1mg given to pt for abdominal pain. Pt tolerated it well. Will continue to monitor.
[2021-05-29 04:40] VITALS: BP 98/59
[2021-05-29 06:06] LABS: HEMATOCRIT 24.6 % (31.2-41.9); MEAN CORPUSCULAR HEMOGLOBIN 34.9 uug (24.7-32.8); MEAN CORPUSCULAR VOLUME 102.9 fL (75.5-95.3); PLATELET COUNT (AUTO) 112 K/uL (179-408)
[2021-05-29] MEDS: BLOOD SUGAR DIAGNOSTIC 1 EACH STRIP VI SCH ×4 (06:28→21:11)
[2021-05-29] MEDS: IV NS 1000 ML 1,000 ML IV PRN ×2 (06:31→18:49)
--- NOTE | 2021-05-29 06:40 | NUR ---
END OF SHIFT REPORT Patient rested well in between care; pt had morphine for pain; was agitated and anxious last night; 1 mg ativan given IVP; pt ate as well some snacks last night;l BS this AM is 241; continue to monitor; continue plan of care.
[2021-05-29 06:52] LABS: ALANINE AMINOTRANSFERASE 34 U/L (14-59); ALKALINE PHOSPHATASE 183 U/L (50-136); ASPARTATE AMINOTRANSFERASE 93 U/L (15-37); BILIRUBIN,TOTAL 0.8 mg/dL (0.2-1.0); CARBON DIOXIDE 25 mmol/L (21-32); CHLORIDE 104 mmol/L (98-107); CREATININE 0.5 mg/dL (0.6-1.3); GLUCOSE 273 mg/dL (74-106); MAGNESIUM 1.7 mg/dL (1.8-2.4); PHOSPHOROUS 3.1 mg/dL (2.5-4.9); POTASSIUM 3.7 mmol/L (3.5-5.1); TOTAL PROTEIN, SERUM 4.7 g/dL (6.4-8.2); UREA NITROGEN, BLOOD 2 mg/dL (7-18)
[2021-05-29] MEDS: INSULIN REGULAR, HUMAN 300 UNIT/3 ML VIAL SQ PRN ×3 (08:14→21:10)
[2021-05-29] MEDS: THIAMINE HCL 100 MG TABLET PO SCH (08:14)
[2021-05-29] MEDS: FOLIC ACID 1 MG TABLET PO SCH (08:14)
[2021-05-29] MEDS: CHOLECALCIFEROL 1,000 UNIT TABLET PO SCH (08:15)
[2021-05-29] MEDS: LORAZEPAM 2 MG/1 ML VIAL IV PRN ×2 (08:27→21:09)
--- NOTE | 2021-05-29 08:35 | NUR ---
STATED FEELS ANXIOUS ALERT AND ORIENTED X4 MEDICATED WITH ATIVAN ORDERED REMAIN ON IVF OF NS ORDERED WITH NO S/S OF INFILTERATION ON SITE NO TREMORS OR S/S OF WITHDRAWALS AT THIS TIME .CALL LIGHTS AND PERSONAL BELONGINGS ARE WITHIN EASY REACH WILL CONTINUE TO OBSERVE AND PROVIDE COMFORT.
[2021-05-29] MEDS: MAGNESIUM SULFATE/D5W 100 ML IV SCH ×2 (09:23→10:34)
[2021-05-29 11:58] VITALS: BP 98/72
--- NOTE | 2021-05-29 12:46 | NUR ---
MAGNESSIUM LEVEL IS 1.7 REPLACED WITH 2 GRAMS MAGNESSIUM ORDERED AND TOLERATED WELL WITH S/S OF ADVERSE OR ALLERGIC REACTIONS AT THIS TIME.
[2021-05-29] MEDS: GLUCERNA SHAKE VANILLA 237 ML CAN PO SCH ×2 (13:54→16:39)
--- NOTE | 2021-05-29 15:07 | NUR ---
Field Artillery Crewmember Consultation: Field Artillery Crewmember consultation requested for resources for alcohol/substance abuse rehab. Per ED physicians note, patient came to the ED from home on 05/27/21. Patient was brought in by paramedics. Per ED physicians notes, patient stated that she was feeling weak, had not been eating for the last several days, and was drinking heavily for the last several days. This patient is known to this director of social work from previous admissions. Patient is a 41 year old female, alert, oriented, however was drowsy during this interview. Patient was lying down in bed, however was cooperative and engaged in dialogue with this TEST FIXTURE ASSEMBLER. Patient reports that she came to the hospital yesterday for low blood sugar. Patient has a long standing history of alcohol abuse, and reported that she had cut down on her drinking and was now only drinking a couple of shots of Valentin Obrien on a daily basis. Patient denies use of any other drugs. Patient denies use of cigarettes. Patient lives with roommates at [address] [place] [address]. This TEST FIXTURE ASSEMBLER discussed resources for substance abuse treatment, and patient stated she is receptive to these resources. This TEST FIXTURE ASSEMBLER to provide patient with substance abuse treatment program resources. Patient also inquired about medical care after she is discharged from the hospital, and this TEST FIXTURE ASSEMBLER offered to provide patient with resources on community clinics. This TEST FIXTURE ASSEMBLER explored patients needs for any other supportive services, and patient expressed not needing any other resources at this time. Discharge plans were discussed, and patient stated that she would be returning home after this hospitalization and that she would follow up on the substance abuse treatment programs once she goes home. Patient's affect was flat; behavior was WNL. Patient's appearance was disheveled. Patient's tone of voice was low, but speech was clear. Thought process and thought content were appropriate. No SI or HI. No hallucinations or delusions. SW provided the following substance abuse treatment program resources to the patient, and filed a copy of the resources in patients chart: [address] [place] [address] [facility] [address] [facility] [place] [address] [place], [place] [id number] [address] [place] [address] [facility] [address] [place] [address] Alcoholics Anonymous -[facility] information and meeting and schedules www.aa-intergroup.org [facility] Substance Abuse Helpline(SASH)-[facility] : Outpatient treatment, residential treatment, recovery support for youth and adults Field Artillery Crewmember will continue to remain available to the patient, as needed.
--- NOTE | 2021-05-29 15:44 | NUR ---
This EARRINGS FABRICATOR also provided patient with the following resources for community medical clinics: [facility] [address] [facility], [address] [facility] [place] Hours: M, T, Th, F 8:30AM-4:30PM Walk-ins allowed Provide medical screening and pharmacy [facility] [address] [place] [address] Hours M-F 8AM-3:30PM Walk-ins allowed Provide medical screening and pharmacy [facility] [address] [facility] [place] [address] [phone] Hours 8AM-4:30PM Walk-ins allowed Provide medical screening and pharmacy
--- NOTE | 2021-05-29 15:50 | NUR ---
RECEIVED A CALL FROM [facility] PATIENT IS POSITIVE FOR C DIFF CALLED AND NOTIFIED DR HOFF WITH NO NEW ORDERS AT THIS TIME PATIENT HAS BEEN ON ISOLATION SINCE THE STOOL WAS SENT YESTERDAY.
[2021-05-29 16:00] VITALS: BP 106/77
--- NOTE | 2021-05-29 16:14 | NUR ---
NEW ORDERS RECEIVED FROM DR HOFF FOR VANCOMYCIN AND NOTED
[2021-05-29] MEDS: VANCOMYCIN FOR PO/GT/NG USE PO SCH ×2 (18:32→23:14)
[2021-05-29 20:00] VITALS: BP 114/87
[2021-05-29] MEDS: ENOXAPARIN SODIUM 40 MG/0.4 ML DISP.SYRIN SQ SCH (20:12)
--- NOTE | 2021-05-29 21:09 | NUR ---
PATIENT STATED FEEL VERY ANXIOUS REQUESTING FOR ATIVAN MEDICATED ORDERED REMAIN ON IVF WITH NO S/S OF INFILTERATION ON SITE APPETITE HAS BEEN FAIR PATIENT HAS BEEN EATING BETTER CONTINUE TO HAVE DIARRHEA AND REMAIN ON ORAL VANCOMICIN ORDERED WITH NO ADVERSE OR ALLERGIC REACTIONS AT THIS TIME ISOLATION OBSERVED WILL CONTINUE TO OBSERVE.
[2021-05-30] VITALS: BP 114/82
[2021-05-30] MEDS: MORPHINE SULFATE 2 MG/1 ML DISP.SYRIN IV PRN ×2 (00:19→06:26)
--- NOTE | 2021-05-30 00:20 | NUR ---
HAVING ABDOMINAL PAIN MEDICATED WITH MORPHINE ORDERED NOT IN DISTRESS AT THIS TIME.
[2021-05-30 04:00] VITALS: BP 103/77
[2021-05-30] MEDS: VANCOMYCIN FOR PO/GT/NG USE PO SCH ×2 (06:01→12:07)
[2021-05-30 06:11] LABS: HEMATOCRIT 25.6 % (31.2-41.9); MEAN CORPUSCULAR HEMOGLOBIN 34.6 uug (24.7-32.8); PLATELET COUNT (AUTO) 124 K/uL (179-408)
[2021-05-30] MEDS: IV NS 1000 ML 1,000 ML IV PRN (06:15)
--- NOTE | 2021-05-30 06:28 | NUR ---
MEDICATED WITH MORPHINE FOR PAIN PER HER REQUEST STATED HAS ABDOMINAL PAIN WILL CONTINUE TO OBSERVE.
[2021-05-30] MEDS: BLOOD SUGAR DIAGNOSTIC 1 EACH STRIP VI SCH ×2 (06:54→12:04)
[2021-05-30 07:23] LABS: CARBON DIOXIDE 28 mmol/L (21-32); CHLORIDE 105 mmol/L (98-107); CREATININE 0.5 mg/dL (0.6-1.3); GLUCOSE 216 mg/dL (74-106); PHOSPHOROUS 3.4 mg/dL (2.5-4.9); POTASSIUM 4.3 mmol/L (3.5-5.1); UREA NITROGEN, BLOOD 4 mg/dL (7-18)
[2021-05-30] MEDS: CHOLECALCIFEROL 1,000 UNIT TABLET PO SCH (08:30)
[2021-05-30] MEDS: THIAMINE HCL 100 MG TABLET PO SCH (08:30)
[2021-05-30] MEDS: FOLIC ACID 1 MG TABLET PO SCH (08:31)
[2021-05-30] MEDS: GLUCERNA SHAKE VANILLA 237 ML CAN PO SCH ×2 (08:32→12:08)
[2021-05-30] MEDS: LORAZEPAM 2 MG/1 ML VIAL IV PRN (08:50)
--- NOTE | 2021-05-30 08:50 | NUR ---
awake and alert, denies of pain at this time, asking for her Ativan- states feels nervous but no tremors noted, PT here also for eval, safety measures maintained, C diff isolation noted, states had diarrheal stools last nite, but none since, safety measures maintained, call light within reach
--- NOTE | 2021-05-30 10:30 | NUR ---
seen by Dr Auguste and to go home today
[2021-05-30 11:38] VITALS: BP 121/96
[2021-05-30] MEDS ORDERED: OMEP20CA15 PO (12:27)
[2021-05-30] MEDS ORDERED: INSU100V7 SQ (12:27)
[2021-05-30] MEDS ORDERED: VANC500V PO (12:27)
--- NOTE | 2021-05-30 13:00 | NUR ---
ate good, bm soft, not liquid at this time- going home, states boyfriend to pick her up
--- NOTE | 2021-05-30 15:20 | NUR ---
ready to go home, discharge instructions given-verbalized understanding, saline lock removed- no swelling /redness on site, states taking taxi- boyfriend unable to pick her up, all belongings with her
--- NOTE | 2021-05-30 15:35 | NUR ---
escorted to taxi per w/c with all belongings, pt in stable condition
== END 2021-05-30 15:35 | disposition home or self-care (01) | DRG 775 ==
LOC: ER 13:54 → TELE3 20:28 → MEDSURG3 05-30 10:13
PROVIDERS: ADMIT Internal Medicine; ATTEND Student in an Organized Health Care Education/Training Program
DX: F10.229 Alcohol dependence with intoxication, unspecified (principal); E43 Unspecified severe protein-calorie malnutrition; E11.649 Type 2 diabetes mellitus with hypoglycemia without coma; D69.6 Thrombocytopenia, unspecified; A04.72 Enterocolitis due to Clostridium difficile, not specified as recurrent; R62.7 Adult failure to thrive; K86.0 Alcohol-induced chronic pancreatitis; E86.0 Dehydration; F10.239 Alcohol dependence with withdrawal, unspecified; E83.42 Hypomagnesemia; E87.6 Hypokalemia; K86.1 Other chronic pancreatitis; D64.9 Anemia, unspecified; Y90.6 Blood alcohol level of 120-199 mg/100 ml; H66.90 Otitis media, unspecified, unspecified ear; Z79.4 Long term (current) use of insulin; D75.89 Other specified diseases of blood and blood-forming organs; Z87.442 Personal history of urinary calculi; Z68.1 Body mass index [BMI] 19.9 or less, adult
CPT/HCPCS: 36415; 71045; 83690; 83735; 84100; 85025; 93005; 97161; A4663; G0378; G0480; J1650; J1815; J2060; J2270; J2405; J2765; J3370; J3475; J3490; J7030

== ENCOUNTER 2021-06-01 22:29 | Emergency (ER) | payer OTHER ==
[~2021-06-01] VITALS: Ht 160 cm; Wt 40.8 kg
[~2021-06-01 22:29] MED LIST changes: +FOLI1TAB94 PO; -NITR100C6 PO; +VANC500V PO
[2021-06-01] MEDS ORDERED: IV NS 1000 ML 1,000 ML IV ONE (22:30)
[2021-06-01] MEDS ORDERED: INSULIN REGULAR, HUMAN 300 UNIT/3 ML VIAL IV ONE (22:30)
[2021-06-01] MEDS ORDERED: INSULIN REGULAR, HUMAN 300 UNIT/3 ML VIAL ONE (23:09)
[2021-06-01 23:17] LABS: CARBON DIOXIDE 32 mmol/L (21-32); CHLORIDE 99 mmol/L (98-107); CREATININE 0.8 mg/dL (0.6-1.3); POTASSIUM 4.1 mmol/L (3.5-5.1); UREA NITROGEN, BLOOD 8 mg/dL (7-18)
[2021-06-01 23:19] LABS: GLUCOSE 396 mg/dL (74-106)
--- NOTE | 2021-06-01 23:20 | NUR ---
SHABNAM SAWANT FROM LAB CALLED FOR CRITICAL GLUCOSE OF 396, DR. WELLS MADE AWARE.
[2021-06-01 23:28] LABS: HEMATOCRIT 25.7 % (31.2-41.9); MEAN CORPUSCULAR HEMOGLOBIN 34.5 uug (24.7-32.8); MEAN CORPUSCULAR VOLUME 102.3 fL (75.5-95.3); PLATELET COUNT (AUTO) 215 K/uL (179-408)
--- NOTE | 2021-06-01 23:30 | NUR ---
Patient c/o of L sided chest cramps, EKG taken, MD Iraheta made aware.
[2021-06-01] MEDS ORDERED: MAG HYDROX/AL HYDROX/SIMETH 30 ML LIQUID UDC PO STA (23:38)
[2021-06-01] MEDS ORDERED: LIDOCAINE VISCUS 2% 15 ML UDC PO STA (23:38)
[2021-06-01] MEDS ORDERED: CHLORDIAZEPOXIDE HCL 25 MG CAPSULE PO STA (23:46)
[2021-06-01 23:47] LABS: MAGNESIUM 1.1 mg/dL (1.8-2.4)
[2021-06-01] MEDS ORDERED: LIDOCAINE VISCUS 2% 15 ML UDC ONE (23:47)
[2021-06-01] MEDS ORDERED: MAG HYDROX/AL HYDROX/SIMETH 30 ML LIQUID UDC ONE (23:47)
--- NOTE | 2021-06-01 23:54 | NUR ---
Pyxis empty on librium, nursing division supervisor notified to obtain it.
[2021-06-02] MEDS ORDERED: MAGNESIUM SULFATE/D5W 400 ML ONE (00:02)
[2021-06-02 00:03] LABS: ETHANOL < 3 MG/DL (0-0)
[2021-06-02] MEDS ORDERED: CHLORDIAZEPOXIDE HCL 25 MG CAPSULE PO STA (00:23)
--- NOTE | 2021-06-02 00:24 | NUR ---
Nursing supervisor vendor quality notified no 50mg dosages of librium available in hospital. MD Iraheta changed dose to 10mg per verbal order.
[2021-06-02 00:34] LABS: EOSINOPHILS % (MANUAL) 1 % (0-8); LYMPHOCYTES % (MANUAL) 25 % (20-40); MONOCYTES % (MANUAL) 6 % (2-10); NEUTROPHILS % (MANUAL) 68 % (42-75)
[2021-06-02] MEDS: MAGNESIUM SULFATE/D5W 100 ML IV SCH ×4 (01:00→02:58)
[2021-06-02] MEDS ORDERED: CHLORDIAZEPOXIDE HCL 5 MG CAPSULE ONE (01:09)
--- NOTE | 2021-06-02 02:37 | NUR ---
Patient is resting comfortably in bed with eyes closed, no acute distress noted.
[2021-06-02] MEDS ORDERED: INSULIN REGULAR, HUMAN 300 UNIT/3 ML VIAL IV ONE (04:00)
[2021-06-02] MEDS ORDERED: INSULIN REGULAR, HUMAN 300 UNIT/3 ML VIAL ONE (04:15)
[2021-06-02] MEDS ORDERED: CHLO25CA22 PO (04:43)
[2021-06-02] MEDS ORDERED: METF-440 PO (05:15)
--- NOTE | 2021-06-02 05:19 | NUR ---
Patient discharged to home in stable condition. Written and verbal after care instructions given. Patient verbalizes understanding of instructions. Stressed follow up or return to ER for worsening s/s. Patient out of ER with steady gait, no acute signs of distress, VSS, all belongings taken, IV site discontinued, pt called taxi ride home.
[2021-06-02 05:27] VITALS: BP 119/92
== END 2021-06-02 05:27 | disposition home or self-care (01) ==
LOC: ER 22:30
DX: E11.65 Type 2 diabetes mellitus with hyperglycemia (principal); Z79.4 Long term (current) use of insulin; E83.42 Hypomagnesemia; Z87.19 Personal history of other diseases of the digestive system; Z79.899 Other long term (current) drug therapy; F10.20 Alcohol dependence, uncomplicated; Y90.0 Blood alcohol level of less than 20 mg/100 ml; D64.9 Anemia, unspecified
CPT/HCPCS: 36415; 80048; 80320; 82009; 82607; 82962 ×2; 83735; 85007; 85025; 96361; 96365; 96366; 96375; 96376; 99284; J1815 ×2; J3475; 70030-TC; A4663; G0480; J7030; J8499

== ENCOUNTER 2021-06-11 13:44 | Emergency (ER) | payer OTHER ==
[~2021-06-11] VITALS: Ht 160 cm; Wt 40.8 kg
[~2021-06-11 13:44] MED LIST changes: +CHLO25CA22 PO; +METF-440 PO
--- NOTE | 2021-06-11 13:55 | NUR ---
DR Ngo at the bedside for MSE.
[2021-06-11 15:41] LABS: HEMATOCRIT 28.3 % (31.2-41.9); MEAN CORPUSCULAR HEMOGLOBIN 33.7 uug (24.7-32.8); MEAN CORPUSCULAR VOLUME 99.9 fL (75.5-95.3); PLATELET COUNT (AUTO) 420 K/uL (179-408)
[2021-06-11 15:45] LABS: CARBON DIOXIDE 26 mmol/L (21-32); CHLORIDE 102 mmol/L (98-107); CREATININE 0.5 mg/dL (0.6-1.3); POTASSIUM 3.7 mmol/L (3.5-5.1); UREA NITROGEN, BLOOD 11 mg/dL (7-18)
[2021-06-11 15:49] LABS: GLUCOSE 328 mg/dL (74-106)
--- NOTE | 2021-06-11 15:56 | NUR ---
Patient is resting comfortably in bed with eyes closed, NAD noted. Will continue monitoring.
--- NOTE | 2021-06-11 16:07 | NUR ---
Pt is awake A/O x3, requesting to be discharged. Pt is calling boyfriend Romeo.
--- NOTE | 2021-06-11 16:10 | NUR ---
Pt able to walk w/ steady gait, requesting to be discharge home.
--- NOTE | 2021-06-11 16:32 | NUR ---
Patient discharged to home in stable condition. Written and verbal after care instructions given. Patient verbalizes understanding of instructions. Stressed follow up or return to ER for worsening s/s.
[2021-06-11 16:33] VITALS: BP 104/84
== END 2021-06-11 16:34 | disposition home or self-care (01) ==
LOC: ER 13:44
DX: F10.129 Alcohol abuse with intoxication, unspecified (principal); E11.9 Type 2 diabetes mellitus without complications; Z79.899 Other long term (current) drug therapy; K29.70 Gastritis, unspecified, without bleeding; Z79.4 Long term (current) use of insulin
CPT/HCPCS: 36415; 85025; A4663

== ENCOUNTER 2021-06-29 15:33 | Emergency (ER) | payer OTHER ==
[~2021-06-29] VITALS: Ht 160 cm; Wt 45.4 kg
--- NOTE | 2021-06-29 15:41 | NUR ---
Patient brought in by [id number]
[2021-06-29 16:18] LABS: HEMATOCRIT 30.9 % (31.2-41.9); MEAN CORPUSCULAR HEMOGLOBIN 32.9 uug (24.7-32.8); PLATELET COUNT (AUTO) 392 K/uL (179-408)
[2021-06-29 16:27] LABS: CREATININE 0.6 mg/dL (0.6-1.3); MAGNESIUM 1.5 mg/dL (1.8-2.4); POTASSIUM 4.9 mmol/L (3.5-5.1)
[2021-06-29 16:34] LABS: BILIRUBIN,DIRECT 0.1 mg/dL (0.0-0.2); BILIRUBIN,TOTAL 0.4 mg/dL (0.2-1.0); TOTAL PROTEIN, SERUM 6.4 g/dL (6.4-8.2)
[2021-06-29] MEDS ORDERED: FOLIC ACID 5 MG/ML VIAL IV ONE ×2 (16:45→17:00)
[2021-06-29] MEDS ORDERED: THIAMINE HCL 200 MG/2 ML VIAL IV ONE (16:45)
[2021-06-29] MEDS ORDERED: THIAMINE HCL 100 MG TABLET ONE (17:00)
[2021-06-29] MEDS ORDERED: IV NS 1000 ML 1,000 ML IV ONE (17:00)
[2021-06-29] MEDS ORDERED: MAGNESIUM SULFATE/D5W 100 ML ONE ×2 (17:00→18:10)
[2021-06-29] MEDS: MAGNESIUM SULFATE/D5W 100 ML IV SCH ×2 (17:05→18:48)
[2021-06-29] MEDS ORDERED: THIAMINE HCL 100 MG TABLET PO ONE (17:15)
--- NOTE | 2021-06-29 18:04 | NUR ---
Patient noted resting in bed, no signs of distress noted
--- NOTE | 2021-06-29 19:05 | NUR ---
RECEIVED REPORT FROM CONNER CHAKRABORTY. PT NOTED TO BE RESTING COMFORTABLY IN BED. BREATHING EVEN AND UNLABORED. BED IN LOWEST POSITION FOR SAFETY PRECAUTIONS.
--- NOTE | 2021-06-29 21:56 | NUR ---
Patient discharged to home in stable condition. A/O x4, no SOB or labored breathing. Denies any pain/discomfort upon discharge. No n/v/d. Written and verbal after care instructions given. Patient verbalizes understanding of instructions. Stressed follow up or return to ER for worsening s/s. Steady gait. Picked up by boyfriend.
[2021-06-29 22:06] VITALS: BP 126/75
== END 2021-06-29 22:00 | disposition home or self-care (01) ==
LOC: ER 15:33
DX: F10.229 Alcohol dependence with intoxication, unspecified (principal); Y90.8 Blood alcohol level of 240 mg/100 ml or more; E11.65 Type 2 diabetes mellitus with hyperglycemia; Z79.4 Long term (current) use of insulin; F32.A Depression, unspecified; D72.819 Decreased white blood cell count, unspecified; D64.9 Anemia, unspecified
CPT/HCPCS: 80048; 80076; 80307; 80320; 82009; 82962; 83690; 83735; 84484; 85025; 93005; 96365; 96366; 96375; 99285; J3475 ×2; J3490; 36415; 70030-TC; A4663; G0480

== ENCOUNTER 2021-07-09 18:26 | Emergency (ER) | payer OTHER ==
[~2021-07-09] VITALS: Ht 160 cm; Wt 45.4 kg
[2021-07-09] MEDS ORDERED: IV D5/ 0.9% NACL 1,000 ML IV ONE (18:45)
[2021-07-09] MEDS ORDERED: LORAZEPAM 2 MG/1 ML VIAL IV ONE ×2 (18:45→19:45)
[2021-07-09] MEDS ORDERED: ONDANSETRON 4 MG/2 ML VIAL IV ONE (18:45)
[2021-07-09] MEDS ORDERED: LORA0.5T48 PO (18:46)
[2021-07-09] MEDS ORDERED: ONDA4TAB5 PO (18:46)
[2021-07-09 18:51] LABS: MEAN CORPUSCULAR HEMOGLOBIN 32.7 uug (24.7-32.8); MEAN CORPUSCULAR VOLUME 97.4 fL (75.5-95.3); PLATELET COUNT (AUTO) 235 K/uL (179-408)
[2021-07-09] MEDS ORDERED: LORAZEPAM 2 MG/1 ML VIAL ONE ×2 (18:53→19:59)
[2021-07-09] MEDS ORDERED: ONDANSETRON 4 MG/2 ML VIAL ONE (18:53)
[2021-07-09] MEDS ORDERED: IV NORMAL SALINE 1000 ML BAG IV ONE ×2 (19:00→19:30)
[2021-07-09 19:02] LABS: CARBON DIOXIDE 25 mmol/L (21-32); CHLORIDE 97 mmol/L (98-107); CREATININE 0.7 mg/dL (0.6-1.3); GLUCOSE 267 mg/dL (74-106); POTASSIUM 3.4 mmol/L (3.5-5.1); UREA NITROGEN, BLOOD 18 mg/dL (7-18)
[2021-07-09 19:07] LABS: ALANINE AMINOTRANSFERASE 51 U/L (14-59); ALKALINE PHOSPHATASE 306 U/L (50-136); ASPARTATE AMINOTRANSFERASE 232 U/L (15-37); BILIRUBIN,DIRECT 0.5 mg/dL (0.0-0.2); LIPASE 29 U/L (73-393); TOTAL PROTEIN, SERUM 7.5 g/dL (6.4-8.2)
[2021-07-09] MEDS ORDERED: MAG HYDROX/AL HYDROX/SIMETH 30 ML LIQUID UDC PO ONE (19:15)
[2021-07-09] MEDS ORDERED: LIDOCAINE VISCUS 2% 15 ML UDC MM ONE (19:15)
--- NOTE | 2021-07-09 19:15 | NUR ---
Report taken from JOSE Juárez. Pt is here for ETOH. Recieved 1L NS, second one hung by me. Also, 1mg of ativan given IVP. Pt is AAOx4, with good color, temp and appearance. Watching TV comfortably, asked for 2 cups of cranberry juice. Cranberry juice given. Pt denies any pain, nausea, discomfort or distress.
[2021-07-09] MEDS ORDERED: POTASSIUM CHLORIDE 20 MEQ TAB.PRT.SR PO ONE (19:30)
[2021-07-09] MEDS ORDERED: MAG HYDROX/AL HYDROX/SIMETH 30 ML LIQUID UDC ONE (19:41)
[2021-07-09] MEDS ORDERED: POTASSIUM CHLORIDE 20 MEQ TAB.PRT.SR ONE (19:41)
[2021-07-09] MEDS ORDERED: LIDOCAINE VISCUS 2% 15 ML UDC ONE (19:41)
--- NOTE | 2021-07-09 20:42 | NUR ---
second liter of NS running wide open, pt tolerating well. Marked improvement in condition noticable after first liter of NS. Pt watching TV comfortably. No s/sx of distress present. Waiting of second Liter of NS to finish before DCing home. Aftercare instructions already printed by EDMT Dr. Vivar
--- NOTE | 2021-07-09 20:44 | NUR ---
Fresh BP 129/88, HR 103, 98% SaO2, 20rpm. VSS, PE WNL.
--- NOTE | 2021-07-09 21:40 | NUR ---
Second liter of NS complete without difficulty or incident. IV line DCed and angio removed from Rt forearm and dressing applied using 2x2 and tape. DC instructions given and pt comfirmed understanding of instructions. Prescribtions, labs and aftercare given to pt and discussed meds with her. Pt acknowledged understanding. Pt has good color, temp and appearance, VSS, PE WNL, lungs clear, AAOx4. Denies any pain, nausea or discomfort. No s/sx of distress present. Pt taken no bathroom, then allowed to call an uber. Pt wheeled out to pt warp picker area.
[2021-07-09 21:54] VITALS: BP 128/88
== END 2021-07-09 21:40 | disposition home or self-care (01) ==
LOC: ER 18:26
DX: F10.139 Alcohol abuse with withdrawal, unspecified (principal); Y90.1 Blood alcohol level of 20-39 mg/100 ml; R11.2 Nausea with vomiting, unspecified; E86.0 Dehydration; R00.0 Tachycardia, unspecified; F17.210 Nicotine dependence, cigarettes, uncomplicated; E87.6 Hypokalemia; D53.9 Nutritional anemia, unspecified; Z20.822 Contact with and (suspected) exposure to COVID-19
CPT/HCPCS: 36415; 83690; 83735; 85025; 93005; A4663; G0480; J2060; J2405; J7030

== ENCOUNTER 2021-08-30 18:32 | Inpatient (IN) | payer OTHER ==
[~2021-08-30] VITALS: Ht 160 cm; Wt 42.2 kg
[~2021-08-30 18:32] MED LIST changes: +LORA0.5T48 PO; +ONDA4TAB5 PO; -VANC500V PO
--- NOTE | 2021-08-30 18:44 | NUR ---
PT IS IN ROOM #1A. DR CASTRO EVALUATED THE PT.
--- NOTE | 2021-08-30 18:58 | NUR ---
LAB AT BEDSIDE.
[2021-08-30] MEDS ORDERED: IV NORMAL SALINE 1000 ML BAG IV ONE (19:00)
--- NOTE | 2021-08-30 19:05 | NUR ---
RECEIVED REPORT FROM CONNER SPENCER. PT NOTED TO BE IN BED A/O X4, NO SOB OR LABORED BREATHING, DENIESNANY PAIN/DISCOMFORT
[2021-08-30 19:10] LABS: HEMATOCRIT 31.2 % (31.2-41.9); MEAN CORPUSCULAR HEMOGLOBIN 34.2 uug (24.7-32.8); MEAN CORPUSCULAR VOLUME 104.2 fL (75.5-95.3); PLATELET COUNT (AUTO) 383 K/uL (179-408)
[2021-08-30 19:18] LABS: CARBON DIOXIDE 26 mmol/L (21-32); CHLORIDE 101 mmol/L (98-107); CREATININE 0.9 mg/dL (0.6-1.3); POTASSIUM 4.2 mmol/L (3.5-5.1); UREA NITROGEN, BLOOD 6 mg/dL (7-18)
[2021-08-30 19:20] LABS: ALANINE AMINOTRANSFERASE 116 U/L (14-59); ALKALINE PHOSPHATASE 243 U/L (50-136); ASPARTATE AMINOTRANSFERASE 161 U/L (15-37); BILIRUBIN,DIRECT 0.8 mg/dL (0.0-0.2); BILIRUBIN,TOTAL 0.9 mg/dL (0.2-1.0); LIPASE 40 U/L (73-393); TOTAL PROTEIN, SERUM 6.8 g/dL (6.4-8.2)
[2021-08-30 19:21] LABS: GLUCOSE 509 mg/dL (74-106)
[2021-08-30 19:34] LABS: ABG BASE EXCESS -3.8 mmol/L; ABG HCO3 20.7 mmol/L; ABG PCO2 34.9 mmHg (35.0-45.0); ABG PO2 99.1 mmHg (75.0-100.0); ABG SITE RIGHT BRACHIAL; ABG TOTAL HEMOGLOBIN 9.4 G/dL (12.0-16.0); COHb 0.3 % (0.5-1.5); MetHb 0.6 % (0.0-1.5); O2Hb 95.1 % (94.0-97.0); VENT MODE Room Air
--- NOTE | 2021-08-30 19:56 | NUR ---
PT NOTED TO BE SOILED, PROVIDED PROPER PERINEAL CARE. NOW NOTED TO BE CLEAN AND DRY.
[2021-08-30] MEDS ORDERED: INSULIN REGULAR, HUMAN 10 UNIT in IV NORMAL SALINE 100 ML IV ONE (20:00)
[2021-08-30] MEDS ORDERED: THIAMINE HCL 200 MG/2 ML VIAL IV ONE (20:00)
--- NOTE | 2021-08-30 20:17 | NUR ---
PT BEING TAKEN DOWN FOR CT.
[2021-08-30] MEDS ORDERED: IV NORMAL SALINE 250 ML IV ONE (20:30)
[2021-08-30] MEDS ORDERED: SWABABLE VALVE TRANSFER SET EA MC ONE (20:30)
[2021-08-30] MEDS ORDERED: IOHEXOL 350 100 ML INFUS..BTL ONE (20:30)
--- NOTE | 2021-08-30 20:52 | NUR ---
PT RETURNED FROM CT.
[2021-08-30] MEDS: MAGNESIUM SULFATE/D5W 100 ML IV SCH (20:55)
--- NOTE | 2021-08-30 22:18 | NUR ---
CALLED [facility] FOR PANEL CALL, DR. SREE AMARO.
--- NOTE | 2021-08-30 22:30 | NUR ---
GAVE REPORT TO CONNER BARAHONA.
--- NOTE | 2021-08-30 23:00 | NUR ---
Pt. admitted to TELE ROOM 325 , under care of Dr. BALBUENA DX: LACTIC ACIDOSIS, ALCOHOL INTOXICATION Belongs List completed
[2021-08-30 23:10] VITALS: BP 99/69
[2021-08-30] MEDS ORDERED: ONDANSETRON 4 MG/2 ML VIAL IV PRN (23:15)
[2021-08-30] MEDS ORDERED: ACETAMINOPHEN 650 MG/20.3 ML LIQUID UDC GT PRN (23:15)
[2021-08-30] MEDS ORDERED: MAG HYDROX/AL HYDROX/SIMETH 30 ML LIQUID UDC PO PRN (23:15)
[2021-08-30] MEDS: MORPHINE SULFATE 2 MG/1 ML DISP.SYRIN IV PRN (23:49)
[2021-08-30] MEDS: IV NS 1000 ML 1,000 ML IV PRN (23:53)
[2021-08-31] MEDS ORDERED: DEXTROSE 50% 50 ML DISP.SYRIN IV PRN
[2021-08-31] MEDS: LORAZEPAM 2 MG/1 ML VIAL IV PRN ×3 (00:36→17:45)
[2021-08-31 04:40] VITALS: BP 108/70
[2021-08-31] MEDS: MORPHINE SULFATE 2 MG/1 ML DISP.SYRIN IV PRN ×2 (06:22→20:18)
[2021-08-31] MEDS: PANTOPRAZOLE SODIUM 40 MG TABLET.DR PO SCH (06:22)
[2021-08-31] MEDS: BLOOD SUGAR DIAGNOSTIC 1 EACH STRIP VI SCH ×4 (06:30→20:00)
[2021-08-31 06:46] LABS: HEMATOCRIT 23.9 % (31.2-41.9); MEAN CORPUSCULAR HEMOGLOBIN 35.5 uug (24.7-32.8); MEAN CORPUSCULAR VOLUME 102.4 fL (75.5-95.3); PLATELET COUNT (AUTO) 324 K/uL (179-408)
[2021-08-31 07:30] LABS: ALANINE AMINOTRANSFERASE 88 U/L (14-59); ALKALINE PHOSPHATASE 175 U/L (50-136); ASPARTATE AMINOTRANSFERASE 125 U/L (15-37); BILIRUBIN,TOTAL 0.8 mg/dL (0.2-1.0); CARBON DIOXIDE 28 mmol/L (21-32); CHLORIDE 100 mmol/L (98-107); CREATININE 0.5 mg/dL (0.6-1.3); GLUCOSE 292 mg/dL (74-106); MAGNESIUM 1.5 mg/dL (1.8-2.4); PHOSPHOROUS 3.4 mg/dL (2.5-4.9); POTASSIUM 3.4 mmol/L (3.5-5.1); TOTAL PROTEIN, SERUM 5.2 g/dL (6.4-8.2); UREA NITROGEN, BLOOD 6 mg/dL (7-18)
[2021-08-31 07:43] LABS: LIPASE 30 U/L (73-393)
[2021-08-31] MEDS: INSULIN REGULAR, HUMAN 300 UNIT/3 ML VIAL SQ PRN ×4 (07:44→20:01)
[2021-08-31] MEDS: FOLIC ACID 1 MG TABLET PO SCH (08:15)
[2021-08-31] MEDS: MULTIVITAMINS,THERAPEUTIC TABLET PO SCH (08:15)
[2021-08-31] MEDS ORDERED: POTASSIUM CHLORIDE 20 MEQ TAB.PRT.SR PO ONE (10:00)
[2021-08-31] MEDS: MAGNESIUM SULFATE/D5W 100 ML IV SCH ×2 (11:04→13:02)
[2021-08-31 11:36] VITALS: BP 98/71
[2021-08-31 16:00] VITALS: BP 96/66
[2021-08-31] MEDS: GLUCERNA SHAKE 237 ML CAN PO SCH (17:12)
[2021-08-31] MEDS: IV NS 1000 ML 1,000 ML IV PRN (17:47)
--- NOTE | 2021-08-31 20:00 | NUR ---
Received patient lying in bed. AAOx4. In no apparent distress. Complain of right rib cage and ashley. LE pain. Will provide Morphine 2mg IV PRN per order. Denies any SOB. NSR on tele with HR of 91/min. IV site on right FA intact and patent. IVF infusing. Other needs assessed and attended to. Safety measure initiated and call collier within reached.
[2021-08-31] MEDS: INSULIN GLARGINE,HUM 300 UNITS/3 ML CARTRIDGE SQ SCH (20:01)
[2021-08-31 20:30] VITALS: BP 102/60
[2021-09-01 00:18] VITALS: BP 90/57
[2021-09-01] MEDS: LORAZEPAM 2 MG/1 ML VIAL IV PRN ×3 (01:16→21:52)
[2021-09-01 05:24] VITALS: BP 105/79
[2021-09-01] MEDS: PANTOPRAZOLE SODIUM 40 MG TABLET.DR PO SCH (06:07)
--- NOTE | 2021-09-01 06:18 | NUR ---
AAOx4. In no apparent distress. Denies any SOB. No further complain of pain. NSR on tele with HR of 70/min. IV site on right FA intact and patent. IVF infusing. Needs attended to and met. Safety measure maintained and call collier within reached.
[2021-09-01] MEDS: IV NS 1000 ML 1,000 ML IV PRN ×2 (06:29→20:49)
[2021-09-01] MEDS: BLOOD SUGAR DIAGNOSTIC 1 EACH STRIP VI SCH ×4 (06:32→20:48)
--- NOTE | 2021-09-01 08:00 | NUR ---
AWAKE ALERT AND VERBALLY RESPONSIVE, WARM AND DRY WITH NO SS OF HYPO OR HYPERGLYCEMIA. DENIES PAIN OR SOB. SR ON MONITOR
[2021-09-01] MEDS: FOLIC ACID 1 MG TABLET PO SCH (09:01)
[2021-09-01] MEDS: MULTIVITAMINS,THERAPEUTIC TABLET PO SCH (09:01)
[2021-09-01] MEDS: GLUCERNA SHAKE 237 ML CAN PO SCH ×2 (09:02→16:39)
[2021-09-01 11:42] VITALS: BP 87/65
--- NOTE | 2021-09-01 12:00 | NUR ---
SEEN BY SADIE VENTURA FOR FOLLOW-UP SEE NOTES. MEDICATED X1 FOR ANXIETY WITH GOOD RESULTS
--- NOTE | 2021-09-01 15:48 | NUR ---
NO ACUTE CHANGE FROM BASELINE ASSESSMENT. REMAINS SR ON MONITOR
[2021-09-01 15:49] LABS: HEMATOCRIT 28.4 % (31.2-41.9); MEAN CORPUSCULAR HEMOGLOBIN 34.7 uug (24.7-32.8); PLATELET COUNT (AUTO) 343 K/uL (179-408)
[2021-09-01 15:54] LABS: CARBON DIOXIDE 28 mmol/L (21-32); CHLORIDE 102 mmol/L (98-107); CREATININE 0.5 mg/dL (0.6-1.3); GLUCOSE 54 mg/dL (74-106); POTASSIUM 3.7 mmol/L (3.5-5.1); UREA NITROGEN, BLOOD 4 mg/dL (7-18)
[2021-09-01 16:13] VITALS: BP 128/83
[2021-09-01] MEDS: INSULIN REGULAR, HUMAN 300 UNIT/3 ML VIAL SQ PRN ×2 (16:41→20:45)
[2021-09-01] MEDS: MORPHINE SULFATE 2 MG/1 ML DISP.SYRIN IV PRN ×2 (16:42→20:44)
[2021-09-01 20:39] VITALS: BP 100/70
[2021-09-01] MEDS: INSULIN GLARGINE,HUM 300 UNITS/3 ML CARTRIDGE SQ SCH (20:45)
[2021-09-01 22:12] LABS: *BILIRUBIN,URIN NEGATIVE (NEGATIVE); *BLOOD, URINE 1+ (NEGATIVE); *CLARITY,URINE SLIGHTLY CLOUDY (CLEAR); *COLOR,URINE YELLOW (YELLOW); *KETONES,URINE NEGATIVE (NEGATIVE); *UROBILINOGEN,URINE 0.2 E.U./dl (NORMAL); LEUKOCYTE ESTERASE ,URINE 2+ (NEGATIVE); NITRITE, URINE POSITIVE (NEGATIVE); UGLUCOSE NEGATIVE (NEGATIVE)
[2021-09-01 22:19] LABS: *AMPHETAMINE, URINE NEGATIVE (NEGATIVE); *CANNABINOID, URINE NEGATIVE (NEGATIVE); *COCCAINE, URINE NEGATIVE (NEGATIVE); *OPIATE, URINE POSITIVE (NEGATIVE); *PHENCYCLIDINE SCREEN,URINE NEGATIVE (NEGATIVE)
[2021-09-01 22:47] LABS: BACTERIA,URINE MANY /HPF (NONE SEEN); SQUAMOUS EPITHELIAL CELL,UR FEW /HPF (NONE SEEN); WBC,URINE 20-50 /HPF (0-3)
[2021-09-02 00:30] VITALS: BP 108/73
[2021-09-02] MEDS: MORPHINE SULFATE 2 MG/1 ML DISP.SYRIN IV PRN ×3 (01:55→18:12)
[2021-09-02 04:43] VITALS: BP 103/70
--- NOTE | 2021-09-02 05:38 | NUR ---
Pt rested well in between care; Ativan given for ETOH withdrawal, see CIWA observation; morphine given for pain; incontinence care given; managed to collect urine and sent to lab; safety maintained; continue to monitor; continue plan of care.
[2021-09-02] MEDS: LORAZEPAM 2 MG/1 ML VIAL IV PRN ×3 (05:59→19:58)
[2021-09-02] MEDS: PANTOPRAZOLE SODIUM 40 MG TABLET.DR PO SCH (06:05)
[2021-09-02] MEDS: BLOOD SUGAR DIAGNOSTIC 1 EACH STRIP VI SCH ×5 (06:05→20:02)
[2021-09-02 07:15] LABS: HEMATOCRIT 28.6 % (31.2-41.9); MEAN CORPUSCULAR HEMOGLOBIN 34.9 uug (24.7-32.8); MEAN CORPUSCULAR VOLUME 104.4 fL (75.5-95.3); PLATELET COUNT (AUTO) 293 K/uL (179-408)
[2021-09-02 07:23] LABS: CARBON DIOXIDE 26 mmol/L (21-32); CHLORIDE 103 mmol/L (98-107); CREATININE 0.4 mg/dL (0.6-1.3); MAGNESIUM 1.5 mg/dL (1.8-2.4); PHOSPHOROUS 3.9 mg/dL (2.5-4.9); POTASSIUM 3.7 mmol/L (3.5-5.1); UREA NITROGEN, BLOOD 3 mg/dL (7-18)
--- NOTE | 2021-09-02 07:33 | NUR ---
RECEIVED REPORT FROM LAB SERUM GLUCOSE 43, PATIENT AWAKE ALERT WARM AND DRY AND NO SIGNS OF CONFUSION. FINGER STICKS READ 97. WILL OFFER BREAKFAST
[2021-09-02 07:38] LABS: GLUCOSE 43 mg/dL (74-106)
[2021-09-02 08:00] VITALS: BP 87/61
[2021-09-02] MEDS: MULTIVITAMINS,THERAPEUTIC TABLET PO SCH (08:16)
[2021-09-02] MEDS: FOLIC ACID 1 MG TABLET PO SCH (08:16)
[2021-09-02] MEDS: GLUCERNA SHAKE 237 ML CAN PO SCH ×2 (08:17→17:11)
[2021-09-02] MEDS: MAGNESIUM SULFATE/D5W 100 ML IV SCH ×2 (09:37→10:39)
[2021-09-02] MEDS: IV NS 1000 ML 1,000 ML IV PRN (10:07)
--- NOTE | 2021-09-02 11:37 | NUR ---
MEDICATED X1 WITH MORPHINE FOR GENERALIZED PAIN. OBSEERVED
[2021-09-02] MEDS: INSULIN REGULAR, HUMAN 300 UNIT/3 ML VIAL SQ PRN ×2 (11:41→20:06)
[2021-09-02 12:00] VITALS: BP 102/74
--- NOTE | 2021-09-02 12:00 | NUR ---
RESTING COMFORTABLY IN BED DENIES PAIN OR SOB SR ON MONITOR
[2021-09-02] MEDS: CEFTRIAXONE 1 G in IV DEXTROSE 5% 50 ML IV SCH (15:30)
[2021-09-02 16:00] VITALS: BP 83/33
--- NOTE | 2021-09-02 17:27 | NUR ---
SEEN BY Esperanza VENTURA CONTINUE IV ANTIBIOTIC ORDERED
[2021-09-02 20:00] VITALS: BP 133/55
[2021-09-02] MEDS: INSULIN GLARGINE,HUM 300 UNITS/3 ML CARTRIDGE SQ SCH (20:05)
[2021-09-03] VITALS: BP 134/97
[2021-09-03] MEDS: MORPHINE SULFATE 2 MG/1 ML DISP.SYRIN IV PRN ×2 (03:09→20:42)
[2021-09-03] MEDS: IV NS 1000 ML 1,000 ML IV PRN ×2 (03:12→21:34)
[2021-09-03 04:00] VITALS: BP 130/90
--- NOTE | 2021-09-03 05:05 | NUR ---
Pt rested well in between care; Ativan given for ETOH withdrawal, see CIWA observation; morphine given for pain; incontinence care given; pt requested snacks multiple times; needs attended.
[2021-09-03] MEDS: LORAZEPAM 2 MG/1 ML VIAL IV PRN ×3 (06:20→23:07)
[2021-09-03] MEDS: BLOOD SUGAR DIAGNOSTIC 1 EACH STRIP VI SCH ×4 (06:20→21:33)
[2021-09-03 06:34] LABS: HEMATOCRIT 27.5 % (31.2-41.9); MEAN CORPUSCULAR HEMOGLOBIN 35.2 uug (24.7-32.8); MEAN CORPUSCULAR VOLUME 103.4 fL (75.5-95.3); PLATELET COUNT (AUTO) 135 K/uL (179-408)
[2021-09-03] MEDS: PANTOPRAZOLE SODIUM 40 MG TABLET.DR PO SCH (06:38)
[2021-09-03 07:03] LABS: CREATININE 0.6 mg/dL (0.6-1.3); MAGNESIUM 1.4 mg/dL (1.8-2.4); PHOSPHOROUS 5.5 mg/dL (2.5-4.9); POTASSIUM 4.6 mmol/L (3.5-5.1)
--- NOTE | 2021-09-03 08:02 | NUR ---
Received patient report from night shit nurse. Patient is AxOx4, with no signs of distress. Bed placed in the lowest position with call light within reach. Comfort measures provided.
[2021-09-03] MEDS: MULTIVITAMINS,THERAPEUTIC TABLET PO SCH (09:06)
[2021-09-03] MEDS: FOLIC ACID 1 MG TABLET PO SCH (09:06)
[2021-09-03] MEDS: GLUCERNA SHAKE 237 ML CAN PO SCH ×2 (09:07→17:00)
[2021-09-03] MEDS: MAGNESIUM SULFATE/D5W 100 ML IV SCH ×4 (11:11→14:47)
[2021-09-03 11:17] VITALS: BP 96/65
[2021-09-03] MEDS: INSULIN REGULAR, HUMAN 300 UNIT/3 ML VIAL SQ PRN ×2 (11:54→21:35)
[2021-09-03] MEDS: CEFTRIAXONE 1 G in IV DEXTROSE 5% 50 ML IV SCH (14:05)
--- NOTE | 2021-09-03 15:00 | NUR ---
Patient had large loose stools x4 today all foul smelling. Esperanza Lomas WEATHER CLERK notified. Orders received.
[2021-09-03 16:00] VITALS: BP 94/70
[2021-09-03 20:00] VITALS: BP 98/70
[2021-09-03] MEDS: INSULIN GLARGINE,HUM 300 UNITS/3 ML CARTRIDGE SQ SCH (21:33)
[2021-09-04 04:00] VITALS: BP 98/72
[2021-09-04] MEDS: MORPHINE SULFATE 2 MG/1 ML DISP.SYRIN IV PRN ×4 (04:32→20:52)
[2021-09-04] MEDS: PANTOPRAZOLE SODIUM 40 MG TABLET.DR PO SCH (06:20)
[2021-09-04] MEDS: BLOOD SUGAR DIAGNOSTIC 1 EACH STRIP VI SCH ×4 (06:20→21:04)
--- NOTE | 2021-09-04 06:30 | NUR ---
Pt rested well in between care; pt's stool sent to lab; needs attended; safety maintained.
[2021-09-04 07:19] LABS: CARBON DIOXIDE 26 mmol/L (21-32); CHLORIDE 104 mmol/L (98-107); CREATININE 0.4 mg/dL (0.6-1.3); GLUCOSE 160 mg/dL (74-106); MAGNESIUM 1.6 mg/dL (1.8-2.4); POTASSIUM 4.2 mmol/L (3.5-5.1); UREA NITROGEN, BLOOD 5 mg/dL (7-18)
[2021-09-04] MEDS: FOLIC ACID 1 MG TABLET PO SCH (09:24)
[2021-09-04] MEDS: MULTIVITAMINS,THERAPEUTIC TABLET PO SCH (09:24)
[2021-09-04] MEDS: INSULIN REGULAR, HUMAN 300 UNIT/3 ML VIAL SQ PRN ×3 (09:38→21:06)
[2021-09-04] MEDS: GLUCERNA SHAKE 237 ML CAN PO SCH ×2 (09:39→17:26)
[2021-09-04] MEDS: LORAZEPAM 2 MG/1 ML VIAL IV PRN ×2 (10:58→23:58)
[2021-09-04] MEDS: MAGNESIUM SULFATE/D5W 100 ML IV SCH ×2 (10:58→11:53)
[2021-09-04] MEDS ORDERED: LOPERAMIDE HCL 2 MG CAPSULE PO PRN (11:30)
[2021-09-04 12:00] VITALS: BP 109/80
[2021-09-04] MEDS: IV NS 1000 ML 1,000 ML IV PRN (15:25)
[2021-09-04] MEDS: CEFTRIAXONE 1 G in IV DEXTROSE 5% 50 ML IV SCH (15:25)
[2021-09-04 16:10] VITALS: BP 110/68
--- NOTE | 2021-09-04 16:15 | NUR ---
Kathy from the Microbiology lab from [facility] reported stool is positive for C-Diff. waS notified, precautions updated on floor.
--- NOTE | 2021-09-04 19:48 | NUR ---
Pt is a/ox 4, Saturating 99% on room air. Pt presents with diarrhea, uses bedside commode and diaper. Continent/incontinent. Pt received 2 bags of magnesium during shift, IV rocephin. Pt requests pain medication for generalized pain in arms and back. Iv is intact and patent running fluids. No signs of acute distress, no signs of withdrawal, comfort measures provided, call light within reach. Endorsed to clinical trials assistant.
[2021-09-04 20:00] VITALS: BP 97/70
[2021-09-04] MEDS: INSULIN GLARGINE,HUM 300 UNITS/3 ML CARTRIDGE SQ SCH (21:07)
[2021-09-05] MEDS: MORPHINE SULFATE 2 MG/1 ML DISP.SYRIN IV PRN ×3 (02:12→11:53)
[2021-09-05 04:00] VITALS: BP 95/70
[2021-09-05 05:31] LABS: HEMATOCRIT 24.2 % (31.2-41.9); MEAN CORPUSCULAR HEMOGLOBIN 35.3 uug (24.7-32.8); MEAN CORPUSCULAR VOLUME 105.7 fL (75.5-95.3); PLATELET COUNT (AUTO) 213 K/uL (179-408)
[2021-09-05 05:35] LABS: CARBON DIOXIDE 26 mmol/L (21-32); CHLORIDE 101 mmol/L (98-107); CREATININE 0.4 mg/dL (0.6-1.3); GLUCOSE 107 mg/dL (74-106); UREA NITROGEN, BLOOD 4 mg/dL (7-18)
[2021-09-05] MEDS: PANTOPRAZOLE SODIUM 40 MG TABLET.DR PO SCH (06:03)
[2021-09-05 06:04] LABS: MAGNESIUM 1.4 mg/dL (1.8-2.4); PHOSPHOROUS 3.4 mg/dL (2.5-4.9)
[2021-09-05] MEDS: IV NS 1000 ML 1,000 ML IV PRN (06:27)
[2021-09-05] MEDS: BLOOD SUGAR DIAGNOSTIC 1 EACH STRIP VI SCH ×3 (06:35→16:43)
--- NOTE | 2021-09-05 06:48 | NUR ---
No significant changes overnight. Pt remains AxO x4, able to make needs known. Morphine IV given x2 with relief. Pt up to bedside commode with stability. No acute distress noted. Denies pain, SOB, n/v or discomfort at this time. Ativan IV x1 given for anxiety. All needs attended. Safety precautions maintained. Continue IVF. Call light within reach.
--- NOTE | 2021-09-05 07:30 | NUR ---
received patient laying inbed in no apparent distress. patient is on contact precaution for c-diff all precautions upheld by staff at this time. patient is alert and oriented and able to make needs known. v/s wnl at this moment, bs 70, patient denies pain or discomfort at this time. patient states wanting to be discharged. explained to patient that when MD does rounds i judy inform him of patients request.
[2021-09-05] MEDS: FOLIC ACID 1 MG TABLET PO SCH (09:26)
[2021-09-05] MEDS: MULTIVITAMINS,THERAPEUTIC TABLET PO SCH (09:26)
[2021-09-05] MEDS: GLUCERNA SHAKE 237 ML CAN PO SCH ×2 (09:26→18:04)
[2021-09-05] MEDS: LORAZEPAM 2 MG/1 ML VIAL IV PRN ×2 (09:34→16:09)
[2021-09-05] MEDS: MAGNESIUM SULFATE/D5W 100 ML IV SCH ×4 (10:49→15:30)
[2021-09-05] MEDS ORDERED: VANC500V PO (10:54)
[2021-09-05 11:34] VITALS: BP 133/66
[2021-09-05] MEDS: INSULIN REGULAR, HUMAN 300 UNIT/3 ML VIAL SQ PRN ×2 (11:51→16:44)
--- NOTE | 2021-09-05 13:00 | NUR ---
new discharge orders, explained to patient that she has 4 bags of magnesium that have to be infused and that each back takes about 1 hour to infuse, explained that when bags are done she can leave. patient states understanding. IV magnesium started and tolerated well.
[2021-09-05] MEDS: VANCOMYCIN FOR PO/GT/NG USE PO SCH ×2 (13:45→18:04)
[2021-09-05] MEDS: CEFTRIAXONE 1 G in IV DEXTROSE 5% 50 ML IV SCH (15:32)
[2021-09-05 16:00] VITALS: BP 147/69
--- NOTE | 2021-09-05 16:00 | NUR ---
patient states the uber will not be coming for me. Taxi voucher provided for patient.
--- NOTE | 2021-09-05 17:30 | NUR ---
discharge instructions reviewed with patient "Followup with PCP within 1 week Vancomycin PO 125mg PO Q6 hours x10 days for treatment of C. difficile. Continue home medications. Seek immediate medical attention for worsening symptoms, chest pain, shortness of breath, palpitations, abdominal pain distention, intractable nausea and vomiting, diarrhea, hematochezia, melena, weakness, loss of consciousness, neurological deficit, or any other emergent concerns." patient states understanding. all paperwork signed. belonging inventory reviewed with patient and signed. patient states "an uber will pick me up downstairs." iv site removed, minimal bleeding noted, pressure applied. patient assisted downstairs. v/s wnl, no signs of alcohol withdrawal at this moment.
--- NOTE | 2021-09-05 19:00 | NUR ---
patient picked up by taxi. patient remains in stable condition.
== END 2021-09-05 19:00 | disposition home or self-care (01) | DRG 775 ==
LOC: ER 18:32 → TELE3 22:40 → MEDSURG3 09-03 16:20
PROVIDERS: ADMIT Nurse Practitioner Acute Care; ATTEND Hospitalist
DX: F10.129 Alcohol abuse with intoxication, unspecified (principal); G92.8 Other toxic encephalopathy; E11.10 Type 2 diabetes mellitus with ketoacidosis without coma; E43 Unspecified severe protein-calorie malnutrition; A04.72 Enterocolitis due to Clostridium difficile, not specified as recurrent; D69.6 Thrombocytopenia, unspecified; F10.139 Alcohol abuse with withdrawal, unspecified; K86.0 Alcohol-induced chronic pancreatitis; Y90.8 Blood alcohol level of 240 mg/100 ml or more; Z79.4 Long term (current) use of insulin; B96.20 Unspecified Escherichia coli [E. coli] as the cause of diseases classified elsewhere; N39.0 Urinary tract infection, site not specified; D64.9 Anemia, unspecified; D75.89 Other specified diseases of blood and blood-forming organs; F32.A Depression, unspecified; H53.2 Diplopia; R62.7 Adult failure to thrive; Z68.1 Body mass index [BMI] 19.9 or less, adult; Z79.84 Long term (current) use of oral hypoglycemic drugs; Z87.442 Personal history of urinary calculi; Z91.14 Patient's other noncompliance with medication regimen; Z91.19 Patient's noncompliance with other medical treatment and regimen; E87.6 Hypokalemia; E83.42 Hypomagnesemia; R15.9 Full incontinence of feces
CPT/HCPCS: 36415; 36600; 70030-TC; 70496; 71045; 83605; 83690; 83735; 84100; 85025; 87077; 87086; 93005; 97161; A4663; G0378; G0480; J0696; J1815; J2060; J2270; J2405; J3370; J3411; J3475; J3490; J7030; J7050; J7060; Q9967

== ENCOUNTER 2021-09-09 17:13 | Inpatient (IN) | payer OTHER ==
[~2021-09-09] VITALS: Ht 160 cm; Wt 43.1 kg
[~2021-09-09 17:13] MED LIST changes: +VANC500V PO
[2021-09-09] MEDS ORDERED: IV NORMAL SALINE 1000 ML BAG IV ONE (17:30)
[2021-09-09] MEDS ORDERED: ONDANSETRON 4 MG/2 ML VIAL IV ONE (17:30)
[2021-09-09] MEDS ORDERED: THIAMINE HCL 200 MG/2 ML VIAL IV ONE (17:30)
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
[2021-09-09 17:36] LABS: HEMATOCRIT 29.6 % (31.2-41.9); MEAN CORPUSCULAR HEMOGLOBIN 35.1 uug (24.7-32.8); MEAN CORPUSCULAR VOLUME 104.9 fL (75.5-95.3); PLATELET COUNT (AUTO) 350 K/uL (179-408)
[2021-09-09] MEDS ORDERED: THIAMINE HCL 200 MG/2 ML VIAL ONE (17:38)
[2021-09-09] MEDS ORDERED: ONDANSETRON 4 MG/2 ML VIAL ONE (17:38)
[2021-09-09 17:45] LABS: CARBON DIOXIDE 26 mmol/L (21-32); CHLORIDE 100 mmol/L (98-107); CREATININE 0.6 mg/dL (0.6-1.3); POTASSIUM 3.5 mmol/L (3.5-5.1); UREA NITROGEN, BLOOD 5 mg/dL (7-18)
[2021-09-09 17:47] LABS: ALANINE AMINOTRANSFERASE 122 U/L (14-59); ALKALINE PHOSPHATASE 280 U/L (50-136); ASPARTATE AMINOTRANSFERASE 110 U/L (15-37); BILIRUBIN,DIRECT 0.6 mg/dL (0.0-0.2); BILIRUBIN,TOTAL 0.7 mg/dL (0.2-1.0); ETHANOL 408 MG/DL (0-0); TOTAL PROTEIN, SERUM 6.4 g/dL (6.4-8.2)
[2021-09-09 17:48] LABS: GLUCOSE 537 mg/dL (74-106)
[2021-09-09 17:49] LABS: ACETAMINOPHEN < 2.0 ug/mL (10-30)
[2021-09-09] MEDS ORDERED: Z GUARD REMEDY PASTE 57 GM TUBE TOP PRN (18:15)
[2021-09-09] MEDS ORDERED: ACETAMINOPHEN 325 MG TABLET PO PRN (18:15)
[2021-09-09] MEDS ORDERED: DEXTROSE 50% 50 ML DISP.SYRIN IV PRN (18:15)
[2021-09-09] MEDS ORDERED: MAGNESIUM HYDROXIDE 30 ML LIQUID UDC PO PRN (18:15)
[2021-09-09] MEDS ORDERED: ONDANSETRON 4 MG/2 ML VIAL IV PRN (18:15)
--- NOTE | 2021-09-09 18:15 | NUR ---
Pt has been accepted for tele admission by Sam. Tele bed to be assigned after change of shift. Pt resting in gurney and watching TV with NAD noted at this time.
--- NOTE | 2021-09-09 19:04 | NUR ---
RECEIVED REPORT FROM CONNER PRADO. PT NOTED TO BE IN BED, VITALD STABLE. IN NO DISTRESS, DENIES ANY PAIN/DISCOMFORT.
--- NOTE | 2021-09-09 20:10 | NUR ---
GAVE REPORT TO
--- NOTE | 2021-09-09 20:42 | NUR ---
PT NOTED TO BE SOILED. PROVIDED POT WITH PROPER PERINEAL CARE, NOW NOTED TO BE CLEAN DRY AND COMFORTABLE.
--- NOTE | 2021-09-09 21:05 | NUR ---
Pt. admitted to tele , under care of Dr. Jeffery Dx: hyperglycemia, Alcohol withdrawal Belongs List completed
[2021-09-09] MEDS: ENOXAPARIN SODIUM 40 MG/0.4 ML DISP.SYRIN SQ SCH (21:18)
[2021-09-09] MEDS: IV NS 1000 ML 1,000 ML IV PRN (21:19)
[2021-09-09] MEDS: BLOOD SUGAR DIAGNOSTIC 1 EACH STRIP VI SCH (21:19)
[2021-09-09] MEDS: LORAZEPAM 2 MG/1 ML VIAL IV PRN (21:28)
[2021-09-09] MEDS: INSULIN REGULAR, HUMAN 300 UNIT/3 ML VIAL SQ PRN (21:29)
[2021-09-09] MEDS: MORPHINE SULFATE 2 MG/1 ML DISP.SYRIN IV PRN (23:24)
[2021-09-10] VITALS (7 sets, daily range): BP systolic 95–131; BP diastolic 57–73
[2021-09-10] MEDS: LORAZEPAM 2 MG/1 ML VIAL IV PRN ×3 (03:24→19:55)
[2021-09-10] MEDS: IV NS 1000 ML 1,000 ML IV PRN ×3 (03:32→19:54)
[2021-09-10 05:40] LABS: *AMPHETAMINE, URINE NEGATIVE (NEGATIVE); *CANNABINOID, URINE NEGATIVE (NEGATIVE); *COCCAINE, URINE NEGATIVE (NEGATIVE); *OPIATE, URINE POSITIVE (NEGATIVE); *PHENCYCLIDINE SCREEN,URINE NEGATIVE (NEGATIVE)
[2021-09-10] MEDS: BLOOD SUGAR DIAGNOSTIC 1 EACH STRIP VI SCH ×4 (06:25→20:06)
[2021-09-10 06:40] LABS: HEMATOCRIT 25.3 % (31.2-41.9); MEAN CORPUSCULAR HEMOGLOBIN 35.1 uug (24.7-32.8); MEAN CORPUSCULAR VOLUME 104.5 fL (75.5-95.3); PLATELET COUNT (AUTO) 289 K/uL (179-408)
[2021-09-10 06:54] LABS: *BILIRUBIN,URIN NEGATIVE (NEGATIVE); *BLOOD, URINE NEGATIVE (NEGATIVE); *CLARITY,URINE CLEAR (CLEAR); *COLOR,URINE YELLOW (YELLOW); *KETONES,URINE NEGATIVE (NEGATIVE); *UROBILINOGEN,URINE 0.2 E.U./dl (NORMAL); LEUKOCYTE ESTERASE ,URINE NEGATIVE (NEGATIVE); NITRITE, URINE NEGATIVE (NEGATIVE); PH,URINE 6.5 (5.0-8.0)
[2021-09-10] MEDS ORDERED: PANTOPRAZOLE SODIUM 40 MG VIAL IV SCH (07:00)
[2021-09-10 07:04] LABS: ALANINE AMINOTRANSFERASE 107 U/L (14-59); ALKALINE PHOSPHATASE 195 U/L (50-136); ASPARTATE AMINOTRANSFERASE 156 U/L (15-37); BILIRUBIN,TOTAL 0.6 mg/dL (0.2-1.0); CARBON DIOXIDE 23 mmol/L (21-32); CHLORIDE 103 mmol/L (98-107); CHOLESTEROL 103 mg/dL (<200); CREATININE 0.3 mg/dL (0.6-1.3); GLUCOSE 72 mg/dL (74-106); HDL CHOLESTEROL 42 mg/dL (40-60); PHOSPHOROUS 2.7 mg/dL (2.5-4.9); POTASSIUM 3.2 mmol/L (3.5-5.1); TOTAL PROTEIN, SERUM 5.1 g/dL (6.4-8.2); TRIGLYCERIDES 104 MG/DL (30-150); UREA NITROGEN, BLOOD 5 mg/dL (7-18)
[2021-09-10 07:20] LABS: UGLUCOSE 3+ (NEGATIVE)
--- NOTE | 2021-09-10 08:00 | NUR ---
1:1 sitter at bedside. Pt in on 5150 for GD. Fall precaution implemented. PT on isolation for prior cdiff diagnosis and non compliant with meds. Pt alert and oriented x 3 no si noted. Skin dry and intact. Call light is within reach.
[2021-09-10] MEDS: MORPHINE SULFATE 2 MG/1 ML DISP.SYRIN IV PRN ×3 (08:39→22:22)
[2021-09-10] MEDS: INSULIN REGULAR, HUMAN 300 UNIT/3 ML VIAL SQ PRN ×2 (08:39→17:31)
[2021-09-10] MEDS ORDERED: POTASSIUM CHLORIDE 20 MEQ TAB.PRT.SR PO ONE (09:15)
[2021-09-10 09:16] LABS: THYROID STIMULATING HORMONE 6.141 mIU/mL (0.358-3.740)
[2021-09-10] MEDS: FOLIC ACID 1 MG TABLET PO SCH (12:43)
[2021-09-10] MEDS: THIAMINE HCL 100 MG TABLET PO SCH (12:43)
[2021-09-10] MEDS: MIDODRINE HCL 5 MG TABLET PO SCH ×2 (12:43→17:23)
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
--- NOTE | 2021-09-10 18:30 | NUR ---
Pt's pain managed with morphine and anxiety managed with ativan. Pt had one loose bm this shift. Pt is in no acute distress. Call light is within reach.
--- NOTE | 2021-09-10 19:30 | NUR ---
RECEIVED PT AWAKE, ALERT AND ORIENTEDX3. PT WITH 1:1 SITTER. IV INTACT. SAFETY AND COMFORT PROVIDED. WILL CONTINUE TO MONITOR.
[2021-09-10] MEDS ORDERED: THIAMINE HCL INJ 100 MG in IV DEXTROSE 5% 50 ML IV SCH (20:00)
[2021-09-10] MEDS ORDERED: FOLIC ACID 1 MG in IV DEXTROSE 5% 50 ML IV SCH (20:00)
[2021-09-10] MEDS: ENOXAPARIN SODIUM 40 MG/0.4 ML DISP.SYRIN SQ SCH (20:08)
[2021-09-11] MEDS: IV NS 1000 ML 1,000 ML IV PRN ×2 (03:40→20:29)
[2021-09-11] MEDS: LORAZEPAM 2 MG/1 ML VIAL IV PRN ×3 (03:43→22:39)
[2021-09-11 04:55] VITALS: BP 139/79
[2021-09-11] MEDS: PANTOPRAZOLE SODIUM 40 MG TABLET.DR PO SCH (06:28)
[2021-09-11] MEDS: BLOOD SUGAR DIAGNOSTIC 1 EACH STRIP VI SCH ×5 (06:39→20:21)
--- NOTE | 2021-09-11 06:39 | NUR ---
Pt slept intermittently. Pt in no acute distress. Iv intact. 1:1 sitter for safety. Prescribed medication given and pt tolerated it well. Pt given Ativan at 1955h and 0343H for anxiety. Pt tolerated it well. Pt calmer after an hour. Morphine prn given to pt. Pt tolerated it well. Pt observed to shave loose stool. Safety and comfort provided. All needs are met. Will endorse to incoming nurse for continuity of care.
[2021-09-11 06:44] LABS: HEMATOCRIT 25.9 % (31.2-41.9); MEAN CORPUSCULAR HEMOGLOBIN 34.9 uug (24.7-32.8); MEAN CORPUSCULAR VOLUME 104.5 fL (75.5-95.3); PLATELET COUNT (AUTO) 250 K/uL (179-408)
[2021-09-11 07:08] LABS: ALANINE AMINOTRANSFERASE 83 U/L (14-59); ALKALINE PHOSPHATASE 217 U/L (50-136); ASPARTATE AMINOTRANSFERASE 115 U/L (15-37); BILIRUBIN,TOTAL 1.1 mg/dL (0.2-1.0); CARBON DIOXIDE 27 mmol/L (21-32); CHLORIDE 104 mmol/L (98-107); CREATININE 0.4 mg/dL (0.6-1.3); GLUCOSE 193 mg/dL (74-106); PHOSPHOROUS 3.4 mg/dL (2.5-4.9); TOTAL PROTEIN, SERUM 4.3 g/dL (6.4-8.2); UREA NITROGEN, BLOOD 4 mg/dL (7-18)
[2021-09-11 08:00] VITALS: BP 125/72
[2021-09-11] MEDS: INSULIN REGULAR, HUMAN 300 UNIT/3 ML VIAL SQ PRN ×3 (08:04→20:22)
[2021-09-11] MEDS: FOLIC ACID 1 MG TABLET PO SCH (08:05)
[2021-09-11] MEDS: MIDODRINE HCL 5 MG TABLET PO SCH ×3 (08:06→17:00)
[2021-09-11] MEDS: THIAMINE HCL 100 MG TABLET PO SCH (08:07)
[2021-09-11] MEDS: POTASSIUM CHLORIDE 10 MEQ TAB.PRT.SR PO SCH ×2 (10:51→14:30)
[2021-09-11 11:00] VITALS: BP 137/82
--- NOTE | 2021-09-11 12:00 | NUR ---
CONTINUE HOLD 5150, SITTER AT BEDSIDE
[2021-09-11 16:00] VITALS: BP 135/85
[2021-09-11] MEDS: GLUCERNA SHAKE 237 ML CAN PO SCH (16:35)
--- NOTE | 2021-09-11 18:57 | NUR ---
SEEN BY DR BENSON FOR FOLLOW-UP SEE NOTES.
[2021-09-11 20:00] VITALS: BP 110/76
[2021-09-11] MEDS: ENOXAPARIN SODIUM 40 MG/0.4 ML DISP.SYRIN SQ SCH (20:11)
[2021-09-11] MEDS: MIRTAZAPINE 15 MG TABLET PO SCH (20:12)
[2021-09-12] VITALS: BP 140/79
--- NOTE | 2021-09-12 03:00 | NUR ---
PATIENT IS REFUSING FOR TELE MONITOR TO BE RE-CONNECTED.
[2021-09-12] MEDS: IV NS 1000 ML 1,000 ML IV PRN ×3 (03:19→22:20)
[2021-09-12 04:00] VITALS: BP 124/66
--- NOTE | 2021-09-12 05:43 | NUR ---
PATIENT ASLEEP IN BED. ON TELE SR. IV INFUSING WELL TO LEFT FA. SLEPT WELL. SITTER AT BEDSIDE ORDERED. ON CONTACT ISOLATION. CALL LIGHT IN REACH. BED ALARM ON, ALL NEEDS ATTENDED. WILL CONTINUE TO MONITOR AND ASSESS.
[2021-09-12] MEDS: PANTOPRAZOLE SODIUM 40 MG TABLET.DR PO SCH (06:12)
[2021-09-12] MEDS: BLOOD SUGAR DIAGNOSTIC 1 EACH STRIP VI SCH ×4 (06:23→20:44)
[2021-09-12 07:33] VITALS: BP 121/90
[2021-09-12] MEDS: GLUCERNA SHAKE 237 ML CAN PO SCH ×3 (08:43→16:29)
[2021-09-12] MEDS: MIDODRINE HCL 5 MG TABLET PO SCH ×3 (08:43→16:30)
[2021-09-12] MEDS: FOLIC ACID 1 MG TABLET PO SCH (08:43)
[2021-09-12] MEDS: THIAMINE HCL 100 MG TABLET PO SCH (08:43)
[2021-09-12] MEDS: LORAZEPAM 2 MG/1 ML VIAL IV PRN (09:29)
[2021-09-12 12:00] VITALS: BP 109/81
[2021-09-12] MEDS: INSULIN REGULAR, HUMAN 300 UNIT/3 ML VIAL SQ PRN ×2 (12:28→16:29)
[2021-09-12 12:34] LABS: HEMATOCRIT 24.8 % (31.2-41.9); MEAN CORPUSCULAR HEMOGLOBIN 35.7 uug (24.7-32.8); MEAN CORPUSCULAR VOLUME 105.3 fL (75.5-95.3); PLATELET COUNT (AUTO) 235 K/uL (179-408)
[2021-09-12 12:50] LABS: CARBON DIOXIDE 23 mmol/L (21-32); CHLORIDE 108 mmol/L (98-107); CREATININE 0.4 mg/dL (0.6-1.3); GLUCOSE 223 mg/dL (74-106); UREA NITROGEN, BLOOD 2 mg/dL (7-18)
[2021-09-12 12:58] LABS: POTASSIUM 2.8 mmol/L (3.5-5.1)
--- NOTE | 2021-09-12 13:28 | NUR ---
CALLED DR BENSON REGARDING HOLD ORDER. PER MD, DC HOLD AND DC ONE ON ONE SITTER. WILL CONTINUE TO MONITOR.
[2021-09-12] MEDS: MORPHINE SULFATE 2 MG/1 ML DISP.SYRIN IV PRN ×2 (14:39→20:33)
[2021-09-12 16:00] VITALS: BP 120/83
--- NOTE | 2021-09-12 18:13 | NUR ---
NO DISTRESS OR CONCERN IDENTIFIED DURING THE SHIFT. PATIENT IS CALM DURING THE SHIFT. ALL DUE MEDS GIVEN. ALL NEEDS ATTENDED. ROUTINE MEDS GIVEN FOR PAIN. KEPT CALL LIGHT WITHIN REACH. FREQUENT VISUAL CHECKS DONE. WILL ENDORSE TO THE NEXT SHIFT FOR CONTINUITY OF CARE.
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
[2021-09-12 20:00] VITALS: BP 114/83
[2021-09-12] MEDS: MIRTAZAPINE 15 MG TABLET PO SCH (20:30)
[2021-09-12] MEDS: ENOXAPARIN SODIUM 40 MG/0.4 ML DISP.SYRIN SQ SCH (20:32)
--- NOTE | 2021-09-12 21:30 | NUR ---
AT 2022H MORPHINE SULFATE 2MG PRN GIVEN FOR PAIN ON HER LEG. PT TOLERATED IT WELL.
[2021-09-13] MEDS: LORAZEPAM 2 MG/1 ML VIAL IV PRN ×2 (00:18→09:43)
--- NOTE | 2021-09-13 00:48 | NUR ---
AT 0018H ATIVAN 1MG PRN GIVEN FOR ANXIETY. PT TOLERATED IT WELL.
[2021-09-13 04:00] VITALS: BP 129/84
[2021-09-13] MEDS: MORPHINE SULFATE 2 MG/1 ML DISP.SYRIN IV PRN (05:47)
[2021-09-13] MEDS: IV NS 1000 ML 1,000 ML IV PRN ×2 (05:51→09:44)
[2021-09-13] MEDS: PANTOPRAZOLE SODIUM 40 MG TABLET.DR PO SCH (06:06)
--- NOTE | 2021-09-13 06:20 | NUR ---
Pt in no acute distress. Iv intact. Prescribed medication given and pt tolerated it well. Pt stable. At 0547h Morphine sulfate prn given to pt for stomach pain. Pt tolerated it well. Safety and comfort provided. All needs are met. Will endorse to incoming nurse for continuity of care.
[2021-09-13] MEDS: BLOOD SUGAR DIAGNOSTIC 1 EACH STRIP VI SCH ×2 (06:37→12:03)
[2021-09-13 06:55] LABS: HEMATOCRIT 23.3 % (31.2-41.9); MEAN CORPUSCULAR HEMOGLOBIN 35.5 uug (24.7-32.8); MEAN CORPUSCULAR VOLUME 105.3 fL (75.5-95.3); PLATELET COUNT (AUTO) 224 K/uL (179-408)
[2021-09-13 07:12] LABS: CARBON DIOXIDE 25 mmol/L (21-32); CHLORIDE 104 mmol/L (98-107); CREATININE 0.4 mg/dL (0.6-1.3); GLUCOSE 180 mg/dL (74-106); UREA NITROGEN, BLOOD 1 mg/dL (7-18)
[2021-09-13 07:37] LABS: POTASSIUM 2.7 mmol/L (3.5-5.1)
--- NOTE | 2021-09-13 07:49 | NUR ---
Received report from joint creaser nurse. Patient is awake, alert, and oriented 3-4. Patient showing no signs of distress. Lab notified of potassium level 2.7L. DS STATIONARY ENGINEER notified of critical lab value and noted in interventions. Bed left in the lowest position with call light within reach. Comfort measures provided. Will continue to monitor patient throughout shift.
[2021-09-13] MEDS: THIAMINE HCL 100 MG TABLET PO SCH (08:10)
[2021-09-13] MEDS: INSULIN REGULAR, HUMAN 300 UNIT/3 ML VIAL SQ PRN ×2 (08:10→12:19)
[2021-09-13] MEDS: FOLIC ACID 1 MG TABLET PO SCH (08:10)
[2021-09-13] MEDS: MIDODRINE HCL 5 MG TABLET PO SCH ×2 (09:00→12:58)
[2021-09-13] MEDS ORDERED: POTASSIUM CHLORIDE 20 MEQ TAB.PRT.SR PO ONE ×2 (09:15→17:30)
[2021-09-13] MEDS: GLUCERNA SHAKE 237 ML CAN PO SCH ×2 (09:25→12:58)
[2021-09-13] MEDS: POTASSIUM CHLORIDE 50 ML IV SCH ×2 (09:38→10:52)
[2021-09-13] MEDS: POTASSIUM CHLORIDE 20 MEQ TAB.PRT.SR PO SCH ×3 (09:42→12:51)
[2021-09-13] MEDS ORDERED: MAGNESIUM SULFATE 2 GM in IV DEXTROSE 5% 100 ML IV ONE (11:00)
[2021-09-13] MEDS: MAGNESIUM SULFATE/D5W 100 ML IV SCH ×2 (11:48→12:51)
[2021-09-13 12:58] VITALS: BP 88/40
--- NOTE | 2021-09-13 16:41 | NUR ---
Patient left hospital against medical advice. Explained to patient risks and consequences of leaving AMA and patient verbalized understanding. AMA document signed and placed in chart. IV access removed. ID armband removed. Belongings accounted for and belongings list signed. TOYA Ulloa and shoe caser notified.
== END 2021-09-13 16:35 | disposition left against medical advice (07) | DRG 770 ==
LOC: ER 17:14 → TRANSITION 18:51 → TELE3 20:32 → MEDSURG3 09-12 10:30
PROVIDERS: ADMIT Hospitalist; ATTEND Nurse Practitioner Family
DX: F10.239 Alcohol dependence with withdrawal, unspecified (principal); E43 Unspecified severe protein-calorie malnutrition; E10.69 Type 1 diabetes mellitus with other specified complication; G31.2 Degeneration of nervous system due to alcohol; R64 Cachexia; E88.09 Other disorders of plasma-protein metabolism, not elsewhere classified; R62.7 Adult failure to thrive; D53.9 Nutritional anemia, unspecified; E10.65 Type 1 diabetes mellitus with hyperglycemia; F10.229 Alcohol dependence with intoxication, unspecified; Z79.4 Long term (current) use of insulin; Z68.1 Body mass index [BMI] 19.9 or less, adult; Y90.8 Blood alcohol level of 240 mg/100 ml or more; Z20.822 Contact with and (suspected) exposure to COVID-19; F41.9 Anxiety disorder, unspecified; F32.A Depression, unspecified; Z73.6 Limitation of activities due to disability; Z91.19 Patient's noncompliance with other medical treatment and regimen
CPT/HCPCS: 36415; 71045; 82747; 83690; 84100; 84443; 85014; 85025; 93005; 97161; A4663; C9113; G0378; G0480; J1650; J1815; J2060; J2270; J2405; J3411; J3475; J3480; J3490; J7030; J7060

== ENCOUNTER 2021-09-21 00:20 | Inpatient (IN) | payer OTHER ==
[~2021-09-21] VITALS: Ht 160 cm; Wt 43.1 kg
[~2021-09-21 00:20] MED LIST changes: -CHLO25CA22 PO; -INSU100I26 SQ; -INSU100V7 SQ; -LORA0.5T48 PO; -ONDA4TAB5 PO; -POTA20TA29 PO; -VANC500V PO
--- NOTE | 2021-09-21 00:24 | NUR ---
Pt awake and alert, sobbing. No complaint of pain and discomfort.
--- NOTE | 2021-09-21 00:36 | NUR ---
Seen by Dr. Iraheta for MSE.
[2021-09-21] MEDS ORDERED: IV NS 1000 ML 1,000 ML IV ONE ×2 (00:45→01:15)
[2021-09-21] MEDS ORDERED: THIAMINE HCL 100 MG TABLET PO ONE (00:45)
[2021-09-21 00:53] LABS: HEMATOCRIT 26.9 % (31.2-41.9); MEAN CORPUSCULAR HEMOGLOBIN 35.6 uug (24.7-32.8); MEAN CORPUSCULAR VOLUME 104.3 fL (75.5-95.3); PLATELET COUNT (AUTO) 448 K/uL (179-408)
[2021-09-21 01:03] LABS: BILIRUBIN,DIRECT 0.3 mg/dL (0.0-0.2); BILIRUBIN,TOTAL 0.5 mg/dL (0.2-1.0); CREATININE 0.7 mg/dL (0.6-1.3); POTASSIUM 2.9 mmol/L (3.5-5.1); TOTAL PROTEIN, SERUM 5.9 g/dL (6.4-8.2)
[2021-09-21] MEDS ORDERED: THIAMINE HCL 100 MG TABLET ONE (01:10)
[2021-09-21] MEDS ORDERED: POTASSIUM BICARBONATE/CIT AC 25 MEQ TABLET.EFF PO ONE (01:15)
[2021-09-21 01:37] LABS: IRON, SERUM 35 ug/dL (50-175)
[2021-09-21] MEDS: MAGNESIUM SULFATE/D5W 100 ML IV SCH ×3 (01:40→02:45)
[2021-09-21] MEDS ORDERED: POTASSIUM BICARBONATE/CIT AC 25 MEQ TABLET.EFF ONE (01:44)
[2021-09-21] MEDS ORDERED: MAGNESIUM SULFATE/D5W 300 ML ONE (01:45)
[2021-09-21] MEDS: CHOLECALCIFEROL 1,000 UNIT TABLET PO SCH ×2 (01:55→09:12)
[2021-09-21] MEDS ORDERED: CHLORDIAZEPOXIDE HCL 25 MG CAPSULE PO ONE (02:00)
[2021-09-21] MEDS ORDERED: CHOLECALCIFEROL 1,000 UNIT TABLET ONE ×2 (02:05→09:17)
[2021-09-21] MEDS ORDERED: CHLORDIAZEPOXIDE HCL 5 MG CAPSULE ONE ×2 (02:33→09:18)
--- NOTE | 2021-09-21 03:08 | NUR ---
Call to [facility] math interventionist panel, [facility].
[2021-09-21] MEDS ORDERED: IV NS 1000 ML 1,000 ML IV PRN ×2 (03:45→10:45)
[2021-09-21] MEDS ORDERED: Z GUARD REMEDY PASTE 57 GM TUBE TOP PRN (03:45)
[2021-09-21] MEDS ORDERED: DEXTROSE 50% 50 ML DISP.SYRIN IV PRN ×2 (03:45→10:45)
[2021-09-21] MEDS ORDERED: MAGNESIUM HYDROXIDE 30 ML LIQUID UDC PO PRN (03:45)
[2021-09-21] MEDS ORDERED: ONDANSETRON 4 MG/2 ML VIAL IV PRN (03:45)
[2021-09-21] MEDS ORDERED: THIAMINE HCL INJ 100 MG in IV DEXTROSE 5% 50 ML IV SCH (03:45)
[2021-09-21] MEDS ORDERED: INSULIN REGULAR, HUMAN 300 UNIT/3 ML VIAL SQ PRN (03:45)
[2021-09-21] MEDS ORDERED: THIAMINE HCL 200 MG/2 ML VIAL ONE (05:12)
--- NOTE | 2021-09-21 05:49 | NUR ---
Patient's valuable envelope with receipt number [id number]. Provided with security to place in hospital safe. Patient signed along with 2 nurses.
[2021-09-21] MEDS ORDERED: BLOOD SUGAR DIAGNOSTIC 1 EACH STRIP VI SCH (06:00)
--- NOTE | 2021-09-21 07:18 | NUR ---
Automobile Seat Cover Installer assumes care: Patient is resting comfortably on gurney with eyes closed, respiration:easy, moving all extremities, pending available telemetry nurse & bed@this time, denies pains@this time, NAD.
--- NOTE | 2021-09-21 07:30 | NUR ---
"Everything is done." per previous RN's report. Patient is only waiting for available telemetry nurse & room.
--- NOTE | 2021-09-21 08:12 | NUR ---
Patient was assisted to bedside commode. 1 person-assist needed for patient's nursing needs 2/2 generalized weakness, she is calm, cooperative, no tremors seen, skin warm & dry.
--- NOTE | 2021-09-21 08:52 | NUR ---
Patient ate hot breakfast with good appetite, still waiting for available telemetry nurse and bed.
[2021-09-21] MEDS: FOLIC ACID 1 MG TABLET PO SCH (09:13)
[2021-09-21] MEDS: PANTOPRAZOLE SODIUM 40 MG VIAL IV SCH (09:13)
[2021-09-21] MEDS: CHLORDIAZEPOXIDE HCL 5 MG CAPSULE PO SCH ×3 (09:13→16:38)
[2021-09-21] MEDS ORDERED: MAGNESIUM SULFATE/D5W 100 ML IV SCH (09:15)
[2021-09-21] MEDS ORDERED: FOLIC ACID 1 MG TABLET ONE (09:17)
[2021-09-21] MEDS ORDERED: PANTOPRAZOLE SODIUM 40 MG VIAL ONE (09:18)
--- NOTE | 2021-09-21 10:30 | NUR ---
ADMITTED VIA GUERNEY. pATIENT VERY FAMILIAR WITH SURROUNDINGS & ROUTINE.
[2021-09-21] MEDS ORDERED: INSULIN REGULAR, HUMAN 300 UNITS/3 ML VIAL SQ PRN (10:45)
[2021-09-21] MEDS ORDERED: IBUPROFEN 400 MG TABLET PO PRN (11:00)
[2021-09-21] MEDS: INSULIN REGULAR, HUMAN 300 UNIT/3 ML VIAL SQ PRN ×2 (11:01→17:07)
[2021-09-21] MEDS: BLOOD SUGAR DIAGNOSTIC 1 EACH STRIP VI SCH ×3 (11:30→20:21)
--- NOTE | 2021-09-21 11:30 | NUR ---
ACCSTUARTECK 501. A. RAYMOND AWARE. ORDERS RECEIVED. COVERED WITH 15 UNITS OF REG. INSULIN.
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
[2021-09-21 12:00] VITALS: BP 103/74
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
[2021-09-21] MEDS: LORAZEPAM 1 MG TABLET PO PRN ×2 (15:40→20:21)
[2021-09-21] MEDS: ACETAMINOPHEN 325 MG TABLET PO PRN (15:40)
--- NOTE | 2021-09-21 16:00 | NUR ---
SLEEPING SOUNDLY AT INTERVALS. APPITITE VERY GOOD TODAY.
[2021-09-21 16:10] VITALS: BP 115/78
--- NOTE | 2021-09-21 19:30 | NUR ---
Patient sleeping in bed comfortably. In no acute distress. IV to right FA, patent and intact. Denies any discomfort at this time. On RA, no SOB. She is incontinent of B/B, diaper in place. Encouraged her to use toilet. Safety measures initiated. Needs attended. Call light within reach.
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
[2021-09-21 20:47] VITALS: BP 99/65
[2021-09-22 00:31] VITALS: BP 94/63
[2021-09-22 04:48] VITALS: BP 111/69
[2021-09-22] MEDS: BLOOD SUGAR DIAGNOSTIC 1 EACH STRIP VI SCH ×2 (06:37→11:48)
--- NOTE | 2021-09-22 06:50 | NUR ---
Slept well this shift. No significant events. On RA, no SOB. Patient NSR on telemetry, occasionally geno and tachy, non sustained. Still noted with loose stool and incontinence. Refuses to use toilet, using diaper at this time. Safety measures continued. Call light within reach.
[2021-09-22 07:43] LABS: HEMATOCRIT 28.2 % (31.2-41.9); MEAN CORPUSCULAR HEMOGLOBIN 35.1 uug (24.7-32.8); MEAN CORPUSCULAR VOLUME 106.1 fL (75.5-95.3); PLATELET COUNT (AUTO) 347 K/uL (179-408)
[2021-09-22] MEDS ORDERED: THIAMINE HCL INJ 100 MG in IV DEXTROSE 5% 50 ML IV SCH (08:00)
[2021-09-22 08:12] LABS: ALANINE AMINOTRANSFERASE 69 U/L (14-59); ALKALINE PHOSPHATASE 379 U/L (50-136); ASPARTATE AMINOTRANSFERASE 165 U/L (15-37); BILIRUBIN,TOTAL 0.8 mg/dL (0.2-1.0); CARBON DIOXIDE 29 mmol/L (21-32); CHLORIDE 105 mmol/L (98-107); CREATININE 0.3 mg/dL (0.6-1.3); GLUCOSE 108 mg/dL (74-106); LIPASE 24 U/L (73-393); MAGNESIUM 1.5 mg/dL (1.8-2.4); PHOSPHOROUS 3.1 mg/dL (2.5-4.9); TOTAL PROTEIN, SERUM 4.9 g/dL (6.4-8.2); UREA NITROGEN, BLOOD 3 mg/dL (7-18)
[2021-09-22 08:18] LABS: POTASSIUM 2.8 mmol/L (3.5-5.1)
[2021-09-22] MEDS ORDERED: THIAMINE HCL 100 MG TABLET PO SCH (09:00)
[2021-09-22] MEDS: PANTOPRAZOLE SODIUM 40 MG VIAL IV SCH (09:08)
[2021-09-22] MEDS: CHOLECALCIFEROL 1,000 UNIT TABLET PO SCH (09:09)
[2021-09-22] MEDS: CHLORDIAZEPOXIDE HCL 5 MG CAPSULE PO SCH ×2 (09:10→12:33)
[2021-09-22] MEDS: FOLIC ACID 1 MG TABLET PO SCH (09:10)
[2021-09-22] MEDS ORDERED: POTASSIUM CHLORIDE 20 MEQ TAB.PRT.SR PO ONE ×3 (09:30→12:00)
[2021-09-22] MEDS: LORAZEPAM 1 MG TABLET PO PRN (09:50)
[2021-09-22] MEDS ORDERED: GLUCERNA SHAKE VANILLA 237 ML CAN PO SCH (10:00)
[2021-09-22] MEDS ORDERED: LACTULOSE 20 G/30 ML LIQUID UDC PO ONE (10:00)
[2021-09-22] MEDS ORDERED: MAGNESIUM OXIDE 400 MG TABLET PO ONE (10:00)
[2021-09-22] MEDS ORDERED: MAGNESIUM SULFATE/D5W 100 ML IV SCH (10:00)
--- NOTE | 2021-09-22 11:00 | NUR ---
INSTRUCTED WILL BE DISCHARGED HOME TODAY. STATES WILL BE STAying with sister & son. Has not seen her son for 18 months.
[2021-09-22 12:00] VITALS: BP 107/73
[2021-09-22] MEDS: ACETAMINOPHEN 325 MG TABLET PO PRN (12:34)
[2021-09-22] MEDS: INSULIN REGULAR, HUMAN 300 UNIT/3 ML VIAL SQ PRN (12:35)
--- NOTE | 2021-09-22 13:00 | NUR ---
IV dc'd. Angiocath removed intact. Prepared for discharge.
--- NOTE | 2021-09-22 15:20 | NUR ---
Discharged ambulatory to [facility].
[2021-09-23] MEDS ORDERED: PANTOPRAZOLE SODIUM 40 MG TABLET.DR PO SCH (07:00)
[2021-09-28] MEDS ORDERED: OMEP40CA21 PO (18:02)
[2021-09-28] MEDS ORDERED: ONDA8TAB13 PO (18:02)
[2021-09-28] MEDS ORDERED: CHLO25CA22 PO (18:26)
== END 2021-09-22 15:20 | disposition home or self-care (01) | DRG 775 ==
LOC: ER 00:24 → TRANSITION 04:37 → TELE3 09:48 → MEDSURG3 09-22 10:05
PROVIDERS: ADMIT Hospitalist; ATTEND Hospitalist
DX: F10.229 Alcohol dependence with intoxication, unspecified (principal); E43 Unspecified severe protein-calorie malnutrition; E88.09 Other disorders of plasma-protein metabolism, not elsewhere classified; G31.2 Degeneration of nervous system due to alcohol; E11.65 Type 2 diabetes mellitus with hyperglycemia; D50.9 Iron deficiency anemia, unspecified; D75.839 Thrombocytosis, unspecified; E83.42 Hypomagnesemia; E87.6 Hypokalemia; Z79.4 Long term (current) use of insulin; Z79.84 Long term (current) use of oral hypoglycemic drugs; K86.1 Other chronic pancreatitis; Z91.19 Patient's noncompliance with other medical treatment and regimen; E88.89 Other specified metabolic disorders; Y90.8 Blood alcohol level of 240 mg/100 ml or more; R74.01 Elevation of levels of liver transaminase levels; K29.70 Gastritis, unspecified, without bleeding; S20.411A Abrasion of right back wall of thorax, initial encounter; X58.XXXA Exposure to other specified factors, initial encounter; Y93.9 Activity, unspecified; Y92.009 Unspecified place in unspecified non-institutional (private) residence as the place of occurrence of the external cause; W50.1XXA Accidental kick by another person, initial encounter; Z68.1 Body mass index [BMI] 19.9 or less, adult; Z20.822 Contact with and (suspected) exposure to COVID-19
CPT/HCPCS: 36415; 71250; 83550; 83690; 83735; 84100; 84443; 85025; A4663; C9113; G0378; G0480; J1815; J3411; J3475; J7030; J8499

== ENCOUNTER 2021-11-24 00:44 | Emergency (ER) | payer OTHER ==
[~2021-11-24] VITALS: Ht 160 cm; Wt 40.8 kg
[~2021-11-24 00:44] MED LIST changes: +CHLO25CA22 PO; +OMEP40CA21 PO; +ONDA8TAB13 PO
[2021-11-24] MEDS ORDERED: HYDROMORPHONE 1 MG/1 ML DISP.SYRIN IV ONE (01:00)
[2021-11-24] MEDS ORDERED: diphenhydrAMINE 50 MG/1 ML VIAL IV ONE (01:00)
[2021-11-24] MEDS ORDERED: METOCLOPRAMIDE HCL 10 MG/2 ML VIAL IV ONE (01:00)
[2021-11-24] MEDS ORDERED: ONDANSETRON 4 MG/2 ML VIAL IV ONE ×2 (01:00→07:45)
[2021-11-24] MEDS ORDERED: IV NORMAL SALINE 1000 ML BAG IV ONE (01:00)
--- NOTE | 2021-11-24 01:20 | NUR ---
pt bib ra from home c/o nausea vomiting.
[2021-11-24] MEDS ORDERED: diphenhydrAMINE 50 MG/1 ML VIAL ONE (01:31)
[2021-11-24] MEDS ORDERED: METOCLOPRAMIDE HCL 10 MG/2 ML VIAL ONE (01:32)
[2021-11-24] MEDS ORDERED: ONDANSETRON 4 MG/2 ML VIAL ONE ×2 (01:32→07:43)
[2021-11-24] MEDS ORDERED: HYDROMORPHONE 1 MG/1 ML DISP.SYRIN ONE (01:34)
[2021-11-24 01:44] LABS: HEMATOCRIT 31.8 % (31.2-41.9); MEAN CORPUSCULAR HEMOGLOBIN 34.4 uug (24.7-32.8); MEAN CORPUSCULAR VOLUME 105.7 fL (75.5-95.3); PLATELET COUNT (AUTO) 158 K/uL (179-408)
[2021-11-24 01:56] LABS: CARBON DIOXIDE 21 mmol/L (21-32); CHLORIDE 93 mmol/L (98-107); CREATININE 0.8 mg/dL (0.6-1.3); POTASSIUM 3.4 mmol/L (3.5-5.1); UREA NITROGEN, BLOOD 17 mg/dL (7-18)
[2021-11-24 01:58] LABS: GLUCOSE 310 mg/dL (74-106)
[2021-11-24 02:00] LABS: ETHANOL < 3 MG/DL (0-0)
[2021-11-24 02:02] LABS: ALANINE AMINOTRANSFERASE 30 U/L (14-59); ALKALINE PHOSPHATASE 324 U/L (50-136); ASPARTATE AMINOTRANSFERASE 94 U/L (15-37); BILIRUBIN,DIRECT 2.3 mg/dL (0.0-0.2); LIPASE 13 U/L (73-393); TOTAL PROTEIN, SERUM 6.2 g/dL (6.4-8.2)
[2021-11-24 02:07] LABS: MAGNESIUM 1.5 mg/dL (1.8-2.4)
[2021-11-24] MEDS ORDERED: INSULIN REGULAR, HUMAN 300 UNIT/3 ML VIAL IV ONE (02:15)
[2021-11-24] MEDS ORDERED: IV 0.9% SODIUM CHLORID+ 20 KCL 1,000 ML IV ONE (02:15)
[2021-11-24] MEDS ORDERED: POTASSIUM CHLORIDE 20 MEQ TAB.PRT.SR PO ONE (02:15)
[2021-11-24] MEDS ORDERED: POTASSIUM CHLORIDE 20 MEQ TAB.PRT.SR ONE (02:17)
[2021-11-24] MEDS ORDERED: IV 0.9% SODIUM CHLORID+ 20 KCL 1,000 ML ONE (02:17)
[2021-11-24] MEDS ORDERED: INSULIN REGULAR, HUMAN 300 UNIT/3 ML VIAL ONE (02:18)
--- NOTE | 2021-11-24 02:29 | NUR ---
insulin 10 units was given ivp as per ordered. medication verified with Mimi PRIETO.
[2021-11-24] MEDS ORDERED: LACTULOSE 20 G/30 ML LIQUID UDC PO ONE (02:45)
--- NOTE | 2021-11-24 02:50 | NUR ---
pt able to take po fluids and ice chips well, no c/o nausea.
[2021-11-24] MEDS ORDERED: LACTULOSE 20 G/30 ML LIQUID UDC ONE (02:56)
[2021-11-24] MEDS ORDERED: IV D5W-0.45% NS +20 KCL 1,000 ML IV ONE ×2 (03:45→03:47)
[2021-11-24] MEDS ORDERED: LIDOCAINE VISCUS 2% 15 ML UDC MM ONE (04:30)
[2021-11-24] MEDS ORDERED: MAG HYDROX/AL HYDROX/SIMETH 30 ML LIQUID UDC PO ONE (04:30)
[2021-11-24] MEDS ORDERED: MAG HYDROX/AL HYDROX/SIMETH 30 ML LIQUID UDC ONE (04:37)
[2021-11-24] MEDS ORDERED: LIDOCAINE VISCUS 2% 15 ML UDC ONE (04:37)
[2021-11-24] MEDS ORDERED: LACT10SO3 PO (05:09)
[2021-11-24 05:52] LABS: CREATININE 1.1 mg/dL (0.6-1.3); POTASSIUM 3.9 mmol/L (3.5-5.1)
--- NOTE | 2021-11-24 06:40 | NUR ---
Called [facility] for transport, eta 1 hour.
--- NOTE | 2021-11-24 07:10 | NUR ---
Client Onboarding Analyst assumes care: Patient is AOx4, respiration:easy, non-labored, even and symmetrical, skin is warm and dry, for discharge to home per Dr Vivar's order. [facility] ambulance [id number]. Skin care provided. New diaper on. Repeated reminders to stop drinking alcohol were done and patient was also reminded to follow her prescribed diabetic regimen all the time.
--- NOTE | 2021-11-24 08:03 | NUR ---
IV removed. Catheter intact and site benign. Pressure and 4x4 gauze applied to site. No bleeding noted. Written and verbal after care instructions given. Patient verbalized understanding and compliance of instructions. Stressed follow up with her primary doctor or return to ER for worsening s/s. Patient is now waiting for her ambulance ride ([facility]). Patient was assisted to her street clothes as well.
--- NOTE | 2021-11-24 08:16 | NUR ---
Dr Arvizu is aware of constant and chronic abdominal pains, nausea and diarrhea. The abdominal pain ranges from 3-10/10, currently at 4-5/10. Comfort and safety measures maintained.
--- NOTE | 2021-11-24 08:26 | NUR ---
SBAR to retail account representative of [facility] ambulance unit#[id number].
--- NOTE | 2021-11-24 08:32 | NUR ---
Patient left ER in stable condition together with all her belongings.
== END 2021-11-24 08:32 | disposition home or self-care (01) ==
LOC: ER 00:46
DX: R10.9 Unspecified abdominal pain (principal); D50.9 Iron deficiency anemia, unspecified; E87.2 Acidosis; K70.9 Alcoholic liver disease, unspecified; E11.65 Type 2 diabetes mellitus with hyperglycemia; Z79.899 Other long term (current) drug therapy
CPT/HCPCS: 36415; 80048 ×2; 80076; 80320; 82009 ×2; 82140; 82962 ×2; 83690; 83735; 84702; 85025; 96361; 96374; 96375; 96376; 99285; J1170; J1200; J1815; J2405 ×2; J2765; J3490; A4663; G0480; J7030

== ENCOUNTER 2021-12-31 23:03 | Inpatient (IN) | payer OTHER ==
[~2021-12-31] VITALS: Ht 157.5 cm; Wt 38.6 kg
[~2021-12-31 23:03] MED LIST changes: +LACT10SO3 PO
--- NOTE | 2021-12-31 23:05 | NUR ---
BIB rescue from home for ETOH, abdominal pain and diarrhea for 2 days. To room 1A. Patient oriented to name, speech somewhat slurred but understandable. Attached to monitor.
--- NOTE | 2021-12-31 23:10 | NUR ---
Seen and evaluated by Dr. Sánchez.
[2021-12-31] MEDS ORDERED: ONDANSETRON 4 MG/2 ML VIAL IV ONE (23:15)
[2021-12-31] MEDS ORDERED: IV NORMAL SALINE 1000 ML BAG IV ONE (23:15)
[2021-12-31] MEDS ORDERED: ONDANSETRON 4 MG/2 ML VIAL ONE (23:21)
[2021-12-31 23:38] LABS: HEMATOCRIT 28.3 % (31.2-41.9); MEAN CORPUSCULAR HEMOGLOBIN 33.8 uug (24.7-32.8); MEAN CORPUSCULAR VOLUME 100.1 fL (75.5-95.3); PLATELET COUNT (AUTO) 314 K/uL (179-408)
[2021-12-31 23:45] LABS: CARBON DIOXIDE 30 mmol/L (21-32); CHLORIDE 95 mmol/L (98-107); CREATININE 0.4 mg/dL (0.6-1.3); GLUCOSE 296 mg/dL (74-106); POTASSIUM 3.5 mmol/L (3.5-5.1); UREA NITROGEN, BLOOD 13 mg/dL (7-18)
[2021-12-31 23:54] LABS: ALANINE AMINOTRANSFERASE 24 U/L (14-59); ALKALINE PHOSPHATASE 324 U/L (50-136); ASPARTATE AMINOTRANSFERASE 80 U/L (15-37); BILIRUBIN,DIRECT 0.5 mg/dL (0.0-0.2); BILIRUBIN,TOTAL 0.6 mg/dL (0.2-1.0); LIPASE 10 U/L (73-393); TOTAL PROTEIN, SERUM 6.1 g/dL (6.4-8.2)
[2022-01-01 00:17] LABS: ETHANOL 414 MG/DL (0-0)
--- NOTE | 2022-01-01 00:21 | NUR ---
perineal care done
[2022-01-01] MEDS ORDERED: FAMOTIDINE. 20 MG/2 ML VIAL IV ONE ×2 (00:50→01:00)
--- NOTE | 2022-01-01 01:30 | NUR ---
Cleaned for another semisoft green foul smelling stools. Diaper changed. Patient cooperative, able to turn side to side.
[2022-01-01] MEDS ORDERED: IV NORMAL SALINE 1000 ML BAG IV ONE (02:15)
--- NOTE | 2022-01-01 02:15 | NUR ---
Another liter of NS hung as per Dr. Princess martines.
--- NOTE | 2022-01-01 02:29 | NUR ---
Repeat Lactic Acid=3.1; Dr. Sánchez made aware. Also informed that patient's SBPs is in the mid 80's to low 90's.
--- NOTE | 2022-01-01 02:47 | NUR ---
CXR and blood cultures done. Plan of care as per Dr. Sánchez is to admit patient.
[2022-01-01] MEDS ORDERED: PIPERACILLIN SODIUM/TAZOBACTAM 3.375 G in IV DEXTROSE 5% 50 ML IV ONE (03:00)
[2022-01-01] MEDS ORDERED: PIPERACILLIN/TAZOBACTAM/D5W 50 ML IV ONE (03:07)
--- NOTE | 2022-01-01 03:19 | NUR ---
[facility] called re: admission. Dr. Cabello corporate bond trader.
--- NOTE | 2022-01-01 03:45 | NUR ---
2nd call placed to Dr. Cabello; awaiting call back. Patient cleaned for another semisoft brown BM. Skin care provided; diaper changed.
--- NOTE | 2022-01-01 03:57 | NUR ---
Dr Sánchez talking to Dr Cabello
--- NOTE | 2022-01-01 04:10 | NUR ---
Report given to Dawna PRIETO. Belonging list completed.
[2022-01-01] MEDS ORDERED: FOLIC ACID 1 MG in IV DEXTROSE 5% 50 ML IV SCH ×3 (04:15→05:45)
[2022-01-01] MEDS ORDERED: MAGNESIUM HYDROXIDE 30 ML LIQUID UDC PO PRN ×2 (04:15→04:30)
[2022-01-01] MEDS ORDERED: REMEDY ESSENTIAL ZINC PASTE 113 GM TP PRN ×2 (04:15→04:30)
[2022-01-01] MEDS ORDERED: IV NS 1000 ML 1,000 ML IV SCH (04:15)
[2022-01-01] MEDS ORDERED: THIAMINE HCL INJ 100 MG in IV DEXTROSE 5% 50 ML IV SCH ×3 (04:15→06:00)
[2022-01-01] MEDS ORDERED: ONDANSETRON 4 MG/2 ML VIAL IV PRN (04:15)
[2022-01-01] MEDS ORDERED: ACETAMINOPHEN 325 MG TABLET PO PRN (04:15)
--- NOTE | 2022-01-01 04:15 | NUR ---
Pt. admitted to [facility], under care of Dr. Cabello.
[2022-01-01] MEDS ORDERED: DEXTROSE 50% 50 ML DISP.SYRIN IV PRN ×2 (04:30→15:00)
[2022-01-01] MEDS ORDERED: INSULIN REGULAR, HUMAN 300 UNIT/3 ML VIAL SQ PRN (04:30)
--- NOTE | 2022-01-01 05:00 | NUR ---
Transferred to room 318 per mariah. Patient sleeping, easily arouses to name. NAD noted.
[2022-01-01] MEDS: IV NS 1000 ML 1,000 ML IV SCH ×3 (05:19→20:43)
--- NOTE | 2022-01-01 05:45 | NUR ---
Admitted patient to Tele unit from Er via [facility] .DX ETOH intox and lactic acidosis. Patient AALOx4.Denies pain .No SOB.On Ra,NSR on Tele.Iv patent and intact on Right AC with IVF infusing at 125 cc/hr.Tolerated well.Skin intact.Patient incontinent.BM x1.Pericare provided. NPO at this time. PAtient made aware.Blood glucose 213, per sliding scale given as order. Safety measures in place. Call light with in reach.Will endorse to oncoming shift.
[2022-01-01] MEDS: BLOOD SUGAR DIAGNOSTIC 1 EACH STRIP VI SCH ×4 (06:06→20:51)
[2022-01-01] MEDS: PANTOPRAZOLE SODIUM 40 MG TABLET.DR PO SCH (06:40)
[2022-01-01 06:56] LABS: HEMATOCRIT 25.2 % (31.2-41.9); MEAN CORPUSCULAR HEMOGLOBIN 34.1 uug (24.7-32.8); MEAN CORPUSCULAR VOLUME 102.9 fL (75.5-95.3); PLATELET COUNT (AUTO) 203 K/uL (179-408)
[2022-01-01 07:08] LABS: CARBON DIOXIDE 24 mmol/L (21-32); CHLORIDE 101 mmol/L (98-107); CREATININE 0.3 mg/dL (0.6-1.3); GLUCOSE 237 mg/dL (74-106); MAGNESIUM 2.7 mg/dL (1.8-2.4); PHOSPHOROUS 2.9 mg/dL (2.5-4.9); POTASSIUM 3.4 mmol/L (3.5-5.1); UREA NITROGEN, BLOOD 10 mg/dL (7-18)
--- NOTE | 2022-01-01 08:00 | NUR ---
NPO OBSERVED ORDERED, NO SS OF ACUTE PAIN OR HYPOGLYCEMIA IVF AT 125 MLS/HR. SR ON MONITOR
[2022-01-01] MEDS: FOLIC ACID 1 MG TABLET PO SCH (09:05)
[2022-01-01] MEDS: MULTIVITAMINS,THERAPEUTIC TABLET PO SCH (09:05)
[2022-01-01] MEDS: POTASSIUM CHLORIDE 50 ML IV SCH ×2 (09:47→10:57)
[2022-01-01] MEDS ORDERED: FOLIC ACID 1 MG in IV DEXTROSE 5% 50 ML IV ONE (10:00)
[2022-01-01 11:48] VITALS: BP 97/67
--- NOTE | 2022-01-01 12:00 | NUR ---
STILL C/O ON AND OFF FEELING OF NAUSEA. CONTINUE TO OBSERVE
[2022-01-01] MEDS: ONDANSETRON 4 MG/2 ML VIAL IV PRN ×2 (12:10→18:57)
[2022-01-01] MEDS: THIAMINE HCL 100 MG TABLET PO SCH (12:39)
[2022-01-01] MEDS: MIDODRINE HCL 5 MG TABLET PO PRN ×2 (14:11→21:22)
[2022-01-01] MEDS: ACETAMINOPHEN 325 MG TABLET PO PRN ×2 (14:12→20:44)
[2022-01-01 16:00] VITALS: BP 90/55
[2022-01-01] MEDS ORDERED: MAG HYDROX/AL HYDROX/SIMETH 30 ML LIQUID UDC PO PRN (16:15)
[2022-01-01 16:36] LABS: *BILIRUBIN,URIN NEGATIVE (NEGATIVE); *BLOOD, URINE 2+ (NEGATIVE); *CLARITY,URINE CLOUDY (CLEAR); *COLOR,URINE YELLOW (YELLOW); *KETONES,URINE 1+ (NEGATIVE); *UROBILINOGEN,URINE 0.2 E.U./dl (NORMAL); LEUKOCYTE ESTERASE ,URINE 3+ (NEGATIVE); NITRITE, URINE POSITIVE (NEGATIVE); PH,URINE >=9.0 (5.0-8.0); UGLUCOSE NEGATIVE (NEGATIVE)
[2022-01-01 16:54] LABS: *AMPHETAMINE, URINE NEGATIVE (NEGATIVE); *CANNABINOID, URINE NEGATIVE (NEGATIVE); *COCCAINE, URINE NEGATIVE (NEGATIVE); *OPIATE, URINE NEGATIVE (NEGATIVE); *PHENCYCLIDINE SCREEN,URINE NEGATIVE (NEGATIVE)
[2022-01-01] MEDS: INSULIN REGULAR, HUMAN 300 UNIT/3 ML VIAL SQ PRN ×2 (17:10→20:52)
--- NOTE | 2022-01-01 18:35 | NUR ---
STARTED SLOW ON FULL LIQUID PATIENT STILL C/O ON AND OFF STOMACH, VOMITED LARGE AMOUNT OF STOMACH X1. MYLANTA AND ZOFRAN GIVEN WITH TEMPORARY RELIEF. SR ON MONITOR
[2022-01-01 20:06] LABS: WBC,URINE 0-3 /HPF (0-3)
[2022-01-01 20:07] LABS: BACTERIA,URINE MANY /HPF (NONE SEEN); CALCIUM CARBONATE CRYSTALS,UR NONE SEEN /HPF (NONE SEEN); CALCIUM OXALATE CRYSTALS,UR NONE SEEN /HPF (NONE SEEN); CALCIUM PHOSPHATE CRYSTALS,UR NONE SEEN /HPF (NONE SEEN); COARSE GRANULAR CASTS,URINE NONE SEEN /LPF; CYSTINE CRYSTALS,URINE NONE SEEN /HPF (NONE SEEN); FATTY CASTS,URINE NONE SEEN /LPF (NONE SEEN); MUCUS,URINE NONE SEEN /LPF (0-FEW); RED BLOOD CELL CASTS,URINE NONE SEEN /LPF (NONE SEEN); SPERM,URINE NONE SEEN /HPF (NONE SEEN); SQUAMOUS EPITHELIAL CELL,UR FEW /HPF (NONE SEEN); TRICHOMONAS,URINE NONE SEEN /HPF (NONE SEEN); TRIPLE PHOSPHATE CRYSTAL,UR NONE SEEN /HPF (NONE SEEN); TYROSINE CRYSTAL,URINE NONE SEEN /HPF (NONE SEEN); URIC ACID CRYSTALS,URINE NONE SEEN /HPF (NONE SEEN); URINE AMORPHOUS PHOSPHATES NONE SEEN /HPF; URINE AMORPHOUS URATE NONE SEEN /HPF; WAXY CASTS,URINE NONE SEEN /LPF (NONE SEEN); YEAST,URINE NONE SEEN /HPF (NONE SEEN)
[2022-01-01 20:29] VITALS: BP 93/63
[2022-01-01] MEDS: LACTULOSE 20 G/30 ML LIQUID UDC PO SCH (20:43)
[2022-01-01] MEDS ORDERED: CEFTRIAXONE 1 G in IV DEXTROSE 5% 50 ML IV SCH (21:00)
--- NOTE | 2022-01-01 21:30 | NUR ---
Patient stated, "I feel anxious". Ativan 0.5mg IV PRN given as ordered.
[2022-01-01] MEDS: LORAZEPAM 2 MG/1 ML VIAL IV PRN (21:38)
--- NOTE | 2022-01-01 23:40 | NUR ---
Stool specimen sent to lab.
[2022-01-02] VITALS: BP 93/60
--- NOTE | 2022-01-02 00:15 | NUR ---
Patient complained of numbness on both legs especially on her ankles and at the tip of her fingers. Also, patient complained of pain at her bilateral ankles, describing as aching with a pain scale of 9/10. No signs of calf pain. Notified Leonardo Jeffery NP. Per Jose D, to give [place] 5/324mg PO Q6 PRN for severe pain. Noted and carried out.
[2022-01-02] MEDS: HYDROCODONE/APAP 5-325MG TABLET PO PRN ×3 (00:57→21:33)
[2022-01-02] MEDS: IV NS 1000 ML 1,000 ML IV SCH ×3 (03:59→21:00)
[2022-01-02 04:00] VITALS: BP 97/71
[2022-01-02] MEDS: ACETAMINOPHEN 325 MG TABLET PO PRN (04:36)
[2022-01-02] MEDS: PANTOPRAZOLE SODIUM 40 MG TABLET.DR PO SCH (06:09)
[2022-01-02 06:24] LABS: HEMATOCRIT 22.2 % (31.2-41.9); MEAN CORPUSCULAR HEMOGLOBIN 34.3 uug (24.7-32.8); PLATELET COUNT (AUTO) 188 K/uL (179-408)
[2022-01-02] MEDS: BLOOD SUGAR DIAGNOSTIC 1 EACH STRIP VI SCH ×4 (06:32→21:06)
[2022-01-02 06:49] LABS: BILIRUBIN,TOTAL 0.8 mg/dL (0.2-1.0); CREATININE 0.6 mg/dL (0.6-1.3); MAGNESIUM 1.7 mg/dL (1.8-2.4); PHOSPHOROUS 2.5 mg/dL (2.5-4.9); POTASSIUM 4.3 mmol/L (3.5-5.1); TOTAL PROTEIN, SERUM 4.9 g/dL (6.4-8.2)
--- NOTE | 2022-01-02 08:00 | NUR ---
SEEN BY DR NAGY STATUS CHANGED TO MED/SURG. CONTINUE WITH PAIN MANAGEMENT. SR ON MONITOR
[2022-01-02] MEDS: INSULIN REGULAR, HUMAN 300 UNIT/3 ML VIAL SQ PRN ×2 (08:17→16:24)
[2022-01-02] MEDS: LACTULOSE 20 G/30 ML LIQUID UDC PO SCH ×2 (08:18→21:19)
[2022-01-02] MEDS: MIDODRINE HCL 5 MG TABLET PO PRN (08:18)
[2022-01-02] MEDS: THIAMINE HCL 100 MG TABLET PO SCH (08:19)
[2022-01-02] MEDS: MULTIVITAMINS,THERAPEUTIC TABLET PO SCH (08:19)
[2022-01-02] MEDS: FOLIC ACID 1 MG TABLET PO SCH (08:20)
[2022-01-02] MEDS ORDERED: SWABABLE VALVE TRANSFER SET EA MC ONE (08:55)
[2022-01-02] MEDS ORDERED: IOHEXOL 300MG/ML 100 ML INFUS..BTL ONE (08:55)
[2022-01-02] MEDS ORDERED: PIPERACILLIN SODIUM/TAZOBACTAM 3.375 G in IV DEXTROSE 5% 50 ML IV ONE (09:00)
--- NOTE | 2022-01-02 11:30 | NUR ---
CT ABDOMEN/PELVIS DONE AWAITING FOR RESULTS
[2022-01-02 11:38] VITALS: BP 100/71
[2022-01-02] MEDS: LORAZEPAM 2 MG/1 ML VIAL IV PRN (11:42)
[2022-01-02] MEDS ORDERED: OMEP40CA21 PO (11:43)
[2022-01-02] MEDS ORDERED: MAGNESIUM OXIDE 400 MG TABLET PO ONE (12:00)
--- NOTE | 2022-01-02 12:00 | NUR ---
NO ACUTES CHANGE FROM MORNING ASSESSMENT
[2022-01-02 12:09] LABS: *OCCULT BLOOD STOOL POSITIVE (NEGATIVE)
[2022-01-02] MEDS ORDERED: PIPERACILLIN SODIUM/TAZOBACTAM 3.375 G in IV DEXTROSE 5% 50 ML IV SCH (14:00)
[2022-01-02] MEDS: PIPERACILLIN SODIUM/TAZOBACTAM 3.375 G in IV DEXTROSE 5% 100 ML IV SCH ×2 (14:14→21:01)
--- NOTE | 2022-01-02 15:52 | NUR ---
CONTINUE WITH MED/SURG OBSERVATION, NO NAUSEA AND VOMITING TOLERATING DIET ORDERED
[2022-01-02 16:34] VITALS: BP 97/68
[2022-01-02 20:49] VITALS: BP 92/60
[2022-01-03] MEDS: IV NS 1000 ML 1,000 ML IV SCH ×3 (02:38→20:46)
[2022-01-03 04:00] VITALS: BP 91/55
[2022-01-03] MEDS: HYDROCODONE/APAP 5-325MG TABLET PO PRN ×3 (04:18→20:38)
--- NOTE | 2022-01-03 05:30 | NUR ---
Continues to tolerate full liquids diet. PRN norco given twicw over the night for severe pain to bilateral feet. No dostress noted. Call light in reach. Assisted to all needs.
[2022-01-03] MEDS: PIPERACILLIN SODIUM/TAZOBACTAM 3.375 G in IV DEXTROSE 5% 100 ML IV SCH ×3 (05:53→21:03)
[2022-01-03] MEDS: PANTOPRAZOLE SODIUM 40 MG TABLET.DR PO SCH (06:26)
[2022-01-03 06:28] LABS: HEMATOCRIT 22.5 % (31.2-41.9); MEAN CORPUSCULAR HEMOGLOBIN 34.2 uug (24.7-32.8); MEAN CORPUSCULAR VOLUME 101.7 fL (75.5-95.3); PLATELET COUNT (AUTO) 162 K/uL (179-408)
[2022-01-03] MEDS: BLOOD SUGAR DIAGNOSTIC 1 EACH STRIP VI SCH ×4 (06:33→20:47)
[2022-01-03 06:41] LABS: CARBON DIOXIDE 24 mmol/L (21-32); CHLORIDE 97 mmol/L (98-107); CREATININE 0.5 mg/dL (0.6-1.3); GLUCOSE 292 mg/dL (74-106); MAGNESIUM 1.3 mg/dL (1.8-2.4); PHOSPHOROUS 3.1 mg/dL (2.5-4.9); POTASSIUM 3.7 mmol/L (3.5-5.1); UREA NITROGEN, BLOOD 1 mg/dL (7-18)
[2022-01-03 06:52] LABS: IRON, SERUM 41 ug/dL (50-175)
[2022-01-03] MEDS: LACTULOSE 20 G/30 ML LIQUID UDC PO SCH ×2 (08:15→20:37)
[2022-01-03] MEDS: FOLIC ACID 1 MG TABLET PO SCH (08:15)
[2022-01-03] MEDS: INSULIN REGULAR, HUMAN 300 UNIT/3 ML VIAL SQ PRN ×4 (08:15→20:47)
[2022-01-03] MEDS: MULTIVITAMINS,THERAPEUTIC TABLET PO SCH (08:16)
[2022-01-03] MEDS: THIAMINE HCL 100 MG TABLET PO SCH (08:16)
[2022-01-03 08:21] VITALS: BP 123/80
[2022-01-03] MEDS: LORAZEPAM 2 MG/1 ML VIAL IV PRN ×2 (08:29→18:35)
[2022-01-03] MEDS: MAGNESIUM SULFATE/D5W 100 ML IV SCH ×2 (09:48→10:49)
--- NOTE | 2022-01-03 12:09 | NUR ---
Patient was (+) cdiff on stool per Ruela from [facility] lab report. Dr Carrington made aware. will continue to monitor.
[2022-01-03 12:49] VITALS: BP 96/55
[2022-01-03] MEDS: MIDODRINE HCL 5 MG TABLET PO PRN (14:14)
[2022-01-03] MEDS: GLUCERNA SHAKE VANILLA 237 ML CAN PO SCH (16:34)
[2022-01-03 16:44] VITALS: BP 102/59
--- NOTE | 2022-01-03 17:56 | NUR ---
Patient remained stable during the shift. no acute distress identified. requested x1 prn pain medication. all needs attended. kept on contact isolation. frequent checks done. safety measures maintained. will endorse to the next shift for continuity of care.
--- NOTE | 2022-01-03 18:07 | NUR ---
Dr Carrington ordered Vanco 250mg q6h, and isolation. Order carried out. will continue to monitor.
[2022-01-03] MEDS: VANCOMYCIN FOR PO/GT/NG USE PO SCH (18:35)
--- NOTE | 2022-01-03 18:54 | NUR ---
Patient was noted with anxiety and requested PRN Ativan, tolerated well. will endorse to the next shift.
[2022-01-03 20:00] VITALS: BP 93/60
[2022-01-04] MEDS: VANCOMYCIN FOR PO/GT/NG USE PO SCH ×4 (00:43→17:19)
[2022-01-04] MEDS: LORAZEPAM 2 MG/1 ML VIAL IV PRN ×2 (00:50→12:55)
[2022-01-04 04:21] VITALS: BP 95/65
[2022-01-04] MEDS: MIDODRINE HCL 5 MG TABLET PO PRN ×2 (04:43→09:32)
[2022-01-04] MEDS: IV NS 1000 ML 1,000 ML IV SCH ×2 (05:32→12:37)
--- NOTE | 2022-01-04 05:36 | NUR ---
Patient AAO to person, place with forgetfulness to time. Noted with episodes of confusion and anxiety. Able to reorient patient. Patient requetsed one time pain relief for back/ head/ and leg pain 05/08- [place] provided and effective. Ativan provided one time for anxiety with effect, patient able to sleep after administration. IV fluids NS, infusing to right AC IV, patent and intact. Safety measures continued, patient is continent and incontinent. Call light within reach.
[2022-01-04] MEDS: PIPERACILLIN SODIUM/TAZOBACTAM 3.375 G in IV DEXTROSE 5% 100 ML IV SCH ×2 (06:13→14:26)
[2022-01-04] MEDS: PANTOPRAZOLE SODIUM 40 MG TABLET.DR PO SCH (06:14)
[2022-01-04 06:25] LABS: HEMATOCRIT 21.7 % (31.2-41.9); MEAN CORPUSCULAR HEMOGLOBIN 33.7 uug (24.7-32.8); MEAN CORPUSCULAR VOLUME 101.5 fL (75.5-95.3); PLATELET COUNT (AUTO) 170 K/uL (179-408)
[2022-01-04 06:27] LABS: CARBON DIOXIDE 27 mmol/L (21-32); CHLORIDE 107 mmol/L (98-107); CREATININE 0.5 mg/dL (0.6-1.3); GLUCOSE 162 mg/dL (74-106); MAGNESIUM 1.5 mg/dL (1.8-2.4); PHOSPHOROUS 3.5 mg/dL (2.5-4.9); POTASSIUM 3.9 mmol/L (3.5-5.1); UREA NITROGEN, BLOOD 1 mg/dL (7-18)
[2022-01-04] MEDS: BLOOD SUGAR DIAGNOSTIC 1 EACH STRIP VI SCH ×3 (06:50→16:55)
[2022-01-04] MEDS: FOLIC ACID 1 MG TABLET PO SCH (09:23)
[2022-01-04] MEDS: MULTIVITAMINS,THERAPEUTIC TABLET PO SCH (09:23)
[2022-01-04] MEDS: THIAMINE HCL 100 MG TABLET PO SCH (09:24)
[2022-01-04] MEDS: INSULIN REGULAR, HUMAN 300 UNIT/3 ML VIAL SQ PRN ×2 (09:25→16:57)
[2022-01-04] MEDS: GLUCERNA SHAKE VANILLA 237 ML CAN PO SCH ×3 (09:27→17:00)
[2022-01-04] MEDS: LACTULOSE 20 G/30 ML LIQUID UDC PO SCH (09:27)
[2022-01-04] MEDS ORDERED: MAGNESIUM OXIDE 400 MG TABLET PO ONE (09:30)
[2022-01-04 12:00] VITALS: BP 104/72
[2022-01-04] MEDS ORDERED: VANC500V PO (16:15)
[2022-01-04] MEDS ORDERED: LACT10SO3 PO (16:15)
[2022-01-04] MEDS ORDERED: THIA100T13 PO (16:15)
[2022-01-04 16:34] VITALS: BP 102/68
--- NOTE | 2022-01-04 18:54 | NUR ---
Discharged patient via private car, with the family member. She remained stable during the shift. No distress identified. no pain noted. vs wnl. no concerns identified. skin intact. educated on staying away from alcohol. dc instructions given. belonging list signed.
[2022-01-04] MEDS ORDERED: MAGNESIUM OXIDE 400 MG TABLET PO SCH (21:00)
== END 2022-01-04 18:50 | disposition home or self-care (01) | DRG 248 ==
LOC: ER 23:04 → TELE3 01-01 04:42 → MEDSURG3 01-02 10:53
PROVIDERS: ADMIT Internal Medicine; ATTEND Internal Medicine
DX: A04.72 Enterocolitis due to Clostridium difficile, not specified as recurrent (principal); E43 Unspecified severe protein-calorie malnutrition; D69.6 Thrombocytopenia, unspecified; R64 Cachexia; K86.0 Alcohol-induced chronic pancreatitis; E83.41 Hypermagnesemia; R62.7 Adult failure to thrive; K76.0 Fatty (change of) liver, not elsewhere classified; F10.229 Alcohol dependence with intoxication, unspecified; N39.0 Urinary tract infection, site not specified; E11.65 Type 2 diabetes mellitus with hyperglycemia; D64.9 Anemia, unspecified; Z20.822 Contact with and (suspected) exposure to COVID-19; Z79.4 Long term (current) use of insulin; Z87.442 Personal history of urinary calculi; Y90.8 Blood alcohol level of 240 mg/100 ml or more; Z91.19 Patient's noncompliance with other medical treatment and regimen; R53.1 Weakness; E87.6 Hypokalemia; K29.20 Alcoholic gastritis without bleeding; Z68.1 Body mass index [BMI] 19.9 or less, adult; F32.A Depression, unspecified; D75.89 Other specified diseases of blood and blood-forming organs; F10.239 Alcohol dependence with withdrawal, unspecified; K44.9 Diaphragmatic hernia without obstruction or gangrene; R19.5 Other fecal abnormalities; Z79.84 Long term (current) use of oral hypoglycemic drugs; R74.8 Abnormal levels of other serum enzymes
CPT/HCPCS: 36415; 71045; 83550; 83605; 83690; 83735; 84100; 84484; 85025; 87040; 87086; 93005; C1758; G0378; G0480; J0696; J2060; J2405; J2543; J3370; J3411; J3475; J3480; J3490; Q9967

== ENCOUNTER 2022-01-15 16:31 | Inpatient (IN) | payer OTHER ==
[~2022-01-15] VITALS: Ht 157.5 cm; Wt 43.5 kg
[~2022-01-15 16:31] MED LIST changes: -CHLO25CA22 PO; -OMEP20CA15 PO; -ONDA4TAB11 PO; -ONDA8TAB13 PO; +VANC500V PO
--- NOTE | 2022-01-15 16:42 | NUR ---
PT IS IN ROOM #2B. DR BLACKBURN EVALUATED THE PT.
[2022-01-15] MEDS ORDERED: IV NORMAL SALINE 1000 ML BAG IV ONE (16:45)
[2022-01-15 17:19] LABS: HEMATOCRIT 21.2 % (31.2-41.9); MEAN CORPUSCULAR HEMOGLOBIN 33.2 uug (24.7-32.8); MEAN CORPUSCULAR VOLUME 100.4 fL (75.5-95.3); PLATELET COUNT (AUTO) 400 K/uL (179-408)
[2022-01-15 17:29] LABS: ALANINE AMINOTRANSFERASE 27 U/L (14-59); ALKALINE PHOSPHATASE 288 U/L (50-136); ASPARTATE AMINOTRANSFERASE 65 U/L (15-37); BILIRUBIN,DIRECT 0.4 mg/dL (0.0-0.2); BILIRUBIN,TOTAL 0.4 mg/dL (0.2-1.0); CARBON DIOXIDE 24 mmol/L (21-32); CHLORIDE 97 mmol/L (98-107); CREATININE 0.7 mg/dL (0.6-1.3); POTASSIUM 4.1 mmol/L (3.5-5.1); TOTAL PROTEIN, SERUM 6.2 g/dL (6.4-8.2); UREA NITROGEN, BLOOD 7 mg/dL (7-18)
[2022-01-15 17:36] LABS: ABG BASE EXCESS -3.7 mmol/L; ABG HCO3 20.9 mmol/L; ABG PCO2 35.6 mmHg (35.0-45.0); ABG PH 7.386 (7.350-7.450); ABG PO2 88.8 mmHg (75.0-100.0); ABG SITE LEFT BRACHIAL; ABG TOTAL HEMOGLOBIN 7.6 G/dL (12.0-16.0); COHb 0.2 % (0.5-1.5); MetHb 0.3 % (0.0-1.5); O2Hb 93.8 % (94.0-97.0); VENT MODE room air
[2022-01-15 17:43] LABS: ETHANOL 358 MG/DL (0-0)
[2022-01-15 17:45] LABS: GLUCOSE 448 mg/dL (74-106)
[2022-01-15 17:46] LABS: LIPASE 16 U/L (73-393); MAGNESIUM 1.6 mg/dL (1.8-2.4)
[2022-01-15 17:47] LABS: ACETAMINOPHEN < 2.0 ug/mL (10-30)
[2022-01-15] MEDS ORDERED: LORAZEPAM 2 MG/1 ML VIAL IV ONE (18:00)
[2022-01-15] MEDS ORDERED: IV NORMAL SALINE 500 ML BAG IV ONE (18:00)
[2022-01-15] MEDS ORDERED: FOLIC ACID 1 MG in IV DEXTROSE 5% 50 ML IV SCH (18:00)
[2022-01-15] MEDS ORDERED: THIAMINE HCL 200 MG/2 ML VIAL IV ONE (18:00)
[2022-01-15] MEDS ORDERED: INSULIN REGULAR, HUMAN 300 UNIT/3 ML VIAL SQ ONE (18:00)
[2022-01-15] MEDS ORDERED: LORAZEPAM 2 MG/1 ML VIAL ONE (18:21)
[2022-01-15] MEDS ORDERED: INSULIN REGULAR, HUMAN 300 UNIT/3 ML VIAL ONE (18:25)
[2022-01-15] MEDS ORDERED: THIAMINE HCL 200 MG/2 ML VIAL ONE (18:25)
--- NOTE | 2022-01-15 19:11 | NUR ---
pt sleeping but easily awakens, pt aware she is being admitted to the hospital.
[2022-01-15] MEDS ORDERED: MAGNESIUM SULFATE/D5W 200 ML ONE (19:19)
--- NOTE | 2022-01-15 19:36 | NUR ---
call placed to Dr. Carrington to clarify placement of pt to tele staus.
[2022-01-15] MEDS: MAGNESIUM SULFATE/D5W 100 ML IV SCH ×2 (19:40→20:15)
--- NOTE | 2022-01-15 19:40 | NUR ---
Spoke to Dr Wilson to clearify admitting order. Patient will be admitted to Tele floor per Dr Hoffman.
--- NOTE | 2022-01-15 19:46 | NUR ---
call to third floor they state Aristeo will call me back for report.
--- NOTE | 2022-01-15 20:09 | NUR ---
report given to safia PRIETO pt to go to room 316
[2022-01-15] MEDS ORDERED: TEMAZEPAM 15 MG CAPSULE PO PRN (20:15)
[2022-01-15] MEDS ORDERED: MORPHINE SULFATE 2 MG/1 ML DISP.SYRIN IV PRN (20:15)
[2022-01-15] MEDS ORDERED: DEXTROSE 50% 50 ML DISP.SYRIN IV PRN (20:15)
[2022-01-15] MEDS ORDERED: ONDANSETRON 4 MG/2 ML VIAL IV PRN (20:15)
[2022-01-15 20:30] VITALS: BP 107/78
[2022-01-15] MEDS: INSULIN REGULAR, HUMAN 300 UNITS/3 ML VIAL SQ PRN (20:30)
--- NOTE | 2022-01-15 20:41 | NUR ---
pt transferred to room 316 via renetta with all belongings Aristeo PRIETO in room to accept the pt.
[2022-01-15] MEDS: IV NS 1000 ML 1,000 ML IV PRN (21:05)
[2022-01-15] MEDS: BLOOD SUGAR DIAGNOSTIC 1 EACH STRIP VI SCH (21:06)
[2022-01-15] MEDS: LORAZEPAM 2 MG/1 ML VIAL IV PRN (21:18)
[2022-01-15] MEDS ORDERED: PIPERACILLIN SODIUM/TAZOBACTAM 3.375 G in IV DEXTROSE 5% 50 ML IV SCH (22:00)
[2022-01-15] MEDS: PIPERACILLIN SODIUM/TAZOBACTAM 3.375 G in IV DEXTROSE 5% 100 ML IV SCH (22:19)
[2022-01-16] VITALS (10 sets, daily range): BP systolic 90–123; BP diastolic 52–90
[2022-01-16] MEDS: PIPERACILLIN SODIUM/TAZOBACTAM 3.375 G in IV DEXTROSE 5% 100 ML IV SCH ×3 (05:32→20:21)
[2022-01-16] MEDS: LORAZEPAM 2 MG/1 ML VIAL IV PRN (05:32)
[2022-01-16] MEDS: PANTOPRAZOLE SODIUM 40 MG TABLET.DR PO SCH (06:30)
[2022-01-16] MEDS: BLOOD SUGAR DIAGNOSTIC 1 EACH STRIP VI SCH ×4 (06:32→20:19)
[2022-01-16 07:22] LABS: MEAN CORPUSCULAR VOLUME 99.7 fL (75.5-95.3); PLATELET COUNT (AUTO) 338 K/uL (179-408)
[2022-01-16 07:32] LABS: BILIRUBIN,TOTAL 0.7 mg/dL (0.2-1.0); CREATININE 0.6 mg/dL (0.6-1.3); MAGNESIUM 1.6 mg/dL (1.8-2.4); PHOSPHOROUS 4.1 mg/dL (2.5-4.9); POTASSIUM 3.6 mmol/L (3.5-5.1); TOTAL PROTEIN, SERUM 5.4 g/dL (6.4-8.2)
[2022-01-16] MEDS: INSULIN REGULAR, HUMAN 300 UNIT/3 ML VIAL SQ PRN ×3 (07:54→16:44)
--- NOTE | 2022-01-16 08:00 | NUR ---
AWAKE ALERT, SLUGGISH WITH RESPONSES, O2 SAT 99% ON RA SR ON MONITOR WITH CONTINUOUS IVF AT 80 MLS/HR, ALSO ON IV ANTIBIOTICS NO SIGNS OF REACTION.
[2022-01-16] MEDS: FOLIC ACID 1 MG TABLET PO SCH (08:11)
[2022-01-16] MEDS: THIAMINE HCL 100 MG TABLET PO SCH (08:11)
[2022-01-16] MEDS: MULTIVITAMINS,THERAPEUTIC TABLET PO SCH (08:11)
[2022-01-16 08:35] LABS: *OCCULT BLOOD STOOL NEGATIVE (NEGATIVE)
[2022-01-16] MEDS ORDERED: MAGNESIUM SULFATE/D5W 100 ML IV SCH (09:00)
[2022-01-16] MEDS ORDERED: Medication Not On Formulary EA (Multivitamin (Multi-Vitamin Daily) 1 EACH) PO SCH (09:00)
--- NOTE | 2022-01-16 09:00 | NUR ---
HOSPITALIST NOTIFIED OF LOW HGB WITH ORDER TO TRANSFUSE 1 UNIT PRBC
[2022-01-16] MEDS: ACETAMINOPHEN 325 MG TABLET PO PRN ×2 (12:32→20:18)
--- NOTE | 2022-01-16 13:50 | NUR ---
BLOOD TRANSFUSION STARTED AND CLOSELY MONITORED
--- NOTE | 2022-01-16 14:16 | NUR ---
NO SIGNS OF BLOOD TRANSFUSION REACTION NOTED CONTINUE WITH INFUSION
[2022-01-16 14:38] LABS: LYMPHOCYTES % (MANUAL) 18 % (20-40); MONOCYTES % (MANUAL) 4 % (2-10); NEUTROPHILS % (MANUAL) 78 % (42-75)
--- NOTE | 2022-01-16 16:53 | NUR ---
blood transfusion completed without reaction
[2022-01-16 17:11] LABS: *URINE HCG, QUAL NEGATIVE (NEGATIVE)
[2022-01-16] MEDS: INSULIN REGULAR, HUMAN 300 UNITS/3 ML VIAL SQ PRN (20:20)
[2022-01-16] MEDS: ZOLPIDEM 5 MG TABLET PO PRN (22:07)
--- NOTE | 2022-01-16 23:00 | NUR ---
Seen by Dr. Hoffman with order to upgrade diet to CCHO regular and PRN Ambien PRN.
[2022-01-16 23:37] LABS: *BILIRUBIN,URIN NEGATIVE (NEGATIVE); *CLARITY,URINE CLEAR (CLEAR); *COLOR,URINE YELLOW (YELLOW); *KETONES,URINE NEGATIVE (NEGATIVE); *UROBILINOGEN,URINE 0.2 E.U./dl (NORMAL); LEUKOCYTE ESTERASE ,URINE 2+ (NEGATIVE); NITRITE, URINE NEGATIVE (NEGATIVE)
[2022-01-16 23:51] LABS: *AMPHETAMINE, URINE NEGATIVE (NEGATIVE); *BLOOD, URINE TRACE (NEGATIVE); *CANNABINOID, URINE NEGATIVE (NEGATIVE); *COCCAINE, URINE NEGATIVE (NEGATIVE); *OPIATE, URINE NEGATIVE (NEGATIVE); *PHENCYCLIDINE SCREEN,URINE NEGATIVE (NEGATIVE); UGLUCOSE 2+ (NEGATIVE)
[2022-01-17] LABS: BACTERIA,URINE MODERATE /HPF (NONE SEEN); SQUAMOUS EPITHELIAL CELL,UR MODERATE /HPF (NONE SEEN); WBC,URINE 50-80 /HPF (0-3)
--- NOTE | 2022-01-17 | NUR ---
Urine collected for Urinalysis.
[2022-01-17 04:18] VITALS: BP 131/83
[2022-01-17] MEDS: BLOOD SUGAR DIAGNOSTIC 1 EACH STRIP VI SCH ×4 (06:33→20:59)
[2022-01-17] MEDS: PIPERACILLIN SODIUM/TAZOBACTAM 3.375 G in IV DEXTROSE 5% 100 ML IV SCH ×3 (06:33→21:01)
[2022-01-17] MEDS: PANTOPRAZOLE SODIUM 40 MG TABLET.DR PO SCH (06:33)
--- NOTE | 2022-01-17 06:45 | NUR ---
Patient slept well with Rosemary. AAO x4. Patient complains of mild general pain, Tylenol provided as requested. On RA, no SOB. No episodes of diarrhea. Able to transfer to bedside commode. All needs attended, safety measures continued.
[2022-01-17 08:31] VITALS: BP 122/89
[2022-01-17] MEDS: FOLIC ACID 1 MG TABLET PO SCH (08:59)
[2022-01-17] MEDS: LORAZEPAM 2 MG/1 ML VIAL IV PRN ×2 (09:00→16:49)
[2022-01-17] MEDS: MULTIVITAMINS,THERAPEUTIC TABLET PO SCH (09:00)
[2022-01-17] MEDS: THIAMINE HCL 100 MG TABLET PO SCH (09:00)
[2022-01-17] MEDS: IV NS 1000 ML 1,000 ML IV PRN ×2 (09:04→22:08)
[2022-01-17] MEDS: INSULIN REGULAR, HUMAN 300 UNIT/3 ML VIAL SQ PRN (11:19)
[2022-01-17 12:00] VITALS: BP 125/80
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
[2022-01-17] MEDS: ACETAMINOPHEN 325 MG TABLET PO PRN (15:53)
[2022-01-17 16:00] VITALS: BP 108/52
--- NOTE | 2022-01-17 16:16 | NUR ---
Pt's blood sugar at 1610 was 61. Provided juices, apple sauce, sugar packet filled liquids. Pt is a/o x 4, no complaint of dizziness weakness, pt is able to communicate. Will recheck and reassess and notify
[2022-01-17] MEDS: GLUCERNA SHAKE VANILLA 237 ML CAN PO SCH (16:49)
--- NOTE | 2022-01-17 17:01 | NUR ---
reassessed pt, a/o x 4. rechecked blood sugar results 150.
--- NOTE | 2022-01-17 17:30 | NUR ---
Regular insulin non administered and held due to previous decrease in blood sugar.
[2022-01-17 20:21] VITALS: BP 103/71
[2022-01-17] MEDS: INSULIN REGULAR, HUMAN 300 UNITS/3 ML VIAL SQ PRN (21:00)
[2022-01-17] MEDS: ZOLPIDEM 5 MG TABLET PO PRN (21:01)
[2022-01-18 04:21] VITALS: BP 111/60
[2022-01-18] MEDS: PIPERACILLIN SODIUM/TAZOBACTAM 3.375 G in IV DEXTROSE 5% 100 ML IV SCH ×2 (06:17→15:34)
[2022-01-18] MEDS: PANTOPRAZOLE SODIUM 40 MG TABLET.DR PO SCH (06:22)
[2022-01-18] MEDS: BLOOD SUGAR DIAGNOSTIC 1 EACH STRIP VI SCH ×4 (06:22→20:09)
--- NOTE | 2022-01-18 06:47 | NUR ---
Patient AAO x4. Has a good appetite. Denies any generalized pain this shift. Ambien provided, slept well. On RA, no SOB. 3 episodes of diarrhea. Able to transfer to bedside commode but had one episode of incontinence. no s/s of hyperglycemia. All needs attended, safety measures continued.
[2022-01-18 06:49] LABS: HEMATOCRIT 26.3 % (31.2-41.9); MEAN CORPUSCULAR HEMOGLOBIN 31.7 uug (24.7-32.8); MEAN CORPUSCULAR VOLUME 93.7 fL (75.5-95.3); PLATELET COUNT (AUTO) 253 K/uL (179-408)
[2022-01-18 07:06] LABS: ALANINE AMINOTRANSFERASE 26 U/L (14-59); ALKALINE PHOSPHATASE 265 U/L (50-136); ASPARTATE AMINOTRANSFERASE 66 U/L (15-37); BILIRUBIN,TOTAL 0.5 mg/dL (0.2-1.0); CARBON DIOXIDE 26 mmol/L (21-32); CHLORIDE 103 mmol/L (98-107); CREATININE 0.5 mg/dL (0.6-1.3); GLUCOSE 143 mg/dL (74-106); MAGNESIUM 1.4 mg/dL (1.8-2.4); PHOSPHOROUS 4.6 mg/dL (2.5-4.9); POTASSIUM 3.9 mmol/L (3.5-5.1); TOTAL PROTEIN, SERUM 5.4 g/dL (6.4-8.2); UREA NITROGEN, BLOOD 3 mg/dL (7-18)
--- NOTE | 2022-01-18 07:55 | NUR ---
Received in bed easily arousable. No ss of pain or sob. Iv hydration ongoing as ordered. Commode at bedside. safety measures in place. Kept comfortable. Cont to monitor.
[2022-01-18] MEDS: FOLIC ACID 1 MG TABLET PO SCH (08:37)
[2022-01-18] MEDS: ACETAMINOPHEN 325 MG TABLET PO PRN ×2 (08:37→20:07)
[2022-01-18] MEDS: MULTIVITAMINS,THERAPEUTIC TABLET PO SCH (08:37)
[2022-01-18] MEDS: THIAMINE HCL 100 MG TABLET PO SCH (08:37)
[2022-01-18] MEDS: GLUCERNA SHAKE VANILLA 237 ML CAN PO SCH ×2 (08:37→17:11)
[2022-01-18] MEDS: INSULIN REGULAR, HUMAN 300 UNIT/3 ML VIAL SQ PRN ×3 (08:38→17:10)
[2022-01-18] MEDS: LORAZEPAM 2 MG/1 ML VIAL IV PRN ×2 (10:07→16:48)
[2022-01-18] MEDS: VANCOMYCIN FOR PO/GT/NG USE PO SCH ×3 (10:09→20:04)
[2022-01-18] MEDS: IV NS 1000 ML 1,000 ML IV PRN ×2 (10:14→20:00)
[2022-01-18] MEDS: MAGNESIUM SULFATE/D5W 100 ML IV SCH ×4 (10:25→14:01)
[2022-01-18 12:00] VITALS: BP 101/71
[2022-01-18 16:00] VITALS: BP 91/64
--- NOTE | 2022-01-18 18:00 | NUR ---
patient resting. denies sob/pain. iv ongoing. safety measures in place. needs attended.
--- NOTE | 2022-01-18 19:40 | NUR ---
PATIENT ALERT ORIENTED, NO SOB NO CHEST PAIN, BS STABLE, PATIENT HAS SOFT BM, CONT ABX FOR SEPSIS, CONT TO MONITOR.
[2022-01-18 20:57] VITALS: BP 104/77
[2022-01-18] MEDS: ZOLPIDEM 5 MG TABLET PO PRN (21:03)
--- NOTE | 2022-01-18 22:00 | NUR ---
PATIENT COMPLAIN OF INSOMNIA, GIVEN AMBIEN 5 MG PO ORDERED, NO ADVERSE REACTION NOTED.
[2022-01-19] MEDS: LORAZEPAM 2 MG/1 ML VIAL IV PRN ×3 (01:03→15:07)
--- NOTE | 2022-01-19 01:30 | NUR ---
PATIENT REQUEST ATIVAN IV FOR ANXIETY, GIVEN ORDERED, WITH NO ADVERSE REACTION. CONT TO MONITOR.
[2022-01-19] MEDS: VANCOMYCIN FOR PO/GT/NG USE PO SCH ×3 (04:11→15:07)
[2022-01-19 04:37] VITALS: BP 110/79
--- NOTE | 2022-01-19 04:53 | NUR ---
PATIENT AWAKE, NO SOB NO CHEST PAIN, CONT IV HYDRATION, CONT ABX, WITH NO ADVERSE REACTION, CONT TO MONITOR.
[2022-01-19] MEDS: BLOOD SUGAR DIAGNOSTIC 1 EACH STRIP VI SCH ×2 (05:34→12:19)
[2022-01-19] MEDS: PANTOPRAZOLE SODIUM 40 MG TABLET.DR PO SCH (06:02)
[2022-01-19 06:14] LABS: CREATININE 0.6 mg/dL (0.6-1.3); POTASSIUM 4.1 mmol/L (3.5-5.1)
--- NOTE | 2022-01-19 08:00 | NUR ---
Received patient laying in bed. A/O x 4. In room air. Denies SOB and Pain. MCFP assessment done, no skin issues noted. Midline in the Left and Right FA patent and intact. Safety initiated. Call light within reach. Will closely monitor.
[2022-01-19] MEDS: THIAMINE HCL 100 MG TABLET PO SCH (09:04)
[2022-01-19] MEDS: MULTIVITAMINS,THERAPEUTIC TABLET PO SCH (09:04)
[2022-01-19] MEDS: FOLIC ACID 1 MG TABLET PO SCH (09:04)
[2022-01-19] MEDS: GLUCERNA SHAKE VANILLA 237 ML CAN PO SCH (09:05)
[2022-01-19 10:08] LABS: HEMATOCRIT 25.2 % (31.2-41.9); MEAN CORPUSCULAR HEMOGLOBIN 32.2 uug (24.7-32.8); MEAN CORPUSCULAR VOLUME 95.7 fL (75.5-95.3); PLATELET COUNT (AUTO) 233 K/uL (179-408)
[2022-01-19] MEDS: IV NS 1000 ML 1,000 ML IV PRN (11:00)
[2022-01-19 11:36] VITALS: BP 118/84
[2022-01-19] MEDS: INSULIN REGULAR, HUMAN 300 UNIT/3 ML VIAL SQ PRN (12:23)
[2022-01-19] MEDS ORDERED: ZOLP5TAB2 PO (15:27)
[2022-01-19] MEDS ORDERED: HYDR-4209 PO (15:27)
[2022-01-19] MEDS ORDERED: GLIP5TAB13 PO (15:27)
[2022-01-19] MEDS ORDERED: VANC500V PO (15:27)
[2022-01-19 16:40] VITALS: BP 104/73
--- NOTE | 2022-01-19 17:03 | NUR ---
Pt discharge in stable condition.
== END 2022-01-19 16:45 | disposition home or self-care (01) | DRG 720 ==
LOC: ER 16:34 → TELE3 20:18 → MEDSURG3 01-16 10:18
PROVIDERS: ADMIT Internal Medicine; ATTEND Internal Medicine
PROC: 30233N1 Transfusion of Nonautologous Red Blood Cells into Peripheral Vein, Percutaneous Approach (ICD-10-PCS; principal; 2022-01-16)
DX: A41.9 Sepsis, unspecified organism (principal); E43 Unspecified severe protein-calorie malnutrition; D69.6 Thrombocytopenia, unspecified; A04.72 Enterocolitis due to Clostridium difficile, not specified as recurrent; K76.0 Fatty (change of) liver, not elsewhere classified; E86.0 Dehydration; R62.7 Adult failure to thrive; Z79.4 Long term (current) use of insulin; Y90.8 Blood alcohol level of 240 mg/100 ml or more; D53.9 Nutritional anemia, unspecified; D75.89 Other specified diseases of blood and blood-forming organs; E83.42 Hypomagnesemia; F32.A Depression, unspecified; F41.9 Anxiety disorder, unspecified; Z20.822 Contact with and (suspected) exposure to COVID-19; Z68.1 Body mass index [BMI] 19.9 or less, adult; F10.239 Alcohol dependence with withdrawal, unspecified; R19.5 Other fecal abnormalities; K86.1 Other chronic pancreatitis; Z87.442 Personal history of urinary calculi; N39.0 Urinary tract infection, site not specified; K29.20 Alcoholic gastritis without bleeding; K44.9 Diaphragmatic hernia without obstruction or gangrene; D18.03 Hemangioma of intra-abdominal structures; R74.8 Abnormal levels of other serum enzymes; E11.65 Type 2 diabetes mellitus with hyperglycemia; Z79.84 Long term (current) use of oral hypoglycemic drugs
CPT/HCPCS: 36415; 36600; 70030-TC; 71045; 83605; 83690; 83735; 84100; 84484; 84703; 85025; 85730; 86850; 86900; 86901; 86920; 87040; 87086; 93005; G0378; G0480; J1815; J2060; J2543; J3370; J3411; J3475; J3490; J7040; P9016

== ENCOUNTER 2022-02-12 20:28 | Emergency (ER) | payer OTHER ==
[~2022-02-12] VITALS: Ht 160 cm; Wt 38.6 kg
[~2022-02-12 20:28] MED LIST changes: +GLIP5TAB13 PO; +HYDR-4209 PO; -LACT10SO3 PO; +ZOLP5TAB2 PO
--- NOTE | 2022-02-12 20:40 | NUR ---
PT AMBULATED TO ER WITH STEADY GAIT, REQUESTING FOR MEDICAL CLEARANCE. PT IS A/O X4, NO SOB OR LABORED BREATHING, DENIES CP/PRESSURE. NO N/V/D. PT STATES SHE WANTS TO BE EVALUATED AND CHECKED INTO REHAB FOR ALCOHOL IN THE AM. CLEAR SPEECH, COMPLETE SENTENCES.
--- NOTE | 2022-02-12 21:00 | NUR ---
DR. CASTRO AT BEDSIDE, MSE IN PROGRESS.
[2022-02-12] MEDS ORDERED: IV NS 1000 ML 1,000 ML IV ONE (21:30)
[2022-02-12 22:01] LABS: MEAN CORPUSCULAR HEMOGLOBIN 31.5 uug (24.7-32.8); MEAN CORPUSCULAR VOLUME 94.9 fL (75.5-95.3); PLATELET COUNT (AUTO) 131 K/uL (179-408)
[2022-02-12] MEDS ORDERED: MAGNESIUM SULFATE/D5W 200 ML ONE (22:07)
[2022-02-12] MEDS: MAGNESIUM SULFATE/D5W 100 ML IV SCH (22:14)
[2022-02-12 23:11] LABS: ALANINE AMINOTRANSFERASE 56 U/L (14-59); ALKALINE PHOSPHATASE 323 U/L (50-136); BILIRUBIN,DIRECT 0.6 mg/dL (0.0-0.2); BILIRUBIN,TOTAL 0.9 mg/dL (0.2-1.0); CARBON DIOXIDE 24 mmol/L (21-32); CHLORIDE 91 mmol/L (98-107); CREATININE 0.7 mg/dL (0.6-1.3); POTASSIUM 3.3 mmol/L (3.5-5.1); TOTAL PROTEIN, SERUM 7.5 g/dL (6.4-8.2); UREA NITROGEN, BLOOD 9 mg/dL (7-18)
[2022-02-12 23:35] LABS: *BILIRUBIN,URIN NEGATIVE (NEGATIVE); *BLOOD, URINE 1+ (NEGATIVE); *CLARITY,URINE SLIGHTLY CLOUDY (CLEAR); *COLOR,URINE YELLOW (YELLOW); *KETONES,URINE 1+ (NEGATIVE); LEUKOCYTE ESTERASE ,URINE TRACE (NEGATIVE); NITRITE, URINE POSITIVE (NEGATIVE); UGLUCOSE 2+ (NEGATIVE)
[2022-02-12 23:52] LABS: BACTERIA,URINE MANY /HPF (NONE SEEN); SQUAMOUS EPITHELIAL CELL,UR FEW /HPF (NONE SEEN)
[2022-02-13 00:01] LABS: *AMPHETAMINE, URINE POSITIVE (NEGATIVE); *CANNABINOID, URINE NEGATIVE (NEGATIVE); *COCCAINE, URINE NEGATIVE (NEGATIVE); *OPIATE, URINE NEGATIVE (NEGATIVE); *PHENCYCLIDINE SCREEN,URINE NEGATIVE (NEGATIVE)
[2022-02-13] MEDS ORDERED: INSULIN REGULAR, HUMAN 10 UNIT in IV NORMAL SALINE 100 ML IV ONE ×2 (00:30)
[2022-02-13] MEDS ORDERED: POTASSIUM CHLORIDE 20 MEQ TAB.PRT.SR PO ONE (00:30)
[2022-02-13 00:33] LABS: ASPARTATE AMINOTRANSFERASE 210 U/L (15-37)
[2022-02-13] MEDS ORDERED: CEFTRIAXONE 1 G in IV DEXTROSE 5% 50 ML IV ONE (00:45)
[2022-02-13] MEDS ORDERED: POTASSIUM CHLORIDE 20 MEQ TAB.PRT.SR ONE (00:59)
[2022-02-13] MEDS ORDERED: CEFTRIAXONE /D5W 50ML IVPB **ER PYXIS IV ONE (00:59)
[2022-02-13 01:04] LABS: ETHANOL 163 MG/DL (0-0)
--- NOTE | 2022-02-13 01:52 | NUR ---
PT AMBULATED TO RESTROOM, STEADY GAIT. DENIES ANY HALLMAN/DIZZYNESS.
[2022-02-13] MEDS ORDERED: CHLORDIAZEPOXIDE HCL 25 MG CAPSULE PO ONE (03:15)
[2022-02-13] MEDS ORDERED: CHLORDIAZEPOXIDE HCL 25 MG CAPSULE ONE (03:16)
--- NOTE | 2022-02-13 04:31 | NUR ---
FRAN FROM [facility] (DIRECT #[phone]) CALLED, NEED MD TO MD CALL WITH DR. BARNETT [phone].
--- NOTE | 2022-02-13 05:00 | NUR ---
PT ACCEPTED TO [facility] ROOM: [address]A REPORT #:[phone] DR. MIREYA WHITE ETA [id number]
[2022-02-13] MEDS ORDERED: KETOROLAC TROMETHAMINE 15 MG INJ ONE (05:08)
[2022-02-13] MEDS ORDERED: KETOROLAC TROMETHAMINE 15 MG INJ IVP ONE (05:15)
--- NOTE | 2022-02-13 05:29 | NUR ---
GAVE REPORT TO [facility] [employer] AT [facility].
--- NOTE | 2022-02-13 09:18 | NUR ---
PT WAS TRANSFERED TO [facility]IA [facility]. NO S/S OF DISTRESS AT THE TIME OF DISCHARGE.
== END 2022-02-13 09:22 | disposition short-term general hospital (02) ==
LOC: ER 20:31
DX: F10.239 Alcohol dependence with withdrawal, unspecified (principal); Y90.6 Blood alcohol level of 120-199 mg/100 ml; R94.31 Abnormal electrocardiogram [ECG] [EKG]; N39.0 Urinary tract infection, site not specified; E11.65 Type 2 diabetes mellitus with hyperglycemia; Z79.4 Long term (current) use of insulin; Z79.84 Long term (current) use of oral hypoglycemic drugs; F15.90 Other stimulant use, unspecified, uncomplicated; D69.6 Thrombocytopenia, unspecified; E87.1 Hypo-osmolality and hyponatremia; E87.6 Hypokalemia; D64.9 Anemia, unspecified; Z20.822 Contact with and (suspected) exposure to COVID-19
CPT/HCPCS: 36415; 80048; 80076; 80307; 80320; 81001; 84484; 85025; 87086; 87426; 93005 ×2; 96365; 96367; 96375; 99285; J0696; J1885; J3475; J7040; A4663; G0480